=== PATIENT | male | born 1945 | race Caucasian/White ===

== ENCOUNTER → 2016-12-22 | Outpatient (CLI) | payer MEDICARE ==
--- NOTE | 2016-12-23 06:51 | PE ---
EXAMINATION TYPE: PET CT fusion skull to thigh DATE OF EXAM: 12/22/2016 1:26 PM CLINICAL HISTORY: Abnormal CT, right lung solitary pulmonary nodule. TECHNIQUE: Following the intravenous administration of 9.78 mCi of F-18 FDG, whole body images are performed from the skull base to the midthigh. Images are reviewed on the computer in the coronal, a xial, and sagittal planes. Reconstructed rotating images are created on independent workstation and reviewed on the computer. A non-contrast CT is performed in conjunction with the PET scan. COMPARISON: Chest CT February 29, 2016. Older chest CT August 09, 2012. FINDINGS: SKULL BASE AND NECK: No suspicious hypermetabolic uptake is seen in the neck to suggest neck adenopa thy. CHEST, MEDIASTINUM, AND HILAR REGION: There is background of moderate upper lung emphysematous change with biapical fibrosis. A 6 mm nodule in the superior aspect right lower lobe on axial image 81 prio r study is less prominent on current study without abnormal hypermetabolic uptake. No suspicious hype rmetabolic uptake is seen in the chest. There is redemonstration of oval well-circumscribed low dense nodule lateral right lower lobe on axial image 143 measuring 3.1 x 1.6 cm without abnormal hypermeta bolic uptake to suggest malignancy . There is persistent tiny right pleural effusion. ABDOMEN AND PELVIS: No suspicious hypermetabolic uptake is seen in the abdomen or pelvis. OSSEOUS STRUCTURES: No suspicious hypermetabolic uptake is seen in osseous structures. OTHER CT: There is redemonstration of cardiomegaly with multi lead pacemaker. Post CABG changes with mediastinal clips and sternal wires is again seen. There is redemonstration of heterogeneous enlarged left thyroid with some calcifications and substern al extension felt to reflect goiter unchanged from 2012 study. Small degree of bilateral gynecomastia is redemonstrated. There is multilevel facet arthropathy in the lower lumbar spine. There is multilevel spurring in the mid to lower thoracic spine. IMPRESSION: No suspicious hypermetabolic uptake is seen to suggest malignancy with particular attenti on to the right lateral basilar pulmonary nodule at area of CT concern.
== END | disposition home or self-care (01) ==
LOC: RADPETMAIN 10:22
PROVIDERS: ATTEND Internal Medicine Sleep Medicine
DX: R91.1 Solitary pulmonary nodule (principal); R59.0 Localized enlarged lymph nodes
CPT/HCPCS: 78815; A9552

== ENCOUNTER → 2017-04-05 | Outpatient (CLI) | payer MEDICARE ==
--- NOTE | 2017-04-05 13:14 | CT ---
EXAMINATION TYPE: CT chest wo con DATE OF EXAM: 04/05/2017 COMPARISON: CTA chest February 29, 2016 and older study August 09, 2012. PET/CT December 22, 2016 HISTORY: Follow-up pulmonary nodule. CT DLP: 657.00 mGycm. Automated Exposure Control for Dose Reduction was Utilized. TECHNIQUE: CT scan of the thorax is performed without IV contrast. FINDINGS: LUNGS: Underlying emphysematous change is felt present. There is tiny right-sided pleural fusion or f luid collection. There is 2.6 x 1.8 cm subpleural nodule laterally right lung base on axial image 51 on current study less prominent in size versus prior CT. There is reticulation and subpleural fibrosi s in bilateral upper lobes. There is stable pleural-based scar opacity left upper lung laterally on a xial image 15 unchanged from recent PET/CT. No new nodule or mass is clearly present. No pneumothorax is seen bilaterally. MEDIASTINUM: Lack of IV contrast is noted to limit evaluation for mediastinal and especially hilar ad enopathy. There is stable 2.7 x 1.1 cm paraspinal lymph node on axial image 22 that does not show hyp ermetabolic uptake on PET CT. There are prominent additional but subcentimeter thoracic lymph nodes r edemonstrated. No cardiomegaly or pericardial effusion is seen. There is moderate right greater tyree n left biatrial dilatation. Diffuse coronary artery calcification is present. There are however post CABG changes with mediastinal clips and sternal wires noted. Heterogeneous enlarged left thyroid glan d with substernal extension is redemonstrated. Pacemaker device is redemonstrated. OTHER: Bilateral gynecomastia is present. Moderate multilevel spurring in the spine is present. IMPRESSION: Redemonstration of ametabolic right basilar pulmonary nodule not changed from PET CT, les s prominent in size versus feb [address] No new mass or adenopathy is present.
== END | disposition home or self-care (01) ==
LOC: RADCTMAIN 12:10
PROVIDERS: ATTEND Internal Medicine Sleep Medicine
DX: R91.1 Solitary pulmonary nodule (principal)
CPT/HCPCS: 71250

== ENCOUNTER 2017-07-02 16:21 | Emergency (ER) | payer MEDICARE ==
[2017-07-02 16:37] VITALS: BP 121/67; PULSE 75; RESP 18; TEMP 97.7
[2017-07-02] MEDS ORDERED: SULFAMETH-TMP DS STARTER PACK 2 TAB BTL PO STA (16:49)
--- NOTE | 2017-07-02 16:59 | ED ---
General Adult HPI - General Chief complaint: Extremity Injury, Lower Stated complaint: bump on leg Time Seen by Provider: 07/02/17 16:43 Source: patient Mode of arrival: ambulatory Limitations: no limitations - History of Present Illness Initial comments: Patient is a 72-year-old male with a past medical history of insulin-dependent diabetes and MRSA infection status post surgery. Patient presents to the emergency department for evaluation of a tender red spot on his right anterior tibia. Patient reports he was in his usual state of health yesterday woke up this morning and noticed a small red spot that he thought could've been a bug bite. Throughout the day despite has become larger and redder which prompted him to come to the emergency department for evaluation. Patient states that because he is diabetic with peripheral neuropathy his primary care physician has talked him to have any redness of his legs or feet evaluated emergently. Patient denies any other symptoms. He denies any fevers, chills, nausea, vomiting, chest pain or shortness of breath. He denies any possible injury to the leg. - Related Data Home Medications Medication Instructions Recorded Confirmed Spironolactone [Aldactone] 25 mg PO DAILY 06/15/14 07/19/16 Venlafaxine HCl [Effexor] 75 mg PO HS 06/15/14 07/19/16 Lisinopril [Prinivil] 2.5 mg PO DAILY 06/17/14 07/19/16 Gabapentin [Neurontin] 300 mg PO BID 03/03/15 07/19/16 metFORMIN HCL [metFORMIN HCL ER] 750 mg PO BID 03/03/15 07/19/16 Insulin Glargine [Lantus] 20 unit SQ HS 02/21/16 07/19/16 Isosorbide Mononitrate ER [Imdur] 60 mg PO DAILY 02/21/16 07/19/16 sitaGLIPtin PHOS/metFORMIN HCL 1 tab PO DAILY 02/21/16 07/19/16 [Janumet Xr 100-1,000 mg Tablet] Albuterol Inhaler [Ventolin Hfa 2 puff INHALATION DIRECTED PRN 07/18/1607/18 Inhaler] Albuterol Nebulized [Ventolin 1 applic INHALATION 5XD PRN 07/18/16 07/19/16 Nebulized] Carvedilol [Coreg] 6.25 mg PO BID 07/18/16 07/19/16 Rivaroxaban [Xarelto] 20 mg PO DAILY 07/18/16 07/19/16 Previous Rx's Medication Instructions Recorded Aspirin 81 mg PO DAILY #30 chew 02/24/16 Atorvastatin [Lipitor] 80 mg PO HS #30 tab 02/24/16 Nitroglycerin Sl Tabs [Nitrostat] 0.4 mg SUBLINGUAL Q5M PRN #25 tab 02/24/16 Ticagrelor [Brilinta] 90 mg PO BID #60 tab 02/24/16 Furosemide [Lasix] 40 mg PO BID@0900,1600 #60 tab 03/03/16 Sulfamethox-Tmp 800-160Mg [Bactrim 1 tab PO Q12HR #14 tab 07/02/17 DS 800-160 mg] Sulfamethox-Tmp 800-160Mg [Bactrim 1 tab PO Q12HR #14 tab 07/02/17 DS 800-160 mg] Allergies Allergy/AdvReac Type Severity Reaction Status Date / Time No Known Allergies Allergy Verified 07/18/16 13:25 Review of Systems ROS Statement: Those systems with pertinent positive or pertinent negative responses have been documented in the HPI. ROS Other: All systems not noted in ROS Statement are negative. Constitutional: Denies: fever, chills Respiratory: Denies: cough, dyspnea Cardiovascular: Denies: chest pain, palpitations Endocrine: Denies: fatigue Gastrointestinal: Denies: abdominal pain, nausea, vomiting Genitourinary: Denies: dysuria Musculoskeletal: Denies: back pain Skin: Reports: change in color Psychiatric: Denies: anxiety, depression Hematological/Lymphatic: Denies: easy bleeding, easy bruising Past Medical History Past Medical History: COPD, Diabetes Mellitus, Osteoarthritis (OA), Skin Disorder, Sleep Apnea/CPAP/BIPAP Additional Past Medical History / Comment(s): SEE DR THOMAS H&P, psoriasis, neuropathy RT HAND LEFT FOOT, STATES REMOVED NICOLE BIG TOENAILS History of Any Multi-Drug Resistant Organisms: MRSA Date of last positivie culture/infection: 2011 MDRO Source:: chest incision Past Surgical History: AICD, Back Surgery, Coronary Bypass/CABG, Heart Catheterization With Stent Additional Past Surgical History / Comment(s): 3 STENTS, quad bypass, heart valve repair Past Anesthesia/Blood Transfusion Reactions: No Reported Reaction Date of Last Stent Placement:: 02/2016 Type of Cardiac Device: AICD Device Placement Date:: 2012 Past Psychological History: Depression, PTSD Smoking Status: Former smoker - Past Family History Father Family Medical History: Congestive Heart Failure (CHF), Coronary Artery Disease (CAD), Diabetes Mellitus, Myocardial Infarction ([place]) Additional Family Medical History / Comment(s): MAC DEGENERATION, CABG Mother Family Medical History: Dementia General Exam Limitations: no limitations General appearance: alert, in no apparent distress Head exam: Present: atraumatic, normocephalic, normal inspection Eye exam: Present: normal appearance ENT exam: Present: normal exam Neck exam: Present: normal inspection, full ROM Respiratory exam: Present: normal lung sounds bilaterally. Absent: respiratory distress, wheezes, rales, rhonchi, stridor Cardiovascular Exam: Present: regular rate, normal rhythm, normal heart sounds. Absent: systolic murmur, diastolic murmur, rubs, gallop, clicks GI/Abdominal exam: Present: soft. Absent: distended, tenderness, guarding Rectal exam: Present: deferred Extremities exam: Present: normal inspection, full ROM, normal capillary refill. Absent: tenderness, pedal edema, joint swelling, calf tenderness Back exam: Present: normal inspection Neurological exam: Present: alert, oriented X3, CN II-XII intact Psychiatric exam: Present: normal affect, normal mood Skin exam: Present: warm, dry, intact, other (Right anterior tibia with area of erythema and induration, consistent with cellulitis. No discernable abscess. ). Absent: rash Course Vital Signs 07/02/17 16:33 Temperature 97.7 F Pulse Rate 75 Respiratory 18 Rate Blood Pressure 121/67 O2 Sat by Pulse 91 L Oximetry Medical Decision Making - Medical Decision Making Patient was seen and evaluated Vital signs were reviewed, afebrile, normotensive, non-tachycardic, Oxygen saturation was noted to be 91% but the patient is having no shortness of breath History and physical exam are consistent with cellulitis of the right anterior pretibial skin, there is no discernible abscess Borders of the cellulitis were marked with a permanent marker and dated Patient was advised that he should take pictures of the cellulitis daily and should follow up with his primary care physician in 2 days for reevaluation A first dose of oral Bactrim was ordered in the emergency department, the patient was discharged home on by mouth Bactrim Disposition Clinical Impression: Cellulitis of leg without foot Disposition: HOME SELF-CARE Condition: Good Instructions: Cellulitis (ED) Prescriptions: Sulfamethox-Tmp 800-160Mg [Bactrim DS 800-160 mg] 1 tab PO Q12HR #14 tab Sulfamethox-Tmp 800-160Mg [Bactrim DS 800-160 mg] 1 tab PO Q12HR #14 tab Referrals: Liss Evangelista MD [Primary Care Provider] - 1-2 days
== END 2017-07-02 17:17 | disposition home or self-care (01) ==
LOC: EC 16:21
DX: L03.115 Cellulitis of right lower limb (principal); F32.9 Major depressive disorder, single episode, unspecified; E11.42 Type 2 diabetes mellitus with diabetic polyneuropathy; Z86.14 Personal history of Methicillin resistant Staphylococcus aureus infection; Z87.891 Personal history of nicotine dependence; Z79.4 Long term (current) use of insulin; Z79.01 Long term (current) use of anticoagulants; Z79.84 Long term (current) use of oral hypoglycemic drugs; Z79.899 Other long term (current) drug therapy
CPT/HCPCS: 99283

== ENCOUNTER 2017-07-10 12:50 | Emergency (ER) | payer MEDICARE ==
--- NOTE | 2017-07-10 14:38 | ED ---
Skin/Abscess/FB HPI - General Chief complaint: Skin/Abscess/Foreign Body Stated complaint: Leg Infection Time Seen by Provider: 07/10/17 14:30 Source: patient, RN notes reviewed Mode of arrival: ambulatory Limitations: no limitations - History of Present Illness Initial comments: 72-year-old male presents emergency Department with chief complaint of infection to his right leg. Patient states he is started on antibiotics last week. Patient did see PCP who told do warm compresses and which was improving denies worsen and is worse and initially started. Patient is currently still taking Bactrim. Patient states that he is a diabetic but denies any fever or chills. Denies any open wounds he states this is an area of redness and swelling on the anterior surface of his right tib-fib region - Related Data Home Medications Medication Instructions Recorded Confirmed Spironolactone [Aldactone] 25 mg PO DAILY 06/15/14 07/10/17 Venlafaxine HCl [Effexor] 75 mg PO HS 06/15/14 07/10/17 Lisinopril [Prinivil] 2.5 mg PO DAILY 06/17/14 07/10/17 metFORMIN HCL [metFORMIN HCL ER] 750 mg PO BID 03/03/15 07/10/17 Insulin Glargine [Lantus] 20 unit SQ HS 02/21/16 07/10/17 Isosorbide Mononitrate ER [Imdur] 60 mg PO DAILY 02/21/16 07/10/17 Albuterol Inhaler [Ventolin Hfa 2 puff INHALATION RT-Q4H PRN 07/18/16 07/10/17 Inhaler] Carvedilol [Coreg] 6.25 mg PO BID 07/18/16 07/10/17 Rivaroxaban [Xarelto] 20 mg PO DAILY 07/18/16 07/10/17 Budesonide [Pulmicort] 0.5 mg INHALATION RT-BID 07/10/17 07/10/17 Clopidogrel [Plavix] 75 mg PO DAILY 07/10/17 07/10/17 Dulaglutide [Trulicity] 1.5 mg SQ Q14D 07/10/17 07/10/17 Empagliflozin [Jardiance] 10 mg PO DAILY 07/10/17 07/10/17 Furosemide [Lasix] 20 mg PO DAILY 07/10/17 07/10/17 Montelukast Sodium [Singulair] 10 mg PO HS 07/10/17 07/10/17 Pregabalin [Lyrica] 25 mg PO TID 07/10/17 07/10/17 Previous Rx's Medication Instructions Recorded Aspirin 81 mg PO DAILY #30 chew 02/24/16 Atorvastatin [Lipitor] 80 mg PO HS #30 tab 02/24/16 Nitroglycerin Sl Tabs [Nitrostat] 0.4 mg SUBLINGUAL Q5M PRN #25 tab 02/24/16 Clindamycin HCl 300 mg PO Q6HR #40 cap 07/10/17 Allergies Allergy/AdvReac Type Severity Reaction Status Date / Time No Known Allergies Allergy Verified 07/10/17 15:22 Review of Systems ROS Statement: Those systems with pertinent positive or pertinent negative responses have been documented in the HPI. ROS Other: All systems not noted in ROS Statement are negative. Past Medical History Past Medical History: COPD, Diabetes Mellitus, Osteoarthritis (OA), Skin Disorder, Sleep Apnea/CPAP/BIPAP Additional Past Medical History / Comment(s): SEE DR THOMAS H&P, psoriasis, neuropathy RT HAND LEFT FOOT, STATES REMOVED NICOLE BIG TOENAILS History of Any Multi-Drug Resistant Organisms: MRSA Date of last positivie culture/infection: 2011 MDRO Source:: chest incision Past Surgical History: AICD, Back Surgery, Coronary Bypass/CABG, Heart Catheterization With Stent Additional Past Surgical History / Comment(s): 3 STENTS, quad bypass, heart valve repair Past Anesthesia/Blood Transfusion Reactions: No Reported Reaction Date of Last Stent Placement:: 02/2016 Type of Cardiac Device: AICD Device Placement Date:: 2012 Past Psychological History: Depression, PTSD Smoking Status: Former smoker Past Alcohol Use History: Rare Past Drug Use History: None Reported - Past Family History Father Family Medical History: Congestive Heart Failure (CHF), Coronary Artery Disease (CAD), Diabetes Mellitus, Myocardial Infarction ([place]) Additional Family Medical History / Comment(s): MAC DEGENERATION, CABG Mother Family Medical History: Dementia General Exam Limitations: no limitations General appearance: alert, in no apparent distress Head exam: Present: atraumatic, normocephalic, normal inspection Respiratory exam: Present: normal lung sounds bilaterally. Absent: respiratory distress, wheezes, rales, rhonchi, stridor Cardiovascular Exam: Present: regular rate, normal rhythm, normal heart sounds. Absent: systolic murmur, diastolic murmur, rubs, gallop, clicks Extremities exam: Present: other (Right lower leg over the anterior surface of tib-fib areas 3 cm area with erythema and swelling, mildly fluctuant and boggy there is no calf tenderness pedal pulses equal bilaterally) Skin exam: Present: warm, dry Course Vital Signs 07/10/17 13:43 Temperature 98.8 F Pulse Rate 79 Respiratory 18 Rate Blood Pressure 119/63 O2 Sat by Pulse 96 Oximetry Medical Decision Making - Medical Decision Making 72-year-old male present emergency from for right leg swelling and redness recheck. There is no fluid collection there is only superficial cellulitis. This is not spreading in any direction's there is no lymph nodes noted. Patient 's labwork is reviewed with no major abnormality's. Patient we switched to clindamycin 4 times a day with continuation warm compresses and follow-up with primary care physician for recheck. - Lab Data Result diagrams: 07/10/17 14:25 07/10/17 14:25 Lab Results 07/10/17 07/10/17 Range/Units 14:25 14:25 WBC 13.6 H (3.8-10.6) k/uL RBC 5.63 (4.30-5.90) m/uL Hgb 16.0 (13.0-17.5) gm/dL Hct 50.3 (39.0-53.0) % MCV 89.3 (80.0-100.0) fL MCH 28.4 (25.0-35.0) pg MCHC 31.8 (31.0-37.0) g/dL RDW 15.1 (11.5-15.5) % Plt Count 535 H (150-450) k/uL Neutrophils % 76 % Lymphocytes % 13 % Monocytes % 7 % Eosinophils % 2 % Basophils % 1 % Neutrophils # 10.3 H (1.3-7.7) k/uL Lymphocytes # 1.7 (1.0-4.8) k/uL Monocytes # 0.9 (0-1.0) k/uL Eosinophils # 0.3 (0-0.7) k/uL Basophils # 0.1 (0-0.2) k/uL Sodium 136 L (137-145) mmol/L Potassium 5.3 H (3.5-5.1) mmol/L Chloride 98 (98-107) mmol/L Carbon Dioxide 21 L (22-30) mmol/L Anion Gap 17 mmol/L BUN 17 (9-20) mg/dL Creatinine 1.01 (0.66-1.25) mg/dL Est GFR (MDRD) Af Amer >60 (>60 ml/min/1.73 sqM) Est GFR (MDRD) Non-Af >60 (>60 ml/min/1.73 sqM) Glucose 190 H (74-99) mg/dL Calcium 10.2 (8.4-10.2) mg/dL Disposition Clinical Impression: Cellulitis of leg without foot Disposition: HOME SELF-CARE Condition: Stable Instructions: Cellulitis (ED) Additional Instructions: Please return to the Emergency Department if symptoms worsen or any other concerns. Prescriptions: Clindamycin HCl 300 mg PO Q6HR #40 cap Referrals: Liss Evangelista MD [Primary Care Provider] - 1-2 days Time of Disposition: 15:48
[2017-07-10 14:59] LABS: Basophils # (A) 0.1 k/uL (0-0.2); Basophils % (A) 1 %; CH 28.4; Eosinophils # (A) 0.3 k/uL (0-0.7); Eosinophils % (A) 2 %; HCT 50.3 % (39.0-53.0); HDW 2.54; Luc # (Auto) 0.27; Luc % (Auto) 2; Lymphocytes # (A) 1.7 k/uL (1.0-4.8); Lymphocytes % (A) 13 %; MCH 28.4 pg (25.0-35.0); MCHC 31.8 g/dL (31.0-37.0); MCV 89.3 fL (80.0-100.0); Mean Platelet Volume 6.3; Monocytes # (A) 0.9 k/uL (0-1.0); Monocytes % (A) 7 %; Neutrophils # (A) 10.3 k/uL (1.3-7.7); Neutrophils % (A) 76 %; RBC 5.63 m/uL (4.30-5.90); RDW 15.1 % (11.5-15.5); WBC 13.6 k/uL (3.8-10.6); WBC (Perox) 13.11
[2017-07-10 15:20] LABS: Anion Gap 17 mmol/L; Blood Urea Nitrogen 17 mg/dL (9-20); Calcium 10.2 mg/dL (8.4-10.2); Carbon Dioxide 21 mmol/L (22-30); Chloride 98 mmol/L (98-107); Glucose 190 mg/dL (74-99); Non-African American GFR(MDRD) >60 (>60 ml/min/1.73 sqM); Potassium 5.3 mmol/L (3.5-5.1); Sodium 136 mmol/L (137-145)
--- NOTE | 2017-07-10 15:33 | XR ---
EXAMINATION TYPE: XR tibia fibula RT DATE OF EXAM: 07/10/2017 CLINICAL HISTORY: Redness with bruising and pain. TECHNIQUE: Two views of the right leg are obtained. COMPARISON: None. FINDINGS: There is no acute fracture or dislocation seen in the right tibia or fibula. There is meni scal calcification with tibial condylar spurring. There is spurring from the patella superior and inf erior anterior aspects. Surgical clips medially in the distal right leg are present. Visualization of muscle fibers is noted diffusely. Moderate to large superior and inferior calcaneal spurs are presen t. IMPRESSION: There is no acute fracture or dislocation seen in the right tibia or fibula.
--- NOTE | 2017-07-10 15:34 | US ---
EXAMINATION TYPE: US extremity nonvasc mass RT DATE OF EXAM: 07/10/2017 COMPARISON: NONE CLINICAL HISTORY: Pain, palpable red lump on right guidry. Small amount of edema visualized at the area of concern, otherwise, unremarkable exam. No worrisome focal fluid collection is seen on images saved. Subcutaneous edema just below skin surfa ce is present. Muscle fibers are felt within normal limits. IMPRESSION: As above.
[2017-07-10 15:57] VITALS: BP 130/80; PULSE 75; RESP 16; TEMP 98
== END 2017-07-10 15:56 | disposition home or self-care (01) ==
LOC: EC 12:50
DX: L03.115 Cellulitis of right lower limb (principal); J44.9 Chronic obstructive pulmonary disease, unspecified; E11.40 Type 2 diabetes mellitus with diabetic neuropathy, unspecified; F32.9 Major depressive disorder, single episode, unspecified; Z86.14 Personal history of Methicillin resistant Staphylococcus aureus infection; Z87.891 Personal history of nicotine dependence; Z79.4 Long term (current) use of insulin; Z79.84 Long term (current) use of oral hypoglycemic drugs; Z79.01 Long term (current) use of anticoagulants; Z79.51 Long term (current) use of inhaled steroids; Z79.899 Other long term (current) drug therapy
CPT/HCPCS: 36415; 80048; 85025; 99284

== ENCOUNTER → 2017-11-04 | Outpatient (CLI) | payer MEDICARE ==
--- NOTE | 2017-11-04 14:17 | CT ---
EXAMINATION TYPE: CT chest wo con DATE OF EXAM: 11/04/2017 COMPARISON: Prior CT chest 04/05/2017 HISTORY: Prior in PACS. Solitary pulmonary nodule. Patient states hx of pneumonia CT DLP: 677.3 mGycm. Automated Exposure Control for Dose Reduction was Utilized. TECHNIQUE: CT scan of the thorax is performed without IV contrast. FINDINGS: Enlarged thyroid, goiter which extends into the superior mediastinum is again noted, there is associated calcification LUNGS: The lungs are grossly stable, there is no concerning parenchymal mass or nodule identified. Th e nodular density in the subpleural location of the right lower lobe shows a stable appearance. Ther e is no pleural effusion or pneumothorax seen. Chronic pleural thickening noted at the right lung ba se. Some interstitial opacities are also stable bilaterally. Nodule in the right lower lobe axial debbie ge 29 is also stable. Emphysematous changes again noted. The tracheobronchial tree is patent. MEDIASTINUM: Lack of IV contrast is noted to limit evaluation for mediastinal and especially hilar ad enopathy. Retrocaval pretracheal node is enlarged but stable, there are aortic oh pulmonary window no brisa, prevascular nodes as on prior exam. Patient is post mitral valve replacement. Heart is enlarged. OTHER: Patient is post median sternotomy. Coronary artery calcifications are extensive. Intracardiac defibrillator leads are stable. IMPRESSION: Stable lung nodules. Interstitial lung disease. Additional findings above.
== END | disposition home or self-care (01) ==
LOC: RADCTMAIN 13:15
PROVIDERS: ATTEND Internal Medicine Sleep Medicine
DX: J98.4 Other disorders of lung (principal); R91.8 Other nonspecific abnormal finding of lung field
CPT/HCPCS: 71250

== ENCOUNTER → 2017-12-05 | Outpatient (CLI) | payer MEDICARE ==
--- NOTE | 2017-12-06 07:20 | US ---
EXAMINATION TYPE: US thyroid st tissue head/neck DATE OF EXAM: 12/05/2017 COMPARISON: NONE CLINICAL HISTORY: E04.9 Nontoxic Goiter. Enlarged thyroid GLAND SIZE: Right Lobe: 4.2 x 2.0 x 2.0 cm Overall Parenchyma: heterogenous Left Lobe: 5.6 x 3.5 x 3.2 cm Overall Parenchyma: heterogeneous Enlarged in size Isthmus Thickness: 0.4 cm NODULES RIGHT: # of nodules measured on right: 2 1. 0.7 X 0.5 x 0.5 cm hypoechoic mixed nodule at the mid pole with well-defined margins. This nodu le is taller than wide and shows no intranodular vascularity. Prior size: No prior 2. 0.5 X 0.5 x 0.3 cm cystic nodule at the lower pole with well-defined margins. This nodule is dl ler than wide and shows no intranodular vascularity. Prior size: No prior LEFT: # of nodules measured on left: 1 1. 3.0 X 2.9 x 3.0 cm isoechoic solid nodule at the lower pole with irregular margins. This nodule is taller than wide and shows no intranodular vascularity. Prior size: No prior Limited visualization due to being located inferiorly to neck ISTHMUS: # of nodules measured in the isthmus: 0 Bilateral neck scanned, no evidence of lymphadenopathy. Right lobe echogenic focus with shadowing - 0.5 cm IMPRESSION: 1. 3 cm isoechoic left thyroid nodule fitting criteria for fine needle aspiration and therefore fine needle aspiration is recommended. 2. Multiple subcentimeter right-sided thyroid nodules with more benign characteristics that are too s mall for percutaneous fine-needle aspiration. Surveillance is recommended. 3. Enlarged left thyroid lobe without hypervascularity.
== END | disposition home or self-care (01) ==
LOC: RADUSWWP 16:32
PROVIDERS: ATTEND Family Medicine
DX: E04.2 Nontoxic multinodular goiter (principal)
CPT/HCPCS: 76536

== ENCOUNTER 2017-12-25 11:42 | Day surgery (SDC) | payer MEDICARE ==
[2017-12-24 09:41] VITALS: BMI 34.3
[~2017-12-25 11:42] MED LIST: ALPRAZolam 0.25 MG TAB PO PRN; ASPIRIN 325 MG TAB PO STA; SODIUM CHLORIDE 0.9% 1,000 ML in EMPTY BAG 1 BAG IV ONE
[2017-12-25 14:13] LABS: Glucose,Whole Blood 161 mg/dL (75-99)
[2017-12-25] MEDS ORDERED: SODIUM CHLORIDE 0.9% 1,000 ML IV ONE (14:19)
[2017-12-25 14:31] LABS: Anion Gap 14 mmol/L; Blood Urea Nitrogen 20 mg/dL (9-20); Calcium 9.6 mg/dL (8.4-10.2); Carbon Dioxide 28 mmol/L (22-30); Chloride 98 mmol/L (98-107); Glucose 129 mg/dL (74-99); Potassium 4.4 mmol/L (3.5-5.1); Sodium 140 mmol/L (137-145)
[2017-12-25 14:50] LABS: Basophils # (A) 0.1 k/uL (0-0.2); Basophils % (A) 1 %; Eosinophils # (A) 0.2 k/uL (0-0.7); Eosinophils % (A) 2 %; HCT 42.9 % (39.0-53.0); HGB 13.9 gm/dL (13.0-17.5); Hypochromasia Slight; Lymphocytes # (A) 1.4 k/uL (1.0-4.8); Lymphocytes % (A) 15 %; MCHC 32.5 g/dL (31.0-37.0); Mean Platelet Volume 6.9; Monocytes # (A) 0.8 k/uL (0-1.0); Monocytes % (A) 8 %; Neutrophils # (A) 6.8 k/uL (1.3-7.7); Neutrophils % (A) 72 %; Platelet Count 342 k/uL (150-450); RBC 5.36 m/uL (4.30-5.90); RDW 15.2 % (11.5-15.5); WBC 9.5 k/uL (3.8-10.6)
[2017-12-25] MEDS ORDERED: LIDOCAINE 2% INJ 20 MG/ML SQ ONE (19:05)
[2017-12-25] MEDS ORDERED: MIDAZOLAM 2 MG/2 ML VIAL IVP ONE (19:06)
[2017-12-25] MEDS ORDERED: HEPARIN SODIUM 1,000 UN/ML (10ML VL) IV ONE (19:09)
[2017-12-25] MEDS ORDERED: NITROGLYCERIN 1000MCG/10ML SYRINGE INTRAARTER ONE (19:40)
[2017-12-25] MEDS ORDERED: CLOPIDOGREL 75 MG TAB PO ONE (20:07)
[2017-12-25] MEDS ORDERED: IODIXANOL 320 MG/ML 100 ML INTRAARTER ONE (20:08)
[2017-12-25] MEDS ORDERED: ALBUTEROL NEBULIZED 2.5 MG/3 ML INHALATION PRN (20:10)
[2017-12-25] MEDS ORDERED: NITROGLYCERIN SL TABS 0.4 MG TAB SUBLINGUAL PRN (20:10)
[2017-12-25] MEDS ORDERED: SODIUM CHLORIDE 0.9% 1,000 ML IV SCH (20:15)
[2017-12-25] MEDS ORDERED: NON-FORMULARY DRUG (Dulaglutide [Trulicity] 1.5 MG) SQ SCH (20:15)
[2017-12-25 20:54] VITALS: RESP 18
[2017-12-25] MEDS ORDERED: INSULIN DETEMIR 100 UNIT/ML 10 ML VIAL SQ SCH (21:00)
[2017-12-25] MEDS ORDERED: VENLAFAXINE HCL 75 MG TAB PO SCH (21:00)
[2017-12-25] MEDS ORDERED: ATORVASTATIN 80 MG TAB PO SCH (21:00)
[2017-12-25] MEDS ORDERED: MONTELUKAST 10 MG TAB PO SCH (21:00)
[2017-12-25 21:09] LABS: Glucose,Whole Blood 87 mg/dL (75-99)
[2017-12-25] MEDS: PREGABALIN 75 MG CAP PO SCH (21:23)
--- NOTE | 2017-12-25 22:38 | LTR ---
December 25, 2017. Liss Evangelista MD Dear Dr. Evangelista: Mr. Navin Saha underwent successful atherectomy and balloon angioplasty of the left femoral artery with good angiographic results and without any complications. I want to thank you for allowing us to participate in his care. Please do not hesitate to call if you have any questions or concerns. Sincerely, Javier Stevenson MD MMTANJA / MILAGROS: [id number] /
--- NOTE | 2017-12-25 23:53 | PTCA ---
PERCUTANEOUSTRANS CORORONARY ANGIOGRAPHY PERFORMING PHYSICIAN: Javier Stevenson MD, knuckle bender. PROCEDURES PERFORMED: 1. Selective left superficial femoral artery angiogram. 2. Selective left [id number] angiogram. 3. An atherectomy of the left superficial femoral artery using the using the orbital atherectomy device from [employer]. 4. Intravascular ultrasound IVUS of the left superficial femoral artery. 5. Balloon angioplasty of the left superficial femoral artery using 6 x 40-mm balloon with inadequate angiographic results. 6. Successful stenting of the left superficial femoral artery using 7 x 60-mm self- expandable stent which was Zilver PTX with a good angiographic result. INDICATION: This is a pleasant 72-year-old gentleman who was experiencing left leg intermittent claudication and underwent a peripheral angiogram and that revealed discrete tight lesion involving left SFA. He was brought today to undergo a NCA CERTIFIED CONCIERGE of the left SFA. APPROACH: Right common femoral artery. COMPLICATION: None. LEVEL OF SEDATION: Moderate. Sedation length of 53 minutes. PROCEDURE DESCRIPTION: After obtaining an informed consent, the patient was brought to the cardiac laborer airport maintenance. The right common femoral artery was cannulated. Using micropuncture technique, the micropuncture wire passed easily. Then I placed an 11 cm 6-Kenyan sheath in the right common femoral artery. After that, anticoagulation was initiated using heparin and the patient was given a weight-based heparin. Subsequently I did select the left SFA using a 0.035 Advantage wire with adjunctive 5- Kenyan rim catheter. After that, I did exchange my 11-cm 6-Kenyan sheath into 55-cm 6- Kenyan sheath using the Advantage wire. After that, I did wire the left SFA using an 0.014 wire. I then exchanged my wire into a viper Wire using an 0.014 CXI catheter. After that, I did multiple runs of orbital atherectomy using the CSI device, where I did atherectomy under low, medium and high speeds. After that, I did intravascular ultrasound of the left SFA using the intravascular and an eccentric plaque was seen with a diameter measure of the left SFA of 67 mm. I did balloon the SFA using initially an AngioSculpt 6-mm balloon subsequently using 6-mm drug-coated balloon. The following angiogram did not show a good angiographic result or adequate angiographic result. At that point, I decided to stent the left SFA, so I did deploy a 7 x 60-mm Zilver PTX drug-coated stent, where the stent was positioned under fluoroscopy guidance and deployed after that. The following angiogram showed good angiographic results. The procedure was completed without any complication. After that, I did exchange my 55-cm 6-Kenyan sheath into 11-cm 6-Kenyan sheath using the Advantage wire. After that, I did deploy the Perclose device. The procedure was completed without any complication. POST PROCEDURE MANAGEMENT: 1. Dual anti-platelet therapy. 2. Risk factor modifications. 3. Follow up with the patient. MMODL / IJN: [id number] /
[2017-12-26 04:46] VITALS: TEMP 97.1
[2017-12-26 06:14] LABS: Basophils # (A) 0.1 k/uL (0-0.2); Basophils % (A) 1 %; Eosinophils # (A) 0.3 k/uL (0-0.7); Eosinophils % (A) 3 %; HCT 43.9 % (39.0-53.0); HGB 14.1 gm/dL (13.0-17.5); Hypochromasia Slight; Lymphocytes # (A) 1.6 k/uL (1.0-4.8); Lymphocytes % (A) 17 %; MCH 25.7 pg (25.0-35.0); MCV 80.4 fL (80.0-100.0); Mean Platelet Volume 6.6; Monocytes # (A) 0.9 k/uL (0-1.0); Monocytes % (A) 10 %; Neutrophils # (A) 5.9 k/uL (1.3-7.7); Neutrophils % (A) 66 %; Platelet Count 340 k/uL (150-450); RBC 5.47 m/uL (4.30-5.90); RDW 15.1 % (11.5-15.5)
[2017-12-26 06:18] LABS: Glucose,Whole Blood 110 mg/dL (75-99)
[2017-12-26 06:37] LABS: Anion Gap 11 mmol/L; Blood Urea Nitrogen 22 mg/dL (9-20); Calcium 9.3 mg/dL (8.4-10.2); Carbon Dioxide 27 mmol/L (22-30); Chloride 102 mmol/L (98-107); Glucose 106 mg/dL (74-99); Potassium 4.5 mmol/L (3.5-5.1); Sodium 140 mmol/L (137-145)
[2017-12-26 07:24] VITALS: BP 98/62
[2017-12-26] MEDS ORDERED: CARVEDILOL 6.25 MG TAB PO SCH (07:30)
[2017-12-26] MEDS ORDERED: BUDESONIDE 0.5 MG/2 ML NEBU INHALATION SCH (08:00)
[2017-12-26] MEDS ORDERED: LISINOPRIL 2.5 MG TAB PO SCH (09:00)
[2017-12-26] MEDS ORDERED: FUROSEMIDE 20 MG TAB PO SCH (09:00)
[2017-12-26] MEDS ORDERED: ISOSORBIDE MONONITRATE ER 60 MG TAB.ER.24H PO SCH (09:00)
[2017-12-26] MEDS ORDERED: ASPIRIN 81 MG PO SCH (09:00)
[2017-12-26] MEDS ORDERED: CLOPIDOGREL 75 MG TAB PO SCH ×2 (09:00)
[2017-12-26 09:01] VITALS: PULSE 96
[2017-12-26] MEDS: PREGABALIN 75 MG CAP PO SCH (09:05)
--- NOTE | 2017-12-26 09:38 | IR ---
EXAMINATION TYPE: IR [place] femoral popliteal DATE OF EXAM: 12/25/2017 COMPARISON: NONE HISTORY: Peripheral vascular occlusive disease. Fluoroscopy was provided to the referring clinician. See dictated report from cardiology.
--- NOTE | 2017-12-26 09:48 | DS ---
DISCHARGE SUMMARY ADMISSION DATE: 12/25/2017 DISCHARGE DATE: 12/26/2017 BRIEF HISTORY: This is a pleasant 72-year-old gentleman who was experiencing left leg intermittent claudication and underwent yesterday A successful percutaneous peripheral intervention of the left SFA with good angiographic results and without any complication where the procedure was performed from the right groin. The patient is going to be discharged home on dual anti-platelet therapy and I will follow up with the patient as an outpatient in the office. MMTANJA / MILAGROS: [id number] /
[2017-12-26 12:05] LABS: Glucose,Whole Blood 169 mg/dL (75-99)
== END 2017-12-26 11:49 | disposition home or self-care (01) ==
LOC: CATHCVL 11:42 → 6SEL 20:41 → CATHCVL 12-26 11:49
PROVIDERS: ATTEND Internal Medicine Interventional Cardiology
DX: I70.312 Atherosclerosis of unspecified type of bypass graft(s) of the extremities with intermittent claudication, left leg (principal); I25.110 Atherosclerotic heart disease of native coronary artery with unstable angina pectoris; E11.9 Type 2 diabetes mellitus without complications; I10 Essential (primary) hypertension; E78.5 Hyperlipidemia, unspecified; I25.5 Ischemic cardiomyopathy; I48.92 Unspecified atrial flutter; I47.2 Ventricular tachycardia; I48.2 Chronic atrial fibrillation; Z95.1 Presence of aortocoronary bypass graft; Z95.5 Presence of coronary angioplasty implant and graft; Z95.810 Presence of automatic (implantable) cardiac defibrillator; Z82.49 Family history of ischemic heart disease and other diseases of the circulatory system; Z79.01 Long term (current) use of anticoagulants; Z79.02 Long term (current) use of antithrombotics/antiplatelets; Z79.82 Long term (current) use of aspirin; Z79.4 Long term (current) use of insulin; Z79.899 Other long term (current) drug therapy; Z87.891 Personal history of nicotine dependence
CPT/HCPCS: 94640; 37227; 37252; 80048 ×2; 83735; 85025 ×2; C1894 ×2; C1714; C1769 ×4; C1725; C1753; C1760; C1874; C2623; J2001; J2250; Q9967; J1644

== ENCOUNTER 2017-12-31 12:34 | Day surgery (SDC) | payer MEDICARE ==
[2017-12-31 12:54] VITALS: RESP 16; TEMP 97.5
[2017-12-31 14:02] VITALS: BP 91/49; PULSE 57
--- NOTE | 2017-12-31 17:36 | US ---
EXAMINATION TYPE: US FNA thyroid DATE OF EXAM: 12/31/2017 COMPARISON: Ultrasound thyroid 12/05/2017 HISTORY: Thyroid nodule, E04.1 Maximal barrier technique was utilized. Ultrasound using sterile technique. The skin overlying the no dule was localized with ultrasound and the overlying skin prepped and draped. Lidocaine used for loca l anesthesia. 5 passes with a 25-gauge needle were made into the left lower pole nodule under ultraso und guidance. Aspirate specimen submitted to cytology. Following the procedure hemostasis achieved. N o immediate complication IMPRESSION: Status post ultrasound-guided fine-needle aspiration of thyroid nodule, pathology pending .
== END 2017-12-31 14:13 | disposition home or self-care (01) ==
LOC: RADPROMAIN 12:34
DX: E04.1 Nontoxic single thyroid nodule (principal)
CPT/HCPCS: 10022; 76942; 88173; 88305

== ENCOUNTER 2018-04-10 14:19 | Inpatient (IN) | payer MEDICARE ==
[2018-04-10] MEDS ORDERED: SODIUM CHLORIDE 0.9% 1,000 ML IV STA (14:27)
[2018-04-10] MEDS ORDERED: IPRATROPIUM-ALBUTEROL 3 ML NEB INHALATION STA (14:28)
[2018-04-10 14:42] LABS: Anisocytosis Slight; Basophils % (A) 0 %; Eosinophils # (A) 0.3 k/uL (0-0.7); Eosinophils % (A) 3 %; HCT 38.5 % (39.0-53.0); HGB 11.7 gm/dL (13.0-17.5); Hypochromasia Marked; Lymphocytes # (A) 1.2 k/uL (1.0-4.8); Lymphocytes % (A) 12 %; MCH 23.1 pg (25.0-35.0); MCHC 30.4 g/dL (31.0-37.0); MCV 76.1 fL (80.0-100.0); Mean Platelet Volume 6.8; Microcytosis Slight; Monocytes # (A) 1.1 k/uL (0-1.0); Monocytes % (A) 11 %; Neutrophils # (A) 7.4 k/uL (1.3-7.7); Neutrophils % (A) 72 %; Platelet Count 249 k/uL (150-450); Poikilocytosis Slight; RBC 5.06 m/uL (4.30-5.90); RDW 18.1 % (11.5-15.5); WBC 10.2 k/uL (3.8-10.6)
[2018-04-10 14:46] LABS: INR 1.9 (<1.2); Partial Thromboplastin Time 34.6 sec (22.0-30.0)
[2018-04-10 14:48] LABS: ALT 20 U/L (21-72); AST 18 U/L (17-59); Albumin 3.6 g/dL (3.5-5.0); Alkaline Phosphatase 75 U/L (38-126); Anion Gap 13 mmol/L; Blood Urea Nitrogen 15 mg/dL (9-20); Calcium 8.8 mg/dL (8.4-10.2); Carbon Dioxide 25 mmol/L (22-30); Chloride 102 mmol/L (98-107); Glucose 99 mg/dL (74-99); Magnesium 2.2 mg/dL (1.6-2.3); Potassium 4.3 mmol/L (3.5-5.1); Sodium 140 mmol/L (137-145); Total Bilirubin 1.3 mg/dL (0.2-1.3); Total Protein 6.3 g/dL (6.3-8.2)
[2018-04-10 14:57] LABS: Creatine Kinase 23 U/L (55-170)
--- NOTE | 2018-04-10 15:09 | ED ---
General Adult HPI - General Chief complaint: Shortness of Breath Stated complaint: Sob Time Seen by Provider: 04/10/18 14:27 Source: patient, RN notes reviewed, old records reviewed Mode of arrival: EMS Limitations: no limitations - History of Present Illness Initial comments: This is a 72-year-old male the ER for evaluation. This patient is a for evaluation of possible CHF, patient has significant history of CHF, significant history of COPD. Patient was sent in by family doctor for evaluation regarding weight gain and concern for heart failure. No fevers no pain. Patient denies lower extremity edema. No recent change in medications - Related Data Home Medications Medication Instructions Recorded Confirmed Venlafaxine HCl [Effexor] 75 mg PO HS 06/15/14 12/31/17 Insulin Glargine [Lantus] 20 unit SQ HS 02/21/16 12/31/17 Isosorbide Mononitrate ER [Imdur] 60 mg PO DAILY 02/21/16 12/31/17 Albuterol Inhaler [Ventolin Hfa 2 puff INHALATION Q6HR PRN 07/18/16 12/24/17 Inhaler] Carvedilol [Coreg] 6.25 mg PO BID 07/18/16 12/31/17 Rivaroxaban [Xarelto] 20 mg PO DAILY 07/18/16 12/31/17 Budesonide [Pulmicort] 0.5 mg INHALATION BID PRN 07/10/17 12/31/17 Clopidogrel [Plavix] 75 mg PO DAILY 07/10/17 12/31/17 Dulaglutide [Trulicity] 1.5 mg SQ Q14D 07/10/17 12/31/17 Empagliflozin [Jardiance] 10 mg PO DAILY 07/10/17 12/31/17 Furosemide [Lasix] 20 mg PO DAILY 07/10/17 12/31/17 Montelukast Sodium [Singulair] 10 mg PO HS 07/10/17 12/31/17 Lisinopril [Zestril] 2.5 mg PO DAILY 12/24/17 12/31/17 Pregabalin [Lyrica] 75 mg PO BID 12/24/17 12/31/17 Previous Rx's Medication Instructions Recorded Aspirin 81 mg PO DAILY #30 chew 02/24/16 Atorvastatin [Lipitor] 80 mg PO HS #30 tab 02/24/16 Nitroglycerin Sl Tabs [Nitrostat] 0.4 mg SUBLINGUAL Q5M PRN #25 tab 02/24/16 Allergies Allergy/AdvReac Type Severity Reaction Status Date / Time No Known Allergies Allergy Verified 02/01/18 17:34 Review of Systems ROS Statement: Those systems with pertinent positive or pertinent negative responses have been documented in the HPI. ROS Other: All systems not noted in ROS Statement are negative. Past Medical History Past Medical History: Atrial Fibrillation, Coronary Artery Disease (CAD), Chest Pain / Angina, Heart Failure, COPD, Diabetes Mellitus, Hyperlipidemia, Hypertension, Osteoarthritis (OA), Pneumonia, Skin Disorder, Sleep Apnea/CPAP/ BIPAP, Thyroid Disorder, Vascular Disorder Additional Past Medical History / Comment(s): psoriasis, neuropathy RT HAND and LEFT FOOT, poor circulation left leg, gout, thyoid nodule, hx ingrown toenails zac great toes, uses O2 PRN. left leg iliac stent due to poor circulation 12/25/2017. History of Any Multi-Drug Resistant Organisms: MRSA Date of last positivie culture/infection: 2011 MDRO Source:: chest incision Past Surgical History: AICD, Back Surgery, Coronary Bypass/CABG, Heart Catheterization With Stent Additional Past Surgical History / Comment(s): 3 CARDIAC STENTS, quad bypass and heart valve repair 2011, Lt Fempop (1 stent placed) Past Anesthesia/Blood Transfusion Reactions: No Reported Reaction Date of Last Stent Placement:: 12/25/2017 Type of Cardiac Device: AICD Device Placement Date:: 2012 Past Psychological History: Depression, PTSD Smoking Status: Former smoker Past Alcohol Use History: None Reported Past Drug Use History: None Reported - Past Family History Father Family Medical History: Congestive Heart Failure (CHF), Coronary Artery Disease (CAD), Diabetes Mellitus, Myocardial Infarction ([place]) Additional Family Medical History / Comment(s): MAC DEGENERATION, CABG Mother Family Medical History: No Reported History General Exam Limitations: no limitations General appearance: alert, in no apparent distress Head exam: Present: atraumatic, normocephalic, normal inspection Eye exam: Present: normal appearance, PERRL, EOMI. Absent: scleral icterus, conjunctival injection, periorbital swelling ENT exam: Present: normal exam, mucous membranes moist Neck exam: Present: normal inspection. Absent: tenderness, meningismus, lymphadenopathy Respiratory exam: Present: normal lung sounds bilaterally. Absent: respiratory distress, wheezes, rales, rhonchi, stridor Cardiovascular Exam: Present: regular rate, normal rhythm, normal heart sounds. Absent: systolic murmur, diastolic murmur, rubs, gallop, clicks GI/Abdominal exam: Present: soft, normal bowel sounds. Absent: distended, tenderness, guarding, rebound, rigid Extremities exam: Present: normal inspection, full ROM, normal capillary refill. Absent: tenderness, pedal edema, joint swelling, calf tenderness Back exam: Present: normal inspection Neurological exam: Present: alert, oriented X3, CN II-XII intact Psychiatric exam: Present: normal affect, normal mood Skin exam: Present: warm, dry, intact, normal color. Absent: rash Course Vital Signs 04/10/18 04/10/18 04/10/18 14:21 14:28 15:19 Temperature 98.2 F Pulse Rate 68 78 Respiratory 16 22 Rate Blood Pressure 102/68 O2 Sat by Pulse 95 Oximetry 04/10/18 15:23 Temperature Pulse Rate 67 Respiratory 22 Rate Blood Pressure 109/73 O2 Sat by Pulse 98 Oximetry - Reevaluation(s) Reevaluation #1: 04/10/18 15:31 Medical record currently reviewed EKG Findings - EKG Comments: EKG Findings:: EKG shows A. fib rate of 73, QRS 104, QTc 471 Medical Decision Making - Medical Decision Making 72 male the ER for evaluation shortness of breath, increasing exertional dyspnea and 15-20 pound waking. Patient with positive CHF on x-ray, oxygen, 90 % 2 L, will admit for diauresis - Lab Data Result diagrams: 04/10/18 14:20 04/10/18 14:20 Lab Results 04/10/18 04/10/18 04/10/18 Range/Units 14:20 14:20 14:20 WBC 10.2 (3.8-10.6) k/uL RBC 5.06 (4.30-5.90) m/uL Hgb 11.7 L (13.0-17.5) gm/dL Hct 38.5 L (39.0-53.0) % MCV 76.1 L (80.0-100.0) fL MCH 23.1 L (25.0-35.0) pg MCHC 30.4 L (31.0-37.0) g/dL RDW 18.1 H (11.5-15.5) % Plt Count 249 (150-450) k/uL Neutrophils % 72 % Lymphocytes % 12 % Monocytes % 11 % Eosinophils % 3 % Basophils % 0 % Neutrophils # 7.4 (1.3-7.7) k/uL Lymphocytes # 1.2 (1.0-4.8) k/uL Monocytes # 1.1 H (0-1.0) k/uL Eosinophils # 0.3 (0-0.7) k/uL Basophils # 0.0 (0-0.2) k/uL Hypochromasia Marked Poikilocytosis Slight Anisocytosis Slight Microcytosis Slight PT (9.0-12.0) sec INR (<1.2) APTT (22.0-30.0) sec Sodium 140 (137-145) mmol/L Potassium 4.3 (3.5-5.1) mmol/L Chloride 102 (98-107) mmol/L Carbon Dioxide 25 (22-30) mmol/L Anion Gap 13 mmol/L BUN 15 (9-20) mg/dL Creatinine 0.81 (0.66-1.25) mg/dL Est GFR (CKD-EPI)AfAm >90 (>60 ml/min/1.73 sqM) Est GFR (CKD-EPI)NonAf 89 (>60 ml/min/1.73 sqM) Glucose 99 (74-99) mg/dL Calcium 8.8 (8.4-10.2) mg/dL Magnesium 2.2 (1.6-2.3) mg/dL Total Bilirubin 1.3 (0.2-1.3) mg/dL AST 18 (17-59) U/L ALT 20 L (21-72) U/L Alkaline Phosphatase 75 (38-126) U/L Total Creatine Kinase 23 L (55-170) U/L CK-MB (CK-2) 0.4 (0.0-2.4) ng/mL CK-MB (CK-2) Rel Index 1.7 Troponin I <0.012 (0.000-0.034) ng/mL NT-Pro-B Natriuret Pep pg/mL Total Protein 6.3 (6.3-8.2) g/dL Albumin 3.6 (3.5-5.0) g/dL 04/10/18 04/10/18 Range/Units 14:20 14:20 WBC (3.8-10.6) k/uL RBC (4.30-5.90) m/uL Hgb (13.0-17.5) gm/dL Hct (39.0-53.0) % MCV (80.0-100.0) fL MCH (25.0-35.0) pg MCHC (31.0-37.0) g/dL RDW (11.5-15.5) % Plt Count (150-450) k/uL Neutrophils % % Lymphocytes % % Monocytes % % Eosinophils % % Basophils % % Neutrophils # (1.3-7.7) k/uL Lymphocytes # (1.0-4.8) k/uL Monocytes # (0-1.0) k/uL Eosinophils # (0-0.7) k/uL Basophils # (0-0.2) k/uL Hypochromasia Poikilocytosis Anisocytosis Microcytosis PT 17.0 H (9.0-12.0) sec INR 1.9 H (<1.2) APTT 34.6 H (22.0-30.0) sec Sodium (137-145) mmol/L Potassium (3.5-5.1) mmol/L Chloride (98-107) mmol/L Carbon Dioxide (22-30) mmol/L Anion Gap mmol/L BUN (9-20) mg/dL Creatinine (0.66-1.25) mg/dL Est GFR (CKD-EPI)AfAm (>60 ml/min/1.73 sqM) Est GFR (CKD-EPI)NonAf (>60 ml/min/1.73 sqM) Glucose (74-99) mg/dL Calcium (8.4-10.2) mg/dL Magnesium (1.6-2.3) mg/dL Total Bilirubin (0.2-1.3) mg/dL AST (17-59) U/L ALT (21-72) U/L Alkaline Phosphatase (38-126) U/L Total Creatine Kinase (55-170) U/L CK-MB (CK-2) (0.0-2.4) ng/mL CK-MB (CK-2) Rel Index Troponin I (0.000-0.034) ng/mL NT-Pro-B Natriuret Pep 1290 pg/mL Total Protein (6.3-8.2) g/dL Albumin (3.5-5.0) g/dL - Radiology Data Radiology results: report reviewed (Chest x-ray is positive CHF), image reviewed Disposition Clinical Impression: Congestive heart failure Disposition: ADMITTED IP TO THIS HOSP Condition: Fair Is patient prescribed a controlled substance at d/c from ED?: No Referrals: Liss Evangelista MD [Primary Care Provider] - 1-2 days
[2018-04-10 15:10] LABS: Creatine Kinase MB 0.4 ng/mL (0.0-2.4); Troponin I <0.012 ng/mL (0.000-0.034)
--- NOTE | 2018-04-10 15:22 | XR ---
EXAMINATION TYPE: XR chest 2V DATE OF EXAM: 04/10/2018 COMPARISON: 03/02/2016 HISTORY: Shortness of breath TECHNIQUE: Frontal and lateral views of the chest are obtained. FINDINGS: Scattered senescent parenchymal changes noted. Hyperinflation compatible with COPD. No evidence for infiltrate. No evidence for atelectasis. The heart is enlarged. Pulmonary venous congestion with small effusions. No focal consolidation seen at this time. Mediastinal structures are stable and grossly unremarkable. No evidence for hilar prominence. Degenerative changes dorsal spine. IMPRESSION: 1. Pulmonary venous congestion with cardiomegaly and small effusions.
[2018-04-10] MEDS ORDERED: FUROSEMIDE 10 MG/ML 4 ML VIAL IV SCH (15:30)
[2018-04-10] MEDS: SODIUM CHLORIDE 0.9% 1,000 ML IV SCH (15:53)
[2018-04-10] MEDS ORDERED: NITROGLYCERIN SL TABS 0.4 MG TAB SUBLINGUAL PRN (17:38)
[2018-04-10] MEDS ORDERED: ALBUTEROL NEBULIZED 2.5 MG/3 ML INHALATION PRN (17:38)
--- NOTE | 2018-04-10 17:55 | P.HPIM ---
History of Present Illness Patient is a 72-year-old gentleman with history of congestive heart failure ejection fraction of around 45% on the echo cardiac exam that was done in 2016 came in with complaints of shortness of breath, questionable orthopnea and denied any paroxysmal nocturnal dyspnea fluctuating weight without any pedal edema. Patient does have history of COPD as well uses 2 L of onset at home is being treated with for bronchitis as an outpatient. Patient does have pulmonary edema on the chest x-ray denied any fever. Quit smoking 6 years ago. Patient doesn't have any leukocytosis. Patient does have minimally elevated JVD on exam BNP is around 1500. Patient has an AICD in place. Patient uses 20 mg of Lasix at home. Patient is presently on 3 L of oxygen. Does have history of atrial fibrillation on anticoagulation for atrial fibrillation had a recent the stent in his leg for peripheral vascular disease and patient is on aspirin and Plavix because of that. Review of Systems REVIEW OF SYSTEMS: CONSTITUTIONAL: No fever, no malaise, no fatigue. HEENT: No recent visual problems or hearing problems. Denied any sore throat. CARDIOVASCULAR: No chest pain, orthopnea, PND, no palpitations, no syncope. PULMONARY: As mentioned in HPI GASTROINTESTINAL: No diarrhea, no nausea, no vomiting, no abdominal pain. Normoactive bowel sounds. NEUROLOGICAL: No headaches, no weakness, no numbness. HEMATOLOGICAL: Denies any bleeding or petechiae. GENITOURINARY: Denies any burning micturition, frequency, or urgency. MUSCULOSKELETAL/RHEUMATOLOGICAL: Denies any joint pain, swelling, or any muscle pain. ENDOCRINE: Denies any polyuria or polydipsia. The rest of the 14-point review of systems is negative. Past Medical History Past Medical History: Atrial Fibrillation, Coronary Artery Disease (CAD), Chest Pain / Angina, Heart Failure, COPD, Diabetes Mellitus, Hyperlipidemia, Hypertension, Osteoarthritis (OA), Pneumonia, Skin Disorder, Sleep Apnea/CPAP/ BIPAP, Thyroid Disorder, Vascular Disorder Additional Past Medical History / Comment(s): psoriasis, neuropathy RT HAND and LEFT FOOT, poor circulation left leg, gout, thyoid nodule, hx ingrown toenails zac great toes, uses O2 PRN. left leg iliac stent due to poor circulation 12/25/2017. History of Any Multi-Drug Resistant Organisms: MRSA Date of last positivie culture/infection: 2011 MDRO Source:: chest incision Past Surgical History: AICD, Back Surgery, Coronary Bypass/CABG, Heart Catheterization With Stent Additional Past Surgical History / Comment(s): 3 CARDIAC STENTS, quad bypass and heart valve repair 2011, Lt Fempop (1 stent placed) Past Anesthesia/Blood Transfusion Reactions: No Reported Reaction Date of Last Stent Placement:: 12/25/2017 Type of Cardiac Device: AICD Device Placement Date:: 2012 Past Psychological History: Depression, PTSD Smoking Status: Former smoker Past Alcohol Use History: None Reported Past Drug Use History: None Reported - Past Family History Father Family Medical History: Congestive Heart Failure (CHF), Coronary Artery Disease (CAD), Diabetes Mellitus, Myocardial Infarction ([place]) Additional Family Medical History / Comment(s): MAC DEGENERATION, CABG Mother Family Medical History: No Reported History Medications and Allergies Home Medications Medication Instructions Recorded Confirmed Type Venlafaxine HCl [Effexor] 75 mg PO HS 06/15/14 04/10/18 History Insulin Glargine [Lantus] 100 unit SQ HS 02/21/16 04/10/18 History Isosorbide Mononitrate ER [Imdur] 60 mg PO DAILY 02/21/16 04/10/18 History Aspirin 81 mg PO DAILY #30 chew 02/24/16 04/10/18 Rx Atorvastatin [Lipitor] 80 mg PO HS #30 tab 02/24/16 04/10/18 Rx Nitroglycerin Sl Tabs [Nitrostat] 0.4 mg SUBLINGUAL Q5M PRN #25 tab 02/24/16 Rx Albuterol Inhaler [Ventolin Hfa 2 puff INHALATION RT-Q6H PRN 07/18/16 04/10/18 History Inhaler] Rivaroxaban [Xarelto] 20 mg PO DAILY 07/18/16 04/10/18 History Budesonide [Pulmicort] 0.5 mg INHALATION RT-BID PRN 07/10/17 04/10/18 History Clopidogrel [Plavix] 75 mg PO DAILY 07/10/17 04/10/18 History Dulaglutide [Trulicity] 1.5 mg SQ FR 07/10/17 04/10/18 History Empagliflozin [Jardiance] 10 mg PO DAILY 07/10/17 04/10/18 History Furosemide [Lasix] 20 mg PO DAILY 07/10/17 04/10/18 History Montelukast Sodium [Singulair] 10 mg PO HS 07/10/17 04/10/18 History Lisinopril [Zestril] 2.5 mg PO DAILY 12/24/17 04/10/18 History Pregabalin [Lyrica] 75 mg PO BID 12/24/17 04/10/18 History Carvedilol [Coreg] 12.5 mg PO BID 04/10/18 04/10/18 History Ipratropium-Albuterol Nebulize 3 ml INHALATION RT-QID 04/10/18 04/10/18 History [Duoneb 0.5 mg-3 mg/3 ml Soln] Spironolactone [Aldactone] 25 mg PO DAILY 04/10/18 04/10/18 History metFORMIN HCL [metFORMIN HCL ER] 750 mg PO BID 04/10/18 04/10/18 History Allergies Allergy/AdvReac Type Severity Reaction Status Date / Time No Known Allergies Allergy Verified 04/10/18 16:00 Physical Exam Vitals: Vital Signs Temp Pulse Resp BP Pulse Ox 04/10/18 16:58 98.1 F 65 16 109/62 97 04/10/18 15:37 82 04/10/18 15:23 67 22 109/73 98 04/10/18 15:19 78 04/10/18 14:28 22 04/10/18 14:21 98.2 F 68 16 102/68 95 Intake and Output 04/10/18 04/10/18 04/10/18 06:59 14:59 22:59 Intake Total 1000 Balance 1000 Intake: Amount of Fluid Infused ( 1000 ml) Other: Weight 127.913 kg PHYSICAL EXAMINATION: GENERAL: The patient is alert and oriented x3, not in any acute distress. Well developed, well nourished. HEENT: Pupils are round and equally reacting to light. EOMI. No scleral icterus. No conjunctival pallor. Normocephalic, atraumatic. No pharyngeal erythema. No thyromegaly. CARDIOVASCULAR: S1 and S2 present. No murmurs, rubs, patient does have minimally elevated JVD PULMONARY: Chest is clear to auscultation, no wheezing or crackles. ABDOMEN: Soft, nontender, nondistended, normoactive bowel sounds. No palpable organomegaly. MUSCULOSKELETAL: No joint swelling or deformity. EXTREMITIES: No cyanosis, clubbing, or pedal edema. NEUROLOGICAL: Gross neurological examination did not reveal any focal deficits. SKIN: No rashes. Results CBC & Chem 7: 04/10/18 14:20 04/10/18 14:20 Labs: Abnormal Lab Results - Last 24 Hours (Table) 04/10/18 04/10/18 04/10/18 Range/Units 14:20 14:20 14:20 Hgb 11.7 L (13.0-17.5) gm/dL Hct 38.5 L (39.0-53.0) % MCV 76.1 L (80.0-100.0) fL MCH 23.1 L (25.0-35.0) pg MCHC 30.4 L (31.0-37.0) g/dL RDW 18.1 H (11.5-15.5) % Monocytes # 1.1 H (0-1.0) k/uL PT (9.0-12.0) sec INR (<1.2) APTT (22.0-30.0) sec ALT 20 L (21-72) U/L Total Creatine Kinase 23 L (55-170) U/L 04/10/18 Range/Units 14:20 Hgb (13.0-17.5) gm/dL Hct (39.0-53.0) % MCV (80.0-100.0) fL MCH (25.0-35.0) pg MCHC (31.0-37.0) g/dL RDW (11.5-15.5) % Monocytes # (0-1.0) k/uL PT 17.0 H (9.0-12.0) sec INR 1.9 H (<1.2) APTT 34.6 H (22.0-30.0) sec ALT (21-72) U/L Total Creatine Kinase (55-170) U/L Thrombosis Risk Factor Assmnt - Choose All That Apply Any of the Below Risk Factors Present?: Yes Each Factor Represents 1 point: Abnormal pulmonary function (COPD) Other Risk Factors: Yes Each Risk Factor Represents 2 Points: Age 61-74 years Other congenital or acquired thrombophilia - If yes, enter type in comment: No Thrombosis Risk Factor Assessment Total Risk Factor Score: 3 Thrombosis Risk Factor Assessment Level: Moderate Risk Assessment and Plan Plan: -Acute hypoxic respiratory failure: Possibly secondary to CHF exacerbation patient will be on 14 kg of IV Lasix cardiology will evaluate the patient will repeat echocardiogram. -Atrial fibrillation chronic A. fib presently rate controlled continue with anticoagulation -Peripheral vascular disease with recent stent continue with aspirin and Plavix -Type 2 diabetes mellitus patient will be continued on his home regimen except for metformin because of possible CHF exacerbation -Hypertension -COPD without any acute exacerbation patient does have chronic hypercapnic respiratory failure secondary to COPD -Diabetic peripheral neuropathy -Coronary artery disease -Hyperlipidemia -Sleep apnea -Hypothyroidism For above-mentioned chronic medical problems patient will be resumed and continued on appropriate home medications
[2018-04-10] MEDS: IPRATROPIUM-ALBUTEROL 3 ML NEB INHALATION SCH (19:21)
[2018-04-10] MEDS: BUDESONIDE 0.5 MG/2 ML NEBU INHALATION PRN (19:21)
[2018-04-10] MEDS: ATORVASTATIN 80 MG TAB PO SCH (20:28)
[2018-04-10] MEDS: CARVEDILOL 12.5 MG TAB PO SCH (20:28)
[2018-04-10] MEDS: MONTELUKAST 10 MG TAB PO SCH (20:28)
[2018-04-10] MEDS: PREGABALIN 75 MG CAP PO SCH (20:28)
[2018-04-10] MEDS: FUROSEMIDE 10 MG/ML 4 ML VIAL IV SCH (20:28)
[2018-04-10] MEDS: VENLAFAXINE HCL 75 MG TAB PO SCH (20:28)
[2018-04-10] MEDS ORDERED: INSULIN DETEMIR 100 UNIT/ML 10 ML VIAL SQ SCH (21:00)
[2018-04-10 21:05] LABS: Glucose,Whole Blood 109 mg/dL (75-99)
[2018-04-11 01:50] LABS: Hemoglobin A1C 7.8 % (4.0-6.0)
[2018-04-11 02:05] LABS: Anisocytosis Slight; HCT 38.3 % (39.0-53.0); HGB 11.5 gm/dL (13.0-17.5); Hypochromasia Marked; MCH 22.7 pg (25.0-35.0); MCHC 29.9 g/dL (31.0-37.0); MCV 75.9 fL (80.0-100.0); Mean Platelet Volume 7.2; Microcytosis Slight; Platelet Count 226 k/uL (150-450); Poikilocytosis Slight; RBC 5.04 m/uL (4.30-5.90); WBC 9.3 k/uL (3.8-10.6)
[2018-04-11 02:21] LABS: Anion Gap 12 mmol/L; Blood Urea Nitrogen 15 mg/dL (9-20); Calcium 8.9 mg/dL (8.4-10.2); Carbon Dioxide 27 mmol/L (22-30); Chloride 98 mmol/L (98-107); Glucose 121 mg/dL (74-99); Sodium 137 mmol/L (137-145)
[2018-04-11 02:39] LABS: Glucose,Whole Blood 130 mg/dL (75-99)
[2018-04-11 06:11] LABS: Glucose,Whole Blood 115 mg/dL (75-99)
[2018-04-11] MEDS: BUDESONIDE 0.5 MG/2 ML NEBU INHALATION PRN ×2 (08:10→20:53)
[2018-04-11] MEDS: IPRATROPIUM-ALBUTEROL 3 ML NEB INHALATION SCH ×4 (08:12→20:53)
[2018-04-11] MEDS ORDERED: ENOXAPARIN 40 MG/0.4 ML SYRINGE SQ SCH (09:00)
[2018-04-11] MEDS: RIVAROXABAN 20 MG TAB PO SCH (10:19)
[2018-04-11] MEDS: ISOSORBIDE MONONITRATE ER 60 MG TAB.ER.24H PO SCH (10:19)
[2018-04-11] MEDS: LISINOPRIL 2.5 MG TAB PO SCH (10:19)
[2018-04-11] MEDS: CARVEDILOL 12.5 MG TAB PO SCH ×2 (10:19→21:10)
[2018-04-11] MEDS: CLOPIDOGREL 75 MG TAB PO SCH (10:19)
[2018-04-11] MEDS: ASPIRIN 81 MG PO SCH (10:19)
[2018-04-11] MEDS: FUROSEMIDE 10 MG/ML 4 ML VIAL IV SCH ×2 (10:20→21:10)
[2018-04-11] MEDS: SPIRONOLACTONE 25 MG TAB PO SCH (10:20)
[2018-04-11] MEDS: PREGABALIN 75 MG CAP PO SCH ×2 (10:20→21:10)
[2018-04-11] MEDS: NON-FORMULARY DRUG (Empagliflozin [Jardiance] 10 MG) PO SCH (10:21)
--- NOTE | 2018-04-11 10:22 | CONS ---
CONSULTATION CHIEF COMPLAINT: Fatigue, shortness of breath and not feeling well and weight gain. Navin is a 72-year-old gentleman with history of coronary artery disease, status post CABG, diabetes, hypertension, dyslipidemia, ischemic cardiomyopathy, status post AICD, status post mitral valve repair, peripheral vascular disease, status post left superficial femoral artery and status post prior bypass surgery and stenting, who presents to hospital complaining of fatigue, tiredness, shortness of breath and weight gain. He denies chest pain. There is no leg edema. Has paroxysmal nocturnal dyspnea, but denies orthopnea. At the time of my evaluation, he is feeling better and responding to IV diuretics. The patient's clinical presentation is consistent with acute exacerbation of chronic systolic heart failure. He has been started on IV diuretics with significant symptom improvement. The patient is currently on IV Lasix, Coreg, Plavix, aspirin, Zestril, Imdur and Xarelto. The patient has chronic atrial fibrillation and the heart rate is well controlled. Has an AICD without any history of recent AICD discharge. PAST MEDICAL HISTORY: Significant for coronary artery disease, status post CABG, mitral regurgitation, status post mitral valve repair, ischemic cardiomyopathy, status post AICD, peripheral vascular disease, status post aorto-fem bypass surgery with recent atherectomy with stent placement and insulin-requiring diabetes. MEDICATIONS: Medications at home included metformin 750 b.i.d., Effexor, Aldactone 25 mg daily, Xarelto 20 mg daily, Lyrica, Singulair, Zestril 2.5 mg daily, Imdur 60 mg daily, insulin, Trulicity, Plavix, Coreg, Pulmicort, Lipitor, aspirin. ALLERGIES: There are no known drug allergies. FAMILY HISTORY: Negative for premature coronary artery disease. SOCIAL HISTORY: Negative for current smoking, EtOH abuse, or drug abuse. REVIEW OF SYSTEMS: HEENT is unremarkable. CARDIAC: As described above. RESPIRATORY: As described above. GI: Negative. GENITOURINARY: Negative. ALLERGIES/IMMUNOLOGY: Negative. SKIN: Negative. MUSCULOSKELETAL: Significant for arthritis. PSYCHOSOCIAL: Negative. ENDOCRINE: Negative. HEMATOLOGICAL: Negative. DERM: Negative. CONSTITUTIONAL: Significant for fatigue and tiredness. PSYCHOSOCIAL: Negative. ONCOLOGICAL: Negative. Rest of the system review is not relevant. PHYSICAL EXAMINATION: On exam, heart rate is 60 beats per minute, irregular. Blood pressure is 102/67. Respiratory rate is 18. O2 sat is 96% on 2 L. There is no jugular venous distention. Carotid upstroke is diminished. There is no bruit. Chest exam reveals good air entry bilaterally. Heart exam reveals first and second heart sounds, irregular rhythm and a systolic murmur at the left lower sternal border. Abdomen is soft. Examination of the extremities did not reveal any edema. Peripheral pulses are felt. Distal pulses are diminished. LABS: Labs show a hemoglobin of 11.5, platelet count is 226, potassium is 4, creatinine is 0.9. Three sets of troponins are elevated. BNP is elevated at 1290. ASSESSMENT: 1. Acute exacerbation of chronic systolic heart failure. 2. Ischemic cardiomyopathy, status post AICD. 3. Coronary artery disease, status post CABG. 4. Mitral regurgitation, status post mitral valve repair. 5. Peripheral vascular disease. PLAN: I will treat the patient with IV Lasix. Review the echo once the results are available. Continue the antiplatelet agents, nitrates, MARY inhibitors and beta blockers along with Aldactone. The patient has chronic A. fib with controlled ventricular rate and is adequately anticoagulated with Xarelto, which will be continued. Thank you for allowing us to participate in this pleasant gentleman. I anticipate he is going home tomorrow morning. MMODL / IJN: [id number] /
[2018-04-11 11:32] LABS: Glucose,Whole Blood 137 mg/dL (75-99)
--- NOTE | 2018-04-11 11:37 | ECHOF ---
Referral Reason:chf MEASUREMENTS -------- HEIGHT: 193.0 cm WEIGHT: 125.7 kg BP: 102/67 RVIDd: 4.3 cm (< 3.3) IVSd: 1.2 cm (0.6 - 1.1) LVIDd: 4.1 cm (3.9 - 5.3) LVPWd: 1.3 cm (0.6 - 1.1) IVSs: 1.8 cm LVIDs: 2.5 cm LVPWs: 1.5 cm LA Diam: 3.9 cm (2.7 - 3.8) LAESV Index (A-L): 43.11 ml/m Ao Diam: 4.1 cm (2.0 - 3.7) AV Cusp: 1.7 cm (1.5 - 2.6) MV EXCURSION: 19.176 mm (> 18.000) MV EF SLOPE: 75 mm/s (70 - 150) EPSS: 0.9 cm RAP: 15.00 mmHg RVSP: 23.91 mmHg FINDINGS -------- Pacerwire seen in RV and RA. AICD This was a technically difficult study with suboptimal views. The left ventricular size is normal. There is mild concentric left ventricular hypertrophy. Overa ll left ventricular systolic function is moderate-severely impaired with, an EF between 30 - 35 %. The right ventricle is severely enlarged. LA is severely dilated >40 ml/m2 The right atrium is normal in size. 3 ml of Lumason was utilized for enhancement of images. There is mild aortic valve sclerosis. The mitral valve leaflets are mildly thickened. Mild mitral annular calcification present. Moderate to severe tricuspid regurgitation present. The pulmonic valve was not well visualized. The aortic root is dilated measuring 4.1cm. The inferior vena cava is dilated with no significant inspiratory collapse which is consistent estima mitra right atrial pressure of >15 mmHg. There is no pericardial effusion. CONCLUSIONS -------- 1. Pacerwire seen in RV and RA. 2. AICD 3. This was a technically difficult study with suboptimal views. 4. The left ventricular size is normal. 5. There is mild concentric left ventricular hypertrophy. 6. Overall left ventricular systolic function is moderate-severely impaired with, an EF between 30 - 35 %. 7. The right ventricle is severely enlarged. 8. LA is severely dilated >40 ml/m2 9. The right atrium is normal in size. 10. 3 ml of Lumason was utilized for enhancement of images. 11. There is mild aortic valve sclerosis. 12. The mitral valve leaflets are mildly thickened. 13. Mild mitral annular calcification present. 14. Moderate to severe tricuspid regurgitation present. 15. The pulmonic valve was not well visualized. 16. The aortic root is dilated measuring 4.1cm. 17. The inferior vena cava is dilated with no significant inspiratory collapse which is consistent es timated right atrial pressure of >15 mmHg. 18. There is no pericardial effusion. [employer]: Carlyn Sky RDCS
--- NOTE | 2018-04-11 12:23 | P.PN ---
Subjective Patient is admitted with the can start failure chronic systolic dysfunction with acute exacerbation patient's previous ejection fraction was 45% not now around 30-35% patient in terms improved patient JVD improved as well. Patient does have a AICD in place. Constitutional: Denied any fatigue denied any fever. Cardio vascular: denied any chest pain, palpitations Gastrointestinal denied any nausea vomiting Pulmonary: Significantly improved symptoms of shortness of breath Neurologic denied any new focal deficits Objective - Vital Signs Vital signs: Vital Signs Temp 97.9 F 04/11/18 08:00 Pulse 72 04/11/18 11:23 Resp 16 04/11/18 08:00 BP 102/64 04/11/18 08:00 Pulse Ox 96 04/11/18 08:12 Intake & Output 04/10/18 04/11/18 04/11/18 18:59 06:59 18:59 Intake Total 1200 720 Output Total 550 2940 500 Balance 650 -2940 220 Weight 128.6 kg 125.8 kg Intake: Amount of Fluid Infused ( 1000 ml) Oral 200 720 Output: Urine 550 2940 500 Other: Voiding Method Urinal Urinal # Voids 1 - Exam PHYSICAL EXAMINATION: GENERAL: The patient is alert and oriented x3, not in any acute distress. Well developed, well nourished. HEENT: Pupils are round and equally reacting to light. EOMI. No scleral icterus. No conjunctival pallor. Normocephalic, atraumatic. No pharyngeal erythema. No thyromegaly. CARDIOVASCULAR: S1 and S2 present. No murmurs, rubs, patient does have minimally elevated JVD which is actually improved compared to yesterday PULMONARY: Patient had by bit bilateral fine crackles which improved compared to yesterday ABDOMEN: Soft, nontender, nondistended, normoactive bowel sounds. No palpable organomegaly. MUSCULOSKELETAL: No joint swelling or deformity. EXTREMITIES: No cyanosis, clubbing, or pedal edema. NEUROLOGICAL: Gross neurological examination did not reveal any focal deficits. SKIN: No rashes. - Labs CBC & Chem 7: 04/11/18 02:00 04/11/18 02:00 Labs: Abnormal Lab Results - Last 24 Hours (Table) 04/10/18 04/10/18 04/10/18 Range/Units 14:20 14:20 14:20 Hgb 11.7 L (13.0-17.5) gm/dL Hct 38.5 L (39.0-53.0) % MCV 76.1 L (80.0-100.0) fL MCH 23.1 L (25.0-35.0) pg MCHC 30.4 L (31.0-37.0) g/dL RDW 18.1 H (11.5-15.5) % Monocytes # 1.1 H (0-1.0) k/uL PT (9.0-12.0) sec INR (<1.2) APTT (22.0-30.0) sec Glucose (74-99) mg/dL POC Glucose (mg/dL) (75-99) mg/dL Hemoglobin A1c (4.0-6.0) % ALT 20 L (21-72) U/L Total Creatine Kinase 23 L (55-170) U/L 04/10/18 04/10/18 04/10/18 Range/Units 14:20 21:00 21:02 Hgb (13.0-17.5) gm/dL Hct (39.0-53.0) % MCV (80.0-100.0) fL MCH (25.0-35.0) pg MCHC (31.0-37.0) g/dL RDW (11.5-15.5) % Monocytes # (0-1.0) k/uL PT 17.0 H (9.0-12.0) sec INR 1.9 H (<1.2) APTT 34.6 H (22.0-30.0) sec Glucose (74-99) mg/dL POC Glucose (mg/dL) 109 H (75-99) mg/dL Hemoglobin A1c 7.8 H (4.0-6.0) % ALT (21-72) U/L Total Creatine Kinase (55-170) U/L 04/11/18 04/11/18 04/11/18 Range/Units 02:00 02:00 02:27 Hgb 11.5 L (13.0-17.5) gm/dL Hct 38.3 L (39.0-53.0) % MCV 75.9 L (80.0-100.0) fL MCH 22.7 L (25.0-35.0) pg MCHC 29.9 L (31.0-37.0) g/dL RDW 18.0 H (11.5-15.5) % Monocytes # (0-1.0) k/uL PT (9.0-12.0) sec INR (<1.2) APTT (22.0-30.0) sec Glucose 121 H (74-99) mg/dL POC Glucose (mg/dL) 130 H (75-99) mg/dL Hemoglobin A1c (4.0-6.0) % ALT (21-72) U/L Total Creatine Kinase (55-170) U/L 04/11/18 04/11/18 Range/Units 05:59 11:27 Hgb (13.0-17.5) gm/dL Hct (39.0-53.0) % MCV (80.0-100.0) fL MCH (25.0-35.0) pg MCHC (31.0-37.0) g/dL RDW (11.5-15.5) % Monocytes # (0-1.0) k/uL PT (9.0-12.0) sec INR (<1.2) APTT (22.0-30.0) sec Glucose (74-99) mg/dL POC Glucose (mg/dL) 115 H 137 H (75-99) mg/dL Hemoglobin A1c (4.0-6.0) % ALT (21-72) U/L Total Creatine Kinase (55-170) U/L Assessment and Plan Plan: -Acute hypoxic respiratory failure: Secondary to can start failure chronic systolic dysfunction with acute exacerbation patient will be continued on IV Lasix today along with tall back tone and MARY inhibitor and possibility of discharge tomorrow repeat basic metabolic profile tomorrow -Atrial fibrillation chronic A. fib presently rate controlled continue with anticoagulation -Peripheral vascular disease with recent stent continue with aspirin and Plavix -Type 2 diabetes mellitus patient will be continued on his home regimen except for metformin because of possible CHF exacerbation -Hypertension -COPD without any acute exacerbation patient does have chronic hypercapnic respiratory failure secondary to COPD -Diabetic peripheral neuropathy -Coronary artery disease -Hyperlipidemia -Sleep apnea -Hypothyroidism For above-mentioned chronic medical problems patient will be resumed and continued on appropriate home medications
[2018-04-11 13:42] VITALS: BMI 33.7
[2018-04-11 16:43] LABS: Glucose,Whole Blood 113 mg/dL (75-99)
[2018-04-11] MEDS: SODIUM CHLORIDE 0.9% 1,000 ML IV SCH (16:56)
[2018-04-11] MEDS ORDERED: NON-FORMULARY DRUG (Dulaglutide [Trulicity] 1.5 MG) SQ SCH (17:38)
[2018-04-11 20:41] LABS: Glucose,Whole Blood 144 mg/dL (75-99)
[2018-04-11] MEDS: VENLAFAXINE HCL 75 MG TAB PO SCH (21:10)
[2018-04-11] MEDS: MONTELUKAST 10 MG TAB PO SCH (21:10)
[2018-04-11] MEDS: INSULIN DETEMIR 100 UNIT/ML 10 ML VIAL SQ SCH (21:10)
[2018-04-11] MEDS: ATORVASTATIN 80 MG TAB PO SCH (21:10)
[2018-04-12 06:09] LABS: Glucose,Whole Blood 87 mg/dL (75-99)
[2018-04-12 07:26] LABS: Anion Gap 11 mmol/L; Blood Urea Nitrogen 19 mg/dL (9-20); Calcium 8.9 mg/dL (8.4-10.2); Carbon Dioxide 31 mmol/L (22-30); Chloride 95 mmol/L (98-107); Glucose 82 mg/dL (74-99); Potassium 4.2 mmol/L (3.5-5.1); Sodium 137 mmol/L (137-145)
[2018-04-12] MEDS: IPRATROPIUM-ALBUTEROL 3 ML NEB INHALATION SCH ×4 (08:04→20:14)
[2018-04-12] MEDS: NON-FORMULARY DRUG (Empagliflozin [Jardiance] 10 MG) PO SCH (09:31)
[2018-04-12] MEDS: RIVAROXABAN 20 MG TAB PO SCH (09:45)
[2018-04-12] MEDS: CLOPIDOGREL 75 MG TAB PO SCH (09:45)
[2018-04-12] MEDS: LISINOPRIL 2.5 MG TAB PO SCH (09:45)
[2018-04-12] MEDS: ISOSORBIDE MONONITRATE ER 60 MG TAB.ER.24H PO SCH (09:45)
[2018-04-12] MEDS: SPIRONOLACTONE 25 MG TAB PO SCH (09:45)
[2018-04-12] MEDS: FUROSEMIDE 10 MG/ML 4 ML VIAL IV SCH ×2 (09:46→21:15)
[2018-04-12] MEDS: CARVEDILOL 12.5 MG TAB PO SCH ×2 (09:46→21:15)
[2018-04-12] MEDS: PREGABALIN 75 MG CAP PO SCH ×2 (09:46→21:15)
[2018-04-12] MEDS: ASPIRIN 81 MG PO SCH (09:46)
--- NOTE | 2018-04-12 10:17 | P.PN ---
Subjective Progress Note Date: 04/12/18 This is a pleasant 72-year-old gentleman with a past medical history significant for CAD, ischemic cardiomyopathy and status post AICD, chronic atrial fibrillation was admitted to the hospital with acute exacerbation of systolic congestive heart failure. The echocardiogram continues to show severe cardiomyopathy with EF around 35%. On follow-up with the patient today, he denies having any chest pain or discomfort and the shortness of breath seems to be improved. He does have very mild bilateral lower extremities edema. The patient was started on Lasix yesterday. I don't have any blood work for him today. I will obtain a CBC and BMP. Probably keep the patient on IV Lasix for additional 24 hours and follow-up with him.. Objective - Vital Signs Vital signs: Vital Signs Temp 97.1 F L 04/11/18 20:00 Pulse 64 04/12/18 08:15 Resp 16 04/12/18 08:00 BP 99/66 04/12/18 04:00 Pulse Ox 96 04/12/18 04:00 Intake & Output 04/11/18 04/12/18 04/12/18 18:59 06:59 18:59 Intake Total 1080 240 Output Total 1425 1300 Balance -345 -1300 240 Weight 125.8 kg 122.5 kg Intake: Oral 1080 240 Output: Urine 1425 1300 Other: Voiding Method Urinal Urinal Urinal # Voids 2 2 - Constitutional General appearance: Present: no acute distress - Respiratory Respiratory: bilateral: diminished - Cardiovascular Rhythm: irregularly irregular Heart sounds: normal: S1, S2 - Labs CBC & Chem 7: 04/11/18 02:00 04/12/18 06:22 Labs: Abnormal Lab Results - Last 24 Hours (Table) 04/11/18 04/11/18 04/11/18 Range/Units 11:27 16:40 20:28 Chloride (98-107) mmol/L Carbon Dioxide (22-30) mmol/L POC Glucose (mg/dL) 137 H 113 H 144 H (75-99) mg/dL 04/12/18 Range/Units 06:22 Chloride 95 L (98-107) mmol/L Carbon Dioxide 31 H (22-30) mmol/L POC Glucose (mg/dL) (75-99) mg/dL Assessment and Plan Assessment: Assessment #1 congestive heart failure exacerbation secondary to systolic dysfunction #2 severe underlying coronary artery disease and status post revascularization #3 chronic atrial fibrillation was controlled heart rate #4 multiple comorbid conditions Plan #1 continue the IV Lasix for additional 24 hours #2 obtain a kidney function and electrolytes today #3 possible discharge in the next 24 hours. Thank you for allowing us participate in his care
[2018-04-12 10:48] LABS: Anisocytosis Slight; Basophils % (A) 0 %; Eosinophils # (A) 0.3 k/uL (0-0.7); Eosinophils % (A) 3 %; HCT 37.6 % (39.0-53.0); HGB 11.6 gm/dL (13.0-17.5); Hypochromasia Marked; Lymphocytes % (A) 11 %; MCH 23.3 pg (25.0-35.0); MCHC 30.8 g/dL (31.0-37.0); MCV 75.7 fL (80.0-100.0); Mean Platelet Volume 8.6; Microcytosis Slight; Monocytes # (A) 0.9 k/uL (0-1.0); Monocytes % (A) 10 %; Neutrophils # (A) 6.8 k/uL (1.3-7.7); Neutrophils % (A) 74 %; Platelet Count 233 k/uL (150-450); Poikilocytosis Slight; RBC 4.97 m/uL (4.30-5.90); WBC 9.2 k/uL (3.8-10.6)
[2018-04-12 11:44] LABS: Glucose,Whole Blood 139 mg/dL (75-99)
--- NOTE | 2018-04-12 15:14 | P.PN ---
Subjective Patient is admitted with the can start failure chronic systolic dysfunction with acute exacerbation patient's previous ejection fraction was 45% not now around 30-35% patient in terms improved patient JVD improved as well. Patient does have a AICD in place. 04/12/2018 No overnight events, cardiology is recommending one more day of IV Lasix Constitutional: Denied any fatigue denied any fever. Cardio vascular: denied any chest pain, palpitations Gastrointestinal denied any nausea vomiting Pulmonary: Significantly improved symptoms of shortness of breath Neurologic denied any new focal deficits Objective - Vital Signs Vital signs: Vital Signs Temp 96.9 F L 04/12/18 12:00 Pulse 68 04/12/18 12:00 Resp 16 04/12/18 12:00 BP 106/69 04/12/18 12:00 Pulse Ox 97 04/12/18 12:00 Intake & Output 04/11/18 04/12/18 04/12/18 18:59 06:59 18:59 Intake Total 1080 240 Output Total 1425 1300 Balance -345 -1300 240 Weight 125.8 kg 122.5 kg Intake: Oral 1080 240 Output: Urine 1425 1300 Other: Voiding Method Urinal Urinal Urinal # Voids 2 2 - Exam PHYSICAL EXAMINATION: GENERAL: The patient is alert and oriented x3, not in any acute distress. Well developed, well nourished. HEENT: Pupils are round and equally reacting to light. EOMI. No scleral icterus. No conjunctival pallor. Normocephalic, atraumatic. No pharyngeal erythema. No thyromegaly. CARDIOVASCULAR: S1 and S2 present. No murmurs, rubs, or JVD improved PULMONARY: Good air entry into bilateral lung mclaughlin no crackles were appreciated today. ABDOMEN: Soft, nontender, nondistended, normoactive bowel sounds. No palpable organomegaly. MUSCULOSKELETAL: No joint swelling or deformity. EXTREMITIES: No cyanosis, clubbing, or pedal edema. NEUROLOGICAL: Gross neurological examination did not reveal any focal deficits. SKIN: No rashes. - Labs CBC & Chem 7: 04/12/18 06:22 04/12/18 06:22 Labs: Abnormal Lab Results - Last 24 Hours (Table) 04/11/18 04/11/18 04/12/18 Range/Units 16:40 20:28 06:22 Hgb (13.0-17.5) gm/dL Hct (39.0-53.0) % MCV (80.0-100.0) fL MCH (25.0-35.0) pg MCHC (31.0-37.0) g/dL RDW (11.5-15.5) % Chloride 95 L (98-107) mmol/L Carbon Dioxide 31 H (22-30) mmol/L POC Glucose (mg/dL) 113 H 144 H (75-99) mg/dL 04/12/18 04/12/18 Range/Units 06:22 11:33 Hgb 11.6 L (13.0-17.5) gm/dL Hct 37.6 L (39.0-53.0) % MCV 75.7 L (80.0-100.0) fL MCH 23.3 L (25.0-35.0) pg MCHC 30.8 L (31.0-37.0) g/dL RDW 18.0 H (11.5-15.5) % Chloride (98-107) mmol/L Carbon Dioxide (22-30) mmol/L POC Glucose (mg/dL) 139 H (75-99) mg/dL Assessment and Plan Plan: -Acute hypoxic respiratory failure: Secondary to can start failure chronic systolic dysfunction with acute exacerbation patient will be continued on IV Lasix today along with tall back tone and MARY inhibitor and possibility of discharge tomorrow repeat basic metabolic profile tomorrow -Atrial fibrillation chronic A. fib presently rate controlled continue with anticoagulation -Peripheral vascular disease with recent stent continue with aspirin and Plavix -Type 2 diabetes mellitus patient will be continued on his home regimen except for metformin because of possible CHF exacerbation -Hypertension -COPD without any acute exacerbation patient does have chronic hypercapnic respiratory failure secondary to COPD -Diabetic peripheral neuropathy -Coronary artery disease -Hyperlipidemia -Sleep apnea -Hypothyroidism For above-mentioned chronic medical problems patient will be resumed and continued on appropriate home medications
[2018-04-12 16:45] LABS: Glucose,Whole Blood 118 mg/dL (75-99)
[2018-04-12] MEDS: SODIUM CHLORIDE 0.9% 1,000 ML IV SCH (17:33)
[2018-04-12 20:51] LABS: Glucose,Whole Blood 126 mg/dL (75-99)
[2018-04-12] MEDS: ATORVASTATIN 80 MG TAB PO SCH (21:15)
[2018-04-12] MEDS: VENLAFAXINE HCL 75 MG TAB PO SCH (21:15)
[2018-04-12] MEDS: MONTELUKAST 10 MG TAB PO SCH (21:15)
[2018-04-12] MEDS: INSULIN DETEMIR 100 UNIT/ML 10 ML VIAL SQ SCH (21:15)
[2018-04-13 05:58] LABS: Glucose,Whole Blood 91 mg/dL (75-99)
[2018-04-13 06:49] LABS: Anion Gap 13 mmol/L; Blood Urea Nitrogen 20 mg/dL (9-20); Calcium 8.7 mg/dL (8.4-10.2); Carbon Dioxide 30 mmol/L (22-30); Chloride 93 mmol/L (98-107); Glucose 82 mg/dL (74-99); Potassium 3.9 mmol/L (3.5-5.1); Sodium 136 mmol/L (137-145)
[2018-04-13] MEDS: IPRATROPIUM-ALBUTEROL 3 ML NEB INHALATION SCH ×2 (08:00→11:43)
[2018-04-13] MEDS: BUDESONIDE 0.5 MG/2 ML NEBU INHALATION PRN (08:00)
[2018-04-13] MEDS: CARVEDILOL 12.5 MG TAB PO SCH (08:09)
[2018-04-13] MEDS: CLOPIDOGREL 75 MG TAB PO SCH (08:09)
[2018-04-13] MEDS: ASPIRIN 81 MG PO SCH (08:09)
[2018-04-13] MEDS: LISINOPRIL 2.5 MG TAB PO SCH (08:10)
[2018-04-13] MEDS: NON-FORMULARY DRUG (Empagliflozin [Jardiance] 10 MG) PO SCH (08:10)
[2018-04-13] MEDS: ISOSORBIDE MONONITRATE ER 60 MG TAB.ER.24H PO SCH (08:10)
[2018-04-13] MEDS: FUROSEMIDE 10 MG/ML 4 ML VIAL IV SCH (08:10)
[2018-04-13] MEDS: SPIRONOLACTONE 25 MG TAB PO SCH (08:11)
[2018-04-13] MEDS: RIVAROXABAN 20 MG TAB PO SCH (08:11)
[2018-04-13] MEDS: PREGABALIN 75 MG CAP PO SCH (08:14)
[2018-04-13 08:20] VITALS: RESP 16
[2018-04-13 11:33] LABS: Glucose,Whole Blood 115 mg/dL (75-99)
--- NOTE | 2018-04-13 11:40 | P.PN ---
Subjective Progress Note Date: 04/13/18 This is a pleasant 72-year-old gentleman with a past medical history significant for CAD, ischemic cardiomyopathy and status post AICD, chronic atrial fibrillation was admitted to the hospital with acute exacerbation of systolic congestive heart failure. The echocardiogram continues to show severe cardiomyopathy with EF around 35%. On follow-up with the patient today, he denies having any chest pain or discomfort and the shortness of breath seems to be improved. He does have very mild bilateral lower extremities edema. I am going to DC the Lasix IV and start the patient on Lasix by mouth at 40 mg twice a day. From a cardiovascular standpoint of view, the patient can be discharged home. He seems to be euvolemic on examination. The creatinine continues to be stable. Objective - Vital Signs Vital signs: Vital Signs Temp 98.2 F 04/13/18 08:00 Pulse 66 04/13/18 08:14 Resp 16 04/13/18 08:00 BP 108/66 04/13/18 08:00 Pulse Ox 94 L 04/13/18 08:00 Intake & Output 04/12/18 04/13/18 04/13/18 18:59 06:59 18:59 Intake Total 840 840 Output Total 852 2009 - 840 Weight 119.5 kg Intake: Oral 840 840 Output: Urine 852 2009 Other: Voiding Method Urinal Urinal # Voids 1,100 1 - Constitutional General appearance: Present: no acute distress - Respiratory Respiratory: bilateral: CTA - Cardiovascular Heart sounds: normal: S1, S2 - Labs CBC & Chem 7: 04/12/18 06:22 04/13/18 06:09 Labs: Abnormal Lab Results - Last 24 Hours (Table) 04/12/18 04/12/18 04/12/18 Range/Units 11:33 16:43 20:50 Sodium (137-145) mmol/L Chloride (98-107) mmol/L POC Glucose (mg/dL) 139 H 118 H 126 H (75-99) mg/dL 04/13/18 04/13/18 Range/Units 06:09 11:30 Sodium 136 L (137-145) mmol/L Chloride 93 L (98-107) mmol/L POC Glucose (mg/dL) 115 H (75-99) mg/dL Assessment and Plan Assessment: Assessment #1 congestive heart failure exacerbation secondary to systolic dysfunction #2 severe underlying coronary artery disease and status post revascularization #3 chronic atrial fibrillation was controlled heart rate #4 multiple comorbid conditions Plan #1 DC Lasix IV and start the patient on Lasix by mouth #2 the patient can be discharged home later on today. Thank you for allowing us participate in his care
[2018-04-13 13:10] VITALS: BP 94/57; PULSE 63; TEMP 97.8
--- NOTE | 2018-04-13 13:35 | P.DS ---
Providers Date of admission: 04/10/18 15:29 Attending physician: Gregorio Torres Consults: 04/10/18 15:29 Consult Physician Routine Consulting Provider: Robert Vasquez Consult Reason/Comments: chf Do you want consulting provider notified?: Yes Primary care physician: Liss Evangelista Hospital Course: Patient is admitted with the can start failure chronic systolic dysfunction with acute exacerbation patient's previous ejection fraction was 45% not now around 30-35% patient in terms improved patient JVD improved as well. Patient does have a AICD in place. 04/12/2018 No overnight events, cardiology is recommending one more day of IV Lasix 04/13/2018 patient is euvolemic and patient is being discharged on 40 mg twice a day of Lasix and patient will continue his Aldactone will need a repeat basic metabolic profile in 3-5 days. Present potassium is 3.9 and patient is on Aldactone because of that reason not starting him on any potassium supplements until we get the next basic metabolic profile PHYSICAL EXAMINATION: GENERAL: The patient is alert and oriented x3, not in any acute distress. Well developed, well nourished. HEENT: Pupils are round and equally reacting to light. EOMI. No scleral icterus. No conjunctival pallor. Normocephalic, atraumatic. No pharyngeal erythema. No thyromegaly. CARDIOVASCULAR: S1 and S2 present. No murmurs, rubs, or JVD improved PULMONARY: Good air entry into bilateral lung mclaughlin no crackles were appreciated today. ABDOMEN: Soft, nontender, nondistended, normoactive bowel sounds. No palpable organomegaly. MUSCULOSKELETAL: No joint swelling or deformity. EXTREMITIES: No cyanosis, clubbing, or pedal edema. NEUROLOGICAL: Gross neurological examination did not reveal any focal deficits. SKIN: No rashes. Assessment and Plan Plan: -Acute hypoxic respiratory failure: Secondary to can start failure chronic systolic dysfunction with acute exacerbation -Atrial fibrillation chronic A. fib presently rate controlled continue with anticoagulation -Peripheral vascular disease with recent stent continue with aspirin and Plavix -Type 2 diabetes mellitus patient will be continued on his home regimen except for metformin because of possible CHF exacerbation -Hypertension -COPD without any acute exacerbation patient does have chronic hypercapnic respiratory failure secondary to COPD -Diabetic peripheral neuropathy -Coronary artery disease -Hyperlipidemia -Sleep apnea -Hypothyroidism Patient Condition at Discharge: Fair Plan - Discharge Summary Discharge Rx Participant: Yes New Discharge Prescriptions: New Furosemide [Lasix] 40 mg PO BID@0900,1600 #60 tab Continue Venlafaxine HCl [Effexor] 75 mg PO HS Isosorbide Mononitrate ER [Imdur] 60 mg PO DAILY Insulin Glargine [Lantus] 100 unit SQ HS Aspirin 81 mg PO DAILY #30 chew Atorvastatin [Lipitor] 80 mg PO HS #30 tab Nitroglycerin Sl Tabs [Nitrostat] 0.4 mg SUBLINGUAL Q5M PRN #25 tab PRN Reason: Chest Pain Rivaroxaban [Xarelto] 20 mg PO DAILY Albuterol Inhaler [Ventolin Hfa Inhaler] 2 puff INHALATION RT-Q6H PRN PRN Reason: Shortness Of Breath Montelukast Sodium [Singulair] 10 mg PO HS Empagliflozin [Jardiance] 10 mg PO DAILY Dulaglutide [Trulicity] 1.5 mg SQ FR Clopidogrel [Plavix] 75 mg PO DAILY Budesonide [Pulmicort] 0.5 mg INHALATION RT-BID PRN PRN Reason: sob Lisinopril [Zestril] 2.5 mg PO DAILY Pregabalin [Lyrica] 75 mg PO BID Carvedilol [Coreg] 12.5 mg PO BID Ipratropium-Albuterol Nebulize [Duoneb 0.5 mg-3 mg/3 ml Soln] 3 ml INHALATION RT-QID Spironolactone [Aldactone] 25 mg PO DAILY Discontinued Furosemide [Lasix] 20 mg PO DAILY metFORMIN HCL [metFORMIN HCL ER] 750 mg PO BID Discharge Medication List Venlafaxine HCl [Effexor] 75 mg PO HS 06/15/14 [History] Insulin Glargine [Lantus] 100 unit SQ HS 02/21/16 [History] Isosorbide Mononitrate ER [Imdur] 60 mg PO DAILY 02/21/16 [History] Aspirin 81 mg PO DAILY #30 chew 02/24/16 [Rx] Atorvastatin [Lipitor] 80 mg PO HS #30 tab 02/24/16 [Rx] Nitroglycerin Sl Tabs [Nitrostat] 0.4 mg SUBLINGUAL Q5M PRN #25 tab 02/24/16 [Rx ] Albuterol Inhaler [Ventolin Hfa Inhaler] 2 puff INHALATION RT-Q6H PRN 10/05/16 [ History] Rivaroxaban [Xarelto] 20 mg PO DAILY 07/18/16 [History] Budesonide [Pulmicort] 0.5 mg INHALATION RT-BID PRN 07/10/17 [History] Clopidogrel [Plavix] 75 mg PO DAILY 07/10/17 [History] Dulaglutide [Trulicity] 1.5 mg SQ FR 07/10/17 [History] Empagliflozin [Jardiance] 10 mg PO DAILY 07/10/17 [History] Montelukast Sodium [Singulair] 10 mg PO HS 07/10/17 [History] Lisinopril [Zestril] 2.5 mg PO DAILY 12/24/17 [History] Pregabalin [Lyrica] 75 mg PO BID 12/24/17 [History] Carvedilol [Coreg] 12.5 mg PO BID 04/10/18 [History] Ipratropium-Albuterol Nebulize [Duoneb 0.5 mg-3 mg/3 ml Soln] 3 ml INHALATION RT -QID 04/10/18 [History] Spironolactone [Aldactone] 25 mg PO DAILY 04/10/18 [History] Furosemide [Lasix] 40 mg PO BID@0900,1600 #60 tab 04/13/18 [Rx] Follow up Appointment(s)/Referral(s): [facility], [NON-STAFF] - Liss Eavngelista MD [Primary Care Provider] - 3 Days (please call for appointment date and time,office is now closed) Patient Instructions/Handouts: Heart Failure (DC) Discharge Disposition: HOME WITH HOME HEALTH SERVICES
[2018-04-13] MEDS ORDERED: FUROSEMIDE 40 MG TAB PO SCH (16:00)
== END 2018-04-13 13:36 | disposition home health service (06) | DRG 291 ==
LOC: EC 14:19 → 6SEL 15:29
PROVIDERS: ADMIT Hospitalist; ATTEND Hospitalist
DX: I11.0 Hypertensive heart disease with heart failure (principal); J96.01 Acute respiratory failure with hypoxia; J96.12 Chronic respiratory failure with hypercapnia; I50.23 Acute on chronic systolic (congestive) heart failure; E11.9 Type 2 diabetes mellitus without complications; J44.9 Chronic obstructive pulmonary disease, unspecified; E11.42 Type 2 diabetes mellitus with diabetic polyneuropathy; E03.9 Hypothyroidism, unspecified; G47.30 Sleep apnea, unspecified; E78.5 Hyperlipidemia, unspecified; I48.2 Chronic atrial fibrillation; E11.51 Type 2 diabetes mellitus with diabetic peripheral angiopathy without gangrene; F32.9 Major depressive disorder, single episode, unspecified; F43.10 Post-traumatic stress disorder, unspecified; I25.10 Atherosclerotic heart disease of native coronary artery without angina pectoris; I25.5 Ischemic cardiomyopathy; Z95.1 Presence of aortocoronary bypass graft; Z95.820 Peripheral vascular angioplasty status with implants and grafts; Z95.810 Presence of automatic (implantable) cardiac defibrillator; Z86.14 Personal history of Methicillin resistant Staphylococcus aureus infection; Z79.82 Long term (current) use of aspirin; Z79.4 Long term (current) use of insulin; Z79.01 Long term (current) use of anticoagulants; Z79.02 Long term (current) use of antithrombotics/antiplatelets; Z79.899 Other long term (current) drug therapy; Z82.49 Family history of ischemic heart disease and other diseases of the circulatory system; Z83.3 Family history of diabetes mellitus; Z87.891 Personal history of nicotine dependence; Z95.5 Presence of coronary angioplasty implant and graft
CPT/HCPCS: 36415; 71046; 80048; 80053; 82550; 82553; 83036; 83735; 83880; 84484; 85025; 85027; 85610; 85730; 93005; 93306; 94640; 94760; 96361; 96374; 99285

== ENCOUNTER 2018-04-24 08:14 | Day surgery (SDC) | payer MEDICARE ==
[2018-04-22 10:01] VITALS: BMI 33.2
[~2018-04-24 08:14] MED LIST changes: +ALBUTEROL NEB (CONC) 2.5 MG/0.5 ML INHALATION ONE; -ALPRAZolam 0.25 MG TAB PO PRN; -ASPIRIN 325 MG TAB PO STA; +LACTATED RINGERS 1,000 ML IV ONE; +LACTATED RINGERS 1,000 ML IV SCH; +LIDOCAINE 2% (PF) 20 MG/ML 2 ML AMP INHALATION ONE; -SODIUM CHLORIDE 0.9% 1,000 ML in EMPTY BAG 1 BAG IV ONE
[2018-04-24] MEDS ORDERED: LIDOCAINE 1% 20 ML VIAL (10MG/ML) FOR IV START INTRADERMA ONE (09:10)
[2018-04-24 09:18] VITALS: RESP 16
[2018-04-24 09:18] LABS: Glucose,Whole Blood 125 mg/dL (75-99)
[2018-04-24 09:21] VITALS: TEMP 98.4
[2018-04-24] MEDS ORDERED: LIDOCAINE 1% INJ 10MG/ML (20 ML MDV) ONE (10:10)
[2018-04-24] MEDS ORDERED: fentaNYL (PF) 50 MCG/ML 2 ML AMP ONE (10:10)
[2018-04-24] MEDS ORDERED: KETAMINE 10 MG/ML 20 ML VIAL ONE (10:10)
[2018-04-24] MEDS ORDERED: PROPOFOL 10 MG/ML 20 ML VIAL IV ONE (10:10)
[2018-04-24] MEDS ORDERED: LIDOCAINE 1% INJ 10MG/ML (20 ML MDV) INTRATRACH ONE (10:36)
--- NOTE | 2018-04-24 10:58 | P.PCN ---
Date of Procedure: 04/24/18 Preoperative Diagnosis: Hemoptysis, pneumonia, coronary artery disease, peripheral arterial disease Postoperative Diagnosis: As above Procedure(s) Performed: #1 bronchoscopy, #2 bronchoalveolar lavage of the right upper lobe right lower lobe and left upper lobe Anesthesia: MAC Surgeon: Tomas Serrano Disposition: same day Indications for Procedure: As above Operative Findings: As below Description of Procedure: prepared and draped in a usual fashion procedure explained to the patient at length fiberoptic bronchoscope was passed through the right nares the laryngeal area was approached the vocal cords were normal structure and function tip of the scope was passed beyond the vocal cords into trachea which was normal in appearance a mildly right heme edema bilaterally in the airway was noted detail inspection of the right upper lobe right middle lobe and right lower lobe along with subsegments were done followed by left upper lobe lingular lobe and left lower lobe no endobronchial mass or lesion was seen no source of bleeding identified BAL was performed from the right upper lobe right lower lobe and left upper lobe subsegment patient tolerated procedure well no complication noted, the scope was withdrawn slowly laryngeal area was inspected again no source of bleeding was seen in the upper airways as well up to the right nares
[2018-04-24 12:05] VITALS: BP 102/66; PULSE 63
== END 2018-04-24 12:10 | disposition home or self-care (01) ==
LOC: ORWHC2ENDO 08:14
PROVIDERS: ATTEND Internal Medicine Sleep Medicine
DX: R04.2 Hemoptysis (principal); J18.9 Pneumonia, unspecified organism; I25.10 Atherosclerotic heart disease of native coronary artery without angina pectoris; I11.0 Hypertensive heart disease with heart failure; I50.9 Heart failure, unspecified; Z87.891 Personal history of nicotine dependence; I73.9 Peripheral vascular disease, unspecified; E78.00 Pure hypercholesterolemia, unspecified; E11.9 Type 2 diabetes mellitus without complications; Z79.4 Long term (current) use of insulin; M19.90 Unspecified osteoarthritis, unspecified site; I51.9 Heart disease, unspecified; F32.9 Major depressive disorder, single episode, unspecified; E78.5 Hyperlipidemia, unspecified; I48.91 Unspecified atrial fibrillation; Z95.5 Presence of coronary angioplasty implant and graft; G47.33 Obstructive sleep apnea (adult) (pediatric); Z99.89 Dependence on other enabling machines and devices; E07.9 Disorder of thyroid, unspecified; Z95.1 Presence of aortocoronary bypass graft; I25.2 Old myocardial infarction; Z79.01 Long term (current) use of anticoagulants; Z79.02 Long term (current) use of antithrombotics/antiplatelets; Z79.82 Long term (current) use of aspirin; Z79.51 Long term (current) use of inhaled steroids; Z79.2 Long term (current) use of antibiotics; Z79.899 Other long term (current) drug therapy
CPT/HCPCS: 94640; 87798 ×4; 87541; 87496; 87498; 87529; 88108; 88305; 87252; 87502; 87634; 87070; 87205; 87116; 87102; 87206; 87299; 31624; J2001 ×2; J3010; J2704

== ENCOUNTER 2018-09-11 11:59 | Emergency (ER) | payer MEDICARE ==
[2018-09-11 12:08] VITALS: TEMP 97.6
--- NOTE | 2018-09-11 12:49 | XR ---
EXAMINATION TYPE: XR chest 2V DATE OF EXAM: 09/11/2018 COMPARISON: 04/10/2018 TECHNIQUE: PA and lateral views submitted. HISTORY: Difficulty breathing FINDINGS: Scattered senescent parenchymal changes noted. Hyperinflation compatible with COPD. The heart is enla rged. Subsegmental changes at the lung bases with small effusions. Postsurgical changes and cardiac device noted. Hypertrophic and degenerative change of the spine. Pro static heart valve noted. Biapical pleural thickening. No evidence for hilar prominence. Degenerative changes dorsal spine. IMPRESSION: 1. Persistent interstitial pattern may been the basis of chronic interstitial lung disease or venous congestion. Small right pleural effusion and basilar infiltrate stable.
[2018-09-11 13:24] LABS: Anisocytosis Slight; Basophils % (A) 0 %; Eosinophils # (A) 0.1 k/uL (0-0.7); Eosinophils % (A) 1 %; HCT 43.7 % (39.0-53.0); HGB 13.7 gm/dL (13.0-17.5); Hypochromasia Moderate; Lymphocytes # (A) 0.9 k/uL (1.0-4.8); Lymphocytes % (A) 7 %; MCH 23.4 pg (25.0-35.0); MCHC 31.5 g/dL (31.0-37.0); MCV 74.5 fL (80.0-100.0); Mean Platelet Volume 6.9; Microcytosis Moderate; Monocytes # (A) 1.1 k/uL (0-1.0); Monocytes % (A) 9 %; Neutrophils # (A) 10.2 k/uL (1.3-7.7); Neutrophils % (A) 81 %; Platelet Count 277 k/uL (150-450); Poikilocytosis Slight; RBC 5.86 m/uL (4.30-5.90); RDW 19.3 % (11.5-15.5); WBC 12.6 k/uL (3.8-10.6)
[2018-09-11 13:38] LABS: INR 1.3 (<1.2); Partial Thromboplastin Time 26.9 sec (22.0-30.0); Prothrombin Time 12.4 sec (9.0-12.0)
[2018-09-11 13:45] LABS: ALT 19 U/L (21-72); AST 18 U/L (17-59); Albumin 4.2 g/dL (3.5-5.0); Alkaline Phosphatase 115 U/L (38-126); Anion Gap 12 mmol/L; Blood Urea Nitrogen 13 mg/dL (9-20); Calcium 9.4 mg/dL (8.4-10.2); Carbon Dioxide 29 mmol/L (22-30); Chloride 97 mmol/L (98-107); Glucose 114 mg/dL (74-99); Potassium 4.1 mmol/L (3.5-5.1); Sodium 138 mmol/L (137-145); Total Bilirubin 1.7 mg/dL (0.2-1.3); Total Protein 7.9 g/dL (6.3-8.2)
[2018-09-11] MEDS ORDERED: methylPREDNISolone SOD SUCCI 125 MG/2 ML VIAL IV STA (13:47)
[2018-09-11] MEDS ORDERED: IPRATROPIUM-ALBUTEROL 3 ML NEB INHALATION STA (13:47)
--- NOTE | 2018-09-11 13:48 | ED ---
SOB HPI - General Chief Complaint: Shortness of Breath Stated Complaint: YAYA Time Seen by Provider: 09/11/18 13:33 Source: patient, RN notes reviewed, old records reviewed Mode of arrival: ambulatory Limitations: no limitations - History of Present Illness Initial Comments: Patient is a 73-year-old male with history of COPD presents emergency department today with chief complaint of cough congestion. Worse over the past week. Patient states that he has been using his DuoNeb treatments and inhalers at home with little relief. 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 He also follows with Dr. Serrano. Patient reports that he has had no fevers or chills. He denies any chest pain. Patient states that he has had no lower extremity swelling. Plans of sinus congestion and mild headache. - Related Data Home Medications Medication Instructions Recorded Confirmed Venlafaxine HCl [Effexor] 75 mg PO HS 06/15/14 09/11/18 Insulin Glargine [Lantus] 22 unit SQ HS 02/21/16 09/11/18 Isosorbide Mononitrate ER [Imdur] 60 mg PO DAILY 02/21/16 09/11/18 Albuterol Inhaler [Ventolin Hfa 2 puff INHALATION RT-Q6H PRN 07/18/16 09/11/18 Inhaler] Rivaroxaban [Xarelto] 20 mg PO DAILY 07/18/16 09/11/18 Budesonide [Pulmicort] 0.5 mg INHALATION RT-BID PRN 07/10/17 09/11/18 Clopidogrel [Plavix] 75 mg PO DAILY 07/10/17 09/11/18 Dulaglutide [Trulicity] 1.5 mg SQ FR 07/10/17 09/11/18 Empagliflozin [Jardiance] 10 mg PO DAILY 07/10/17 09/11/18 Montelukast Sodium [Singulair] 10 mg PO HS 07/10/17 09/11/18 Lisinopril [Zestril] 2.5 mg PO DAILY 12/24/17 09/11/18 Pregabalin [Lyrica] 75 mg PO BID 12/24/17 09/11/18 Carvedilol [Coreg] 12.5 mg PO BID 04/10/18 09/11/18 Ipratropium-Albuterol Nebulize 3 ml INHALATION RT-QID 04/10/18 09/11/18 [Duoneb 0.5 mg-3 mg/3 ml Soln] Spironolactone [Aldactone] 25 mg PO DAILY 04/10/18 09/11/18 metFORMIN HCL 1,000 mg PO BID 09/11/18 09/11/18 Previous Rx's Medication Instructions Recorded Atorvastatin [Lipitor] 80 mg PO HS #30 tab 02/24/16 Nitroglycerin Sl Tabs [Nitrostat] 0.4 mg SUBLINGUAL Q5M PRN #25 tab 02/24/16 Furosemide [Lasix] 40 mg PO BID@0900,1600 #60 tab 04/13/18 Levofloxacin [Levaquin] 750 mg PO DAILY 3 Days #5 tab 09/11/18 predniSONE 50 mg PO DAILY #5 tablet 09/11/18 Allergies Allergy/AdvReac Type Severity Reaction Status Date / Time No Known Allergies Allergy Verified 09/11/18 13:59 Review of Systems ROS Statement: Those systems with pertinent positive or pertinent negative responses have been documented in the HPI. ROS Other: All systems not noted in ROS Statement are negative. Past Medical History Past Medical History: Atrial Fibrillation, Coronary Artery Disease (CAD), Chest Pain / Angina, Heart Failure, COPD, Diabetes Mellitus, Hyperlipidemia, Hypertension, Osteoarthritis (OA), Pneumonia, Skin Disorder, Sleep Apnea/CPAP/ BIPAP, Thyroid Disorder, Vascular Disorder Additional Past Medical History / Comment(s): psoriasis, neuropathy RT HAND and LEFT FOOT, poor circulation left leg, gout, thyoid nodule, hx ingrown toenails zac great toes, uses O2 PRN. left leg iliac stent due to poor circulation 12/25/2017. History of Any Multi-Drug Resistant Organisms: MRSA Date of last positivie culture/infection: 2011 MDRO Source:: chest incision Past Surgical History: AICD, Back Surgery, Coronary Bypass/CABG, Heart Catheterization With Stent Additional Past Surgical History / Comment(s): 3 CARDIAC STENTS, quad bypass and heart valve repair 2011, Lt Fempop (1 stent placed) Past Anesthesia/Blood Transfusion Reactions: No Reported Reaction Date of Last Stent Placement:: 12/25/2017 Type of Cardiac Device: AICD Device Placement Date:: 2012 Past Psychological History: Depression, PTSD Smoking Status: Former smoker Past Alcohol Use History: None Reported Past Drug Use History: Unable to Obtain - Past Family History Father Family Medical History: Congestive Heart Failure (CHF), Coronary Artery Disease (CAD), Diabetes Mellitus, Myocardial Infarction (MD) Additional Family Medical History / Comment(s): MAC DEGENERATION, CABG Mother Family Medical History: No Reported History General Exam - General Exam Comments Initial Comments: 73-year-old male. Alert and oriented. Patient appears in no acute distress. Limitations: no limitations General appearance: alert, in no apparent distress Head exam: Present: atraumatic, normocephalic, normal inspection Eye exam: Present: normal appearance, PERRL, EOMI. Absent: scleral icterus, conjunctival injection, periorbital swelling ENT exam: Present: normal exam, mucous membranes moist Neck exam: Present: normal inspection. Absent: tenderness, meningismus, lymphadenopathy Respiratory exam: Present: normal lung sounds bilaterally, wheezes. Absent: respiratory distress, rales, rhonchi, stridor Cardiovascular Exam: Present: regular rate, normal rhythm, normal heart sounds. Absent: systolic murmur, diastolic murmur, rubs, gallop, clicks GI/Abdominal exam: Present: soft, normal bowel sounds. Absent: distended, tenderness, guarding, rebound, rigid Neurological exam: Present: alert, oriented X3, CN II-XII intact Psychiatric exam: Present: normal affect, normal mood Skin exam: Present: warm, dry, intact, normal color. Absent: rash Course Vital Signs 09/11/18 09/11/18 09/11/18 12:04 14:01 14:26 Temperature 97.6 F Pulse Rate 58 L 59 L 66 Respiratory 18 23 Rate Blood Pressure 104/65 120/92 O2 Sat by Pulse 100 96 Oximetry 09/11/18 09/11/18 09/11/18 14:30 14:33 15:01 Temperature Pulse Rate 69 68 66 Respiratory 21 24 Rate Blood Pressure 101/71 121/76 O2 Sat by Pulse 98 97 Oximetry 09/11/18 09/11/18 15:08 15:09 Temperature Pulse Rate 70 Respiratory 20 18 Rate Blood Pressure 121/82 O2 Sat by Pulse 97 Oximetry Medical Decision Making - Medical Decision Making 73-year-old male presents emergency department today with sinus congestion, cough, and shortness of breath. Said worse over the past week. Patient was previously smoker and history of COPD. Also has history of CHF. He has no chest pain, and he denies any loss leg swelling. At this time Patient does have some wheezing noted on exam. Given a DuoNeb treatment with some improvement IV Solu-Medrol. Patient chest x-ray shows all chronic findings. I gently Patient is in acute heart failure state. Patient's EKG shows no significant changes. Troponin is normal. I discussed that this time Patient will be treated for acute COPD exacerbation with steroids and antibiotic, Levaquin. Continuing albuterol breathing treatments. Discussed if he has any worsening shortness breath or any other complaints of chest pain Patient should return to emergency department for reevaluation. Patient agrees. Patient understands treatment plan will comply. Return parameters were discussed. - Lab Data Result diagrams: 09/11/18 12:57 09/11/18 12:57 Lab Results 09/11/18 09/11/18 09/11/18 Range/Units 12:57 12:57 12:57 WBC 12.6 H (3.8-10.6) k/uL RBC 5.86 (4.30-5.90) m/uL Hgb 13.7 (13.0-17.5) gm/dL Hct 43.7 (39.0-53.0) % MCV 74.5 L (80.0-100.0) fL MCH 23.4 L (25.0-35.0) pg MCHC 31.5 (31.0-37.0) g/dL RDW 19.3 H (11.5-15.5) % Plt Count 277 (150-450) k/uL Neutrophils % 81 % Lymphocytes % 7 % Monocytes % 9 % Eosinophils % 1 % Basophils % 0 % Neutrophils # 10.2 H (1.3-7.7) k/uL Lymphocytes # 0.9 L (1.0-4.8) k/uL Monocytes # 1.1 H (0-1.0) k/uL Eosinophils # 0.1 (0-0.7) k/uL Basophils # 0.0 (0-0.2) k/uL Hypochromasia Moderate Poikilocytosis Slight Anisocytosis Slight Microcytosis Moderate PT (9.0-12.0) sec INR (<1.2) APTT (22.0-30.0) sec Sodium 138 (137-145) mmol/L Potassium 4.1 (3.5-5.1) mmol/L Chloride 97 L (98-107) mmol/L Carbon Dioxide 29 (22-30) mmol/L Anion Gap 12 mmol/L BUN 13 (9-20) mg/dL Creatinine 0.75 (0.66-1.25) mg/dL Est GFR (CKD-EPI)AfAm >90 (>60 ml/min/1.73 sqM) Est GFR (CKD-EPI)NonAf >90 (>60 ml/min/1.73 sqM) Glucose 114 H (74-99) mg/dL Calcium 9.4 (8.4-10.2) mg/dL Total Bilirubin 1.7 H (0.2-1.3) mg/dL AST 18 (17-59) U/L ALT 19 L (21-72) U/L Alkaline Phosphatase 115 (38-126) U/L Total Creatine Kinase 63 (55-170) U/L CK-MB (CK-2) 1.0 (0.0-2.4) ng/mL CK-MB (CK-2) Rel Index 1.6 Troponin I <0.012 (0.000-0.034) ng/mL NT-Pro-B Natriuret Pep pg/mL Total Protein 7.9 (6.3-8.2) g/dL Albumin 4.2 (3.5-5.0) g/dL 09/11/18 09/11/18 Range/Units 12:57 12:57 WBC (3.8-10.6) k/uL RBC (4.30-5.90) m/uL Hgb (13.0-17.5) gm/dL Hct (39.0-53.0) % MCV (80.0-100.0) fL MCH (25.0-35.0) pg MCHC (31.0-37.0) g/dL RDW (11.5-15.5) % Plt Count (150-450) k/uL Neutrophils % % Lymphocytes % % Monocytes % % Eosinophils % % Basophils % % Neutrophils # (1.3-7.7) k/uL Lymphocytes # (1.0-4.8) k/uL Monocytes # (0-1.0) k/uL Eosinophils # (0-0.7) k/uL Basophils # (0-0.2) k/uL Hypochromasia Poikilocytosis Anisocytosis Microcytosis PT 12.4 H (9.0-12.0) sec INR 1.3 H (<1.2) APTT 26.9 (22.0-30.0) sec Sodium (137-145) mmol/L Potassium (3.5-5.1) mmol/L Chloride (98-107) mmol/L Carbon Dioxide (22-30) mmol/L Anion Gap mmol/L BUN (9-20) mg/dL Creatinine (0.66-1.25) mg/dL Est GFR (CKD-EPI)AfAm (>60 ml/min/1.73 sqM) Est GFR (CKD-EPI)NonAf (>60 ml/min/1.73 sqM) Glucose (74-99) mg/dL Calcium (8.4-10.2) mg/dL Total Bilirubin (0.2-1.3) mg/dL AST (17-59) U/L ALT (21-72) U/L Alkaline Phosphatase (38-126) U/L Total Creatine Kinase (55-170) U/L CK-MB (CK-2) (0.0-2.4) ng/mL CK-MB (CK-2) Rel Index Troponin I (0.000-0.034) ng/mL NT-Pro-B Natriuret Pep 1590 pg/mL Total Protein (6.3-8.2) g/dL Albumin (3.5-5.0) g/dL - Radiology Data Radiology results: report reviewed Chest x-ray shows persistent interstitial pattern may be seen on the basis of chronic interstitial lung disease or venous congestion. Small right pleural effusion and basilar infiltrate is stable. Disposition Clinical Impression: Upper respiratory infection, COPD exacerbation Disposition: HOME SELF-CARE Condition: Good Instructions: Acute Bronchitis (ED) Additional Instructions: Patient has have close follow-up with primary care physician. Avoid salt in her diet. Patient should return to the emergency department if any alarming signs or symptoms occur. Prescriptions: Levofloxacin [Levaquin] 750 mg PO DAILY 3 Days #5 tab predniSONE 50 mg PO DAILY #5 tablet Is patient prescribed a controlled substance at d/c from ED?: No Referrals: Liss Evangelista MD [Primary Care Provider] - 1-2 days Time of Disposition: 15:36
[2018-09-11 13:55] LABS: Creatine Kinase 63 U/L (55-170)
[2018-09-11 14:07] LABS: Troponin I <0.012 ng/mL (0.000-0.034)
[2018-09-11 15:10] VITALS: RESP 18
[2018-09-11 16:07] VITALS: BP 118/78; PULSE 62
== END 2018-09-11 16:07 | disposition home or self-care (01) ==
LOC: EC 11:59
DX: J44.1 Chronic obstructive pulmonary disease with (acute) exacerbation (principal); J06.9 Acute upper respiratory infection, unspecified; J90 Pleural effusion, not elsewhere classified; R91.8 Other nonspecific abnormal finding of lung field; I49.3 Ventricular premature depolarization; R94.31 Abnormal electrocardiogram [ECG] [EKG]; I48.91 Unspecified atrial fibrillation; I11.0 Hypertensive heart disease with heart failure; I50.9 Heart failure, unspecified; I25.119 Atherosclerotic heart disease of native coronary artery with unspecified angina pectoris; E11.42 Type 2 diabetes mellitus with diabetic polyneuropathy; G47.33 Obstructive sleep apnea (adult) (pediatric); F32.9 Major depressive disorder, single episode, unspecified; Z87.891 Personal history of nicotine dependence; Z79.4 Long term (current) use of insulin; Z79.01 Long term (current) use of anticoagulants; Z79.02 Long term (current) use of antithrombotics/antiplatelets; Z79.51 Long term (current) use of inhaled steroids; Z79.899 Other long term (current) drug therapy; Z86.14 Personal history of Methicillin resistant Staphylococcus aureus infection; Z95.1 Presence of aortocoronary bypass graft; Z95.810 Presence of automatic (implantable) cardiac defibrillator; Z99.89 Dependence on other enabling machines and devices
CPT/HCPCS: 36415; 71046; 80053; 82550; 82553; 83880; 84484; 85025; 85610; 85730; 93005; 94640; 96374; 99285

== ENCOUNTER 2019-01-20 16:18 | Inpatient (IN) | payer MEDICARE ==
--- NOTE | 2019-01-20 16:47 | ED ---
General Adult HPI - General Chief complaint: Fall Stated complaint: fall Time Seen by Provider: 01/20/19 16:22 Source: patient Mode of arrival: EMS Limitations: no limitations - History of Present Illness Initial comments: Dictation was produced using [employer] dictation software. please excuse any grammatical, word or spelling errors. Chief Complaint: 73-year-old male with multiple comorbidities including coronary artery disease, CHF, pacemaker presents with worsening shortness of breath History of Present Illness: Is a 73-year-old male. Symptoms were from Dr. Evangelista's office. Patient was evaluated for his usual regular checkup appointment. He was evaluated and was found to be short of breath. Patient had stable vital signs however has generalized weakness and difficulty standing. Patient was seen and evaluated at Dr. Evangelista's office and he was advised to come to the emergency department for admission. States that he wanted to go home to wait for his daughter, however well getting out of his truck he experienced his left leg locking out causing him to fall and hit his head. Patient denies any loss of consciousness. Patient is on Plavix and Xarelto patient reports that he has normal left lower extremity pain secondary to chronic neuropathy. Patient reports having had an 11 pound weight gain over the last month. The ROS documented in this emergency department record has been reviewed and confirmed by me. Those systems with pertinent positive or negative responses have been documented in the HPI. All other systems are other negative and/or noncontributory. PHYSICAL EXAM: General Impression: Alert and oriented x3, not in acute distress HEENT: Normocephalic atraumatic, extra-ocular movements intact, pupils equal and reactive to light bilaterally, mucous membranes moist. Cardiovascular: Heart regular rate and rhythm, S1&S2 audible, no murmurs, rubs or gallops Chest: Diminished lung sounds bilaterally Abdomen: Bowel sounds present, abdomen soft, non-tender, non-distended, no organomegaly Musculoskeletal: Pulses present and equal in all extremities, 2+ pitting edema Motor: no focal deficits noted Neurological: CN II-XII grossly intact, no focal motor or sensory deficits noted Skin: Intact with no visualized rashes Psych: Normal affect and mood ED course: 73-year-old male presents with instruction from PCP to come to the emergency department for likely CHF exacerbation. Vital signs upon arrival are within acceptable limits. Blood pressures however slightly low at 99/70. Pa tient has a history of congestive heart failure and signs of CHF exacerbation.Laboratory evaluation obtained. CBC unremarkable. Coag panel is grossly unremarkable. Metabolic panel shows no acute processes. Slight elevation of renal atrophy peptide. X-ray of the chest shows cardiogenic pulmonary edema. Computed tomography scan of the head and C-spine shows no acute traumatic injuries. Patient not showing any signs of worsening respiratory distress. At this point no indication for BiPAP for aggressive diuresis at this time. Patient given 40 mg of IV Lasix. I have patient admitted for gentle diuresis. Cardiology to be on consult. EKG interpretation: Ventricular rate 61, atrial fibrillation, paced rhythm, QS 110, QTc 626. Compared to EKG from 09/11/2018. - Related Data Home Medications Medication Instructions Recorded Confirmed Venlafaxine HCl [Effexor] 75 mg PO HS 06/15/14 01/20/19 Insulin Glargine [Lantus] 22 unit SQ HS 02/21/16 01/20/19 Isosorbide Mononitrate ER [Imdur] 60 mg PO DAILY 02/21/16 01/20/19 Albuterol Inhaler [Ventolin Hfa 2 puff INHALATION RT-Q6H PRN 07/18/16 01/20/19 Inhaler] Rivaroxaban [Xarelto] 20 mg PO DAILY 07/18/16 01/20/19 Budesonide [Pulmicort] 0.5 mg INHALATION RT-BID PRN 07/10/17 01/20/19 Clopidogrel [Plavix] 75 mg PO DAILY 07/10/17 01/20/19 Dulaglutide [Trulicity] 1.5 mg SQ FR 07/10/17 01/20/19 Empagliflozin [Jardiance] 10 mg PO DAILY 07/10/17 01/20/19 Montelukast Sodium [Singulair] 10 mg PO HS 07/10/17 01/20/19 Lisinopril [Zestril] 2.5 mg PO DAILY 12/24/17 01/20/19 Pregabalin [Lyrica] 75 mg PO BID 12/24/17 01/20/19 Carvedilol [Coreg] 12.5 mg PO BID 04/10/18 01/20/19 Ipratropium-Albuterol Nebulize 3 ml INHALATION RT-QID 04/10/18 01/20/19 [Duoneb 0.5 mg-3 mg/3 ml Soln] Spironolactone [Aldactone] 25 mg PO DAILY 04/10/18 01/20/19 metFORMIN HCL 1,000 mg PO BID 09/11/18 01/20/19 Atorvastatin [Lipitor] 40 mg PO HS 01/20/19 01/20/19 Furosemide [Lasix] 40 mg PO BID 01/20/19 01/20/19 Previous Rx's Medication Instructions Recorded Nitroglycerin Sl Tabs [Nitrostat] 0.4 mg SUBLINGUAL Q5M PRN #25 tab 02/24/16 Allergies Allergy/AdvReac Type Severity Reaction Status Date / Time No Known Allergies Allergy Verified 01/20/19 16:40 Review of Systems ROS Statement: Those systems with pertinent positive or pertinent negative responses have been documented in the HPI. ROS Other: All systems not noted in ROS Statement are negative. Past Medical History Past Medical History: Atrial Fibrillation, Coronary Artery Disease (CAD), Chest Pain / Angina, Heart Failure, COPD, Diabetes Mellitus, Hyperlipidemia, Hypertension, Osteoarthritis (OA), Pneumonia, Skin Disorder, Sleep Apnea/CPAP/BIPAP, Thyroid Disorder, Vascular Disorder Additional Past Medical History / Comment(s): psoriasis, neuropathy RT HAND and LEFT FOOT, poor circulation left leg, gout, thyoid nodule, hx ingrown toenails zac great toes, uses O2 PRN. left leg iliac stent due to poor circulation 12/25/2017. History of Any Multi-Drug Resistant Organisms: MRSA Date of last positivie culture/infection: 2011 MDRO Source:: chest incision Past Surgical History: AICD, Back Surgery, Coronary Bypass/CABG, Heart Catheterization With Stent Additional Past Surgical History / Comment(s): 3 CARDIAC STENTS, quad bypass and heart valve repair 2011, Lt Fempop (1 stent placed) Past Anesthesia/Blood Transfusion Reactions: No Reported Reaction Date of Last Stent Placement:: 12/25/2017 Type of Cardiac Device: AICD Device Placement Date:: 2012 Past Psychological History: Depression, PTSD Smoking Status: Former smoker Past Alcohol Use History: None Reported Past Drug Use History: Unable to Obtain - Past Family History Father Family Medical History: Congestive Heart Failure (CHF), Coronary Artery Disease (CAD), Diabetes Mellitus, Myocardial Infarction (ID) Additional Family Medical History / Comment(s): LUCIA DEGENERATION, CABG Mother Family Medical History: No Reported History General Exam Limitations: no limitations Course Vital Signs 01/20/19 01/20/19 16:21 17:31 Temperature 97.3 F L Pulse Rate 57 L Respiratory 18 18 Rate Blood Pressure 99/70 O2 Sat by Pulse 96 Oximetry Medical Decision Making - Lab Data Result diagrams: 01/20/19 16:33 01/20/19 16:33 Lab Results 01/20/19 01/20/19 01/20/19 Range/Units 16:33 16:33 16:33 WBC 10.1 (3.8-10.6) k/uL RBC 4.92 (4.30-5.90) m/uL Hgb 12.7 L (13.0-17.5) gm/dL Hct 41.0 (39.0-53.0) % MCV 83.4 (80.0-100.0) fL MCH 25.9 (25.0-35.0) pg MCHC 31.0 (31.0-37.0) g/dL RDW 20.3 H (11.5-15.5) % Plt Count 262 (150-450) k/uL Neutrophils % 74 % Lymphocytes % 11 % Monocytes % 9 % Eosinophils % 2 % Basophils % 1 % Neutrophils # 7.5 (1.3-7.7) k/uL Lymphocytes # 1.1 (1.0-4.8) k/uL Monocytes # 1.0 (0-1.0) k/uL Eosinophils # 0.2 (0-0.7) k/uL Basophils # 0.1 (0-0.2) k/uL Hypochromasia Slight Anisocytosis Moderate Microcytosis Slight PT (9.0-12.0) sec INR (<1.2) APTT (22.0-30.0) sec Sodium 136 L (137-145) mmol/L Potassium 4.3 (3.5-5.1) mmol/L Chloride 99 (98-107) mmol/L Carbon Dioxide 24 (22-30) mmol/L Anion Gap 13 mmol/L BUN 17 (9-20) mg/dL Creatinine 0.86 (0.66-1.25) mg/dL Est GFR (CKD-EPI)AfAm >90 (>60 ml/min/1.73 sqM) Est GFR (CKD-EPI)NonAf 86 (>60 ml/min/1.73 sqM) Glucose 153 H (74-99) mg/dL Calcium 8.8 (8.4-10.2) mg/dL Magnesium 2.0 (1.6-2.3) mg/dL Total Bilirubin 0.9 (0.2-1.3) mg/dL AST 20 (17-59) U/L ALT 20 L (21-72) U/L Alkaline Phosphatase 96 (38-126) U/L CK-MB (CK-2) 0.7 (0.0-2.4) ng/mL Troponin I <0.012 (0.000-0.034) ng/mL NT-Pro-B Natriuret Pep pg/mL Total Protein 6.4 (6.3-8.2) g/dL Albumin 3.3 L (3.5-5.0) g/dL 01/20/19 01/20/19 Range/Units 16:33 16:33 WBC (3.8-10.6) k/uL RBC (4.30-5.90) m/uL Hgb (13.0-17.5) gm/dL Hct (39.0-53.0) % MCV (80.0-100.0) fL MCH (25.0-35.0) pg MCHC (31.0-37.0) g/dL RDW (11.5-15.5) % Plt Count (150-450) k/uL Neutrophils % % Lymphocytes % % Monocytes % % Eosinophils % % Basophils % % Neutrophils # (1.3-7.7) k/uL Lymphocytes # (1.0-4.8) k/uL Monocytes # (0-1.0) k/uL Eosinophils # (0-0.7) k/uL Basophils # (0-0.2) k/uL Hypochromasia Anisocytosis Microcytosis PT 15.5 H (9.0-12.0) sec INR 1.5 H (<1.2) APTT 33.4 H (22.0-30.0) sec Sodium (137-145) mmol/L Potassium (3.5-5.1) mmol/L Chloride (98-107) mmol/L Carbon Dioxide (22-30) mmol/L Anion Gap mmol/L BUN (9-20) mg/dL Creatinine (0.66-1.25) mg/dL Est GFR (CKD-EPI)AfAm (>60 ml/min/1.73 sqM) Est GFR (CKD-EPI)NonAf (>60 ml/min/1.73 sqM) Glucose (74-99) mg/dL Calcium (8.4-10.2) mg/dL Magnesium (1.6-2.3) mg/dL Total Bilirubin (0.2-1.3) mg/dL AST (17-59) U/L ALT (21-72) U/L Alkaline Phosphatase (38-126) U/L CK-MB (CK-2) (0.0-2.4) ng/mL Troponin I (0.000-0.034) ng/mL NT-Pro-B Natriuret Pep 1750 pg/mL Total Protein (6.3-8.2) g/dL Albumin (3.5-5.0) g/dL Disposition Clinical Impression: Head contusion, CHF exacerbation Disposition: ADMITTED IP TO THIS HOSP Condition: Good Referrals: Liss Evangelista MD [Primary Care Provider] - 1-2 days Decision Time: 19:02
[2019-01-20 16:53] LABS: Anisocytosis Moderate; Basophils # (A) 0.1 k/uL (0-0.2); Basophils % (A) 1 %; Eosinophils # (A) 0.2 k/uL (0-0.7); Eosinophils % (A) 2 %; HGB 12.7 gm/dL (13.0-17.5); Hypochromasia Slight; Lymphocytes # (A) 1.1 k/uL (1.0-4.8); Lymphocytes % (A) 11 %; MCH 25.9 pg (25.0-35.0); MCV 83.4 fL (80.0-100.0); Mean Platelet Volume 7.2; Microcytosis Slight; Monocytes % (A) 9 %; Neutrophils # (A) 7.5 k/uL (1.3-7.7); Neutrophils % (A) 74 %; Platelet Count 262 k/uL (150-450); RBC 4.92 m/uL (4.30-5.90); RDW 20.3 % (11.5-15.5); WBC 10.1 k/uL (3.8-10.6)
[2019-01-20 17:03] LABS: ALT 20 U/L (21-72); AST 20 U/L (17-59); Albumin 3.3 g/dL (3.5-5.0); Alkaline Phosphatase 96 U/L (38-126); Anion Gap 13 mmol/L; Blood Urea Nitrogen 17 mg/dL (9-20); Calcium 8.8 mg/dL (8.4-10.2); Carbon Dioxide 24 mmol/L (22-30); Chloride 99 mmol/L (98-107); Glucose 153 mg/dL (74-99); Potassium 4.3 mmol/L (3.5-5.1); Sodium 136 mmol/L (137-145); Total Bilirubin 0.9 mg/dL (0.2-1.3); Total Protein 6.4 g/dL (6.3-8.2)
[2019-01-20 17:05] LABS: INR 1.5 (<1.2); Partial Thromboplastin Time 33.4 sec (22.0-30.0); Prothrombin Time 15.5 sec (9.0-12.0)
--- NOTE | 2019-01-20 17:13 | XR ---
EXAMINATION: XR chest 2V DATE AND TIME: 01/20/2019 5:05 PM CLINICAL INDICATION: PHH; difficulty breathing TECHNIQUE: Departmental protocol COMPARISON: 09/11/2018 FINDINGS: Cardiac pacemaker, EKG leads. Sternal sutures, mediastinal clips. The cardiac silhouette is markedly enlarged. There is a fine reticular pattern of increased attenuation diffusely throughout the lungs bilaterally and prominently, consistent with advanced interstitial phase pulmonary edema, presumably cardiogenic etiology. The pleural spaces are ossific for blunting of the right costophrenic angle, consistent with small ri ght pleural effusion. No pneumothorax. The skeletal structures and soft tissues are negative for acute findings. IMPRESSION: Cardiogenic pulmonary edema.
[2019-01-20 17:22] LABS: Creatine Kinase MB 0.7 ng/mL (0.0-2.4); Troponin I <0.012 ng/mL (0.000-0.034)
--- NOTE | 2019-01-20 17:30 | CT ---
EXAMINATION TYPE: CT brain jelenaine wo con DATE OF EXAM: 01/20/2019 COMPARISON: 03/03/1950 HISTORY: Fall toady with head injury CT DLP: 1379.1 mGycm Automated exposure control for dose reduction was used. TECHNIQUE: CT scan of the head and cervical spine are performed without contrast. FINDINGS: There is no acute intracranial hemorrhage, mass effect, or midline shift identified. The ventricles and sulci are within normal limits in size. The globes are intact and the visualized sin uses are clear. Cervical spine is visualized in its entirety from C1 through upper thoracic levels and demonstrates s atisfactory alignment without evidence of acute fracture or dislocation. Prevertebral soft tissue ap pears within normal limits. There are prominent cervical spondylosis changes seen at all levels. The left thyroid is prominent in its lower margin, with a prominent substernal component with rightward s hift of the trachea; ultrasound can fully characterize the tracheal findings. IMPRESSION: 1. NO ACUTE FRACTURE OR DISLOCATION EVIDENT IN THE CERVICAL SPINE. 2. NO ACUTE INTRACRANIAL HEMORRHAGE, MASS EFFECT, OR MIDLINE SHIFT. Incidental: Prominent left thyroid associated with rightward mediastinal shift. These findings appear chronic and can't be fully characterized with nonurgent ultrasound.
[2019-01-20] MEDS ORDERED: FUROSEMIDE 10 MG/ML 4 ML VIAL IV STA (18:19)
[2019-01-20] MEDS ORDERED: NITROGLYCERIN SL TABS 0.4 MG TAB SUBLINGUAL PRN (18:57)
[2019-01-20] MEDS ORDERED: ALBUTEROL NEBULIZED 2.5 MG/3 ML INHALATION PRN (18:57)
[2019-01-20 20:57] LABS: Glucose,Whole Blood 70 mg/dL (75-99)
[2019-01-20] MEDS ORDERED: FUROSEMIDE 40 MG TAB PO SCH (21:00)
[2019-01-20] MEDS: IPRATROPIUM-ALBUTEROL 3 ML NEB INHALATION SCH (22:18)
[2019-01-20] MEDS: FUROSEMIDE 40 MG TAB PO SCH (22:53)
[2019-01-20] MEDS: ATORVASTATIN 40 MG TAB PO SCH (22:53)
[2019-01-20] MEDS: metFORMIN 500 MG TAB PO SCH (22:54)
[2019-01-20] MEDS: INSULIN DETEMIR (LEVEMIR) 100 UNIT/ML SYR SQ SCH (22:54)
[2019-01-20] MEDS: MONTELUKAST 10 MG TAB PO SCH (22:54)
[2019-01-20] MEDS: PREGABALIN 75 MG CAP PO SCH (22:54)
[2019-01-20] MEDS: CARVEDILOL 12.5 MG TAB PO SCH (23:00)
[2019-01-21] MEDS: CARVEDILOL 12.5 MG TAB PO SCH ×3 (00:25→17:06)
[2019-01-21] MEDS: VENLAFAXINE HCL 75 MG TAB PO SCH ×2 (01:52→22:07)
[2019-01-21 06:53] LABS: Glucose,Whole Blood 128 mg/dL (75-99)
[2019-01-21] MEDS: BUDESONIDE 0.5 MG/2 ML NEBU INHALATION PRN ×2 (06:59→20:00)
[2019-01-21] MEDS: IPRATROPIUM-ALBUTEROL 3 ML NEB INHALATION SCH ×4 (06:59→19:58)
[2019-01-21] MEDS: PREGABALIN 75 MG CAP PO SCH ×2 (08:09→22:09)
[2019-01-21] MEDS: FUROSEMIDE 40 MG TAB PO SCH ×2 (08:09→17:06)
[2019-01-21] MEDS: SPIRONOLACTONE 25 MG TAB PO SCH (08:09)
[2019-01-21] MEDS: RIVAROXABAN 20 MG TAB PO SCH (08:09)
[2019-01-21] MEDS: metFORMIN 500 MG TAB PO SCH ×2 (08:10→22:09)
[2019-01-21] MEDS: Empagliflozin [Jardiance] 10 MG PO SCH (08:10)
[2019-01-21] MEDS ORDERED: CLOPIDOGREL 75 MG TAB PO SCH (09:00)
[2019-01-21] MEDS ORDERED: LISINOPRIL 2.5 MG TAB PO SCH (09:00)
[2019-01-21] MEDS ORDERED: ASPIRIN 325 MG TAB PO SCH (09:00)
[2019-01-21] MEDS ORDERED: ISOSORBIDE MONONITRATE ER 60 MG TAB.ER.24H PO SCH (09:00)
[2019-01-21 11:13] LABS: Glucose,Whole Blood 165 mg/dL (75-99)
--- NOTE | 2019-01-21 13:19 | P.CRDCN ---
History of Present Illness History of present illness: This is a pleasant 73-year-old male past medical history significant for coronary artery disease status post bypass grafting and subsequent stent placement to the LAD, valvular heart disease status post mitral valve ring annuloplasty, peripheral vascular disease status post femoral stent placement in December 2017, ischemic cardiomyopathy, chronic persistent atrial fibrillation on long-term anticoagulation, ischemic cardiomyopathy, chronic systolic heart failure, COPD, diabetes mellitus, hypertension, dyslipidemia and obstructive sleep apnea. He follows in the office with Dr. Shi. We've been asked to see him in consultation secondary to heart failure. He presented to the hospital yesterday evening with symptoms of shortness of breath that has been getting progressively worse for the previous 2-3 days. He initially went to his primary care physician's office secondary to increased weakness of the lower extremity and difficulty walking. He states he did suffer a fall at home due to this weakness of his legs. He denies symptoms of chest discomfort, dizziness or palpitations. He also denies any significant PND or orthopnea. He does sleep in a recliner for comfort due to chronic back pain. He also has noticed a weight gain of approximately 10 pounds over the previous 30 days. He states prior to coming in he did have some lower extremity edema has resolved by the time of my exam. He was given one dose of IV Lasix in the emergency department and has been placed on Lasix 40 mg 3 times a day. He is seen and examined resting comfortably in bed sleeping in no acute distress. He states his breathing has greatly improved since admission. He no longer has any lower extremity edema. He does continues to feel overall weak and fatigued. Chest x-ray on admission consistent with interstitialpulmonary edema with blunting of right costophrenic angle. Laboratory data reviewed, WBC 10.1, hemoglobin 12.7, platelets 262, INR 1.5, sodium 136, potassium 4.3, creatinine 0.86, magnesium 2.0, cardiac enzymes negative 1, NT proBNP 1750. Current cardiac medications include atorvastatin 40 mg dialy, xarelto 20 mg daily, lasix 40 mg BID, coreg 12.5 mg BID, mg daily, lisinopril 2.5 mg daily, imdur 60 mg dialy and plavix 75 mg daily. Most recent echocardiogram obtained in March 2018 reveals impaired left ventricular systolic function with ejection fraction 30-35%, severely dilated left atrium, moderate to severe tricuspid regurgitation and dilate IVC with no significant collapse. Aortic root measured at 4.1 cm. Most recent cardiac catheterization performed in 2016 revealed 75% stenosis in the proximal LAD, 90% stenosis in the mid LAD, OM branch totally occluded, RCA patent in the proximal two thirds with significant disease, PDA and PLV totally closed, PRIDE-LAD non-functional, SVG-PDA/PLV patent, SVG-OM closed. At the time of my exam: CONSTITUTIONAL: Denies fever. Denies chills. EYES: Denies blurred vision. Denies vision changes. Denies eye pain. EARS, NOSE, MOUTH & THROAT: Denies headache. Denies sore throat. Denies ear pain. CARDIOVASCULAR: Denies chest pain. Denies shortness of breath. Denies orthopnea. Denies PND. Denies palpitations. RESPIRATORY: Denies cough. GASTROINTESTINAL: Denies abdominal pain. Denies diarrhea. Denies constipation. Denies nausea. Denies vomiting. MUSCULOSKELETAL: Denies myalgias. INTEGUMENTARY: Denies pruitis. Denies rash. NEUROLOGIC: Denies numbness. Denies tingling. Denies weakness. PSYCHIATRIC: Denies anxiety. Denies depression. ENDOCRINE: Complains of weakness and fatigue. Denies weight change. Denies polydipsia. Denies polyurina. GENITOURINARY: Denies burning, hematuria or urgency with micturation. HEMATOLOGIC: Denies history of anemia. Denies bleeding. Blood pressure 95/58 heart rate 52 afebrile maintaining oxygen saturation on nasal cannula GENERAL: This is a 73-year-old male in no apparent distress at the time of my examination. Obese. HEENT: Head is atraumatic, normocephalic. Pupils are equal, round. Sclerae anicteric. Conjunctivae are clear. Mucous membranes of the mouth are moist. Neck is supple. There is no jugular venous distention. No carotid bruit is heard. LUNGS: Faint basilar rales, no rhonchi or wheezes, diminished bilaterally. No chest wall tenderness is noted on palpation or with deep breathing. HEART: Irregular rate and rhythm with faint systolic ejection murmur at the left sternal border, no rubs or gallops. S1 and S2 heard. ABDOMEN: Soft, nontender. Bowel sounds are heard. No organomegaly noted. EXTREMITIES: No evidence of peripheral edema and no calf tenderness noted. VASCULAR: Radial and dorsalis pedis pulses palpated, no evidence of clubbing. NEUROLOGIC: Patient is awake, alert and oriented x3. ASSESSMENT Acute on chronic systolic heart failure, mild exacerbation. Almost completely resolved with one dose of IV lasix on admission. Ischemic cardiomyopathy s/p ICD placement Coronary artery disease s/p bypass grafting 2011 Mitral valve repair with ring annuloplasty 2011 Chronic persistent atrial fibrillation on long term care pharmacist anti-coagulation. Hypertension Dyslipidemia Peripheral vascular disease s/p stent placement to left SFA Diabetes mellitus Peripheral neuropathy Obesity, BMI 35 COPD PLAN Clinically he seems to have improved from admission and has been transitioned to PO diuretics TID. We will decrease to BID. Discontinue lisinopril and check coverage for Entresto BID to start Saturday if covered. Last stent placement was to the left femoral artery 12/2017, being over 1-year we can discontinue plavix. He is free of anginal symptoms currently, discontinue imdur with starting Entresto. Thank you kindly for this consultation. Nurse Practitioner note has been reviewed, I agree with a documented findings and plan of care. Patient was seen and examined. Past Medical History Past Medical History: Atrial Fibrillation, Coronary Artery Disease (CAD), Chest Pain / Angina, Heart Failure, COPD, Diabetes Mellitus, Hyperlipidemia, Hypertension, Osteoarthritis (OA), Pneumonia, Skin Disorder, Sleep Apnea/CPAP/BIPAP, Thyroid Disorder, Vascular Disorder Additional Past Medical History / Comment(s): psoriasis, neuropathy RT HAND and LEFT FOOT, poor circulation left leg, gout, thyoid nodule, hx ingrown toenails zac great toes, uses O2 PRN. left leg iliac stent due to poor circulation 12/25/2017. History of Any Multi-Drug Resistant Organisms: MRSA Date of last positivie culture/infection: 2011 MDRO Source:: chest incision Past Surgical History: AICD, Back Surgery, Coronary Bypass/CABG, Heart Catheterization With Stent Additional Past Surgical History / Comment(s): 3 CARDIAC STENTS, quad bypass and heart valve repair 2011, Lt Fempop (1 stent placed) Past Anesthesia/Blood Transfusion Reactions: No Reported Reaction Date of Last Stent Placement:: 12/25/2017 Type of Cardiac Device: AICD Device Placement Date:: 2012 Past Psychological History: Depression, PTSD Additional Psychological History / Comment(s): pt lives with daughter. has home 02, nebulizer, cpap machine. Smoking Status: Former smoker Past Alcohol Use History: None Reported Additional Past Alcohol Use History / Comment(s): QUIT SMOKING 2011, SMOKED 1 AND 1/2 PPD FOR 50 YRS Past Drug Use History: Unable to Obtain - Past Family History Father Family Medical History: Congestive Heart Failure (CHF), Coronary Artery Disease (CAD), Diabetes Mellitus, Myocardial Infarction (AR) Additional Family Medical History / Comment(s): MAC DEGENERATION, CABG Mother Family Medical History: No Reported History Medications and Allergies Home Medications Medication Instructions Recorded Confirmed Type Venlafaxine HCl [Effexor] 75 mg PO HS 06/15/14 01/20/19 History Insulin Glargine [Lantus] 22 unit SQ HS 02/21/16 01/20/19 History Isosorbide Mononitrate ER [Imdur] 60 mg PO DAILY 02/21/16 01/20/19 History Nitroglycerin Sl Tabs [Nitrostat] 0.4 mg SUBLINGUAL Q5M PRN #25 tab 02/24/16 01/20/19 Rx Albuterol Inhaler [Ventolin Hfa 2 puff INHALATION RT-Q6H PRN 07/18/16 01/20/19 History Inhaler] Rivaroxaban [Xarelto] 20 mg PO DAILY 07/18/16 01/20/19 History Budesonide [Pulmicort] 0.5 mg INHALATION RT-BID PRN 07/10/17 01/20/19 History Clopidogrel [Plavix] 75 mg PO DAILY 07/10/17 01/20/19 History Dulaglutide [Trulicity] 1.5 mg SQ FR 07/10/17 01/20/19 History Empagliflozin [Jardiance] 10 mg PO DAILY 07/10/17 01/20/19 History Montelukast Sodium [Singulair] 10 mg PO HS 07/10/17 01/20/19 History Lisinopril [Zestril] 2.5 mg PO DAILY 12/24/17 01/20/19 History Pregabalin [Lyrica] 75 mg PO BID 12/24/17 01/20/19 History Carvedilol [Coreg] 12.5 mg PO BID 04/10/18 01/20/19 History Ipratropium-Albuterol Nebulize 3 ml INHALATION RT-QID 04/10/18 01/20/19 History [Duoneb 0.5 mg-3 mg/3 ml Soln] Spironolactone [Aldactone] 25 mg PO DAILY 04/10/18 01/20/19 History metFORMIN HCL 1,000 mg PO BID 09/11/18 01/20/19 History Atorvastatin [Lipitor] 40 mg PO HS 01/20/19 01/20/19 History Furosemide [Lasix] 40 mg PO BID 01/20/19 01/20/19 History Allergies Allergy/AdvReac Type Severity Reaction Status Date / Time No Known Allergies Allergy Verified 01/20/19 16:40 Physical Exam Vitals: Vital Signs Temp Pulse Pulse Pulse Resp BP BP 01/21/19 11:38 97.4 F L 52 L 16 01/21/19 11:11 66 01/21/19 10:58 64 01/21/19 07:10 62 01/21/19 06:59 60 01/21/19 05:32 98.3 F 51 L 18 112/76 01/20/19 23:10 18 01/20/19 22:41 97.5 F L 59 L 18 119/74 01/20/19 22:31 61 01/20/19 22:21 60 01/20/19 20:30 97.6 F 56 L 20 96/65 01/20/19 19:10 98.4 F 53 L 18 108/75 01/20/19 19:00 53 L 24 100/67 01/20/19 18:30 58 L 27 H 100/67 01/20/19 18:00 52 L 28 H 100/67 01/20/19 17:31 18 01/20/19 17:30 52 L 25 H 99/70 01/20/19 17:00 99/70 01/20/19 16:30 69 13 99/70 01/20/19 16:22 01/20/19 16:21 97.3 F L 57 L 18 99/70 BP Pulse Ox 01/21/19 11:38 95/58 97 01/21/19 11:11 01/21/19 10:58 01/21/19 07:10 01/21/19 06:59 01/21/19 05:32 98 01/20/19 23:10 01/20/19 22:41 98 01/20/19 22:31 01/20/19 22:21 01/20/19 20:30 97 01/20/19 19:10 98 01/20/19 19:00 97 01/20/19 18:30 96 01/20/19 18:00 98 01/20/19 17:31 01/20/19 17:30 01/20/19 17:00 01/20/19 16:30 97 01/20/19 16:22 98 01/20/19 16:21 96 Intake and Output 01/20/19 01/21/19 01/21/19 22:59 06:59 14:59 Output Total 600 Balance -600 Output: Urine 600 Other: Voiding Method Toilet Toilet Urinal Urinal # Voids 1 2 Weight 132.5 kg Results 01/20/19 16:33 01/20/19 16:33 Cardiac Enzymes 01/20/19 01/20/19 Range/Units 16:33 16:33 AST 20 (17-59) U/L CK-MB (CK-2) 0.7 (0.0-2.4) ng/mL Troponin I <0.012 (0.000-0.034) ng/mL Coagulation 01/20/19 Range/Units 16:33 PT 15.5 H (9.0-12.0) sec APTT 33.4 H (22.0-30.0) sec CBC 01/20/19 Range/Units 16:33 WBC 10.1 (3.8-10.6) k/uL RBC 4.92 (4.30-5.90) m/uL Hgb 12.7 L (13.0-17.5) gm/dL Hct 41.0 (39.0-53.0) % Plt Count 262 (150-450) k/uL Comprehensive Metabolic Panel 01/20/19 Range/Units 16:33 Sodium 136 L (137-145) mmol/L Potassium 4.3 (3.5-5.1) mmol/L Chloride 99 (98-107) mmol/L Carbon Dioxide 24 (22-30) mmol/L BUN 17 (9-20) mg/dL Creatinine 0.86 (0.66-1.25) mg/dL Glucose 153 H (74-99) mg/dL Calcium 8.8 (8.4-10.2) mg/dL AST 20 (17-59) U/L ALT 20 L (21-72) U/L Alkaline Phosphatase 96 (38-126) U/L Total Protein 6.4 (6.3-8.2) g/dL Albumin 3.3 L (3.5-5.0) g/dL Current Medications Generic Name Dose Route Start Last Admin Trade Name Freq PRN Reason Stop Dose Admin Albuterol Sulfate 2.5 mg 01/20/19 18:57 Ventolin Nebulized INHALATION RT-Q6H PRN Shortness Of Breath Albuterol/Ipratropium 3 ml 01/20/19 20:00 01/21/19 10:58 Duoneb 0.5 Mg-3 Mg/3 Ml Soln INHALATION 3 ml RT-QID [facility] Administration Atorvastatin Calcium 40 mg 01/20/19 21:00 01/20/19 22:53 Lipitor PO 40 mg HS [facility] Administration Budesonide 0.5 mg 01/20/19 18:57 01/21/19 06:59 Pulmicort INHALATION 0.5 mg RT-BID PRN Administration sob Carvedilol 12.5 mg 01/20/19 19:45 01/21/19 08:09 Coreg PO 12.5 mg BID-W/MEALS [facility] Administration Furosemide 40 mg 01/21/19 16:00 Lasix PO BID@0900,1600 [facility] Insulin Detemir 22 unit 01/20/19 21:00 01/20/19 22:54 Levemir SQ Not Given HS [facility] Metformin HCl 1,000 mg 01/20/19 21:00 01/21/19 08:10 Glucophage PO 1,000 mg BID [facility] Administration Montelukast Sodium 10 mg 01/20/19 21:00 01/20/19 22:54 Singulair PO 10 mg HS [facility] Administration Nitroglycerin 0.4 mg 01/20/19 18:57 Nitrostat SUBLINGUAL Q5M PRN Chest Pain Dulaglutide [ 1.5 mg 01/23/19 09:00 Trulicity] 1.5 Mg SQ FR [facility] Empagliflozin [ 10 mg 01/21/19 09:00 01/21/19 08:10 Jardiance] 10 Mg PO Not Given DAILY [facility] Pregabalin 75 mg 01/20/19 21:00 01/21/19 08:09 Lyrica PO 75 mg BID [facility] Administration Rivaroxaban 20 mg 01/21/19 07:30 01/21/19 08:09 Xarelto PO 20 mg W/BRKFST [facility] Administration Spironolactone 25 mg 01/21/19 09:00 01/21/19 08:09 Aldactone PO 25 mg DAILY [facility] Administration Venlafaxine HCl 75 mg 01/20/19 21:00 01/21/19 01:52 Effexor PO Not Given HS [facility] Intake and Output 01/20/19 01/21/19 01/21/19 22:59 06:59 14:59 Output Total 600 Balance -600 Output: Urine 600 Other: Voiding Method Toilet Toilet Urinal Urinal # Voids 1 2 Weight 132.5 kg 01/20/19 16:33 01/20/19 16:33
[2019-01-21 17:01] LABS: Glucose,Whole Blood 104 mg/dL (75-99)
--- NOTE | 2019-01-21 18:36 | HP ---
HISTORY AND PHYSICAL CHIEF COMPLAINTS: Some shortness of breath and weakness and fall. HISTORY OF PRESENT ILLNESS: This 73-year-old gentleman with a past medical history of multiple medical problems, including atrial fibrillation, history of CAD, CHF, COPD, diabetes mellitus, hypertension, hyperlipidemia, history of DJD, history of MRSA, AICD, CAD, CABG, stent, being followed by Dr. Evangelista in the outpatient setting, was complaining of weakness. The patient was evaluated for shortness of breath. The patient also had anginal generalized weakness and difficulty in standing. The patient was evaluated in Dr. Evangelista's office, and in the emergency room was recommended. There is no history of any fever, rigor or chills. No history of headache, loss of consciousness, seizures. The patient also had the feeling of left leg locking that caused him to fall. The patient was admitted for further evaluation and treatment. There is no focal weakness per se. Otherwise, the patient is being closely monitored. A CT scan of the head, cervical spine and brain shows no acute fracture and no acute intracranial hemorrhage. The patient is admitted for further evaluation and treatment. The patient was seen by Cardiology also. PAST MEDICAL HISTORY: 1. History of atrial fibrillation. 2. History of CAD. 3. History of CHF. 4. COPD. 5. Diabetes mellitus. 6. Hypertension. 7. Hyperlipidemia. 8. History of DJD. 9. History of skin disorder. 10.History of MRSA. 11.History of AICD. 12.CAD, CABG, stent. HOME MEDICATIONS: 1. Trulicity 1.5 mg subcutaneously Saturday. 2. Pulmicort 0.5 b.i.d. 3. Ventolin HFA 2 puffs q.6 p.r.n. 4. Lipitor 40 mg at bedtime. 5. Lantus 22 units subcutaneously at bedtime. 6. Metformin 1000 mg p.o. b.i.d. 7. Xarelto 10 mg p.o. daily. 8. Singulair 10 mg at bedtime. 9. Lasix 40 mg p.o. b.i.d. 10.Coreg 12.5 mg p.o. b.i.d. 11.Effexor 75 mg p.o. at bedtime. 12.Aldactone 25 mg p.o. daily. 13.Lyrica 75 mg p.o. b.i.d. 14.Nitrostat 0.4 sublingually p.r.n. 15.Zestril 2.5 mg p.o. daily. 16.DuoNeb q.i.d. 17.Jardiance 10 mg p.o. daily. 18.Imdur 60 mg daily. 19.Plavix 75 mg p.o. daily. ALLERGIES: NONE. FAMILY HISTORY: History of CHF, CAD, diabetes mellitus, myocardial infarction, CABG in the family. SOCIAL HISTORY: Previous history of smoking. No current smoking or alcohol intake. REVIEW OF SYSTEMS: ENT: Diminished hearing. Diminished vision. CARDIOVASCULAR SYSTEM: No angina, palpitations. RESPIRATORY SYSTEM: As mentioned earlier. GI: No nausea, vomiting. : No dysuria or retention. NERVOUS SYSTEM: No numbness, weakness. ALLERGY/IMMUNOLOGY: No asthma, hayfever. MUSCULOSKELETAL: As mentioned earlier. HEMATOLOGY/ONCOLOGY: No history of anemia. ENDOCRINE: As mentioned earlier. CONSTITUTIONAL: As mentioned earlier. DERMATOLOGY: Negative. RHEUMATOLOGY: Negative. PSYCHIATRY: As mentioned earlier. PHYSICAL EXAMINATION: Patient alert and oriented x3. Pulse 62, blood pressure 95/54, respiration 20, temperature normal, pulse ox 96% on room air. HEENT: Conjunctivae normal. NECK: No jugular venous distention. CARDIOVASCULAR SYSTEM: S1, S2 muffled. RESPIRATORY SYSTEM: Breath sounds diminished at the bases. No rhonchi. No crackles. ABDOMEN: Soft, non-tender. No mass palpable. LEGS: No edema. No swelling. NERVOUS SYSTEM: Higher functions as mentioned earlier. Moves all 4 limbs. Mild diffuse weakness. No focal weakness appreciated. SKIN: No ulcer, rash, bleeding. JOINTS: No active deforming arthropathy. LABS: WBC 10.1, hemoglobin 12.7, sodium 136. ASSESSMENT: 1. Congestive heart failure, acute exacerbation, with acute on chronic systolic dysfunction, ejection fraction 30% to 35%. 2. Generalized gait dysfunction and weakness. 3. Rule out transient ischemic attack. 4. History of atrial fibrillation, coronary artery disease. 5. History of chronic obstructive pulmonary disease. 6. Diabetes mellitus, type 2. 7. Hypertension. 8. Hyperlipidemia. 9. Degenerative joint disease. 10.Pneumonia. 11.History of sleep apnea. 12.Hypothyroidism. 13.Psoriasis. 14.Neuropathy. 15.Peripheral vascular disease. 16.Methicillin-resistant Staphylococcus aeruginosa. 17.Automated implantable cardioverter defibrillator. 18.Coronary artery disease, coronary artery bypass grafting, stent. 19.Depression. 20.Post-traumatic stress disorder. 21.Chronic hypoxic respiratory failure, on home oxygen. 22.History of nicotine dependence. RECOMMENDATIONS AND DISCUSSION: In this 73-year-old gentleman who presented with multiple complex medical issues, we will monitor the patient closely, continue the current management, continue symptomatic treatment. At this time I would recommend continuing the diuretics. Cardiology has evaluated the patient. PT/OT evaluation. Possible ECF rehab. Orthostatic vitals. Resume the home medications. Prognosis guarded. Further recommendations to follow. MMTANJA / JAYAN: [id number] / KOURTNEY
[2019-01-21 20:08] LABS: Glucose,Whole Blood 111 mg/dL (75-99)
[2019-01-21] MEDS: INSULIN ASPART (NovoLOG) 100 UNIT/ML VIAL SQ SCH (22:05)
[2019-01-21] MEDS: INSULIN DETEMIR (LEVEMIR) 100 UNIT/ML SYR SQ SCH (22:07)
[2019-01-21] MEDS: MONTELUKAST 10 MG TAB PO SCH (22:09)
[2019-01-21] MEDS: ATORVASTATIN 40 MG TAB PO SCH (22:09)
[2019-01-22 07:04] LABS: Glucose,Whole Blood 70 mg/dL (75-99)
[2019-01-22] MEDS: INSULIN ASPART (NovoLOG) 100 UNIT/ML VIAL SQ SCH ×4 (07:36→20:48)
[2019-01-22] MEDS: Empagliflozin [Jardiance] 10 MG PO SCH (07:36)
[2019-01-22 08:06] LABS: Anion Gap 10 mmol/L; Blood Urea Nitrogen 15 mg/dL (9-20); Calcium 8.5 mg/dL (8.4-10.2); Carbon Dioxide 23 mmol/L (22-30); Chloride 100 mmol/L (98-107); Glucose 69 mg/dL (74-99); Potassium 4.3 mmol/L (3.5-5.1); Sodium 133 mmol/L (137-145)
[2019-01-22 08:12] LABS: Anisocytosis Moderate; Basophils % (A) 0 %; Eosinophils # (A) 0.4 k/uL (0-0.7); Eosinophils % (A) 4 %; HCT 39.2 % (39.0-53.0); HGB 12.2 gm/dL (13.0-17.5); Hypochromasia Slight; Lymphocytes % (A) 9 %; MCH 26.7 pg (25.0-35.0); MCHC 31.3 g/dL (31.0-37.0); MCV 85.4 fL (80.0-100.0); Mean Platelet Volume 7.6; Monocytes # (A) 0.9 k/uL (0-1.0); Monocytes % (A) 9 %; Neutrophils # (A) 7.6 k/uL (1.3-7.7); Neutrophils % (A) 75 %; Platelet Count 243 k/uL (150-450); RBC 4.59 m/uL (4.30-5.90); RDW 20.5 % (11.5-15.5); WBC 10.1 k/uL (3.8-10.6)
[2019-01-22] MEDS: CARVEDILOL 12.5 MG TAB PO SCH (08:33)
[2019-01-22] MEDS: RIVAROXABAN 20 MG TAB PO SCH (08:33)
[2019-01-22] MEDS: IPRATROPIUM-ALBUTEROL 3 ML NEB INHALATION SCH ×4 (09:30→19:46)
[2019-01-22] MEDS: BUDESONIDE 0.5 MG/2 ML NEBU INHALATION PRN ×2 (09:38→19:46)
[2019-01-22] MEDS: SPIRONOLACTONE 25 MG TAB PO SCH (10:32)
[2019-01-22] MEDS: PREGABALIN 75 MG CAP PO SCH ×2 (10:32→20:48)
[2019-01-22] MEDS: metFORMIN 500 MG TAB PO SCH ×2 (10:33→20:47)
[2019-01-22] MEDS: FUROSEMIDE 40 MG TAB PO SCH ×2 (10:36→15:51)
[2019-01-22 11:13] LABS: Glucose,Whole Blood 126 mg/dL (75-99)
--- NOTE | 2019-01-22 14:01 | P.PN ---
Subjective This is a pleasant 73-year-old male past medical history significant for coronary artery disease status post bypass grafting and subsequent stent placement to the LAD, valvular heart disease status post mitral valve ring annuloplasty, peripheral vascular disease status post femoral stent placement in December 2017, ischemic cardiomyopathy, chronic persistent atrial fibrillation on long-term anticoagulation, ischemic cardiomyopathy, chronic systolic heart failure, COPD, diabetes mellitus, hypertension, dyslipidemia and obstructive sleep apnea. He is seen and examined resting comfortably in bed. He states his shorntess of breath has almost entirely improved. He denies chest pain, dizziness or palpitations. He states overall he is still feeling weak but that also is improving. The plan is for rehab placement after discharge. Entresto is covered and will begin tomorrow pending his blood pressures. Blood pressures this morning were running low in the 85-105 systolic range. Lisinopril and imdur were discontinued yesterday. Laboratory data reviewed, WBC 10.1, hemoglobin 12.2, platelets 243, sodium 133, potassium 4.3 and creatinine 0.57. Currently maintained on atorvastatin 40 mg daily, carvedilol 12.5 mg twice a day, Lasix 40 mg twice a day, Xarelto 20 mg daily and Aldactone 25 mg daily. GENERAL: This is a 73-year-old male in no apparent distress at the time of my examination. Obese. HEENT: Head is atraumatic, normocephalic. Pupils are equal, round. Sclerae anicteric. Conjunctivae are clear. Mucous membranes of the mouth are moist. Neck is supple. There is no jugular venous distention. No carotid bruit is heard. LUNGS: Faint basilar rales, no rhonchi or wheezes, diminished bilaterally. No chest wall tenderness is noted on palpation or with deep breathing. HEART: Irregular rate and rhythm with faint systolic ejection murmur at the left sternal border, no rubs or gallops. S1 and S2 heard. EXTREMITIES: No evidence of peripheral edema and no calf tenderness noted. ASSESSMENT Acute on chronic systolic heart failure, mild exacerbation. Almost completely resolved with one dose of IV lasix on admission. Ischemic cardiomyopathy s/p ICD placement Coronary artery disease s/p bypass grafting 2011 Mitral valve repair with ring annuloplasty 2011 Chronic persistent atrial fibrillation on termite treater helper anti-coagulation. Hypertension Dyslipidemia Peripheral vascular disease s/p stent placement to left SFA Diabetes mellitus Peripheral neuropathy Obesity, BMI 35 COPD PLAN Entresto is a covered medication and will initiate tomorrow depending on his blood pressure trend. Decrease carvedilol to 6.25 mg twice a day. Further recommendations to follow. Nurse Practitioner note has been reviewed, I agree with a documented findings and plan of care. Patient was seen and examined. Objective - Vital Signs Vital signs: Vital Signs Temp 97.5 F L 01/22/19 11:55 Pulse 84 01/22/19 13:14 Resp 16 01/22/19 11:55 BP 105/67 01/22/19 11:55 Pulse Ox 97 01/22/19 11:55 Intake & Output 01/21/19 01/22/19 01/22/19 18:59 06:59 18:59 Intake Total 1000 400 Output Total 1200 300 Balance -200 400 -300 Weight 132.5 kg 124.7 kg Intake: Oral 1000 400 Output: Urine 1200 300 Other: Voiding Method Toilet Toilet Toilet Urinal Urinal Urinal # Voids 2 1 - Labs CBC & Chem 7: 01/22/19 07:28 01/22/19 07:28 Labs: Abnormal Lab Results - Last 24 Hours (Table) 01/21/19 01/21/19 01/22/19 Range/Units 17:00 20:06 06:57 Hgb (13.0-17.5) gm/dL RDW (11.5-15.5) % Sodium (137-145) mmol/L Creatinine (0.66-1.25) mg/dL Glucose (74-99) mg/dL POC Glucose (mg/dL) 104 H 111 H 70 L (75-99) mg/dL 01/22/19 01/22/19 01/22/19 Range/Units 07:28 07:28 11:12 Hgb 12.2 L (13.0-17.5) gm/dL RDW 20.5 H (11.5-15.5) % Sodium 133 L (137-145) mmol/L Creatinine 0.57 L (0.66-1.25) mg/dL Glucose 69 L (74-99) mg/dL POC Glucose (mg/dL) 126 H (75-99) mg/dL
[2019-01-22] MEDS: CARVEDILOL 6.25 MG TAB PO SCH (15:51)
[2019-01-22 17:02] LABS: Glucose,Whole Blood 101 mg/dL (75-99)
--- NOTE | 2019-01-22 17:49 | PN ---
PROGRESS NOTE DATE OF SERVICE: 01/22/2019 This 73-year-old gentleman who was admitted with CHF acute exacerbation also had generalized gait dysfunction, weakness. Patient is being closely monitored. No chest pain. No palpitations. No fever. EXAM: Alert and oriented times three. Pulse is 70. Blood pressure 106/64, respirations 16, temperature 97.5, pulse ox 97% on 2 L. HEENT: Conjunctivae normal. NECK: No jugular venous distention. CARDIOVASCULAR: S1, S2 muffled. Respiratory: Breath sounds diminished in the bases. A few scattered rhonchi. No crackles. Abdomen is soft, nontender. Legs are no edema, no swelling. CENTRAL NERVOUS SYSTEM: No focal deficits. LABS: WBC 10.2, hemoglobin 12.2, sodium 133. ASSESSMENT: 1. Congestive heart failure acute exacerbation with acute on chronic systolic dysfunction ejection fraction 30-35 percent. 2. Generalized gait dysfunction and weakness. 3.Possible transient ischemic attack. 4. History of atrial fibrillation, coronary artery disease. 5. History of chronic obstructive pulmonary disease. 6. Diabetes type 2. 7. Hypertension. 8. Hyperlipidemia. 9. History of degenerative joint disease. 10.History of pneumonia. 11.History of sleep apnea. 12.History of hypothyroidism. 13.History of psoriasis. 14.History of neuropathy. 15.History of peripheral vascular disease. 16.History of MRSA. 17.History AICD. 18.History of coronary artery disease, coronary artery bypass grafting stent. 19.Depression. 20.History of posttraumatic stress disorder. 21.History of chronic hypoxic respiratory failure on home O2. 22.History of nicotine dependence. RECOMMENDATIONS AND DISCUSSION: Recommend to continue current medications, monitoring and symptomatic treatment. Otherwise, at this time, I would recommend monitor fluid and electrolyte balance closely. Closely follow with Cardiology. Increase ambulation. If the patient is safe to return home, probably return home in the next 24 to 48 hours. Further recommendations to follow. MMODL / IJN: [id number] / [facility] MEDICAL CENTERKarel
[2019-01-22 19:57] LABS: Glucose,Whole Blood 115 mg/dL (75-99)
[2019-01-22] MEDS: MONTELUKAST 10 MG TAB PO SCH (20:48)
[2019-01-22] MEDS: ATORVASTATIN 40 MG TAB PO SCH (20:48)
[2019-01-22] MEDS: VENLAFAXINE HCL 75 MG TAB PO SCH (20:48)
[2019-01-22] MEDS: INSULIN DETEMIR (LEVEMIR) 100 UNIT/ML SYR SQ SCH (20:49)
[2019-01-23 07:12] LABS: Glucose,Whole Blood 91 mg/dL (75-99)
[2019-01-23] MEDS: CARVEDILOL 6.25 MG TAB PO SCH ×2 (07:43→17:24)
[2019-01-23] MEDS: RIVAROXABAN 20 MG TAB PO SCH (07:43)
[2019-01-23] MEDS: INSULIN ASPART (NovoLOG) 100 UNIT/ML VIAL SQ SCH ×4 (07:50→21:24)
[2019-01-23] MEDS: IPRATROPIUM-ALBUTEROL 3 ML NEB INHALATION SCH ×4 (09:23→20:40)
[2019-01-23] MEDS: BUDESONIDE 0.5 MG/2 ML NEBU INHALATION PRN (09:23)
[2019-01-23] MEDS: SACUBITRIL/VALSARTAN 24 MG-26 MG TABLET PO SCH ×2 (09:24→21:34)
[2019-01-23] MEDS: PREGABALIN 75 MG CAP PO SCH ×2 (09:25→21:34)
[2019-01-23] MEDS: metFORMIN 500 MG TAB PO SCH ×2 (09:25→21:33)
[2019-01-23] MEDS: SPIRONOLACTONE 25 MG TAB PO SCH (09:25)
[2019-01-23] MEDS: Dulaglutide [Trulicity] 1.5 MG SQ SCH (09:29)
[2019-01-23] MEDS: FUROSEMIDE 40 MG TAB PO SCH ×2 (09:29→17:24)
[2019-01-23] MEDS: Empagliflozin [Jardiance] 10 MG PO SCH (09:29)
[2019-01-23 09:36] LABS: Anisocytosis Moderate; Basophils % (A) 0 %; Eosinophils # (A) 0.3 k/uL (0-0.7); Eosinophils % (A) 3 %; HCT 44.2 % (39.0-53.0); HGB 13.6 gm/dL (13.0-17.5); Hypochromasia Slight; Lymphocytes # (A) 0.7 k/uL (1.0-4.8); Lymphocytes % (A) 6 %; MCH 26.5 pg (25.0-35.0); MCHC 30.8 g/dL (31.0-37.0); Mean Platelet Volume 7.6; Microcytosis Slight; Monocytes # (A) 0.9 k/uL (0-1.0); Monocytes % (A) 9 %; Neutrophils # (A) 8.9 k/uL (1.3-7.7); Neutrophils % (A) 81 %; Platelet Count 271 k/uL (150-450); RBC 5.14 m/uL (4.30-5.90); RDW 20.6 % (11.5-15.5); WBC 11.1 k/uL (3.8-10.6)
[2019-01-23 09:45] LABS: Anion Gap 11 mmol/L; Blood Urea Nitrogen 14 mg/dL (9-20); Calcium 8.7 mg/dL (8.4-10.2); Carbon Dioxide 26 mmol/L (22-30); Chloride 97 mmol/L (98-107); Glucose 109 mg/dL (74-99); Potassium 4.5 mmol/L (3.5-5.1); Sodium 134 mmol/L (137-145)
--- NOTE | 2019-01-23 11:07 | P.DS ---
Providers Date of admission: 01/20/19 18:56 Attending physician: Juan Sorto Consults: 01/20/19 18:55 Consult Physician Routine Consulting Provider: Tesfaye Shi Consult Reason/Comments: heart failure exacerbation Do you want consulting provider notified?: Yes Primary care physician: Liss Evangelista Hospital Course: Final diagnosis CHF acute exacerbation with acute on chronic systolic dysfunction ejection fraction 30-35%. Generalized gait dysfunction and weakness Possible TIA History atrial fibrillation History of CAD History of COPD Diabetes mellitus type 2 Hypertension Hyperlipidemia History of DJD History of pneumonia History of sleep apnea History of hypothyroidism History of psoriasic History of neuropathy History of peripheral vascular disease History MRSA History of AICD History of CAD CABG stent History depression History of PTSD History of chronic hypoxic respiratory failure on home O2 Significant dependence Discharge disposition patient patient discharged in a stable condition with guarded prognosis to ECF and taken 35 minutes. History of present illness This 78-year-old gentleman with a past medical history multiple medical pulses admitted CHF exacerbation as well as soft gait dysfunction weakness. The patient was treated in conjunction with the multiple consultants. Patient was treated with IV diuretics. Patient was evaluated PTOT and the patient be transferred to ECF in a stable condition with guarded prognosis. Please suffer to the medications medical history sheet. Medications are adjusted. Patient has been followed by Dr. Evangelista in the outpatient setting. On exam vitals are stable. Cardio S1 and S2 normal. Respiratory system clear to auscultation. Abdomen soft nontender. Nervous system mild diffuse weakness. Patient Condition at Discharge: Good Plan - Discharge Summary Discharge Rx Participant: No New Discharge Prescriptions: No Action Venlafaxine HCl [Effexor] 75 mg PO HS Isosorbide Mononitrate ER [Imdur] 60 mg PO DAILY Insulin Glargine [Lantus] 22 unit SQ HS Nitroglycerin Sl Tabs [Nitrostat] 0.4 mg SUBLINGUAL Q5M PRN #25 tab PRN Reason: Chest Pain Rivaroxaban [Xarelto] 20 mg PO DAILY Albuterol Inhaler [Ventolin Hfa Inhaler] 2 puff INHALATION RT-Q6H PRN PRN Reason: Shortness Of Breath Montelukast Sodium [Singulair] 10 mg PO HS Empagliflozin [Jardiance] 10 mg PO DAILY Dulaglutide [Trulicity] 1.5 mg SQ FR Clopidogrel [Plavix] 75 mg PO DAILY Budesonide [Pulmicort] 0.5 mg INHALATION RT-BID PRN PRN Reason: sob Lisinopril [Zestril] 2.5 mg PO DAILY Pregabalin [Lyrica] 75 mg PO BID Carvedilol [Coreg] 12.5 mg PO BID Ipratropium-Albuterol Nebulize [Duoneb 0.5 mg-3 mg/3 ml Soln] 3 ml INHALATION RT-QID Spironolactone [Aldactone] 25 mg PO DAILY metFORMIN HCL 1,000 mg PO BID Furosemide [Lasix] 40 mg PO BID Atorvastatin [Lipitor] 40 mg PO HS Discharge Medication List Venlafaxine HCl [Effexor] 75 mg PO HS 06/15/14 [History] Insulin Glargine [Lantus] 22 unit SQ HS 02/21/16 [History] Isosorbide Mononitrate ER [Imdur] 60 mg PO DAILY 02/21/16 [History] Nitroglycerin Sl Tabs [Nitrostat] 0.4 mg SUBLINGUAL Q5M PRN #25 tab 02/24/16 [Rx] Albuterol Inhaler [Ventolin Hfa Inhaler] 2 puff INHALATION RT-Q6H PRN 07/18/16 [History] Rivaroxaban [Xarelto] 20 mg PO DAILY 07/18/16 [History] Budesonide [Pulmicort] 0.5 mg INHALATION RT-BID PRN 07/10/17 [History] Clopidogrel [Plavix] 75 mg PO DAILY 07/10/17 [History] Dulaglutide [Trulicity] 1.5 mg SQ FR 07/10/17 [History] Empagliflozin [Jardiance] 10 mg PO DAILY 07/10/17 [History] Montelukast Sodium [Singulair] 10 mg PO HS 07/10/17 [History] Lisinopril [Zestril] 2.5 mg PO DAILY 12/24/17 [History] Pregabalin [Lyrica] 75 mg PO BID 12/24/17 [History] Carvedilol [Coreg] 12.5 mg PO BID 04/10/18 [History] Ipratropium-Albuterol Nebulize [Duoneb 0.5 mg-3 mg/3 ml Soln] 3 ml INHALATION RT-QID 04/10/18 [History] Spironolactone [Aldactone] 25 mg PO DAILY 04/10/18 [History] metFORMIN HCL 1,000 mg PO BID 09/11/18 [History] Atorvastatin [Lipitor] 40 mg PO HS 01/20/19 [History] Furosemide [Lasix] 40 mg PO BID 01/20/19 [History] Follow up Appointment(s)/Referral(s): Liss Evangelista MD [Primary Care Provider] - 1-2 days
[2019-01-23 11:19] LABS: Glucose,Whole Blood 111 mg/dL (75-99)
--- NOTE | 2019-01-23 14:53 | P.PN ---
Subjective This is a pleasant 73-year-old male past medical history significant for coronary artery disease status post bypass grafting and subsequent stent placement to the LAD, valvular heart disease status post mitral valve ring annuloplasty, peripheral vascular disease status post femoral stent placement in December 2017, ischemic cardiomyopathy, chronic persistent atrial fibrillation on long-term anticoagulation, ischemic cardiomyopathy, chronic systolic heart failure, COPD, diabetes mellitus, hypertension, dyslipidemia and obstructive sleep apnea. He is seen and examined sitting up in the chair. He was started on Entresto today and his blood pressure is tolerating well. Blood pressure 109/79 heart rate 75. Laboratory data reviewed, WBC 11.1, hgb 13.6, platelets 271, sodium 134, potassium 4.5, creatinine 0.59. GENERAL: This is a 73-year-old male in no apparent distress at the time of my examination. Obese. HEENT: Head is atraumatic, normocephalic. Pupils are equal, round. Sclerae anicteric. Conjunctivae are clear. Mucous membranes of the mouth are moist. Neck is supple. There is no jugular venous distention. No carotid bruit is heard. LUNGS: Clear to auscultation bilaterally. No rales, no rhonchi or wheezes, diminished bilaterally. No chest wall tenderness is noted on palpation or with deep breathing. HEART: Irregular rate and rhythm with faint systolic ejection murmur at the left sternal border, no rubs or gallops. S1 and S2 heard. EXTREMITIES: No evidence of peripheral edema and no calf tenderness noted. ASSESSMENT Acute on chronic systolic heart failure, mild exacerbation. Almost completely resolved with one dose of IV lasix on admission. 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 Hypertension Dyslipidemia Peripheral vascular disease s/p stent placement to left SFA Diabetes mellitus Peripheral neuropathy Obesity, BMI 35 COPD PLAN Continue current medical regimen. Follow up with Dr. Shi in 2 weeks. Nurse Practitioner note has been reviewed, I agree with a documented findings and plan of care. Patient was seen and examined. Objective - Vital Signs Vital signs: Vital Signs Temp 97.3 F L 01/23/19 05:00 Pulse 75 01/23/19 13:45 Resp 18 01/23/19 05:00 BP 109/73 01/23/19 13:45 Pulse Ox 96 01/23/19 13:07 Intake & Output 01/22/19 01/23/19 01/23/19 18:59 06:59 18:59 Intake Total 1380 150 620 Output Total 801 450 Balance 579 -300 620 Intake: Oral 1380 150 620 Output: Urine 801 450 Other: Voiding Method Toilet Toilet Urinal Urinal Urinal # Voids 2 1 # Bowel Movements 1 - Labs CBC & Chem 7: 01/23/19 08:47 01/23/19 08:47 Labs: Abnormal Lab Results - Last 24 Hours (Table) 01/22/19 01/22/19 01/23/19 Range/Units 16:54 19:56 08:47 WBC 11.1 H (3.8-10.6) k/uL MCHC 30.8 L (31.0-37.0) g/dL RDW 20.6 H (11.5-15.5) % Neutrophils # 8.9 H (1.3-7.7) k/uL Lymphocytes # 0.7 L (1.0-4.8) k/uL Sodium (137-145) mmol/L Chloride (98-107) mmol/L Creatinine (0.66-1.25) mg/dL Glucose (74-99) mg/dL POC Glucose (mg/dL) 101 H 115 H (75-99) mg/dL 01/23/19 01/23/19 Range/Units 08:47 11:17 WBC (3.8-10.6) k/uL MCHC (31.0-37.0) g/dL RDW (11.5-15.5) % Neutrophils # (1.3-7.7) k/uL Lymphocytes # (1.0-4.8) k/uL Sodium 134 L (137-145) mmol/L Chloride 97 L (98-107) mmol/L Creatinine 0.59 L (0.66-1.25) mg/dL Glucose 109 H (74-99) mg/dL POC Glucose (mg/dL) 111 H (75-99) mg/dL
[2019-01-23 17:06] LABS: Glucose,Whole Blood 83 mg/dL (75-99)
[2019-01-23 19:43] LABS: Hemoglobin A1C 6.6 % (4.0-6.0)
[2019-01-23 20:16] LABS: Glucose,Whole Blood 89 mg/dL (75-99)
[2019-01-23] MEDS: INSULIN DETEMIR (LEVEMIR) 100 UNIT/ML SYR SQ SCH (21:32)
[2019-01-23] MEDS: ATORVASTATIN 40 MG TAB PO SCH (21:32)
[2019-01-23] MEDS: MONTELUKAST 10 MG TAB PO SCH (21:34)
[2019-01-23] MEDS: VENLAFAXINE HCL 75 MG TAB PO SCH (21:34)
[2019-01-24 07:01] LABS: Glucose,Whole Blood 80 mg/dL (75-99)
[2019-01-24 07:30] LABS: Anion Gap 9 mmol/L; Blood Urea Nitrogen 14 mg/dL (9-20); Carbon Dioxide 27 mmol/L (22-30); Chloride 101 mmol/L (98-107); Glucose 78 mg/dL (74-99); Potassium 4.6 mmol/L (3.5-5.1); Sodium 137 mmol/L (137-145)
[2019-01-24] MEDS: SPIRONOLACTONE 25 MG TAB PO SCH (07:55)
[2019-01-24] MEDS: RIVAROXABAN 20 MG TAB PO SCH (07:55)
[2019-01-24] MEDS: PREGABALIN 75 MG CAP PO SCH ×2 (07:55→21:04)
[2019-01-24] MEDS: SACUBITRIL/VALSARTAN 24 MG-26 MG TABLET PO SCH ×2 (07:55→20:52)
[2019-01-24] MEDS: FUROSEMIDE 40 MG TAB PO SCH ×2 (07:55→17:37)
[2019-01-24] MEDS: CARVEDILOL 6.25 MG TAB PO SCH ×2 (07:55→17:37)
[2019-01-24] MEDS: Empagliflozin [Jardiance] 10 MG PO SCH (07:56)
[2019-01-24] MEDS: INSULIN ASPART (NovoLOG) 100 UNIT/ML VIAL SQ SCH ×4 (07:56→20:40)
[2019-01-24] MEDS: metFORMIN 500 MG TAB PO SCH ×2 (07:56→21:04)
[2019-01-24 07:57] LABS: Anisocytosis Moderate; Basophils % (A) 0 %; Eosinophils # (A) 0.3 k/uL (0-0.7); Eosinophils % (A) 3 %; HCT 44.4 % (39.0-53.0); HGB 13.3 gm/dL (13.0-17.5); Hypochromasia Slight; Lymphocytes % (A) 10 %; MCH 25.8 pg (25.0-35.0); MCV 85.8 fL (80.0-100.0); Mean Platelet Volume 7.7; Microcytosis Slight; Monocytes # (A) 0.9 k/uL (0-1.0); Monocytes % (A) 9 %; Neutrophils # (A) 7.4 k/uL (1.3-7.7); Neutrophils % (A) 76 %; Platelet Count 279 k/uL (150-450); RBC 5.17 m/uL (4.30-5.90); RDW 20.9 % (11.5-15.5); WBC 9.8 k/uL (3.8-10.6)
[2019-01-24] MEDS: IPRATROPIUM-ALBUTEROL 3 ML NEB INHALATION SCH ×4 (08:42→20:33)
[2019-01-24] MEDS: BUDESONIDE 0.5 MG/2 ML NEBU INHALATION PRN (08:42)
[2019-01-24 11:15] LABS: Glucose,Whole Blood 112 mg/dL (75-99)
--- NOTE | 2019-01-24 16:35 | PN ---
PROGRESS NOTE DATE OF SERVICE: 01/24/2019 This 73-year-old gentleman, admitted with CHF, acute exacerbation, is being closely monitored. Patient complains of generalized weakness and tiredness. ECF rehab is pending at this time. No chest pain. No palpitations. No fever. On exam, alert and oriented x3. Pulse is 68, blood pressure 119/74, respiration 16, temperature 97.5, pulse ox 100% on 2 L. Hematochezia NECK: No jugular venous distention. CARDIOVASCULAR SYSTEM: S1, S2 muffled. RESPIRATORY SYSTEM: Breath sounds diminished at the bases. A few scattered rhonchi. No crackles. ABDOMEN: Soft. NERVOUS SYSTEM: No focal deficit. LABS: WBC 9.8, hemoglobin 13.3. Other labs are noted. ASSESSMENT: 1. Congestive heart failure, acute exacerbation, with acute on chronic systolic dysfunction, ejection fraction 30% to 35%. 2. Generalized gait dysfunction and weakness. 3. Possible transient ischemic attack. 4. History of atrial fibrillation, coronary artery disease. 5. History of chronic obstructive pulmonary disease. 6. Diabetes mellitus, type 2. 7. Hypertension. 8. Hyperlipidemia. 9. History of degenerative joint disease. 10.History of pneumonia. 11.History of sleep apnea. 12.History of hypothyroidism. 13.History of psoriasis. 14.History of neuropathy. 15.History of peripheral vascular disease. 16.History of methicillin-resistant Staphylococcus aeruginosa. 17.History of automated implantable cardioverter defibrillator. 18.History of coronary artery disease, coronary artery bypass grafting, stent. 19.Depression. 20.History of post-traumatic stress disorder. 21.History of chronic hypoxic respiratory failure, on home oxygen. 22.History of nicotine dependence. RECOMMENDATIONS AND DISCUSSION: I recommend to continue current medications, continue with the monitoring, symptomatic treatment. Otherwise at this time we will monitor the patient closely. Continue with PT/OT evaluation. Possible ECF rehab. Guarded prognosis. Further recommendations to follow. MMODL / IJN: [id number] /
--- NOTE | 2019-01-24 16:47 | PN ---
PROGRESS NOTE DATE OF SERVICE: 01/23/2019 This 73-year-old gentleman admitted with CHF acute exacerbation, multiple medical problems, including generalized gait dysfunction. ECF rehab is being planned. Preauthorization pending. No chest pain. No palpitations. No fever. EXAM: Alert and oriented x3. Pulse is 80, blood pressure 104/69, respiration 18, temp is normal. No orthostatic changes. HEENT: Conjunctivae normal. NECK: No jugular venous distention. CARDIOVASCULAR: S1, S2 muffled. RESPIRATORY: Breath sounds diminished in the bases. A few scattered rhonchi and crackles. ABDOMEN: Soft. CENTRAL NERVOUS SYSTEM: No focal deficits. LABS: WBC 9.8. The labs are hemoglobin 13.2, sodium 134. ASSESSMENT: 1. Congestive heart failure acute exacerbation with acute on chronic systolic dysfunction ejection fraction 30-34 percent. 2. Generalized gait dysfunction and ness. 3. Possible transient ischemic attack. 4. History atrial fibrillation, coronary artery disease. 5. History of chronic obstructive pulmonary disease. 6. Diabetes type 2. 7. Hypertension. 8. Hyperlipidemia. 9. History of degenerative joint disease. 10.History of pneumonia. 11.History of sleep apnea. 12.History of hypothyroidism. 13.History of psoriasis. 14.History of neuropathy. 15.History of peripheral vascular disease. 16.History of MRSA. 17.History AICD. 18.History of coronary artery disease, coronary artery bypass grafting. 19.Depression. 20.Post-traumatic stress disorder. 21.History of chronic hypoxic respiratory failure on home O2. 22.History of nicotine dependence. RECOMMENDATIONS AND DISCUSSION: Recommend to continue current medication, continue to monitoring, symptomatic treatment. Continue with cautious diuresis. Monitor electrolytes closely. Monitor creatinine closely. PT/OT evaluation, possible ECF rehab. Further recommendations to follow. MMODL / IJN: [id number] /
[2019-01-24 16:57] LABS: Glucose,Whole Blood 83 mg/dL (75-99)
[2019-01-24 20:57] LABS: Glucose,Whole Blood 89 mg/dL (75-99)
[2019-01-24] MEDS: ATORVASTATIN 40 MG TAB PO SCH (21:03)
[2019-01-24] MEDS: INSULIN DETEMIR (LEVEMIR) 100 UNIT/ML SYR SQ SCH (21:03)
[2019-01-24] MEDS: MONTELUKAST 10 MG TAB PO SCH (21:04)
[2019-01-24] MEDS: VENLAFAXINE HCL 75 MG TAB PO SCH (21:04)
[2019-01-25] MEDS: BUDESONIDE 0.5 MG/2 ML NEBU INHALATION PRN ×2 (06:57→20:46)
[2019-01-25] MEDS: IPRATROPIUM-ALBUTEROL 3 ML NEB INHALATION SCH ×4 (06:57→20:46)
[2019-01-25 06:58] LABS: Anisocytosis Moderate; Basophils # (A) 0.1 k/uL (0-0.2); Basophils % (A) 1 %; Eosinophils # (A) 0.3 k/uL (0-0.7); Eosinophils % (A) 3 %; HCT 43.9 % (39.0-53.0); HGB 13.8 gm/dL (13.0-17.5); Hypochromasia Slight; Lymphocytes # (A) 0.9 k/uL (1.0-4.8); Lymphocytes % (A) 9 %; MCH 26.6 pg (25.0-35.0); MCHC 31.4 g/dL (31.0-37.0); MCV 84.6 fL (80.0-100.0); Mean Platelet Volume 7.1; Microcytosis Slight; Monocytes % (A) 10 %; Neutrophils # (A) 7.6 k/uL (1.3-7.7); Neutrophils % (A) 75 %; Platelet Count 242 k/uL (150-450); RBC 5.19 m/uL (4.30-5.90); RDW 20.2 % (11.5-15.5); WBC 10.1 k/uL (3.8-10.6)
[2019-01-25 07:08] LABS: Anion Gap 8 mmol/L; Blood Urea Nitrogen 15 mg/dL (9-20); Calcium 8.9 mg/dL (8.4-10.2); Carbon Dioxide 29 mmol/L (22-30); Chloride 100 mmol/L (98-107); Glucose 77 mg/dL (74-99); Potassium 4.1 mmol/L (3.5-5.1); Sodium 137 mmol/L (137-145)
[2019-01-25 07:17] LABS: Glucose,Whole Blood 79 mg/dL (75-99)
[2019-01-25] MEDS: INSULIN ASPART (NovoLOG) 100 UNIT/ML VIAL SQ SCH ×4 (07:49→21:19)
[2019-01-25] MEDS: CARVEDILOL 6.25 MG TAB PO SCH ×2 (08:19→16:39)
[2019-01-25] MEDS: RIVAROXABAN 20 MG TAB PO SCH (08:19)
[2019-01-25] MEDS: metFORMIN 500 MG TAB PO SCH ×2 (08:20→21:17)
[2019-01-25] MEDS: SACUBITRIL/VALSARTAN 24 MG-26 MG TABLET PO SCH ×2 (08:20→21:17)
[2019-01-25] MEDS: FUROSEMIDE 40 MG TAB PO SCH ×2 (08:20→16:36)
[2019-01-25] MEDS: PREGABALIN 75 MG CAP PO SCH ×2 (08:20→21:17)
[2019-01-25] MEDS: Empagliflozin [Jardiance] 10 MG PO SCH (08:20)
[2019-01-25] MEDS: SPIRONOLACTONE 25 MG TAB PO SCH (08:21)
[2019-01-25 11:03] LABS: Glucose,Whole Blood 89 mg/dL (75-99)
--- NOTE | 2019-01-25 13:09 | XR ---
EXAMINATION TYPE: XR chest 2V DATE OF EXAM: 01/25/2019 HISTORY: cough. REFERENCE: Previous study dated 01/20/2019. FINDINGS: There has been a midline sternotomy. There is a multilead pacing device in place on the lef t. The lungs are overinflated. The heart is enlarged. There is vascular congestion and mild pulmonary ed chase. I suspect a small right-sided effusion. IMPRESSION: 1. COPD. 2. MILD CHANGES OF CONGESTIVE HEART FAILURE.
[2019-01-25] MEDS ORDERED: FUROSEMIDE 10 MG/ML 4 ML VIAL IV STA (14:35)
--- NOTE | 2019-01-25 15:42 | PN ---
PROGRESS NOTE DATE OF SERVICE: 01/25/2019. HISTORY: This 73-year-old gentleman admitted with CHF exacerbation also complains of minimal hemoptysis. A chest x-ray ordered by me and personally reviewed by me showed evidence of mild changes of CHF and the patient is being closely monitored. No chest pain. No palpitations. No fever. EXAM: Alert and oriented x3. Pulse is 59, blood pressure 109/70, respirations 16, temperature 97.4, pulse ox 94% on 2 L. HEENT: Conjunctivae normal. CARDIOVASCULAR: S1 and S2 muffled. No hemoptysis. RESPIRATORY: Few scattered and rhonchi and crackles. ABDOMEN: Soft, nontender. EXTREMITIES: No edema. NERVOUS SYSTEM: No focal deficits. LABS: WBC 10.2, hemoglobin 13.9, sodium 137, potassium 4.1. ASSESSMENT: 1. Congestive heart failure acute exacerbation with acute on chronic systolic dysfunction, ejection fraction 30% to 35%. 2. Generalized gait dysfunction and weakness. 3. Possible TIA. 4. History of atrial fibrillation, coronary artery disease. 5. History of chronic obstructive pulmonary disease. 6. Diabetes mellitus type 2. 7. Hypertension. 8. Hyperlipidemia. 9. History of degenerative joint disease. 10.History of pneumonia. 11.History of sleep apnea, history hypothyroidism. 12.History of psoriasis. 13.History of neuropathy. 14.History of peripheral vascular disease. 15.History of MRSA. 16.History of AICD. 17.History of CAD, CABG, stent. 18.Depression. 19.History of posttraumatic stress disorder. 20.History of chronic hypoxic respiratory failure on home O2. 21.History of nicotine dependence. RECOMMENDATIONS: Continue current medications. Continue to monitor. Symptomatic treatment. Otherwise at this time I recommend extra dose of Lasix today. We will continue to monitor. Further recommendations to follow. See orders for details. MMODL / IJN: [id number] /
[2019-01-25 17:09] LABS: Glucose,Whole Blood 68 mg/dL (75-99)
[2019-01-25 17:25] LABS: Glucose,Whole Blood 69 mg/dL (75-99)
[2019-01-25 19:51] LABS: Glucose,Whole Blood 110 mg/dL (75-99)
[2019-01-25] MEDS ORDERED: INSULIN DETEMIR (LEVEMIR) 100 UNIT/ML SYR SQ SCH (21:00)
[2019-01-25] MEDS: VENLAFAXINE HCL 75 MG TAB PO SCH (21:17)
[2019-01-25] MEDS: ATORVASTATIN 40 MG TAB PO SCH (21:17)
[2019-01-25] MEDS: MONTELUKAST 10 MG TAB PO SCH (21:17)
[2019-01-26 07:01] LABS: Glucose,Whole Blood 127 mg/dL (75-99)
[2019-01-26 07:40] LABS: Anisocytosis Moderate; Basophils % (A) 0 %; Eosinophils # (A) 0.3 k/uL (0-0.7); Eosinophils % (A) 3 %; HCT 43.5 % (39.0-53.0); HGB 13.5 gm/dL (13.0-17.5); Hypochromasia Slight; Lymphocytes # (A) 0.9 k/uL (1.0-4.8); Lymphocytes % (A) 7 %; MCH 26.4 pg (25.0-35.0); MCV 84.9 fL (80.0-100.0); Mean Platelet Volume 6.9; Microcytosis Slight; Monocytes # (A) 1.2 k/uL (0-1.0); Monocytes % (A) 10 %; Neutrophils # (A) 8.9 k/uL (1.3-7.7); Neutrophils % (A) 78 %; Platelet Count 243 k/uL (150-450); RBC 5.12 m/uL (4.30-5.90); RDW 20.3 % (11.5-15.5); WBC 11.5 k/uL (3.8-10.6)
[2019-01-26 07:55] LABS: Anion Gap 8 mmol/L; Blood Urea Nitrogen 15 mg/dL (9-20); Calcium 9.1 mg/dL (8.4-10.2); Carbon Dioxide 27 mmol/L (22-30); Chloride 101 mmol/L (98-107); Glucose 101 mg/dL (74-99); Potassium 4.3 mmol/L (3.5-5.1); Sodium 136 mmol/L (137-145)
[2019-01-26] MEDS: BUDESONIDE 0.5 MG/2 ML NEBU INHALATION PRN ×2 (08:20→19:54)
[2019-01-26] MEDS: IPRATROPIUM-ALBUTEROL 3 ML NEB INHALATION SCH ×4 (08:20→19:54)
[2019-01-26] MEDS: INSULIN ASPART (NovoLOG) 100 UNIT/ML VIAL SQ SCH ×4 (08:29→21:27)
[2019-01-26] MEDS: FUROSEMIDE 40 MG TAB PO SCH ×2 (08:29→17:17)
[2019-01-26] MEDS: CARVEDILOL 6.25 MG TAB PO SCH ×2 (08:29→17:17)
[2019-01-26] MEDS: RIVAROXABAN 20 MG TAB PO SCH (08:29)
[2019-01-26] MEDS: SPIRONOLACTONE 25 MG TAB PO SCH (08:30)
[2019-01-26] MEDS: metFORMIN 500 MG TAB PO SCH ×2 (08:30→21:30)
[2019-01-26] MEDS: PREGABALIN 75 MG CAP PO SCH ×2 (08:30→21:30)
[2019-01-26] MEDS: SACUBITRIL/VALSARTAN 24 MG-26 MG TABLET PO SCH ×2 (08:30→21:30)
[2019-01-26] MEDS: Empagliflozin [Jardiance] 10 MG PO SCH (08:30)
--- NOTE | 2019-01-26 09:07 | P.PN ---
Subjective This is the first day I take care of this patient. History of present illness This is a pleasant 73 years old male with past medical history of ischemic cardiomyopathy, congestive heart failure, atrial fibrillation on anticoagulation, status post ICD. Coronary artery disease status post CABG. COPD, diabetes mellitus, hyperlipidemia, hypertension, sleep apnea on CPAP/BiPAP, thyroid disorder/ nodule, diabetic neuropathy. Presents because of signs and symptoms of dyspnea, related mostly to his congestive heart failure. Patient has been evaluated by educational technology coordinator for acute systolic CHF secondary to ischemic cardiomyopathy. Also patient states that his right leg gave way and he fell when he came to the emergency room, however patient states that his leg is back to his usual state, patient has been evaluated by physical therapist. Patient was started on a walker, patient also has generalized weakness. Patient states that he is coughing up brown stuff, he thinks it's blood although his hemoglobin has been stable since he came in and actually improved from 12.7, currently 13.5. Patient glucose was running a bit on the low side this morning down to 68. Patient was on Levemir 5 units at bedtime which will discontinue Patient was on Plavix on admission which was held. Patient has been evaluated by educational technology coordinator and agreed with the current medical treatment Objective - Vital Signs Vital signs: Vital Signs Temp 97.8 F 01/26/19 05:00 Pulse 68 01/26/19 08:35 Resp 16 01/26/19 05:00 BP 78/45 01/26/19 05:00 Pulse Ox 96 01/26/19 05:00 Intake & Output 01/25/19 01/26/19 01/26/19 18:59 06:59 18:59 Intake Total 1051 830 Output Total 600 400 Balance 451 430 Weight 123.6 kg Intake: Oral 1051 830 Output: Urine 600 400 Other: Voiding Method Urinal # Voids 1 - Exam -GENERAL: The patient is alert and oriented x3, not in any acute distress. Well developed, well nourished. Generally weak HEENT: Pupils are round and equally reacting to light. EOMI. No scleral icterus. No conjunctival pallor. Normocephalic, atraumatic. No pharyngeal erythema. No thyromegaly. CARDIOVASCULAR: S1 and S2 present. No murmurs, rubs, or gallops. -PULMONARY: Chest is clear to auscultation, no wheezing or crackles. Patient looks slightly tachypneic ABDOMEN: Soft, nontender, nondistended, normoactive bowel sounds. No palpable organomegaly. MUSCULOSKELETAL: No joint swelling or deformity. EXTREMITIES: No cyanosis, clubbing, or pedal edema. NEUROLOGICAL: Gross neurological examination did not reveal any focal deficits. SKIN: No rashes. - Labs CBC & Chem 7: 01/26/19 07:14 01/26/19 07:14 Labs: Abnormal Lab Results - Last 24 Hours (Table) 01/25/19 01/25/19 01/25/19 Range/Units 17:08 17:24 19:50 WBC (3.8-10.6) k/uL RDW (11.5-15.5) % Neutrophils # (1.3-7.7) k/uL Lymphocytes # (1.0-4.8) k/uL Monocytes # (0-1.0) k/uL Sodium (137-145) mmol/L Creatinine (0.66-1.25) mg/dL Glucose (74-99) mg/dL POC Glucose (mg/dL) 68 L 69 L 110 H (75-99) mg/dL 01/26/19 01/26/19 01/26/19 Range/Units 06:59 07:14 07:14 WBC 11.5 H (3.8-10.6) k/uL RDW 20.3 H (11.5-15.5) % Neutrophils # 8.9 H (1.3-7.7) k/uL Lymphocytes # 0.9 L (1.0-4.8) k/uL Monocytes # 1.2 H (0-1.0) k/uL Sodium 136 L (137-145) mmol/L Creatinine 0.55 L (0.66-1.25) mg/dL Glucose 101 H (74-99) mg/dL POC Glucose (mg/dL) 127 H (75-99) mg/dL Assessment and Plan Assessment: Acute systolic on chronic CHF exacerbation. Ejection fraction 30-35% Possible TIA, with left-sided leg weakness. Currently improved History of atrial fibrillation on xarelto, rate controlled Generalized weakness and gait dysfunction History of coronary artery disease. Status post CABG History of COPD, with a brown phlegm. Doubt hemoptysis. I Called heater installer for further evaluation Enlarged left thyroid, with history of goiter. Diabetes mellitus Hypertension Hyperlipidemia History of degenerative joint disease History of sleep apnea History of hypothyroidism Diabetic neuropathy History of peripheral vascular disease History of mitral valve replacement Plan: This is a pleasant 73 years old male who presents with acute CHF. Continue with diuretic. Follow-up chest x-ray. Cardiology input is appreciated. Patient thinks he is In some blood although it is a brown phlegm. Hemoglobin is stable. Will call his heater installer Dr. Caban. He was to see Dr. Serrano for his COPD and he has been seen him for a while. For to his generalized weakness patient has been evaluated by physical therapy, patient most likely will benefit from ECF for inpatient rehab. Patient has possible TIA however he is on blood thinner Xarelto for his atrial fibrillation. Labs and medication were reviewed.. Continue same treatment. Continue with symptomatic treatment. Resume home medication. Monitor lytes and vitals. DVT and GI prophylaxis. Further recommendations of the clinical course of the patient DVT prophylaxis: Xarelto GI Prophylaxis: Ppi PT/OT: Patient will benefit from subacute rehab Prognosis is guarded
[2019-01-26 11:21] LABS: Glucose,Whole Blood 158 mg/dL (75-99)
--- NOTE | 2019-01-26 13:07 | XR ---
EXAMINATION TYPE: XR chest 1V DATE OF EXAM: 01/26/2019 COMPARISON: 01/25/2019 HISTORY: 73-year-old male follow-up on fluid retention TECHNIQUE: Single frontal view of the chest is obtained. FINDINGS: Left anterior chest wall AICD generator with right atrial and right ventricular leads. Hea rt remains enlarged. Diffuse interstitial and vascular prominence with patchy and confluent right bas ilar opacity. Possible trace right effusion. IMPRESSION: Correlate for continued CHF with pulmonary vascular congestion/mild interstitial edema. Similar to sl ightly worsened. Right basilar edema or infiltrate is slightly increased.
--- NOTE | 2019-01-26 15:53 | P.CNPUL ---
History of Present Illness Consult date: 01/26/19 Reason for consult: cough, COPD, obstructive sleep apnea, other Chief complaint: Hemoptysis History of present illness: 73-year-old male well-known to me from past medical history of severe degree of heart failure patient has problems associated obstructive sleep apnea he is been having cough with thick purulent sputum for last day is mixed with blood patient is on Plavix and Xaralto Review of Systems All systems: negative Past Medical History Past Medical History: Atrial Fibrillation, Coronary Artery Disease (CAD), Chest Pain / Angina, Heart Failure, COPD, Diabetes Mellitus, Hyperlipidemia, Hypertension, Osteoarthritis (OA), Pneumonia, Skin Disorder, Sleep Apnea/CPAP/BIPAP, Thyroid Disorder, Vascular Disorder Additional Past Medical History / Comment(s): psoriasis, neuropathy RT HAND and LEFT FOOT, poor circulation left leg, gout, thyoid nodule, hx ingrown toenails zac great toes, uses O2 PRN. left leg iliac stent due to poor circulation 12/25/2017. History of Any Multi-Drug Resistant Organisms: MRSA Date of last positivie culture/infection: 2011 MDRO Source:: chest incision Past Surgical History: AICD, Back Surgery, Coronary Bypass/CABG, Heart Catheterization With Stent Additional Past Surgical History / Comment(s): 3 CARDIAC STENTS, quad bypass and heart valve repair 2011, Lt Fempop (1 stent placed) Past Anesthesia/Blood Transfusion Reactions: No Reported Reaction Date of Last Stent Placement:: 12/25/2017 Type of Cardiac Device: AICD Device Placement Date:: 2012 Past Psychological History: Depression, PTSD Additional Psychological History / Comment(s): pt lives with daughter. has home 02, nebulizer, cpap machine. Smoking Status: Former smoker Past Alcohol Use History: None Reported Additional Past Alcohol Use History / Comment(s): QUIT SMOKING 2011, SMOKED 1 AND 1/2 PPD FOR 50 YRS Past Drug Use History: Unable to Obtain - Past Family History Father Family Medical History: Congestive Heart Failure (CHF), Coronary Artery Disease (CAD), Diabetes Mellitus, Myocardial Infarction (PA) Additional Family Medical History / Comment(s): MAC DEGENERATION, CABG Mother Family Medical History: No Reported History Medications and Allergies Home Medications Medication Instructions Recorded Confirmed Type Venlafaxine HCl [Effexor] 75 mg PO HS 06/15/14 01/20/19 History Insulin Glargine [Lantus] 22 unit SQ HS 02/21/16 01/20/19 History Isosorbide Mononitrate ER [Imdur] 60 mg PO DAILY 02/21/16 01/20/19 History Nitroglycerin Sl Tabs [Nitrostat] 0.4 mg SUBLINGUAL Q5M PRN #25 tab 02/24/16 01/20/19 Rx Albuterol Inhaler [Ventolin Hfa 2 puff INHALATION RT-Q6H PRN 07/18/16 01/20/19 History Inhaler] Rivaroxaban [Xarelto] 20 mg PO DAILY 07/18/16 01/20/19 History Budesonide [Pulmicort] 0.5 mg INHALATION RT-BID PRN 07/10/17 01/20/19 History Clopidogrel [Plavix] 75 mg PO DAILY 07/10/17 01/20/19 History Dulaglutide [Trulicity] 1.5 mg SQ FR 07/10/17 01/20/19 History Empagliflozin [Jardiance] 10 mg PO DAILY 07/10/17 01/20/19 History Montelukast Sodium [Singulair] 10 mg PO HS 07/10/17 01/20/19 History Lisinopril [Zestril] 2.5 mg PO DAILY 12/24/17 01/20/19 History Pregabalin [Lyrica] 75 mg PO BID 12/24/17 01/20/19 History Carvedilol [Coreg] 12.5 mg PO BID 04/10/18 01/20/19 History Ipratropium-Albuterol Nebulize 3 ml INHALATION RT-QID 04/10/18 01/20/19 History [Duoneb 0.5 mg-3 mg/3 ml Soln] Spironolactone [Aldactone] 25 mg PO DAILY 04/10/18 01/20/19 History metFORMIN HCL 1,000 mg PO BID 09/11/18 01/20/19 History Atorvastatin [Lipitor] 40 mg PO HS 01/20/19 01/20/19 History Furosemide [Lasix] 40 mg PO BID 01/20/19 01/20/19 History Allergies Allergy/AdvReac Type Severity Reaction Status Date / Time No Known Allergies Allergy Verified 01/20/19 16:40 Physical Exam Vitals: Vital Signs Temp Pulse Pulse Pulse Pulse Resp BP 01/26/19 12:02 64 01/26/19 11:52 60 01/26/19 11:31 97.5 F L 61 58 L 65 16 88/63 01/26/19 08:35 68 01/26/19 08:20 68 01/26/19 05:00 97.8 F 58 L 16 83/55 01/25/19 21:05 78 18 01/25/19 21:00 57 L 20 01/25/19 20:47 76 16 01/25/19 16:17 74 16 01/25/19 16:04 75 16 BP BP Pulse Ox 01/26/19 12:02 01/26/19 11:52 01/26/19 11:31 122/64 85/61 98 01/26/19 08:35 01/26/19 08:20 01/26/19 05:00 116/72 78/45 96 01/25/19 21:05 01/25/19 21:00 91/58 96 01/25/19 20:47 100 01/25/19 16:17 01/25/19 16:04 Intake and Output 01/26/19 01/26/19 01/26/19 06:59 14:59 22:59 Intake Total 590 Output Total 300 200 Balance 290 -200 Intake: Oral 590 Output: Urine 300 200 Other: Weight 123.6 kg - Constitutional General appearance: cooperative, disheveled, morbidly obese - EENT Eyes: anicteric sclerae, EOMI, PERRLA, poor dentition, normal appearance ENT: normal oropharynx Ears: bilateral: normal - Neck Carotids: bilateral: upstroke delayed, bruit absent Thyroid: bilateral: normal size - Respiratory Respiratory: bilateral: diminished, negative: dullness, rales, rhonchi, wheezing, prolonged expiration, prolonged inspiration - Cardiovascular Rhythm: regular Heart sounds: normal: S1, S2 Abnormal Heart Sounds: systolic murmur - Gastrointestinal General gastrointestinal: normal bowel sounds - Neurologic Neurologic: CNII-XII intact, focal deficits - Musculoskeletal Musculoskeletal: gait normal, generalized weakness, strength equal bilaterally - Psychiatric Psychiatric: A&O x's 3, appropriate affect, intact judgment & insight Results - Laboratory Findings CBC and BMP: 01/26/19 07:14 01/26/19 07:14 PT/INR, D-dimer PT 15.5 sec (9.0-12.0) H 01/20/19 16:33 INR 1.5 (<1.2) H 01/20/19 16:33 Abnormal lab findings: Abnormal Labs 01/20/19 01/20/19 01/20/19 16:33 16:33 16:33 WBC Hgb 12.7 L MCHC RDW 20.3 H Neutrophils # Lymphocytes # Monocytes # PT 15.5 H INR 1.5 H APTT 33.4 H Sodium 136 L Chloride Creatinine Glucose 153 H POC Glucose (mg/dL) Hemoglobin A1c ALT 20 L Albumin 3.3 L 01/20/19 01/21/19 01/21/19 20:55 06:52 11:12 WBC Hgb MCHC RDW Neutrophils # Lymphocytes # Monocytes # PT INR APTT Sodium Chloride Creatinine Glucose POC Glucose (mg/dL) 70 L 128 H 165 H Hemoglobin A1c ALT Albumin 01/21/19 01/21/19 01/22/19 17:00 20:06 06:57 WBC Hgb MCHC RDW Neutrophils # Lymphocytes # Monocytes # PT INR APTT Sodium Chloride Creatinine Glucose POC Glucose (mg/dL) 104 H 111 H 70 L Hemoglobin A1c ALT Albumin 01/22/19 01/22/19 01/22/19 07:28 07:28 11:12 WBC Hgb 12.2 L MCHC RDW 20.5 H Neutrophils # Lymphocytes # Monocytes # PT INR APTT Sodium 133 L Chloride Creatinine 0.57 L Glucose 69 L POC Glucose (mg/dL) 126 H Hemoglobin A1c ALT Albumin 01/22/19 01/22/19 01/23/19 16:54 19:56 08:47 WBC Hgb MCHC RDW Neutrophils # Lymphocytes # Monocytes # PT INR APTT Sodium Chloride Creatinine Glucose POC Glucose (mg/dL) 101 H 115 H Hemoglobin A1c 6.6 H ALT Albumin 01/23/19 01/23/19 01/23/19 08:47 08:47 11:17 WBC 11.1 H Hgb MCHC 30.8 L RDW 20.6 H Neutrophils # 8.9 H Lymphocytes # 0.7 L Monocytes # PT INR APTT Sodium 134 L Chloride 97 L Creatinine 0.59 L Glucose 109 H POC Glucose (mg/dL) 111 H Hemoglobin A1c ALT Albumin 01/24/19 01/24/19 01/24/19 06:17 06:17 11:14 WBC Hgb MCHC 30.0 L RDW 20.9 H Neutrophils # Lymphocytes # Monocytes # PT INR APTT Sodium Chloride Creatinine 0.59 L Glucose POC Glucose (mg/dL) 112 H Hemoglobin A1c ALT Albumin 01/25/19 01/25/19 01/25/19 06:16 06:16 17:08 WBC Hgb MCHC RDW 20.2 H Neutrophils # Lymphocytes # 0.9 L Monocytes # PT INR APTT Sodium Chloride Creatinine 0.65 L Glucose POC Glucose (mg/dL) 68 L Hemoglobin A1c ALT Albumin 01/25/19 01/25/19 01/26/19 17:24 19:50 06:59 WBC Hgb MCHC RDW Neutrophils # Lymphocytes # Monocytes # PT INR APTT Sodium Chloride Creatinine Glucose POC Glucose (mg/dL) 69 L 110 H 127 H Hemoglobin A1c ALT Albumin 01/26/19 01/26/19 01/26/19 07:14 07:14 11:17 WBC 11.5 H Hgb MCHC RDW 20.3 H Neutrophils # 8.9 H Lymphocytes # 0.9 L Monocytes # 1.2 H PT INR APTT Sodium 136 L Chloride Creatinine 0.55 L Glucose 101 H POC Glucose (mg/dL) 158 H Hemoglobin A1c ALT Albumin - Diagnostic Findings Chest x-ray: report reviewed, image reviewed (X-ray from today revealed congestive heart failure for CHF-like changes slightly worsening on the right side is noted) Assessment and Plan Assessment: Hemoptysis Right lower lobe pneumonia Congestive heart failure chronic systolic heart failure ejection fraction of 30% Left-sided TIA Atrial fibrillation COPD Diabetes mellitus Obstructive sleep apnea History of mitral valve replacement Plan: Broad-spectrum antibiotics Stop his Xarelto Send a sputum for Gram stain and culture Broad-spectrum antibiotics Time with Patient: Greater than 30
[2019-01-26 16:48] LABS: Glucose,Whole Blood 103 mg/dL (75-99)
[2019-01-26 21:00] LABS: Glucose,Whole Blood 97 mg/dL (75-99)
[2019-01-26] MEDS: ATORVASTATIN 40 MG TAB PO SCH (21:30)
[2019-01-26] MEDS: MONTELUKAST 10 MG TAB PO SCH (21:30)
[2019-01-26] MEDS: VENLAFAXINE HCL 75 MG TAB PO SCH (21:30)
[2019-01-26] MEDS ORDERED: FUROSEMIDE 10 MG/ML 4 ML VIAL IV STA (21:50)
[2019-01-27 06:47] LABS: Glucose,Whole Blood 107 mg/dL (75-99)
[2019-01-27] MEDS: INSULIN ASPART (NovoLOG) 100 UNIT/ML VIAL SQ SCH ×4 (07:24→20:32)
[2019-01-27 07:42] LABS: Anisocytosis Moderate; Basophils % (A) 0 %; Eosinophils # (A) 0.4 k/uL (0-0.7); Eosinophils % (A) 3 %; HCT 40.5 % (39.0-53.0); HGB 12.4 gm/dL (13.0-17.5); Hypochromasia Slight; Lymphocytes # (A) 0.8 k/uL (1.0-4.8); Lymphocytes % (A) 7 %; MCHC 30.6 g/dL (31.0-37.0); MCV 84.9 fL (80.0-100.0); Mean Platelet Volume 7.1; Microcytosis Slight; Monocytes # (A) 1.2 k/uL (0-1.0); Monocytes % (A) 10 %; Neutrophils # (A) 8.6 k/uL (1.3-7.7); Neutrophils % (A) 77 %; Platelet Count 256 k/uL (150-450); RBC 4.78 m/uL (4.30-5.90); RDW 20.2 % (11.5-15.5); WBC 11.2 k/uL (3.8-10.6)
[2019-01-27] MEDS: BUDESONIDE 0.5 MG/2 ML NEBU INHALATION PRN (07:57)
[2019-01-27] MEDS: IPRATROPIUM-ALBUTEROL 3 ML NEB INHALATION SCH ×4 (07:57→20:29)
[2019-01-27 07:58] LABS: Anion Gap 9 mmol/L; Blood Urea Nitrogen 16 mg/dL (9-20); Calcium 8.9 mg/dL (8.4-10.2); Carbon Dioxide 26 mmol/L (22-30); Chloride 101 mmol/L (98-107); Glucose 99 mg/dL (74-99); Potassium 4.2 mmol/L (3.5-5.1); Sodium 136 mmol/L (137-145)
[2019-01-27] MEDS: Empagliflozin [Jardiance] 10 MG PO SCH (08:18)
[2019-01-27] MEDS: PREGABALIN 75 MG CAP PO SCH ×2 (08:19→20:46)
[2019-01-27] MEDS: FUROSEMIDE 10 MG/ML 4 ML VIAL IV SCH ×2 (08:19→20:46)
[2019-01-27] MEDS: CARVEDILOL 6.25 MG TAB PO SCH ×2 (08:19→18:06)
[2019-01-27] MEDS: metFORMIN 500 MG TAB PO SCH ×2 (08:19→20:46)
[2019-01-27] MEDS: SPIRONOLACTONE 25 MG TAB PO SCH (08:20)
[2019-01-27] MEDS: SACUBITRIL/VALSARTAN 24 MG-26 MG TABLET PO SCH ×2 (08:20→20:46)
[2019-01-27 08:23] VITALS: BMI 33.2
--- NOTE | 2019-01-27 10:00 | P.PN ---
Subjective This is the first day I take care of this patient. History of present illness This is a pleasant 73 years old male with past medical history of ischemic cardiomyopathy, congestive heart failure, atrial fibrillation on anticoagulation, status post ICD. Coronary artery disease status post CABG. COPD, diabetes mellitus, hyperlipidemia, hypertension, sleep apnea on CPAP/BiPAP, thyroid disorder/ nodule, diabetic neuropathy. Presents because of signs and symptoms of dyspnea, related mostly to his congestive heart failure. Patient has been evaluated by repairer sash and door for acute systolic CHF secondary to ischemic cardiomyopathy. Also patient states that his right leg gave way and he fell when he came to the emergency room, however patient states that his leg is back to his usual state, patient has been evaluated by physical therapist. Patient was started on a walker, patient also has generalized weakness. Patient states that he is coughing up brown stuff, he thinks it's blood although his hemoglobin has been stable since he came in and actually improved from 12.7, currently 13.5. Patient glucose was running a bit on the low side this morning down to 68. Patient was on Levemir 5 units at bedtime which will discontinue Patient was on Plavix on admission which was held. Patient has been evaluated by repairer sash and door and agreed with the current medical treatment 01/27/2019 Patient feels better today, with less dyspnea. He still have some cough with brown phlegm. However no chest pain. xarelto was put on hold as well as Plavix on admission for his hemoptysis as per recommendation of the primary special educator. I would Recommend to consider resuming these medication upon discharge depending on his clinical condition. Chest x-ray from yesterday showing CHF and right lower lobe pneumonia. Sputum culture has been sent for pneumonia and he was started on antibiotic ceftriaxone yesterday as per pulmonary recommendation as well. Patient Lasix was changed from by mouth to 40 mg IV twice a day. No more weakness in his lower extremity. I had. 2. Review yesterday with his [employer] insurance and there ejected him going to rehab. Alternative plan is going home with home health care. Patient informed and he agrees with the plan Review of systems CONSTITUTIONAL: No fever, no malaise, no fatigue. HEENT: No recent visual problems or hearing problems. Denied any sore throat. CARDIOVASCULAR: No orthopnea, PND, no palpitations, no syncope. GASTROINTESTINAL: No diarrhea, no nausea, no vomiting, no abdominal pain. Normoactive bowel sounds. NEUROLOGICAL: No headaches, no weakness, no numbness. HEMATOLOGICAL: Denies any bleeding or petechiae. GENITOURINARY: Denies any burning micturition, frequency, or urgency. MUSCULOSKELETAL/RHEUMATOLOGICAL: Denies any joint pain, swelling, or any muscle pain. ENDOCRINE: Denies any polyuria or polydipsia. Medication: Albuterol, Lipitor, Pulmicort, Coreg, ceftriaxone, Lasix, NovoLog insulin, Glucophage, Singulair, DrKristopher glycerin, Lyrica, entresto, Aldactone, Effexor. Objective - Vital Signs Vital signs: Vital Signs Temp 97.6 F 01/27/19 05:00 Pulse 64 01/27/19 08:16 Resp 17 01/26/19 21:00 BP 109/72 01/27/19 05:00 Pulse Ox 94 L 01/27/19 05:00 Intake & Output 01/26/19 01/27/19 01/27/19 18:59 06:59 18:59 Intake Total 830 220 Output Total 200 800 400 Balance 630 -580 -400 Weight 123.8 kg 123.8 kg Intake: Oral 830 220 Output: Urine 200 800 400 Other: Voiding Method Urinal # Voids 4 - Exam -GENERAL: The patient is alert and oriented x3, not in any acute distress. Well developed, well nourished. Generally weak HEENT: Pupils are round and equally reacting to light. EOMI. No scleral icterus. No conjunctival pallor. Normocephalic, atraumatic. No pharyngeal erythema. No thyromegaly. CARDIOVASCULAR: S1 and S2 present. No murmurs, rubs, or gallops. -PULMONARY: Chest is clear to auscultation, no wheezing or crackles. Patient looks slightly tachypneic ABDOMEN: Soft, nontender, nondistended, normoactive bowel sounds. No palpable organomegaly. MUSCULOSKELETAL: No joint swelling or deformity. EXTREMITIES: No cyanosis, clubbing, or pedal edema. NEUROLOGICAL: Gross neurological examination did not reveal any focal deficits. SKIN: No rashes. - Labs CBC & Chem 7: 01/27/19 06:30 01/27/19 06:30 Labs: Abnormal Lab Results - Last 24 Hours (Table) 01/26/19 01/26/1919 Range/Units 11:17 16:46 06:30 WBC 11.2 H (3.8-10.6) k/uL Hgb 12.4 L (13.0-17.5) gm/dL MCHC 30.6 L (31.0-37.0) g/dL RDW 20.2 H (11.5-15.5) % Neutrophils # 8.6 H (1.3-7.7) k/uL Lymphocytes # 0.8 L (1.0-4.8) k/uL Monocytes # 1.2 H (0-1.0) k/uL Sodium (137-145) mmol/L Creatinine (0.66-1.25) mg/dL POC Glucose (mg/dL) 158 H 103 H (75-99) mg/dL 01/27/19 01/27/19 Range/Units 06:30 06:46 WBC (3.8-10.6) k/uL Hgb (13.0-17.5) gm/dL MCHC (31.0-37.0) g/dL RDW (11.5-15.5) % Neutrophils # (1.3-7.7) k/uL Lymphocytes # (1.0-4.8) k/uL Monocytes # (0-1.0) k/uL Sodium 136 L (137-145) mmol/L Creatinine 0.60 L (0.66-1.25) mg/dL POC Glucose (mg/dL) 107 H (75-99) mg/dL Microbiology - Last 24 Hours (Table) 01/26/19 19:59 Gram Stain - Preliminary Sputum Sputum Culture - Preliminary Assessment and Plan Assessment: Acute systolic on chronic CHF exacerbation. Ejection fraction 30-35% Right lower lobe community-acquired pneumonia Possible TIA, with left-sided leg weakness. Currently improved History of atrial fibrillation on xarelto, rate controlled Generalized weakness and gait dysfunction History of coronary artery disease. Status post CABG History of COPD, with a brown phlegm. Doubt hemoptysis. I Called primary special educator for further evaluation Enlarged left thyroid, with history of goiter. Diabetes mellitus Hypertension Hyperlipidemia History of degenerative joint disease History of sleep apnea History of hypothyroidism Diabetic neuropathy History of peripheral vascular disease History of mitral valve replacement Plan: This is a pleasant 73 years old male who presents with acute CHF. Continue with diuretic. Follow-up chest x-ray. Cardiology input is appreciated. Patient thinks he is In some blood although it is a brown phlegm. Hemoglobin is stable. Will call his primary special educator Dr. Caban. He was to see Dr. Serrano for his COPD and he has been seen him for a while. For to his generalized weakness patient has been evaluated by physical therapy, patient most likely will benefit from ECF f or inpatient rehab. Patient has possible TIA however he is on blood thinner Xarelto for his atrial fibrillation. Labs and medication were reviewed.. Continue same treatment. Continue with symptomatic treatment. Resume home medication. Monitor lytes and vitals. DVT and GI prophylaxis. Further recommendations of the clinical course of the patient DVT prophylaxis: Xarelto GI Prophylaxis: Ppi PT/OT: Patient will benefit from subacute rehab Prognosis is guarded
[2019-01-27 11:10] LABS: Glucose,Whole Blood 114 mg/dL (75-99)
--- NOTE | 2019-01-27 12:31 | P.PN ---
Subjective Progress Note Date: 01/27/19 Principal diagnosis: Hemoptysis, right lower lobe pneumonia, chronic systolic heart failure ejection fraction 30%, left-sided TIA atrial fibrillation, COPD and his stage, diabetes mellitus, obstructive sleep apnea, history of mitral valve replacement 01/27/2019, patient seen and examined and evaluated on medical floor is still have hemoptysis in the form of streaks mixed with sputum, sputum is being sent for Gram stain and culture results are pending 73-year-old male well-known to me from past medical history of severe degree of heart failure patient has problems associated obstructive sleep apnea he is been having cough with thick purulent sputum for last day is mixed with blood patient is on Plavix and Xaralto Objective - Vital Signs Vital signs: Vital Signs Temp 98.2 F 01/27/19 11:33 Pulse 62 01/27/19 11:33 Resp 18 01/27/19 11:33 BP 111/64 01/27/19 11:33 Pulse Ox 96 01/27/19 11:33 Intake & Output 01/26/19 01/27/19 01/27/19 18:59 06:59 18:59 Intake Total 830 220 Output Total 200 800 400 Balance 630 -580 -400 Weight 123.8 kg 123.8 kg Intake: Oral 830 220 Output: Urine 200 800 400 Other: Voiding Method Urinal # Voids 4 - Exam - Constitutional General appearance: cooperative, disheveled, morbidly obese - EENT Eyes: anicteric sclerae, EOMI, PERRLA, poor dentition, normal appearance ENT: normal oropharynx Ears: bilateral: normal - Neck Carotids: bilateral: upstroke delayed, bruit absent Thyroid: bilateral: normal size - Respiratory Respiratory: bilateral: diminished, negative: dullness, rales, rhonchi, wheezing, prolonged expiration, prolonged inspiration - Cardiovascular Rhythm: regular Heart sounds: normal: S1, S2 Abnormal Heart Sounds: systolic murmur - Gastrointestinal General gastrointestinal: normal bowel sounds - Neurologic Neurologic: CNII-XII intact, focal deficits - Musculoskeletal Musculoskeletal: gait normal, generalized weakness, strength equal bilaterally - Psychiatric Psychiatric: A&O x's 3, appropriate affect, intact judgment & insight - Labs CBC & Chem 7: 01/27/19 06:30 01/27/19 06:30 Labs: Abnormal Lab Results - Last 24 Hours (Table) 01/26/19 01/27/19 01/27/19 Range/Units 16:46 06:30 06:30 WBC 11.2 H (3.8-10.6) k/uL Hgb 12.4 L (13.0-17.5) gm/dL MCHC 30.6 L (31.0-37.0) g/dL RDW 20.2 H (11.5-15.5) % Neutrophils # 8.6 H (1.3-7.7) k/uL Lymphocytes # 0.8 L (1.0-4.8) k/uL Monocytes # 1.2 H (0-1.0) k/uL Sodium 136 L (137-145) mmol/L Creatinine 0.60 L (0.66-1.25) mg/dL POC Glucose (mg/dL) 103 H (75-99) mg/dL 01/27/19 01/27/19 Range/Units 06:46 11:09 WBC (3.8-10.6) k/uL Hgb (13.0-17.5) gm/dL MCHC (31.0-37.0) g/dL RDW (11.5-15.5) % Neutrophils # (1.3-7.7) k/uL Lymphocytes # (1.0-4.8) k/uL Monocytes # (0-1.0) k/uL Sodium (137-145) mmol/L Creatinine (0.66-1.25) mg/dL POC Glucose (mg/dL) 107 H 114 H (75-99) mg/dL Microbiology - Last 24 Hours (Table) 01/26/19 19:59 Gram Stain - Preliminary Sputum Sputum Culture - Preliminary Assessment and Plan Assessment: Hemoptysis likely related to airway inflammation Right lower lobe pneumonia Congestive heart failure chronic systolic heart failure ejection fraction of 30% Left-sided TIA Atrial fibrillation COPD Diabetes mellitus Obstructive sleep apnea History of mitral valve replacement Plan: Observe Stop his Xarelto, observe off of Xarelto for now Send a sputum for Gram stain and culture Broad-spectrum antibiotics possible discharge in next 48-72 hours Time with Patient: Greater than 30
[2019-01-27 16:47] LABS: Glucose,Whole Blood 109 mg/dL (75-99)
[2019-01-27 20:20] LABS: Glucose,Whole Blood 105 mg/dL (75-99)
[2019-01-27] MEDS: MONTELUKAST 10 MG TAB PO SCH (20:46)
[2019-01-27] MEDS: VENLAFAXINE HCL 75 MG TAB PO SCH (20:46)
[2019-01-27] MEDS: ATORVASTATIN 40 MG TAB PO SCH (20:46)
[2019-01-28 06:53] LABS: Glucose,Whole Blood 96 mg/dL (75-99)
[2019-01-28] MEDS: IPRATROPIUM-ALBUTEROL 3 ML NEB INHALATION SCH ×4 (07:08→19:30)
[2019-01-28 07:18] LABS: Anisocytosis Moderate; Basophils % (A) 0 %; Eosinophils # (A) 0.3 k/uL (0-0.7); Eosinophils % (A) 3 %; HCT 41.2 % (39.0-53.0); HGB 12.5 gm/dL (13.0-17.5); Hypochromasia Slight; Lymphocytes # (A) 0.9 k/uL (1.0-4.8); Lymphocytes % (A) 9 %; MCH 25.8 pg (25.0-35.0); MCHC 30.3 g/dL (31.0-37.0); MCV 85.2 fL (80.0-100.0); Mean Platelet Volume 7.2; Microcytosis Slight; Monocytes # (A) 1.1 k/uL (0-1.0); Monocytes % (A) 11 %; Neutrophils # (A) 7.3 k/uL (1.3-7.7); Neutrophils % (A) 74 %; Platelet Count 258 k/uL (150-450); RBC 4.84 m/uL (4.30-5.90); RDW 20.3 % (11.5-15.5); WBC 9.8 k/uL (3.8-10.6)
[2019-01-28 07:38] LABS: Anion Gap 8 mmol/L; Blood Urea Nitrogen 18 mg/dL (9-20); Carbon Dioxide 29 mmol/L (22-30); Chloride 101 mmol/L (98-107); Glucose 95 mg/dL (74-99); Sodium 138 mmol/L (137-145)
[2019-01-28] MEDS: INSULIN ASPART (NovoLOG) 100 UNIT/ML VIAL SQ SCH ×4 (07:56→21:13)
[2019-01-28] MEDS: FUROSEMIDE 10 MG/ML 4 ML VIAL IV SCH ×2 (07:57→21:14)
[2019-01-28] MEDS: SACUBITRIL/VALSARTAN 24 MG-26 MG TABLET PO SCH ×2 (07:58→21:14)
[2019-01-28] MEDS: metFORMIN 500 MG TAB PO SCH ×2 (07:58→21:14)
[2019-01-28] MEDS: CARVEDILOL 6.25 MG TAB PO SCH ×2 (07:59→17:43)
[2019-01-28] MEDS: Empagliflozin [Jardiance] 10 MG PO SCH (07:59)
[2019-01-28] MEDS: PREGABALIN 75 MG CAP PO SCH ×2 (07:59→21:14)
[2019-01-28] MEDS: SPIRONOLACTONE 25 MG TAB PO SCH (07:59)
--- NOTE | 2019-01-28 09:44 | P.PN ---
Subjective This is a very pleasant 70-year-old gentleman past medical history significant for ischemic cardiopathy, CHF, A. fib on anti-correlation, status post ICD placement, status post CAD status post CABG, COPD, diabetes, hypertension, hyperlipidemia, sleep apnea on CPAP comes in with symptoms of shortness of breath and blood-tinged phlegm. He was diagnosed with right lower lobe pneumonia and acute systolic CHF exacerbation. He was started on antibiotics and Lasix IV. His xarelto and Plavix is on hold for blood-tinged phlegm. 01/28/2019 This is the first day of me taking care of this gentleman he says his shortness of breath is getting better. He still has blood-tinged phlegm. He does not complain of any chest pain racing heart, he does not complain of any tingling numbness of any extremities, no itch no rash. Objective - Vital Signs Vital signs: Vital Signs Temp 97.7 F 01/28/19 05:00 Pulse 70 01/28/19 08:03 Resp 24 01/28/19 05:00 BP 126/64 01/28/19 08:03 Pulse Ox 91 L 01/28/19 05:00 Intake & Output 01/27/19 01/28/19 01/28/19 18:59 06:59 18:59 Intake Total 360 240 Output Total 400 500 Balance -40 -260 Weight 123.8 kg 122.8 kg Intake: Oral 360 240 Output: Urine 400 500 Other: Voiding Method Urinal # Voids 1 - Exam On exam, alert and oriented x3. HEENT: Conjunctivae normal. eyes normal. NECK: No JVD. No thyroid enlargement. No LNs CARDIOVASCULAR: S1-S2 positive RESPIRATION: Breath sounds diminished in the bases more on the right side ABDOMEN: Soft, nontender . No guarding. no masses palpable. No ascites, No hepatosplenomegaly.Bowel sounds heard. LEGS: No edema. no swelling NERVOUS SYSTEM: Cranial N 2-12 grossly normal. Moves all 4 limbs. No focal deficits. No sensory deficit. No signs of cerebellar dysfucntion. Skin: no ulcer no rash. Lymphatic system. No LN neck axilla or groin. - Labs CBC & Chem 7: 01/28/19 06:58 01/28/19 06:58 Labs: Abnormal Lab Results - Last 24 Hours (Table) 01/27/19 01/27/19 01/27/19 Range/Units 11:09 16:46 20:17 Hgb (13.0-17.5) gm/dL MCHC (31.0-37.0) g/dL RDW (11.5-15.5) % Lymphocytes # (1.0-4.8) k/uL Monocytes # (0-1.0) k/uL Creatinine (0.66-1.25) mg/dL POC Glucose (mg/dL) 114 H 109 H 105 H (75-99) mg/dL 01/28/19 01/28/19 Range/Units 06:58 06:58 Hgb 12.5 L (13.0-17.5) gm/dL MCHC 30.3 L (31.0-37.0) g/dL RDW 20.3 H (11.5-15.5) % Lymphocytes # 0.9 L (1.0-4.8) k/uL Monocytes # 1.1 H (0-1.0) k/uL Creatinine 0.65 L (0.66-1.25) mg/dL POC Glucose (mg/dL) (75-99) mg/dL Assessment and Plan Assessment: - Right lower lobe community acquired pneumonia - Acute systolic CHF exacerbation - History of CAD status post CABG - History of diabetes - History of hypertension - History of A. fib on xarelto currently on hold - History of COPD - Hyperlipidemia - History of sleep apnea, Plan: - Continue antibiotics as per pulmonology recommendation - Continue Lasix - Continue rest of the medications - His Plavix and xarelto on hold for blood-tinged phlegm. Patient said that he still having blood-tinged phlegm. We'll discuss with pulmonology regarding further management and plan regarding hemoptysis - DVT and GI prophylaxis - We'll order for lab work in the morning - We'll continue to follow the patient Time with Patient: Greater than 30
[2019-01-28 11:07] LABS: Glucose,Whole Blood 108 mg/dL (75-99)
[2019-01-28 17:15] LABS: Glucose,Whole Blood 111 mg/dL (75-99)
[2019-01-28 20:18] LABS: Glucose,Whole Blood 166 mg/dL (75-99)
[2019-01-28] MEDS: VENLAFAXINE HCL 75 MG TAB PO SCH (21:14)
[2019-01-28] MEDS: ATORVASTATIN 40 MG TAB PO SCH (21:14)
[2019-01-28] MEDS: MONTELUKAST 10 MG TAB PO SCH (21:14)
[2019-01-29 07:08] LABS: Glucose,Whole Blood 110 mg/dL (75-99)
[2019-01-29] MEDS: IPRATROPIUM-ALBUTEROL 3 ML NEB INHALATION SCH ×4 (07:21→19:17)
[2019-01-29 08:04] LABS: Anion Gap 10 mmol/L; Blood Urea Nitrogen 20 mg/dL (9-20); Carbon Dioxide 25 mmol/L (22-30); Chloride 104 mmol/L (98-107); Glucose 88 mg/dL (74-99); Sodium 139 mmol/L (137-145)
[2019-01-29 08:07] LABS: Potassium 4.2 mmol/L (3.5-5.1)
[2019-01-29 08:36] LABS: Anisocytosis Slight; HCT 36.2 % (39.0-53.0); HGB 12.8 gm/dL (13.0-17.5); Hypochromasia Slight; MCH 29.2 pg (25.0-35.0); MCHC 35.2 g/dL (31.0-37.0); MCV 82.9 fL (80.0-100.0); Mean Platelet Volume 8.4; Microcytosis Slight; Platelet Count 239 k/uL (150-450); RBC 4.37 m/uL (4.30-5.90); RDW 19.8 % (11.5-15.5); WBC 10.2 k/uL (3.8-10.6)
[2019-01-29] MEDS: INSULIN ASPART (NovoLOG) 100 UNIT/ML VIAL SQ SCH ×4 (08:45→20:51)
[2019-01-29] MEDS: Empagliflozin [Jardiance] 10 MG PO SCH (08:45)
[2019-01-29] MEDS: metFORMIN 500 MG TAB PO SCH ×2 (08:56→20:27)
[2019-01-29] MEDS: PREGABALIN 75 MG CAP PO SCH ×2 (08:56→20:27)
[2019-01-29] MEDS: SPIRONOLACTONE 25 MG TAB PO SCH (08:56)
[2019-01-29] MEDS: CARVEDILOL 6.25 MG TAB PO SCH ×2 (08:56→16:59)
[2019-01-29] MEDS: FUROSEMIDE 10 MG/ML 4 ML VIAL IV SCH (08:56)
[2019-01-29] MEDS: SACUBITRIL/VALSARTAN 24 MG-26 MG TABLET PO SCH ×2 (08:57→20:26)
--- NOTE | 2019-01-29 09:56 | P.PN ---
Subjective This is a very pleasant 70-year-old gentleman past medical history significant for ischemic cardiopathy, CHF, A. fib on anti-correlation, status post ICD placement, status post CAD status post CABG, COPD, diabetes, hypertension, hyperlipidemia, sleep apnea on CPAP comes in with symptoms of shortness of breath and blood-tinged phlegm. He was diagnosed with right lower lobe pneumonia and acute systolic CHF exacerbation. He was started on antibiotics and Lasix IV. His xarelto and Plavix is on hold for blood-tinged phlegm. 01/28/2019 This is the first day of me taking care of this gentleman he says his shortness of breath is getting better. He still has blood-tinged phlegm. He does not complain of any chest pain racing heart, he does not complain of any tingling numbness of any extremities, no itch no rash. 01/29/2019 Patient says that he is doing fine. The sputum has turned brown color No shortness of breath no cough No chest pain racing heart Objective - Vital Signs Vital signs: Vital Signs Temp 97.7 F 01/29/19 05:00 Pulse 82 01/29/19 07:29 Resp 20 01/29/19 05:00 BP 91/53 01/29/19 05:00 Pulse Ox 92 L 01/29/19 05:00 Intake & Output 01/28/19 01/29/19 01/29/19 18:59 06:59 18:59 Intake Total 1200 720 Output Total 1000 500 Balance 200 220 Weight 117.2 kg Intake: Oral 1200 720 Output: Urine 1000 500 Other: Voiding Method Urinal Urinal Urinal # Voids 3 2 - Exam On exam, alert and oriented x3. HEENT: Conjunctivae normal. eyes normal. NECK: No JVD. No thyroid enlargement. No LNs CARDIOVASCULAR: S1-S2 positive RESPIRATION: Breath sounds diminished in the bases more on the right side ABDOMEN: Soft, nontender . No guarding. no masses palpable. No ascites, No hepatosplenomegaly.Bowel sounds heard. LEGS: No edema. no swelling NERVOUS SYSTEM: Cranial N 2-12 grossly normal. Moves all 4 limbs. No focal deficits. No sensory deficit. No signs of cerebellar dysfucntion. Skin: no ulcer no rash. Lymphatic system. No LN neck axilla or groin. - Labs CBC & Chem 7: 01/29/19 07:09 01/29/19 07:09 Labs: Abnormal Lab Results - Last 24 Hours (Table) 01/28/19 01/28/19 01/28/19 Range/Units 11:06 17:13 20:17 Hgb (13.0-17.5) gm/dL Hct (39.0-53.0) % RDW (11.5-15.5) % Creatinine (0.66-1.25) mg/dL POC Glucose (mg/dL) 108 H 111 H 166 H (75-99) mg/dL 01/29/19 01/29/19 01/29/19 Range/Units 07:06 07:09 07:09 Hgb 12.8 L (13.0-17.5) gm/dL Hct 36.2 L (39.0-53.0) % RDW 19.8 H (11.5-15.5) % Creatinine 0.59 L (0.66-1.25) mg/dL POC Glucose (mg/dL) 110 H (75-99) mg/dL Microbiology - Last 24 Hours (Table) 01/26/19 19:59 Gram Stain - Final Sputum Sputum Culture - Final Assessment and Plan Assessment: - Right lower lobe community acquired pneumonia - Acute systolic CHF exacerbation - History of CAD status post CABG - Hemoptysis - History of diabetes - History of hypertension - History of A. fib on xarelto currently on hold - History of COPD - Hyperlipidemia - History of sleep apnea, Plan: - Continue antibiotics as per pulmonology recommendation - Continue Lasix - Discussed with pulmonology. We'll continue to hold the anti-coagulation - If patient continues to do better, he can be discharged tomorrow. At the time of discharge patient can be put on his home dose of Lasix. As per pulmonology anticoagulation is to be on hold until the patient follows up with them within a week. - We'll continue to monitor him today Time with Patient: Greater than 30
[2019-01-29 11:08] LABS: Glucose,Whole Blood 114 mg/dL (75-99)
--- NOTE | 2019-01-29 14:30 | P.PN ---
Subjective Progress Note Date: 01/28/19 (Late entry note) Principal diagnosis: Hemoptysis, right lower lobe pneumonia, chronic systolic heart failure ejection fraction 30%, left-sided TIA atrial fibrillation, COPD and his stage, diabetes mellitus, obstructive sleep apnea, history of mitral valve replacement 01/28/2019, overall doing well in terms of the cough and congestion is still sputum is blood tinged but amount in severity has improved his blood thinners are on hold is been treated for right lower lobe pneumonia 01/27/2019, patient seen and examined and evaluated on medical floor is still have hemoptysis in the form of streaks mixed with sputum, sputum is being sent for Gram stain and culture results are pending 73-year-old male well-known to me from past medical history of severe degree of heart failure patient has problems associated obstructive sleep apnea he is been having cough with thick purulent sputum for last day is mixed with blood patient is on Plavix and Xaralto Objective - Vital Signs Vital signs: Vital Signs Temp 98 F 01/29/19 12:27 Pulse 56 L 01/29/19 12:27 Resp 20 01/29/19 12:27 BP 98/53 01/29/19 12:27 Pulse Ox 93 L 01/29/19 12:27 Intake & Output 01/28/19 01/29/19 01/29/19 18:59 06:59 18:59 Intake Total 1200 720 Output Total 1000 500 Balance 200 220 Weight 117.2 kg Intake: Oral 1200 720 Output: Urine 1000 500 Other: Voiding Method Urinal Urinal Urinal # Voids 3 2 2 - Exam - Constitutional General appearance: cooperative, disheveled, morbidly obese - EENT Eyes: anicteric sclerae, EOMI, PERRLA, poor dentition, normal appearance ENT: normal oropharynx Ears: bilateral: normal - Neck Carotids: bilateral: upstroke delayed, bruit absent Thyroid: bilateral: normal size - Respiratory Respiratory: bilateral: diminished, negative: dullness, rales, rhonchi, wheezing, prolonged expiration, prolonged inspiration - Cardiovascular Rhythm: regular Heart sounds: normal: S1, S2 Abnormal Heart Sounds: systolic murmur - Gastrointestinal General gastrointestinal: normal bowel sounds - Neurologic Neurologic: CNII-XII intact, focal deficits - Musculoskeletal Musculoskeletal: gait normal, generalized weakness, strength equal bilaterally - Psychiatric Psychiatric: A&O x's 3, appropriate affect, intact judgment & insight - Labs CBC & Chem 7: 01/29/19 07:09 01/29/19 07:09 Labs: Abnormal Lab Results - Last 24 Hours (Table) 01/28/19 01/28/19 01/29/19 Range/Units 17:13 20:17 07:06 Hgb (13.0-17.5) gm/dL Hct (39.0-53.0) % RDW (11.5-15.5) % Creatinine (0.66-1.25) mg/dL POC Glucose (mg/dL) 111 H 166 H 110 H (75-99) mg/dL 01/29/19 01/29/19 01/29/19 Range/Units 07:09 07:09 11:06 Hgb 12.8 L (13.0-17.5) gm/dL Hct 36.2 L (39.0-53.0) % RDW 19.8 H (11.5-15.5) % Creatinine 0.59 L (0.66-1.25) mg/dL POC Glucose (mg/dL) 114 H (75-99) mg/dL Microbiology - Last 24 Hours (Table) 01/26/19 19:59 Gram Stain - Final Sputum Sputum Culture - Final Assessment and Plan Assessment: Hemoptysis likely related to airway inflammation Right lower lobe pneumonia Congestive heart failure chronic systolic heart failure ejection fraction of 30% Left-sided TIA Atrial fibrillation COPD Diabetes mellitus Obstructive sleep apnea History of mitral valve replacement Plan: Observe Stop his Xarelto, observe off of Xarelto for now Reviewed sputum for Gram stain and culture normal [place] Broad-spectrum antibiotics possible discharge in next 48-72 hours Time with Patient: Greater than 30
--- NOTE | 2019-01-29 14:33 | P.PN ---
Subjective Progress Note Date: 01/29/19 Principal diagnosis: Hemoptysis, right lower lobe pneumonia, chronic systolic heart failure ejection fraction 30%, left-sided TIA atrial fibrillation, COPD and his stage, diabetes mellitus, obstructive sleep apnea, history of mitral valve replacement 01/29/2019, doing well cough and congestion is improved sputum is now brown in color blood appears to be old no fresh blood is been noted 01/28/2019, overall doing well in terms of the cough and congestion is still sputum is blood tinged but amount in severity has improved his blood thinners are on hold is been treated for right lower lobe pneumonia 01/27/2019, patient seen and examined and evaluated on medical floor is still have hemoptysis in the form of streaks mixed with sputum, sputum is being sent for Gram stain and culture results are pending 73-year-old male well-known to me from past medical history of severe degree of heart failure patient has problems associated obstructive sleep apnea he is been having cough with thick purulent sputum for last day is mixed with blood patient is on Plavix and Xaralto Objective - Vital Signs Vital signs: Vital Signs Temp 98 F 01/29/19 12:27 Pulse 56 L 01/29/19 12:27 Resp 20 01/29/19 12:27 BP 98/53 01/29/19 12:27 Pulse Ox 93 L 01/29/19 12:27 Intake & Output 01/28/19 01/29/19 01/29/19 18:59 06:59 18:59 Intake Total 1200 720 Output Total 1000 500 Balance 200 220 Weight 117.2 kg Intake: Oral 1200 720 Output: Urine 1000 500 Other: Voiding Method Urinal Urinal Urinal # Voids 3 2 2 - Exam - Constitutional General appearance: cooperative, disheveled, morbidly obese - EENT Eyes: anicteric sclerae, EOMI, PERRLA, poor dentition, normal appearance ENT: normal oropharynx Ears: bilateral: normal - Neck Carotids: bilateral: upstroke delayed, bruit absent Thyroid: bilateral: normal size - Respiratory Respiratory: bilateral: diminished, negative: dullness, rales, rhonchi, wheezing, prolonged expiration, prolonged inspiration - Cardiovascular Rhythm: regular Heart sounds: normal: S1, S2 Abnormal Heart Sounds: systolic murmur - Gastrointestinal General gastrointestinal: normal bowel sounds - Neurologic Neurologic: CNII-XII intact, focal deficits - Musculoskeletal Musculoskeletal: gait normal, generalized weakness, strength equal bilaterally - Psychiatric Psychiatric: A&O x's 3, appropriate affect, intact judgment & insight - Labs CBC & Chem 7: 01/29/19 07:09 01/29/19 07:09 Labs: Abnormal Lab Results - Last 24 Hours (Table) 01/28/19 01/28/19 01/29/19 Range/Units 17:13 20:17 07:06 Hgb (13.0-17.5) gm/dL Hct (39.0-53.0) % RDW (11.5-15.5) % Creatinine (0.66-1.25) mg/dL POC Glucose (mg/dL) 111 H 166 H 110 H (75-99) mg/dL 01/29/19 01/29/19 01/29/19 Range/Units 07:09 07:09 11:06 Hgb 12.8 L (13.0-17.5) gm/dL Hct 36.2 L (39.0-53.0) % RDW 19.8 H (11.5-15.5) % Creatinine 0.59 L (0.66-1.25) mg/dL POC Glucose (mg/dL) 114 H (75-99) mg/dL Microbiology - Last 24 Hours (Table) 01/26/19 19:59 Gram Stain - Final Sputum Sputum Culture - Final Assessment and Plan Assessment: Hemoptysis likely related to airway inflammation Right lower lobe pneumonia Congestive heart failure chronic systolic heart failure ejection fraction of 30% Left-sided TIA Atrial fibrillation COPD Diabetes mellitus Obstructive sleep apnea History of mitral valve replacement Plan: Observe Stop his Xarelto, observe off of Xarelto for now Reviewed sputum for Gram stain and culture normal [place] Broad-spectrum antibiotics If remains stable can be discharge in next 24 hours will see in out patient next week then will start blood thinners slowly Check chest x-ray Time with Patient: Greater than 30
[2019-01-29] MEDS: FUROSEMIDE 40 MG TAB PO SCH (16:59)
[2019-01-29 17:18] LABS: Glucose,Whole Blood 105 mg/dL (75-99)
[2019-01-29] MEDS: BUDESONIDE 0.5 MG/2 ML NEBU INHALATION PRN (19:17)
[2019-01-29] MEDS: MONTELUKAST 10 MG TAB PO SCH (20:26)
[2019-01-29] MEDS: ATORVASTATIN 40 MG TAB PO SCH (20:27)
[2019-01-29] MEDS: VENLAFAXINE HCL 75 MG TAB PO SCH (20:27)
[2019-01-29 20:41] LABS: Glucose,Whole Blood 114 mg/dL (75-99)
[2019-01-30] MEDS: IPRATROPIUM-ALBUTEROL 3 ML NEB INHALATION SCH ×3 (07:02→15:48)
[2019-01-30 07:04] LABS: Glucose,Whole Blood 94 mg/dL (75-99)
[2019-01-30] MEDS: INSULIN ASPART (NovoLOG) 100 UNIT/ML VIAL SQ SCH ×2 (07:08→12:20)
[2019-01-30 07:51] LABS: Anisocytosis Slight; HGB 12.8 gm/dL (13.0-17.5); Hypochromasia Slight; MCH 26.2 pg (25.0-35.0); MCHC 31.2 g/dL (31.0-37.0); MCV 83.9 fL (80.0-100.0); Mean Platelet Volume 7.5; Microcytosis Slight; Platelet Count 302 k/uL (150-450); RBC 4.89 m/uL (4.30-5.90); WBC 10.9 k/uL (3.8-10.6)
[2019-01-30] MEDS: Empagliflozin [Jardiance] 10 MG PO SCH (07:58)
[2019-01-30] MEDS: Dulaglutide [Trulicity] 1.5 MG SQ SCH (07:58)
[2019-01-30] MEDS: metFORMIN 500 MG TAB PO SCH (08:08)
[2019-01-30] MEDS: SACUBITRIL/VALSARTAN 24 MG-26 MG TABLET PO SCH (08:08)
[2019-01-30] MEDS: PREGABALIN 75 MG CAP PO SCH (08:08)
[2019-01-30] MEDS: FUROSEMIDE 40 MG TAB PO SCH (08:08)
[2019-01-30] MEDS: CARVEDILOL 6.25 MG TAB PO SCH (08:08)
[2019-01-30] MEDS: SPIRONOLACTONE 25 MG TAB PO SCH (08:08)
[2019-01-30 08:11] LABS: Anion Gap 7 mmol/L; Blood Urea Nitrogen 18 mg/dL (9-20); Carbon Dioxide 28 mmol/L (22-30); Chloride 102 mmol/L (98-107); Glucose 88 mg/dL (74-99); Sodium 137 mmol/L (137-145)
--- NOTE | 2019-01-30 10:41 | P.PN ---
Subjective Progress Note Date: 01/30/19 Principal diagnosis: Hemoptysis, right lower lobe pneumonia, chronic systolic heart failure ejection fraction 30%, left-sided TIA atrial fibrillation, COPD and his stage, diabetes mellitus, obstructive sleep apnea, history of mitral valve replacement 01/30/2019, patient seen and evaluated during the rounds clinically doing much better cough congestion is improved occasional brown sputum is seen color is getting boom storage, feed back to baseline 01/29/2019, doing well cough and congestion is improved sputum is now brown in color blood appears to be old no fresh blood is been noted 01/28/2019, overall doing well in terms of the cough and congestion is still sputum is blood tinged but amount in severity has improved his blood thinners are on hold is been treated for right lower lobe pneumonia 01/27/2019, patient seen and examined and evaluated on medical floor is still h ave hemoptysis in the form of streaks mixed with sputum, sputum is being sent for Gram stain and culture results are pending 73-year-old male well-known to me from past medical history of severe degree of heart failure patient has problems associated obstructive sleep apnea he is been having cough with thick purulent sputum for last day is mixed with blood patient is on Plavix and Xaralto Objective - Vital Signs Vital signs: Vital Signs Temp 97.6 F 01/30/19 04:38 Pulse 80 01/30/19 07:14 Resp 17 01/30/19 04:38 BP 107/59 01/30/19 04:38 Pulse Ox 94 L 01/30/19 04:38 Intake & Output 01/29/19 01/30/19 01/30/19 18:59 06:59 18:59 Output Total 400 Balance -400 Weight 123.8 kg Output: Urine 400 Other: Voiding Method Urinal Urinal # Voids 2 - Exam - Constitutional General appearance: cooperative, disheveled, morbidly obese - EENT Eyes: anicteric sclerae, EOMI, PERRLA, poor dentition, normal appearance ENT: normal oropharynx Ears: bilateral: normal - Neck Carotids: bilateral: upstroke delayed, bruit absent Thyroid: bilateral: normal size - Respiratory Respiratory: bilateral: diminished, negative: dullness, rales, rhonchi, wheezing, prolonged expiration, prolonged inspiration - Cardiovascular Rhythm: regular Heart sounds: normal: S1, S2 Abnormal Heart Sounds: systolic murmur - Gastrointestinal General gastrointestinal: normal bowel sounds - Neurologic Neurologic: CNII-XII intact, focal deficits - Musculoskeletal Musculoskeletal: gait normal, generalized weakness, strength equal bilaterally - Psychiatric Psychiatric: A&O x's 3, appropriate affect, intact judgment & insight - Labs CBC & Chem 7: 01/30/19 06:58 01/30/19 06:58 Labs: Abnormal Lab Results - Last 24 Hours (Table) 01/29/19 01/29/19 01/29/19 Range/Units 11:06 17:16 20:21 WBC (3.8-10.6) k/uL Hgb (13.0-17.5) gm/dL RDW (11.5-15.5) % Creatinine (0.66-1.25) mg/dL POC Glucose (mg/dL) 114 H 105 H 114 H (75-99) mg/dL 01/30/19 01/30/19 Range/Units 06:58 06:58 WBC 10.9 H (3.8-10.6) k/uL Hgb 12.8 L (13.0-17.5) gm/dL RDW 20.0 H (11.5-15.5) % Creatinine 0.58 L (0.66-1.25) mg/dL POC Glucose (mg/dL) (75-99) mg/dL Microbiology - Last 24 Hours (Table) 01/26/19 19:59 Gram Stain - Final Sputum Sputum Culture - Final Assessment and Plan Assessment: Hemoptysis likely related to airway inflammation Right lower lobe pneumonia Congestive heart failure chronic systolic heart failure ejection fraction of 30% Left-sided TIA Atrial fibrillation COPD Diabetes mellitus Obstructive sleep apnea History of mitral valve replacement Plan: Patient can be discharged home from pulmonary standpoint if remains stable Stop his Xarelto, observe off of Xarelto for now will likely start next week when I see him in follow-up Reviewed sputum for Gram stain and culture normal [place] Broad-spectrum antibiotics If remains stable can be discharge in next 24 hours will see in out patient next week then will start blood thinners slowly Checked chest x-ray overall not much change from baseline Time with Patient: Greater than 30
[2019-01-30 12:08] LABS: Glucose,Whole Blood 103 mg/dL (75-99)
--- NOTE | 2019-01-30 12:20 | XR ---
EXAMINATION TYPE: XR chest 1V portable DATE OF EXAM: 01/30/2019 COMPARISON: 01/26/2019 HISTORY: Follow-up for right lower lobe pneumonia. TECHNIQUE: Single frontal view of the chest is obtained. FINDINGS: There is a similar appearing right basilar opacity and blunting of the costophrenic angles relating to trace pleural effusion. Cardia mediastinal silhouette is enlarged. Multilead left-sided cardiac device is seen of post-CABG changes the chest. Mild residual pulmonary edema is also noted. N o sizable pneumothorax. No acute osseous pathology. IMPRESSION: 1. Similar-appearing right basilar consolidation in this patient with right lower lobe pneumonia. 2. Persistent trace pleural effusions and mild interstitial pulmonary edema likely on the basis of de compensated congestive heart failure.
[2019-01-30 13:18] VITALS: BP 101/58; PULSE 54; RESP 16; TEMP 97.4
--- NOTE | 2019-01-31 18:58 | P.DS ---
Providers Date of admission: 01/20/19 18:56 Expected date of discharge: 01/30/19 Attending physician: Juan Sorto Consults: 01/20/19 18:55 Consult Physician Routine Consulting Provider: Tesfaye Shi Consult Reason/Comments: heart failure exacerbation Do you want consulting provider notified?: Yes 01/26/19 08:51 Consult Physician Urgent Consulting Provider: Tomas Serrano Consult Reason/Comments: possible hemoptysis, h/o copd Do you want consulting provider notified?: Yes Primary care physician: Liss [facility] Course: This is a very pleasant 70-year-old gentleman past medical history significant for ischemic cardiopathy, CHF, A. fib on anti-correlation, status post ICD placement, status post CAD status post CABG, COPD, diabetes, hypertension, hyperlipidemia, sleep apnea on CPAP comes in with symptoms of shortness of breath and blood-tinged phlegm. He was diagnosed with right lower lobe pneumonia and acute systolic CHF exacerbation. He was started on antibiotics and Lasix IV. His xarelto and Plavix is on hold for blood-tinged phlegm. 01/28/2019 This is the first day of me taking care of this gentleman he says his shortness of breath is getting better. He still has blood-tinged phlegm. He does not complain of any chest pain racing heart, he does not complain of any tingling numbness of any extremities, no itch no rash. Hemoptysis, right lower lobe pneumonia, chronic systolic heart failure ejection fraction 30%, left-sided TIA atrial fibrillation, COPD and his stage, diabetes mellitus, obstructive sleep apnea, history of mitral valve replacement 01/30/2019, patient seen and evaluated during the rounds clinically doing much better cough congestion is improved occasional brown sputum is seen color is getting global account executive, feed back to baseline 01/29/2019, doing well cough and congestion is improved sputum is now brown in color blood appears to be old no fresh blood is been noted Patient Condition at Discharge: Good Plan - Discharge Summary Discharge Rx Participant: No New Discharge Prescriptions: New Carvedilol [Coreg] 6.25 mg PO BID-W/MEALS tab Sacubitril/Valsartan [Entresto 24 mg-26 mg Tablet] 1 each PO BID #60 tablet Continue Venlafaxine HCl [Effexor] 75 mg PO HS Isosorbide Mononitrate ER [Imdur] 60 mg PO DAILY Insulin Glargine [Lantus] 22 unit SQ HS Nitroglycerin Sl Tabs [Nitrostat] 0.4 mg SUBLINGUAL Q5M PRN #25 tab PRN Reason: Chest Pain Albuterol Inhaler [Ventolin Hfa Inhaler] 2 puff INHALATION RT-Q6H PRN PRN Reason: Shortness Of Breath Montelukast Sodium [Singulair] 10 mg PO HS Empagliflozin [Jardiance] 10 mg PO DAILY Dulaglutide [Trulicity] 1.5 mg SQ FR Budesonide [Pulmicort] 0.5 mg INHALATION RT-BID PRN PRN Reason: sob Pregabalin [Lyrica] 75 mg PO BID Carvedilol [Coreg] 12.5 mg PO BID Ipratropium-Albuterol Nebulize [Duoneb 0.5 mg-3 mg/3 ml Soln] 3 ml INHALATION RT-QID Spironolactone [Aldactone] 25 mg PO DAILY metFORMIN HCL 1,000 mg PO BID Furosemide [Lasix] 40 mg PO BID Atorvastatin [Lipitor] 40 mg PO HS Discontinued Rivaroxaban [Xarelto] 20 mg PO DAILY Clopidogrel [Plavix] 75 mg PO DAILY Lisinopril [Zestril] 2.5 mg PO DAILY Discharge Medication List Venlafaxine HCl [Effexor] 75 mg PO HS 06/15/14 [History] Insulin Glargine [Lantus] 22 unit SQ HS 02/21/16 [History] Isosorbide Mononitrate ER [Imdur] 60 mg PO DAILY 02/21/16 [History] Nitroglycerin Sl Tabs [Nitrostat] 0.4 mg SUBLINGUAL Q5M PRN #25 tab 02/24/16 [Rx] Albuterol Inhaler [Ventolin Hfa Inhaler] 2 puff INHALATION RT-Q6H PRN 07/18/16 [History] Budesonide [Pulmicort] 0.5 mg INHALATION RT-BID PRN 07/10/17 [History] Dulaglutide [Trulicity] 1.5 mg SQ FR 07/10/17 [History] Empagliflozin [Jardiance] 10 mg PO DAILY 07/10/17 [History] Montelukast Sodium [Singulair] 10 mg PO HS 07/10/17 [History] Pregabalin [Lyrica] 75 mg PO BID 12/24/17 [History] Carvedilol [Coreg] 12.5 mg PO BID 04/10/18 [History] Ipratropium-Albuterol Nebulize [Duoneb 0.5 mg-3 mg/3 ml Soln] 3 ml INHALATION RT-QID 04/10/18 [History] Spironolactone [Aldactone] 25 mg PO DAILY 04/10/18 [History] metFORMIN HCL 1,000 mg PO BID 09/11/18 [History] Atorvastatin [Lipitor] 40 mg PO HS 01/20/19 [History] Furosemide [Lasix] 40 mg PO BID 01/20/19 [History] Carvedilol [Coreg] 6.25 mg PO BID-W/MEALS tab 01/30/19 [Rx] Sacubitril/Valsartan [Entresto 24 mg-26 mg Tablet] 1 each PO BID #60 tablet 01/30/19 [Rx] Follow up Appointment(s)/Referral(s): Tesfaye Shi MD [STAFF PHYSICIAN] - 2 Weeks (Pacemaker check at [address] Shi/Kourtney Schwab at 945. ) [facility], [NON-STAFF] - 1 Week Tomas Serrano MD [STAFF PHYSICIAN] - 1 Week (Patient to call Dr. Serrano's office Saturday morning to schedule follow up appointment. The office is closed at time of discharge. ) Liss Evangelista MD [Primary Care Provider] - 02/03/19 11:30 am Patient Instructions/Handouts: Sacubitril/Valsartan (By mouth), Heart Failure (DC) Activity/Diet/Wound Care/Special Instructions: cardiac diet activity is limited till you see your doctor pt will be sent home with a walker s/t weakness Discharge Disposition: HOME WITH HOME HEALTH SERVICES
== END 2019-01-30 17:05 | disposition home health service (06) | DRG 291 ==
LOC: EC 16:18 → 3NMEDONC 18:56
PROVIDERS: ADMIT Internal Medicine; ATTEND Internal Medicine
DX: I11.0 Hypertensive heart disease with heart failure (principal); J18.1 Lobar pneumonia, unspecified organism; J96.11 Chronic respiratory failure with hypoxia; I48.1 Persistent atrial fibrillation; R04.2 Hemoptysis; J44.0 Chronic obstructive pulmonary disease with (acute) lower respiratory infection; G45.9 Transient cerebral ischemic attack, unspecified; E11.40 Type 2 diabetes mellitus with diabetic neuropathy, unspecified; E11.51 Type 2 diabetes mellitus with diabetic peripheral angiopathy without gangrene; I07.1 Rheumatic tricuspid insufficiency; I25.5 Ischemic cardiomyopathy; I50.23 Acute on chronic systolic (congestive) heart failure; I25.10 Atherosclerotic heart disease of native coronary artery without angina pectoris; M19.90 Unspecified osteoarthritis, unspecified site; G47.33 Obstructive sleep apnea (adult) (pediatric); E78.5 Hyperlipidemia, unspecified; E03.9 Hypothyroidism, unspecified; F43.10 Post-traumatic stress disorder, unspecified; F32.9 Major depressive disorder, single episode, unspecified; S00.93XA Contusion of unspecified part of head, initial encounter; W19.XXXA Unspecified fall, initial encounter; L40.9 Psoriasis, unspecified; G89.29 Other chronic pain; M10.9 Gout, unspecified; E66.9 Obesity, unspecified; Z68.35 Body mass index [BMI] 35.0-35.9, adult; Z79.4 Long term (current) use of insulin; Z79.02 Long term (current) use of antithrombotics/antiplatelets; Z79.899 Other long term (current) drug therapy; Z79.01 Long term (current) use of anticoagulants; Z91.81 History of falling; Z95.1 Presence of aortocoronary bypass graft; Z95.5 Presence of coronary angioplasty implant and graft; Z95.810 Presence of automatic (implantable) cardiac defibrillator; Z87.891 Personal history of nicotine dependence; Z99.81 Dependence on supplemental oxygen; Z86.14 Personal history of Methicillin resistant Staphylococcus aureus infection; Z95.2 Presence of prosthetic heart valve; Z87.01 Personal history of pneumonia (recurrent); Z83.3 Family history of diabetes mellitus; Z82.49 Family history of ischemic heart disease and other diseases of the circulatory system
CPT/HCPCS: 36415; 70450; 71045; 71046; 72125; 80048; 80053; 82553; 83036; 83735; 83880; 84443; 84484; 85025; 85027; 85610; 85730; 87070; 87205; 93005; 94640; 94760; 96374; 99285

== ENCOUNTER 2019-03-01 01:27 | Observation (INO) | payer MEDICARE ==
--- NOTE | 2019-03-01 03:15 | ED ---
Extremity Problem HPI - General Chief complaint: Extremity Problem,Nontraumatic Stated complaint: Swollen right leg Time Seen by Provider: 03/01/19 01:59 Source: patient Mode of arrival: wheelchair Limitations: no limitations - History of Present Illness Initial comments: 73-year-old male patient with multiple medical problems including diabetes mellitus A. fib and heart failure presents to the emergency department today for evaluation of swelling to the right lower extremity. Patient states that he noticed the leg was swollen today. States he also noticed erythema to the lower leg. Patient denies any significant pain to the area. Denies any history of DVT. States he does take Xarelto for A. fib. Denies any fever or chills. Denies any known wounds to the leg. Denies history of cellulitis. Patient denies any recent rash, shortness breath, chest pain, abdominal pain, nausea, vomiting, diarrhea, constipation, back pain, numbness, tingling, dizziness, weakness, hematuria, dysuria, urinary urgency, urinary frequency, headache, visual changes, or any other complaints. - Related Data Home Medications Medication Instructions Recorded Confirmed Venlafaxine HCl [Effexor] 75 mg PO HS 06/15/14 01/20/19 Insulin Glargine [Lantus] 22 unit SQ HS 02/21/16 01/20/19 Isosorbide Mononitrate ER [Imdur] 60 mg PO DAILY 02/21/16 01/20/19 Albuterol Inhaler [Ventolin Hfa 2 puff INHALATION RT-Q6H PRN 07/18/16 01/20/19 Inhaler] Budesonide [Pulmicort] 0.5 mg INHALATION RT-BID PRN 07/10/17 01/20/19 Dulaglutide [Trulicity] 1.5 mg SQ FR 07/10/17 01/20/19 Empagliflozin [Jardiance] 10 mg PO DAILY 07/10/17 01/20/19 Montelukast Sodium [Singulair] 10 mg PO HS 07/10/17 01/20/19 Pregabalin [Lyrica] 75 mg PO BID 12/24/17 01/20/19 Carvedilol [Coreg] 12.5 mg PO BID 04/10/18 01/20/19 Ipratropium-Albuterol Nebulize 3 ml INHALATION RT-QID 04/10/18 01/20/19 [Duoneb 0.5 mg-3 mg/3 ml Soln] Spironolactone [Aldactone] 25 mg PO DAILY 04/10/18 01/20/19 metFORMIN HCL 1,000 mg PO BID 09/11/18 01/20/19 Atorvastatin [Lipitor] 40 mg PO HS 01/20/19 01/20/19 Furosemide [Lasix] 40 mg PO BID 01/20/19 01/20/19 Previous Rx's Medication Instructions Recorded Nitroglycerin Sl Tabs [Nitrostat] 0.4 mg SUBLINGUAL Q5M PRN #25 tab 02/24/16 Carvedilol [Coreg] 6.25 mg PO BID-W/MEALS tab 01/30/19 Sacubitril/Valsartan [Entresto 24 1 each PO BID #60 tablet 01/30/19 mg-26 mg Tablet] Allergies Allergy/AdvReac Type Severity Reaction Status Date / Time No Known Allergies Allergy Verified 01/20/19 16:40 Review of Systems ROS Statement: Those systems with pertinent positive or pertinent negative responses have been documented in the HPI. ROS Other: All systems not noted in ROS Statement are negative. Past Medical History Past Medical History: Atrial Fibrillation, Coronary Artery Disease (CAD), Chest Pain / Angina, Heart Failure, COPD, Diabetes Mellitus, Hyperlipidemia, Hypertension, Osteoarthritis (OA), Pneumonia, Skin Disorder, Sleep Apnea/CPAP/BIPAP, Thyroid Disorder, Vascular Disorder Additional Past Medical History / Comment(s): psoriasis, neuropathy RT HAND and LEFT FOOT, poor circulation left leg, gout, thyoid nodule, hx ingrown toenails zac great toes, uses O2 PRN. left leg iliac stent due to poor circulation 12/25/2017. History of Any Multi-Drug Resistant Organisms: MRSA Date of last positivie culture/infection: 2011 MDRO Source:: chest incision Past Surgical History: AICD, Back Surgery, Coronary Bypass/CABG, Heart Catheterization With Stent Additional Past Surgical History / Comment(s): 3 CARDIAC STENTS, quad bypass and heart valve repair 2011, Lt Fempop (1 stent placed) Past Anesthesia/Blood Transfusion Reactions: No Reported Reaction Date of Last Stent Placement:: 12/25/2017 Type of Cardiac Device: AICD Device Placement Date:: 2012 Past Psychological History: Depression, PTSD Smoking Status: Former smoker Past Alcohol Use History: None Reported Past Drug Use History: Unable to Obtain - Past Family History Father Family Medical History: Congestive Heart Failure (CHF), Coronary Artery Disease (CAD), Diabetes Mellitus, Myocardial Infarction (SD) Additional Family Medical History / Comment(s): MAC DEGENERATION, CABG Mother Family Medical History: No Reported History General Exam Limitations: no limitations General appearance: alert, in no apparent distress, other (Physical well- developed, well-nourished elderly male patient in no acute distress. Vital signs upon presentation are temperature 97.5F, pulse 52, respirations 18, blood pressure 99/61, pulse ox 97% on room air.) Eye exam: Present: normal appearance, PERRL, EOMI. Absent: scleral icterus, conjunctival injection, periorbital swelling ENT exam: Present: normal exam, normal oropharynx, mucous membranes moist Respiratory exam: Present: normal lung sounds bilaterally. Absent: respiratory distress, wheezes, rales, rhonchi, stridor Cardiovascular Exam: Present: regular rate, normal rhythm, normal heart sounds. Absent: systolic murmur, diastolic murmur, rubs, gallop, clicks GI/Abdominal exam: Present: soft, normal bowel sounds. Absent: distended, tenderness, guarding, rebound, rigid Extremities exam: Present: full ROM, normal capillary refill, other (Patient has generalized edema noted to the right lower leg and foot. There is circumferential erythema to the right lower leg and foot. Edema is 2+ pitting. Pedal pulse is intact.). Absent: normal inspection, tenderness, pedal edema, joint swelling, calf tenderness Neurological exam: Present: alert, oriented X3, CN II-XII intact Psychiatric exam: Present: normal affect, normal mood Skin exam: Present: warm, dry, intact, normal color. Absent: rash Course Vital Signs 03/01/19 03/01/19 01:46 04:10 Temperature 97.5 F L Pulse Rate 52 L 64 Respiratory 18 18 Rate Blood Pressure 99/61 104/67 O2 Sat by Pulse 97 98 Oximetry Medical Decision Making - Medical Decision Making 73-year-old male patient is brought to the emergency department today for evaluation of right lower extremity edema and erythema. Physical examination is consistent with cellulitis. Given presence of comorbid conditions he'll be started on IV antibiotics and admitted for further evaluation. - Lab Data Result diagrams: 03/01/19 03:30 03/01/19 03:30 Lab Results 03/01/19 03/01/19 Range/Units 03:30 03:30 WBC 9.6 (3.8-10.6) k/uL RBC 4.98 (4.30-5.90) m/uL Hgb 13.4 (13.0-17.5) gm/dL Hct 43.4 (39.0-53.0) % MCV 87.1 (80.0-100.0) fL MCH 26.8 (25.0-35.0) pg MCHC 30.8 L (31.0-37.0) g/dL RDW 18.6 H (11.5-15.5) % Plt Count 344 (150-450) k/uL Neutrophils % 71 % Lymphocytes % 12 % Monocytes % 10 % Eosinophils % 5 % Basophils % 1 % Neutrophils # 6.9 (1.3-7.7) k/uL Lymphocytes # 1.1 (1.0-4.8) k/uL Monocytes # 1.0 (0-1.0) k/uL Eosinophils # 0.4 (0-0.7) k/uL Basophils # 0.1 (0-0.2) k/uL Hypochromasia Slight Anisocytosis Slight Sodium 137 (137-145) mmol/L Potassium 4.0 (3.5-5.1) mmol/L Chloride 99 (98-107) mmol/L Carbon Dioxide 26 (22-30) mmol/L Anion Gap 12 mmol/L BUN 14 (9-20) mg/dL Creatinine 0.62 L (0.66-1.25) mg/dL Est GFR (CKD-EPI)AfAm >90 (>60 ml/min/1.73 sqM) Est GFR (CKD-EPI)NonAf >90 (>60 ml/min/1.73 sqM) Glucose 107 H (74-99) mg/dL Calcium 9.2 (8.4-10.2) mg/dL Total Bilirubin 0.6 (0.2-1.3) mg/dL AST 21 (17-59) U/L ALT <6 L (21-72) U/L Alkaline Phosphatase 93 (38-126) U/L Total Protein 6.6 (6.3-8.2) g/dL Albumin 3.4 L (3.5-5.0) g/dL Disposition Clinical Impression: Cellulitis of right lower extremity Disposition: ADMITTED IP TO THIS [facility] Condition: Serious Decision to Admit Reason: Admit from EC Decision Date: 03/01/19 Decision Time: 04:20
[2019-03-01 04:16] LABS: ALT <6 U/L (21-72); AST 21 U/L (17-59); Albumin 3.4 g/dL (3.5-5.0); Alkaline Phosphatase 93 U/L (38-126); Anion Gap 12 mmol/L; Blood Urea Nitrogen 14 mg/dL (9-20); Calcium 9.2 mg/dL (8.4-10.2); Carbon Dioxide 26 mmol/L (22-30); Chloride 99 mmol/L (98-107); Glucose 107 mg/dL (74-99); Sodium 137 mmol/L (137-145); Total Bilirubin 0.6 mg/dL (0.2-1.3); Total Protein 6.6 g/dL (6.3-8.2)
[2019-03-01] MEDS ORDERED: NALOXONE 0.4 MG/ML 1 ML VIAL IV PRN (04:17)
[2019-03-01 04:25] LABS: Anisocytosis Slight; Basophils # (A) 0.1 k/uL (0-0.2); Basophils % (A) 1 %; Eosinophils # (A) 0.4 k/uL (0-0.7); Eosinophils % (A) 5 %; HCT 43.4 % (39.0-53.0); HGB 13.4 gm/dL (13.0-17.5); Hypochromasia Slight; Lymphocytes # (A) 1.1 k/uL (1.0-4.8); Lymphocytes % (A) 12 %; MCH 26.8 pg (25.0-35.0); MCHC 30.8 g/dL (31.0-37.0); MCV 87.1 fL (80.0-100.0); Mean Platelet Volume 7.3; Monocytes % (A) 10 %; Neutrophils # (A) 6.9 k/uL (1.3-7.7); Neutrophils % (A) 71 %; Platelet Count 344 k/uL (150-450); RBC 4.98 m/uL (4.30-5.90); RDW 18.6 % (11.5-15.5); WBC 9.6 k/uL (3.8-10.6)
[2019-03-01] MEDS: SODIUM CHLORIDE 0.9% 1,000 ML IV SCH (06:03)
[2019-03-01 06:34] LABS: Glucose,Whole Blood 99 mg/dL (75-99)
[2019-03-01 11:51] LABS: Glucose,Whole Blood 107 mg/dL (75-99)
[2019-03-01] MEDS ORDERED: NITROGLYCERIN SL TABS 0.4 MG TAB SUBLINGUAL PRN (14:18)
[2019-03-01] MEDS ORDERED: ALBUTEROL NEBULIZED 2.5 MG/3 ML INHALATION PRN (14:18)
--- NOTE | 2019-03-01 14:24 | P.HPIM ---
History of Present Illness H&P Date: 03/01/19 Chief Complaint: Leg pain and swelling 73-year-old male patient with multiple medical problems including diabetes mellitus A. fib and heart failure presents to the emergency department today for evaluation of swelling to the right lower extremity. Patient states that he noticed the leg was swollen today. States he also noticed erythema to the lower leg. Patient denies any significant pain to the area. Denies any history of DVT. States he does take Xarelto for A. fib. Denies any fever or chills. Denies any known wounds to the leg. Denies history of cellulitis. Patient denies any recent rash, shortness breath, chest pain, abdominal pain, nausea, vomiting, diarrhea, constipation, back pain, numbness, tingling, dizziness, weakness, hematuria, dysuria, urinary urgency, urinary frequency, headache, visual changes, or any other complaints Workup and evaluation in ED was consistent with right lower extremity cellulitis; due to the patient's multiple comorbidities he is admitted to the hospital for IV antibiotics and further evaluation Review of Systems Constitutional: Reports chills, Denies fever Eyes: denies blurred vision Ears, nose, mouth and throat: Denies bleeding gums, Denies epistaxis Cardiovascular: Denies chest pain, Denies dyspnea on exertion Respiratory: Denies cough with sputum Gastrointestinal: Denies abdominal pain, Denies nausea, Denies vomiting Musculoskeletal: Reports shooting leg pain Integumentary: Reports color changes Neurological: Denies confusion, Denies paresthesias Psychiatric: Reports anxiety, Denies confusion Endocrine: Denies cold intolerance, Denies heat intolerance Past Medical History Past Medical History: Atrial Fibrillation, Coronary Artery Disease (CAD), Chest Pain / Angina, Heart Failure, COPD, Diabetes Mellitus, Hyperlipidemia, Hypertension, Osteoarthritis (OA), Pneumonia, Skin Disorder, Sleep Apnea/CPAP/BIPAP, Thyroid Disorder, Vascular Disorder Additional Past Medical History / Comment(s): psoriasis, neuropathy RT HAND and LEFT FOOT, poor circulation left leg, gout, thyoid nodule, hx ingrown toenails zac great toes, uses O2 PRN. left leg iliac stent due to poor circulation 12/25/2017. History of Any Multi-Drug Resistant Organisms: MRSA Date of last positivie culture/infection: 2011 MDRO Source:: chest incision Past Surgical History: AICD, Back Surgery, Coronary Bypass/CABG, Heart Catheterization With Stent Additional Past Surgical History / Comment(s): 3 CARDIAC STENTS, quad bypass and heart valve repair 2011, Lt Fempop (1 stent placed) Past Anesthesia/Blood Transfusion Reactions: No Reported Reaction Date of Last Stent Placement:: 12/25/2017 Type of Cardiac Device: AICD Device Placement Date:: 2012 Past Psychological History: Depression, PTSD Smoking Status: Former smoker Past Alcohol Use History: None Reported Past Drug Use History: Unable to Obtain - Past Family History Father Family Medical History: Congestive Heart Failure (CHF), Coronary Artery Disease (CAD), Diabetes Mellitus, Myocardial Infarction (DC) Additional Family Medical History / Comment(s): MAC DEGENERATION, CABG Mother Family Medical History: No Reported History Medications and Allergies Home Medications Medication Instructions Recorded Confirmed Type Venlafaxine HCl [Effexor] 75 mg PO HS 06/15/14 03/01/19 History Isosorbide Mononitrate ER [Imdur] 60 mg PO DAILY 02/21/16 03/01/19 History Nitroglycerin Sl Tabs [Nitrostat] 0.4 mg SUBLINGUAL Q5M PRN #25 tab 02/24/16 03/01/19 Rx Albuterol Inhaler [Ventolin Hfa 2 puff INHALATION RT-Q6H PRN 07/18/16 03/01/19 History Inhaler] Budesonide [Pulmicort] 0.5 mg INHALATION RT-BID PRN 07/10/17 03/01/19 History Empagliflozin [Jardiance] 10 mg PO DAILY 07/10/17 03/01/19 History Montelukast Sodium [Singulair] 10 mg PO HS 07/10/17 03/01/19 History Pregabalin [Lyrica] 75 mg PO BID 12/24/17 03/01/19 History Ipratropium-Albuterol Nebulize 3 ml INHALATION RT-QID 04/10/18 03/01/19 History [Duoneb 0.5 mg-3 mg/3 ml Soln] Spironolactone [Aldactone] 25 mg PO DAILY 04/10/18 03/01/19 History metFORMIN HCL 1,000 mg PO BID 09/11/18 03/01/19 History Atorvastatin [Lipitor] 40 mg PO HS 01/20/19 03/01/19 History Furosemide [Lasix] 40 mg PO BID 01/20/19 03/01/19 History Carvedilol [Coreg] 6.25 mg PO BID-W/MEALS tab 01/30/19 03/01/19 Rx Sacubitril/Valsartan [Entresto 24 1 tab PO BID 03/01/19 03/01/19 History mg-26 mg Tablet] Allergies Allergy/AdvReac Type Severity Reaction Status Date / Time No Known Allergies Allergy Verified 03/01/19 08:46 Physical Exam Vitals: Vital Signs Temp Pulse Pulse Pulse Resp BP BP 03/01/19 12:00 60 18 03/01/19 08:00 97.6 F 60 80 18 100/66 03/01/19 05:05 97.4 F L 80 16 110/69 03/01/19 04:47 98.0 F 70 18 102/71 03/01/19 04:35 17 03/01/19 04:10 64 18 104/67 03/01/19 01:46 97.5 F L 52 L 18 99/61 Pulse Ox 03/01/19 12:00 03/01/19 08:00 96 03/01/19 05:05 98 03/01/19 04:47 96 03/01/19 04:35 03/01/19 04:10 98 03/01/19 01:46 97 Intake and Output 02/28/19 03/01/19 03/01/19 22:59 06:59 14:59 Intake Total 480 Output Total 700 Balance -220 Intake: Oral 480 Output: Urine 700 Other: Voiding Method Toilet Urinal # Voids 1 Weight 121.563 kg PHYSICAL EXAMINATION: GENERAL: The patient is alert and oriented x3, not in any acute distress. Well developed, well nourished. HEENT: Pupils are round and equally reacting to light. EOMI. No scleral icterus. No conjunctival pallor. Normocephalic, atraumatic. No pharyngeal erythema. No thyromegaly. CARDIOVASCULAR: S1 and S2 present. No murmurs, rubs, or gallops. PULMONARY: Chest is clear to auscultation, no wheezing or crackles. ABDOMEN: Soft, nontender, nondistended, normoactive bowel sounds. No palpable organomegaly. MUSCULOSKELETAL: No joint swelling or deformity. EXTREMITIES: No cyanosis, clubbing, or pedal edema. NEUROLOGICAL: Gross neurological examination did not reveal any focal deficits. SKIN: Erythema, induration and warmth right lower extremity. Results CBC & Chem 7: 03/01/19 03:30 03/01/19 03:30 Labs: Abnormal Lab Results - Last 24 Hours (Table) 03/01/19 03/01/19 03/01/19 Range/Units 03:30 03:30 11:48 MCHC 30.8 L (31.0-37.0) g/dL RDW 18.6 H (11.5-15.5) % Creatinine 0.62 L (0.66-1.25) mg/dL Glucose 107 H (74-99) mg/dL POC Glucose (mg/dL) 107 H (75-99) mg/dL ALT <6 L (21-72) U/L Albumin 3.4 L (3.5-5.0) g/dL Thrombosis Risk Factor Assmnt - Choose All That Apply Each Factor Represents 1 point: Obesity (BMI >25), Swollen legs (current) Each Risk Factor Represents 2 Points: Age 61-74 years Other congenital or acquired thrombophilia - If yes, enter type in comment: No Thrombosis Risk Factor Assessment Total Risk Factor Score: 4 Thrombosis Risk Factor Assessment Level: Moderate Risk Assessment and Plan Assessment: 1. Cellulitis right lower extremity - Cefazolin 1 g IV daily; we will order venous Doppler right lower extremity to rule out DVT - We will monitor CBC; order blood cultures 2. Atrial fibrillation; rate controlled on beta blockers; patient not on any anticoagulation therapy 3. Diabetes mellitus type 2; patient takes Jardiance 10 mg daily along with me tformin thousand milligrams twice a day; we will hold off on oral hypoglycemic agents and start patient on Accu-Cheks with insulin sliding scale 4. Hypertension; stable on Coreg 6.25 mg twice a day 5. Hyperlipidemia; atorvastatin 80 mg by mouth daily at bedtime 6. COPD; not in exacerbation; continue with Ventolin inhaler 2 puffs every 6 hours along with albuterol nebulizer treatments 4 times a day; Pulmicort inhaler 1 puff twice a day. Continue with Singulair 10 mg daily 7. Coronary artery disease/CHF; stable on beta blockers, nitrates and statin therapy. Continue with Entresto twice a day and Aldactone 25 mg daily 8. DVT prophylaxis; subcu heparin CODE STATUS; full code Time with Patient: Greater than 30
[2019-03-01] MEDS: IPRATROPIUM-ALBUTEROL 3 ML NEB INHALATION SCH ×2 (15:33→19:24)
--- NOTE | 2019-03-01 15:36 | US ---
EXAMINATION TYPE: US venous doppler duplex LE RT DATE OF EXAM: 03/01/2019 2:52 PM COMPARISON: None. CLINICAL HISTORY: Leg swelling and redness. Patient states having vein stripping of vein for heart vásquez rgery in 2011. On blood thinners. SIDE PERFORMED: Right TECHNIQUE: The lower extremity deep venous system is examined utilizing real time linear array sonog xander with graded compression, doppler sonography and color-flow sonography. VESSELS IMAGED: External Iliac Vein (EIV) Common Femoral Vein Deep Femoral Vein Greater Saphenous Vein * Femoral Vein Popliteal Vein Small Saphenous Vein * Proximal Calf Veins (* superficial vessels) Grayscale, color doppler, spectral doppler imaging performed of the deep veins of the lower extremiti es. There is normal flow, compressibility, vascular waveforms. IMPRESSION: No sonographic evidence of deep vein thrombus in the right lower extremity.
[2019-03-01] MEDS: INSULIN ASPART (NovoLOG) 100 UNIT/ML VIAL SQ SCH ×2 (16:01→21:16)
[2019-03-01] MEDS: metFORMIN 500 MG TAB PO SCH (16:09)
[2019-03-01] MEDS: CARVEDILOL 6.25 MG TAB PO SCH (16:10)
[2019-03-01 16:30] LABS: Glucose,Whole Blood 96 mg/dL (75-99)
[2019-03-01] MEDS: BUDESONIDE 0.5 MG/2 ML NEBU INHALATION PRN (19:24)
[2019-03-01] MEDS ORDERED: ATORVASTATIN 40 MG TAB PO SCH (21:00)
[2019-03-01] MEDS ORDERED: VENLAFAXINE HCL 75 MG TAB PO SCH (21:00)
[2019-03-01] MEDS: FUROSEMIDE 40 MG TAB PO SCH (21:09)
[2019-03-01] MEDS: SACUBITRIL/VALSARTAN 24 MG-26 MG TABLET PO SCH (21:10)
[2019-03-01] MEDS: HEPARIN SODIUM,PORCINE 5,000 UNIT/ML 1 ML VIAL SQ SCH (21:10)
[2019-03-01] MEDS: PREGABALIN 75 MG CAP PO SCH (21:10)
[2019-03-01 21:38] LABS: Glucose,Whole Blood 95 mg/dL (75-99)
[2019-03-02] MEDS: SODIUM CHLORIDE 0.9% 1,000 ML IV SCH (01:50)
[2019-03-02 06:17] LABS: Anisocytosis Slight; Basophils # (A) 0.1 k/uL (0-0.2); Basophils % (A) 1 %; Eosinophils # (A) 0.6 k/uL (0-0.7); Eosinophils % (A) 6 %; HCT 46.8 % (39.0-53.0); Hypochromasia Slight; Lymphocytes % (A) 10 %; MCH 26.4 pg (25.0-35.0); MCHC 29.9 g/dL (31.0-37.0); MCV 88.2 fL (80.0-100.0); Mean Platelet Volume 6.7; Monocytes # (A) 1.2 k/uL (0-1.0); Monocytes % (A) 12 %; Neutrophils # (A) 6.9 k/uL (1.3-7.7); Neutrophils % (A) 70 %; Platelet Count 319 k/uL (150-450); RDW 18.3 % (11.5-15.5); WBC 9.9 k/uL (3.8-10.6)
[2019-03-02 06:30] LABS: Anion Gap 8 mmol/L; Blood Urea Nitrogen 11 mg/dL (9-20); Calcium 9.2 mg/dL (8.4-10.2); Carbon Dioxide 29 mmol/L (22-30); Chloride 100 mmol/L (98-107); Glucose 96 mg/dL (74-99); Sodium 137 mmol/L (137-145)
[2019-03-02 06:40] LABS: Glucose,Whole Blood 102 mg/dL (75-99)
[2019-03-02] MEDS: IPRATROPIUM-ALBUTEROL 3 ML NEB INHALATION SCH ×2 (07:09→11:22)
[2019-03-02] MEDS: BUDESONIDE 0.5 MG/2 ML NEBU INHALATION PRN (07:09)
[2019-03-02 08:30] VITALS: BP 107/71; RESP 18; TEMP 97.6
[2019-03-02] MEDS: INSULIN ASPART (NovoLOG) 100 UNIT/ML VIAL SQ SCH ×2 (08:43→12:23)
[2019-03-02] MEDS ORDERED: ISOSORBIDE MONONITRATE ER 60 MG TAB.ER.24H PO SCH (09:00)
[2019-03-02] MEDS ORDERED: SPIRONOLACTONE 25 MG TAB PO SCH (09:00)
[2019-03-02] MEDS: HEPARIN SODIUM,PORCINE 5,000 UNIT/ML 1 ML VIAL SQ SCH (09:32)
[2019-03-02] MEDS: PREGABALIN 75 MG CAP PO SCH (09:32)
[2019-03-02] MEDS: CARVEDILOL 6.25 MG TAB PO SCH (09:32)
[2019-03-02] MEDS: metFORMIN 500 MG TAB PO SCH (09:32)
[2019-03-02] MEDS: FUROSEMIDE 40 MG TAB PO SCH (09:32)
[2019-03-02] MEDS: SACUBITRIL/VALSARTAN 24 MG-26 MG TABLET PO SCH (09:32)
[2019-03-02 11:37] VITALS: PULSE 74
[2019-03-02 11:56] LABS: Glucose,Whole Blood 122 mg/dL (75-99)
--- NOTE | 2019-03-03 01:08 | DS ---
DISCHARGE SUMMARY DATE OF SERVICE: 03/02/2019. FINAL DIAGNOSES: 1. Acute cellulitis, right leg. Improving. 2. Atrial fibrillation. 3. Diabetes type 2. 4. Hypertension. 5. Hyperlipidemia. 6. Chronic obstructive pulmonary disease. 7. Coronary artery disease/congestive heart failure. DISCHARGE DISPOSITION: The patient is being discharged in stable condition with guarded prognosis. HISTORY OF PRESENT ILLNESS: This 73-year-old gentleman with past medical history of multiple medical problems being followed by Dr. Evangelista in the outpatient setting, admitted with feature of acute right leg cellulitis. Treated with IV antibiotics. Patient improved significantly. Patient keen on going home. At this time, the patient will be discharged in stable condition with guarded prognosis with the following advice and medications: On exam, vitals signs stable. Cardio system: S1, S2. Abdomen soft. Nervous system: Right leg minimal cellulitis present. 1. Discharge diet is cardiac diet. 2. Follow up with Dr. Evangelista in 2-3 days. DISCHARGE MEDICATIONS: As follows: 1. Aldactone 25 mg p.o. daily. 2. DuoNeb q.i.d. 3. Effexor 75 mg p.o. q.h.s. 4. Entresto 24/216 one p.o. b.i.d. 5. Imdur 60 mg p.o. daily. 6. Jardiance 10 mg p.o. daily. 7. Lasix 40 mg p.o. b.i.d. 8. Lipitor 40 mg q.h.s. 9. Lyrica 75 mg p.o. b.i.d. 10.Metformin 1000 mg p.o. b.i.d. 11.Pulmicort 0.5 mg b.i.d. p.r.n. 12.Singular 10 mg p.o. q.h.s. 13.Ventolin 2 puffs q.6h p.r.n. 14.Coreg 6.25 mg p.o. b.i.d. 15.Keflex 500 mg q.8h for 4 days. 16.Nitrostat 0.4 mg p.r.n. Once again, the patient is being discharged in stable condition with guarded prognosis. MMODL / IJN: [id number] /
== END 2019-03-02 13:03 | disposition home or self-care (01) ==
LOC: EC 01:27 → 1SOBS 04:18
PROVIDERS: ADMIT Hospitalist; ATTEND Hospitalist
DX: L03.115 Cellulitis of right lower limb (principal); I48.91 Unspecified atrial fibrillation; J44.9 Chronic obstructive pulmonary disease, unspecified; I11.0 Hypertensive heart disease with heart failure; I50.9 Heart failure, unspecified; I25.10 Atherosclerotic heart disease of native coronary artery without angina pectoris; G47.30 Sleep apnea, unspecified; Z99.89 Dependence on other enabling machines and devices; E78.5 Hyperlipidemia, unspecified; M19.90 Unspecified osteoarthritis, unspecified site; L40.9 Psoriasis, unspecified; E11.42 Type 2 diabetes mellitus with diabetic polyneuropathy; M10.9 Gout, unspecified; E04.1 Nontoxic single thyroid nodule; F43.10 Post-traumatic stress disorder, unspecified; E66.9 Obesity, unspecified; Z68.33 Body mass index [BMI] 33.0-33.9, adult; I73.9 Peripheral vascular disease, unspecified; F32.9 Major depressive disorder, single episode, unspecified; L60.0 Ingrowing nail; Z79.4 Long term (current) use of insulin; Z79.51 Long term (current) use of inhaled steroids; Z79.01 Long term (current) use of anticoagulants; Z79.899 Other long term (current) drug therapy; Z87.01 Personal history of pneumonia (recurrent); Z87.891 Personal history of nicotine dependence; Z86.14 Personal history of Methicillin resistant Staphylococcus aureus infection; Z95.1 Presence of aortocoronary bypass graft; Z95.810 Presence of automatic (implantable) cardiac defibrillator; Z95.5 Presence of coronary angioplasty implant and graft; Z95.2 Presence of prosthetic heart valve; Z95.828 Presence of other vascular implants and grafts; Z83.3 Family history of diabetes mellitus; Z82.49 Family history of ischemic heart disease and other diseases of the circulatory system; Z83.518 Family history of other specified eye disorder
CPT/HCPCS: 96366 ×2; 96372 ×2; 96365; 99285; 36415; 94640 ×4; 94760; 80053; 80048; 85025 ×2; 87040; 93971; G0378 ×2; J1644 ×2; J0690 ×2

== ENCOUNTER → 2019-03-17 | Day surgery (SDC) | payer MEDICARE ==
[2019-03-13 10:46] VITALS: BMI 28.0
[~2019-03-17] MED LIST changes: -ALBUTEROL NEB (CONC) 2.5 MG/0.5 ML INHALATION ONE; +IOPAMIDOL-250 50ML BTL IV ONE; -LACTATED RINGERS 1,000 ML IV ONE; -LACTATED RINGERS 1,000 ML IV SCH; -LIDOCAINE 2% (PF) 20 MG/ML 2 ML AMP INHALATION ONE; +SODIUM CHLORIDE 0.9% 1,000 ML IV SCH; +SODIUM CHLORIDE 0.9% 500 ML 500 ML IV ONE
[2019-03-17 11:26] LABS: Glucose,Whole Blood 91 mg/dL (75-99)
[2019-03-17 11:44] VITALS: RESP 20; TEMP 98.3
[2019-03-17 12:10] LABS: African American GFR (CKD) >90 (>60 ml/min/1.73 sqM); Anion Gap 8 mmol/L; Blood Urea Nitrogen 14 mg/dL (9-20); Carbon Dioxide 31 mmol/L (22-30); Chloride 98 mmol/L (98-107); Glucose 99 mg/dL (74-99); Potassium 4.5 mmol/L (3.5-5.1); Sodium 137 mmol/L (137-145)
[2019-03-17 14:10] VITALS: BP 82/54; PULSE 72
--- NOTE | 2019-03-18 00:20 | PCN ---
PROCEDURE NOTE Navin Saha is a 73-year-old male patient with cardiomyopathy, status post dual- chamber ICD, now with atrial fibrillation and recurrent heart failure symptoms with multiple heart failure admissions. He was brought in for left upper extremity venogram prior to upgrade to a biventricular ICD followed by AV node modification. DESCRIPTION OF PROCEDURE: Patient was brought to the EP lab in a fasting state. Written informed consent was obtained prior to the procedure. 15 mL of dye was injected in the left upper extremity and he has a large cephalic vein was noted along with a patent left axillary subclavian venous system. Cinefluoroscopy of the leads was performed and he has a dual-chamber ICD. No fractures or breaks were noted on the atrial lead or the RV lead, RV lead was placed in the RV septum. PLAN: Schedule for to upgrade to a biventricular ICD and AV node modification. JOSEFINA / JAYAN: [id number] /
--- NOTE | 2019-03-18 00:26 | LTR ---
DATE OF SERVICE: 03/17/2019 Dear Liss: I had the pleasure of seeing Navin Saha in electrophysiology followup. I performed a left upper extremity venogram and he has a patent left subclavian venous system and therefore I will proceed with full upgrade to a biventricular system for management of heart failure. Thank you for entrusting me in the care of your patient, Warm regards, Sincerely, JOSEFINA / JAYAN: [id number] /
== END ==
LOC: CATHEP 10:39
PROVIDERS: ATTEND Internal Medicine Clinical Cardiac Electrophysiology
DX: I11.0 Hypertensive heart disease with heart failure (principal); I50.22 Chronic systolic (congestive) heart failure; I48.1 Persistent atrial fibrillation; I25.5 Ischemic cardiomyopathy; Z95.810 Presence of automatic (implantable) cardiac defibrillator; I25.10 Atherosclerotic heart disease of native coronary artery without angina pectoris; Z95.1 Presence of aortocoronary bypass graft; I38 Endocarditis, valve unspecified; I47.2 Ventricular tachycardia; R06.02 Shortness of breath; R06.09 Other forms of dyspnea; R53.82 Chronic fatigue, unspecified; R60.0 Localized edema; E13.51 Other specified diabetes mellitus with diabetic peripheral angiopathy without gangrene; I70.312 Atherosclerosis of unspecified type of bypass graft(s) of the extremities with intermittent claudication, left leg; E78.5 Hyperlipidemia, unspecified; Z95.820 Peripheral vascular angioplasty status with implants and grafts; Z87.891 Personal history of nicotine dependence; Z82.49 Family history of ischemic heart disease and other diseases of the circulatory system; Z87.01 Personal history of pneumonia (recurrent); Z79.01 Long term (current) use of anticoagulants; Z79.84 Long term (current) use of oral hypoglycemic drugs; Z79.899 Other long term (current) drug therapy
CPT/HCPCS: 75820; 84481; 80048; 84443; Q9966; 76000

== ENCOUNTER 2019-03-31 06:33 | Day surgery (SDC) | payer MEDICARE ==
[2019-03-25 12:06] VITALS: BMI 31.1
[~2019-03-31 06:33] MED LIST changes: -IOPAMIDOL-250 50ML BTL IV ONE; -SODIUM CHLORIDE 0.9% 500 ML 500 ML IV ONE; +ceFAZolin 1,000 MG in SODIUM CHLORIDE 0.9% IRRIGATIO 250 ML IRRIGATION ONE; +ceFAZolin IN SWFI 2 GM/20 ML SYRINGE IVP ONE
[2019-03-31] MEDS ORDERED: LIDOCAINE 1% INJ 10MG/ML (20 ML MDV) ONE (07:21)
[2019-03-31] MEDS ORDERED: FUROSEMIDE 10 MG/ML 4 ML VIAL ONE (07:38)
[2019-03-31] MEDS ORDERED: DOBUTamine DRIP 500 MG in DEXTROSE/WATER 1 250ML.BAG IV SCH (07:45)
[2019-03-31] MEDS ORDERED: FUROSEMIDE 10 MG/ML 4 ML VIAL IV STA (07:46)
[2019-03-31] MEDS ORDERED: LIDOCAINE URO-JET JELLY 2% 5 ML KIT ONE (07:50)
[2019-03-31] MEDS ORDERED: SODIUM CHLORIDE 0.9% 1,000 ML IV ONE (08:00)
[2019-03-31] MEDS ORDERED: fentaNYL (PF) 50 MCG/ML 2 ML AMP ONE (08:03)
[2019-03-31] MEDS ORDERED: MIDAZOLAM 2 MG/2 ML VIAL ONE (08:03)
[2019-03-31 08:07] LABS: Glucose,Whole Blood 105 mg/dL (75-99)
--- NOTE | 2019-03-31 08:42 | P.PN ---
Progress Note - Text Patient admitted for upgrade to a biventricular ICD He has severe ischemic cardio myopathy left radical ejection fraction chronically reduced at 30-35% Multiple hospital admissions for recurrent heart failure symptoms Class III CHF Underlying atrial fibrillation Increase ventricular pacing percentage of greater than 40% intermittently Device voltage at JOHNATHAN Underlying CAD him a old [place], status post CABG and mitral valve repair Severe peripheral vascular disease Underlying lung disease, hyperinflation, COPD History of TIA This morning when he came in he was quite short of breath and was orthopneic He was treated with IV Lasix 4 he Was placed IV dobutamine drip was started at 2.5 mics per KG per minute The patient's condition improved and he is able to lie flat comfortably Systolic blood pressure 105 mmHg Plan Upgrade to a biventricular device for heart failure management Stop carvedilol Start metoprolol succinate for better A. fib rate control and to promote biventricular pacing and to avoid nonselective beta angeline since he also has lung disease Continue ENTRESTO Continue spironolactone Continue aspirin and atorvastatin We will calculate his creatinine clearance and drug interactions with dofetilide. He is on metformin thousand milligrams twice daily Will consider dofetilide and conversion to sinus rhythm for management of heart failure in the future He has Sick Sinus Syndrome and underlying severe sinus bradycardia
[2019-03-31] MEDS ORDERED: LIDOCAINE 1% INJ 10MG/ML (20 ML MDV) SQ ONE ×2 (08:57→09:07)
[2019-03-31] MEDS ORDERED: BUDESONIDE 0.5 MG/2 ML NEBU INHALATION PRN (11:06)
--- NOTE | 2019-03-31 11:09 | ECHOF ---
Referral Reason:R/O VALVE DX/CLOT MEASUREMENTS -------- HEIGHT: 193.0 cm WEIGHT: 116.1 kg BP: 103/64 IVSd: 1.0 cm (0.6 - 1.1) LVIDd: 3.6 cm (3.9 - 5.3) LVPWd: 1.0 cm (0.6 - 1.1) IVSs: 1.2 cm LVIDs: 3.0 cm LVPWs: 1.4 cm Ao Diam: 3.7 cm (2.0 - 3.7) AV Cusp: 1.6 cm (1.5 - 2.6) MV EXCURSION: 12.842 mm (> 18.000) MV EF SLOPE: 43 mm/s (70 - 150) EPSS: 1.0 cm RAP: 10.00 mmHg RVSP: 31.95 mmHg FINDINGS -------- Atrial fibrillation. Pacerwire seen in RV and RA. This was a technically difficult study with suboptimal views. The left ventricular size is normal. There is severe global hypokinesis of LV . Overall left vent ricular systolic function is moderate-severely impaired with, an EF between 30 - 35 %. The right ventricle is moderately enlarged. The right ventricular systolic function is moderately i mpaired. The left atrium is normal in size. The right atrium is mildly enlarged. There is mild aortic valve sclerosis. Moderate mitral annular calcification present. Mild mitral regurgitation is present. The tricuspid valve appears structurally normal. [id number] tricuspid regurgitation present. There is no evidence of pulmonary hypertension. The right ventricular systolic pressure, as measu red by Doppler, is 31.95mmHg. The pulmonic valve was not well visualized. There is no pulmonic regurgitation present. There is no pericardial effusion. CONCLUSIONS -------- 1. Atrial fibrillation. 2. Pacerwire seen in RV and RA. 3. This was a technically difficult study with suboptimal views. 4. The left ventricular size is normal. 5. There is severe global hypokinesis of LV . 6. Overall left ventricular systolic function is moderate-severely impaired with, an EF between 30 - 35 %. 7. The right ventricle is moderately enlarged. 8. The right ventricular systolic function is moderately impaired. 9. The left atrium is normal in size. 10. The right atrium is mildly enlarged. 11. There is mild aortic valve sclerosis. 12. Moderate mitral annular calcification present. 13. Mild mitral regurgitation is present. 14. The tricuspid valve appears structurally normal. 15. [id number] tricuspid regurgitation present. 16. There is no evidence of pulmonary hypertension. 17. The pulmonic valve was not well visualized. 18. There is no pericardial effusion. [employer] COORDINATOR: Yayo Mills RDCS RVT
[2019-03-31] MEDS ORDERED: HYDROcodone/APAP 5-325MG 1 EACH TAB PO PRN (11:10)
[2019-03-31] MEDS ORDERED: ACETAMINOPHEN IV (For NPO) 1,000 MG in EMPTY BAG 1 BAG IVPB ONE (11:10)
[2019-03-31] MEDS ORDERED: ACETAMINOPHEN TAB 325 MG TAB PO PRN (11:10)
--- NOTE | 2019-03-31 11:43 | P.DS ---
Providers Attending physician: Tesfaye Shi Primary care physician: Liss Evangelista Hospital Course: Impression Severe congestive heart failure class III, systolic LV systolic function 30-35% Severe ischemic cardio myopathy coronary artery disease old CO Coronary artery bypass grafting and mitral valve repair with annuloplasty ring COPD Obstructive sleep apnea uses CPAP mask Diabetes type 2 Attention On Ebony to medical treatment and still remains in class III heart failure Dual-chamber ICD at JOHNATHAN bivoltage Persistent atrial fibrillation High RV pacing percentage Underlying sinus rhythm with severe bradycardia there are necessitated dual- chamber ICD in 2013 Awaiting dofetilide incision and electrocardioversion, 3 weeks after the decision of Rivaroxaban Plan IV antibiotics I biventricular ICD interrogation tomorrow chest x-ray tomorrow Home tomorrow Patient Condition at Discharge: Stable Plan - Discharge Summary Discharge Rx Participant: Yes New Discharge Prescriptions: New Metoprolol Succinate (ER) [Toprol XL] 100 mg PO DAILY #90 tab Discontinued Carvedilol [Coreg] 6.25 mg PO BID-W/MEALS tab No Action Venlafaxine HCl [Effexor] 75 mg PO HS Isosorbide Mononitrate ER [Imdur] 60 mg PO DAILY Nitroglycerin Sl Tabs [Nitrostat] 0.4 mg SUBLINGUAL Q5M PRN #25 tab PRN Reason: Chest Pain Albuterol Inhaler [Ventolin Hfa Inhaler] 2 puff INHALATION RT-Q6H PRN PRN Reason: Shortness Of Breath Montelukast Sodium [Singulair] 10 mg PO HS Empagliflozin [Jardiance] 10 mg PO DAILY Budesonide [Pulmicort] 0.5 mg INHALATION RT-BID PRN PRN Reason: sob Pregabalin [Lyrica] 75 mg PO BID Ipratropium-Albuterol Nebulize [Duoneb 0.5 mg-3 mg/3 ml Soln] 3 ml INHALATION RT-QID Spironolactone [Aldactone] 25 mg PO DAILY metFORMIN HCL 1,000 mg PO BID Furosemide [Lasix] 40 mg PO BID Atorvastatin [Lipitor] 80 mg PO HS Sacubitril/Valsartan [Entresto 24 mg-26 mg Tablet] 1 tab PO BID Aspirin 81 mg PO DAILY Rivaroxaban [Xarelto] 20 mg PO DAILY Ferrous Sulfate [Iron] 325 mg PO DAILY Discharge Medication List Venlafaxine HCl [Effexor] 75 mg PO HS 06/15/14 [History] Isosorbide Mononitrate ER [Imdur] 60 mg PO DAILY 02/21/16 [History] Nitroglycerin Sl Tabs [Nitrostat] 0.4 mg SUBLINGUAL Q5M PRN #25 tab 02/24/16 [Rx] Albuterol Inhaler [Ventolin Hfa Inhaler] 2 puff INHALATION RT-Q6H PRN 07/18/16 [History] Budesonide [Pulmicort] 0.5 mg INHALATION RT-BID PRN 07/10/17 [History] Empagliflozin [Jardiance] 10 mg PO DAILY 07/10/17 [History] Montelukast Sodium [Singulair] 10 mg PO HS 07/10/17 [History] Pregabalin [Lyrica] 75 mg PO BID 12/24/17 [History] Ipratropium-Albuterol Nebulize [Duoneb 0.5 mg-3 mg/3 ml Soln] 3 ml INHALATION RT-QID 04/10/18 [History] Spironolactone [Aldactone] 25 mg PO DAILY 04/10/18 [History] metFORMIN HCL 1,000 mg PO BID 09/11/18 [History] Atorvastatin [Lipitor] 80 mg PO HS 01/20/19 [History] Furosemide [Lasix] 40 mg PO BID 01/20/19 [History] Sacubitril/Valsartan [Entresto 24 mg-26 mg Tablet] 1 tab PO BID 03/01/19 [History] Aspirin 81 mg PO DAILY 03/13/19 [History] Rivaroxaban [Xarelto] 20 mg PO DAILY 03/17/19 [History] Ferrous Sulfate [Iron] 325 mg PO DAILY 03/31/19 [History] Metoprolol Succinate (ER) [Toprol XL] 100 mg PO DAILY #90 tab 03/31/19 [Rx] Follow up Appointment(s)/Referral(s): Tesfaye Shi MD [STAFF PHYSICIAN] - 1 Week (Device clinic follow-up in 7 days Follow-up Dr. Khalil/Kourtney Schwab/Catrachita Dao in 3 months) Activity/Diet/Wound Care/Special Instructions: PATIENT EDUCATION MATERIAL Instructions following a heart rhythm device implant. 1. Keep dressing DRY for 5 DAYS. You may cover the area with Saran or Cling Wrap, prior to a shower. 2. The dressing will be removed in the Device Clinic at [facility]. Absorbable sutures were used to close the wound. 3. Avoid raising the left arm above the shoulder level. 4 week restriction 4. Avoid arm movements, like backscratching, rubbing the head, or pulling on a cord. 4 weeks restriction 5. Gentle range of motion movements of the shoulder, closest to the incision should be performed to avoid a frozen shoulder. (Pendulum exercises of the shoulder) 6. The opposite arm may be used freely. 7. Avoid driving for 7 days. 8. Avoid activities such as golfing, swimming, weed whacking, lifting more than 10 pounds weight, bowling, gymnastics and weight training/lifting. (6 weeks restriction) 9. Activities such as wood chopping with an axe, pull-ups in the gymnasium, power lifting, arc-welding, being close to home induction cooktops will always be a problem. 10. Arm sling is only a reminder not to raise the arm above the head. You do not need to keep the arm completely immobilized. Your free to move the arm and use it and for normal activities. In case of any problems, please call [facility], Vlad Peres, @ [phone], Attention: Device Clinic Device clinic follow-up in 5-7 days Follow-up with primary assistant sales manager/Dr. Khalil/Kourtney Schwab/Catrachita Dao in 3 months Stop carvedilol Start metoprolol succinate 100 mg by mouth daily Continue other medications as before Continue Xarelto
[2019-03-31 12:17] LABS: Glucose,Whole Blood 103 mg/dL (75-99)
[2019-03-31] MEDS: ceFAZolin IN SWFI 2 GM/20 ML SYRINGE IVP SCH ×2 (14:56→20:23)
[2019-03-31 16:44] LABS: Glucose,Whole Blood 122 mg/dL (75-99)
[2019-03-31] MEDS: metFORMIN 500 MG TAB PO SCH (17:11)
[2019-03-31] MEDS: METOPROLOL SUCCINATE (ER) 100 MG TAB.ER.24H PO SCH (17:18)
[2019-03-31 19:33] LABS: Glucose,Whole Blood 120 mg/dL (75-99)
[2019-03-31] MEDS: FUROSEMIDE 40 MG TAB PO SCH (20:22)
[2019-03-31] MEDS: PREGABALIN 75 MG CAP PO SCH (20:22)
[2019-03-31] MEDS: SACUBITRIL/VALSARTAN 24 MG-26 MG TABLET PO SCH (20:22)
[2019-03-31] MEDS ORDERED: VENLAFAXINE HCL 75 MG TAB PO SCH (21:00)
[2019-03-31] MEDS ORDERED: MONTELUKAST 10 MG TAB PO SCH (21:00)
[2019-03-31] MEDS ORDERED: ATORVASTATIN 80 MG TAB PO SCH (21:00)
--- NOTE | 2019-03-31 23:58 | PCN ---
PROCEDURE NOTE This is a 73-year-old male patient who has severe ischemic cardiomyopathy with severe heart failure class 3 with shortness of breath and some very mild exertion, persistent atrial fibrillation. On guideline-directed medical treatment whose device is at [facility] by voltage and then has a dual-chamber ICD with a intermittent ventricular pacing. This can be almost up to 40% intermittently. He was brought in for an upgrade to a biventricular system with a view to treatment with drug therapy with dofetilide and electrical cardioversion in the future. He has severe underlying sinus bradycardia and during sinus bradycardia he will pace as pacing percentage will be high closer to 90 to 100%. DESCRIPTION OF PROCEDURE: The patient was brought to the EP lab in a fasting state. Written informed consent was obtained prior to procedure. The left shoulder area was prepped and draped as per protocol. 1% lidocaine was used for local anesthesia. A 4 cm incision was made parallel to the deltopectoral. An incision was carried down to the level of the generator. The generator was explanted. A partial capsulectomy was performed. The axillary vein access was obtained and sheath was placed in the subclavian vein. Via this, the coronary sinus was then cannulated with ease. The sheath was placed. Injection venogram of the coronary sinus revealed chronically occluded chronically coronary sinus. The patient has had mitral valve repair with mitral annuloplasty ring repair. Therefore, the His bundle sheath was placed. The Hiss lead was placed in the His bundle area. Nonselective capture was obtained. The sheath was removed. The lead was secured. The chronic right atrial lead was a Medtronic model #5076, 52 cm length and serial number [id number]. This had been originally implanted in the 2013. He is in atrial fibrillation. Pacing impedance 456 ohms. The RV lead was a model #6935, 65 cm in length and serial number [id number] this had been implanted in the screwed in the RV septum. This was in a single coil ICD lead. R- waves 3.5 mV. Pacing impedance 342 ohms, pacing threshold 1.8 V at 0.5 milliseconds chronically. The His bundle lead was model #3830, 69 cm in length and serial number [id number]. Nonselective capture was noted up to 1 V at 0.5 milliseconds pacing impedance of 457 ohms R-waves 3.1 mV. His spike was noted to the HV interval of 56 milliseconds at that site. The device was then programmed to pace the His bundle, 70-130 ppm. The The implanted new opening the old generator was started, chronic old generator that was at [facility] high- voltage was Protecta XT serial number [id number] and new biventricular ICD was a Viva XT model number DTBA [id number]. The leads and generator were then placed in subfascial pocket. The wound was closed in 3 layers and dressed per protocol. RESULT: Successful upgrade to a biventricular system with his bundle pacing with nonselective capture with loss of capture at 1 V at 0.5 milliseconds. This patient has atrial fibrillation and COPD. I will switch from carvedilol to metoprolol for better rate control and for promotion of His bundle pacing. Subsequently, next month we will bring him back for dofetilide loading once rivaroxaban is started once again and hopefully we can maintain sinus rhythm. Hopefully with a combination of maintaining sinus rhythm and with his bundle pacing, to avoid RV pacing in sinus rhythm, his heart failure symptoms will improved. MMODL / IJN: [id number] /
--- NOTE | 2019-04-01 00:04 | LTR ---
DATE OF SERVICE: 04/01/[address] Evangelista: Navin Saha underwent upgrade to a biventricular system with His bundle pacing. Next month I will bring him back for dofetilide loading and hopefully we can maintain sinus rhythm. Hopefully the combination of sinus rhythm and His bundle pacing, his heart failure symptoms are improved. Currently, he is on guideline-directed medical treatment, but still continues to remain significantly short of breath and class 3 heart failure symptoms. Sincerely, MMJHONATHANL / JAYAN: [id number] /
[2019-04-01] MEDS: ceFAZolin IN SWFI 2 GM/20 ML SYRINGE IVP SCH ×2 (02:24→09:32)
[2019-04-01 06:44] LABS: Glucose,Whole Blood 128 mg/dL (75-99)
--- NOTE | 2019-04-01 07:20 | XR ---
EXAMINATION TYPE: XR chest 2V DATE OF EXAM: 04/01/2019 COMPARISON: 01/30/2019 TECHNIQUE: PA and lateral views submitted. HISTORY: Abnormal x-ray FINDINGS: Diffuse mixed interstitial and alveolar the volar pleural-parenchymal changes are noted with bilatera l pleural effusions. There is interval increase in right apical pleural thickening. Postoperative daniella nge and cardiac device seen. No sizable pneumothorax. IMPRESSION: 1. Diffuse pleural-parenchymal changes with bilateral infiltrate and pleural effusion. There is incre asing right apical pleural thickening new from the prior exam. Loculated fluid or neoplastic process in the differential diagnosis. 2. Correlate for COPD and interstitial pulmonary lung disease. Areas of pneumonia not excluded. 3. Thoracic aorta is prominent underlying aneurysm not excluded.
[2019-04-01] MEDS: ALBUTEROL NEBULIZED 2.5 MG/3 ML INHALATION PRN ×2 (07:40→11:04)
--- NOTE | 2019-04-01 07:56 | P.DS ---
Providers Attending physician: Tesfaye Shi Primary care physician: Liss [place] [facility] Hospital Course: Patient sitting comfortably in bed. No shortness of breath) distress No JVD noted Breath sounds are reduced bilaterally no rhonchi no crackles Heart sounds. Soft irregular line breath sounds are reduced energy is definitely reduced Abdomen soft Extremities warm no edema ICD site is healing well Blood pressure 98/56. His mercury respirations normal afebrile 97.9F Impression Persistent atrial fibrillation, symptomatic Increase RV pacing percentage Upgrade to a biventricular system with physiologic septal pacing CS was occluded Suggest Stop carvedilol Start metoprolol succinate 100 mg by mouth daily at noontime Continue all other medications and restart xarelto After 3-4 weeks of being on xarelto helping him back for dofetilide loading is an inpatient Other than metformin the no other significant retractions any drugs Renal function is normal line potassium is normal Discussed with patient's daughter and with the patient and he is agreeable with plan Patient Condition at Discharge: Stable Plan - Discharge Summary Discharge Rx Participant: No New Discharge Prescriptions: New Metoprolol Succinate (ER) [Toprol XL] 100 mg PO DAILY #90 tab Discontinued Carvedilol [Coreg] 6.25 mg PO BID-W/MEALS tab No Action Venlafaxine HCl [Effexor] 75 mg PO HS Isosorbide Mononitrate ER [Imdur] 60 mg PO DAILY Nitroglycerin Sl Tabs [Nitrostat] 0.4 mg SUBLINGUAL Q5M PRN #25 tab PRN Reason: Chest Pain Albuterol Inhaler [Ventolin Hfa Inhaler] 2 puff INHALATION RT-Q6H PRN PRN Reason: Shortness Of Breath Montelukast Sodium [Singulair] 10 mg PO HS Empagliflozin [Jardiance] 10 mg PO DAILY Budesonide [Pulmicort] 0.5 mg INHALATION RT-BID PRN PRN Reason: sob Pregabalin [Lyrica] 75 mg PO BID Ipratropium-Albuterol Nebulize [Duoneb 0.5 mg-3 mg/3 ml Soln] 3 ml INHALATION RT-QID Spironolactone [Aldactone] 25 mg PO DAILY metFORMIN HCL 1,000 mg PO BID Furosemide [Lasix] 40 mg PO BID Atorvastatin [Lipitor] 80 mg PO HS Sacubitril/Valsartan [Entresto 24 mg-26 mg Tablet] 1 tab PO BID Aspirin 81 mg PO DAILY Rivaroxaban [Xarelto] 20 mg PO DAILY Ferrous Sulfate [Iron] 325 mg PO DAILY Discharge Medication List Venlafaxine HCl [Effexor] 75 mg PO HS 06/15/14 [History] Isosorbide Mononitrate ER [Imdur] 60 mg PO DAILY 02/21/16 [History] Nitroglycerin Sl Tabs [Nitrostat] 0.4 mg SUBLINGUAL Q5M PRN #25 tab 02/24/16 [Rx] Albuterol Inhaler [Ventolin Hfa Inhaler] 2 puff INHALATION RT-Q6H PRN 07/18/16 [History] Budesonide [Pulmicort] 0.5 mg INHALATION RT-BID PRN 07/10/17 [History] Empagliflozin [Jardiance] 10 mg PO DAILY 07/10/17 [History] Montelukast Sodium [Singulair] 10 mg PO HS 07/10/17 [History] Pregabalin [Lyrica] 75 mg PO BID 12/24/17 [History] Ipratropium-Albuterol Nebulize [Duoneb 0.5 mg-3 mg/3 ml Soln] 3 ml INHALATION RT-QID 04/10/18 [History] Spironolactone [Aldactone] 25 mg PO DAILY 04/10/18 [History] metFORMIN HCL 1,000 mg PO BID 09/11/18 [History] Atorvastatin [Lipitor] 80 mg PO HS 01/20/19 [History] Furosemide [Lasix] 40 mg PO BID 01/20/19 [History] Sacubitril/Valsartan [Entresto 24 mg-26 mg Tablet] 1 tab PO BID 03/01/19 [History] Aspirin 81 mg PO DAILY 03/13/19 [History] Rivaroxaban [Xarelto] 20 mg PO DAILY 03/17/19 [History] Ferrous Sulfate [Iron] 325 mg PO DAILY 03/31/19 [History] Metoprolol Succinate (ER) [Toprol XL] 100 mg PO DAILY #90 tab 03/31/19 [Rx] Follow up Appointment(s)/Referral(s): Tesfaye Shi MD [STAFF PHYSICIAN] - 1 Week (Device clinic follow-up in 7 days Follow-up Dr. Khalil/Kourtney Schwab/aCtrachita Dao in 3 months) Activity/Diet/Wound Care/Special Instructions: PATIENT EDUCATION MATERIAL Instructions following a heart rhythm device implant. 1. Keep dressing DRY for 5 DAYS. You may cover the area with Saran or Cling Wrap, prior to a shower. 2. The dressing will be removed in the Device Clinic at [facility]. Absorbable sutures were used to close the wound. 3. Avoid raising the left arm above the shoulder level. 4 week restriction 4. Avoid arm movements, like backscratching, rubbing the head, or pulling on a cord. 4 weeks restriction 5. Gentle range of motion movements of the shoulder, closest to the incision should be performed to avoid a frozen shoulder. (Pendulum exercises of the shoulder) 6. The opposite arm may be used freely. 7. Avoid driving for 7 days. 8. Avoid activities such as golfing, swimming, weed whacking, lifting more than 10 pounds weight, bowling, gymnastics and weight training/lifting. (6 weeks restriction) 9. Activities such as wood chopping with an axe, pull-ups in the gymnasium, power lifting, arc-welding, being close to home induction cooktops will always be a problem. 10. Arm sling is only a reminder not to raise the arm above the head. You do not need to keep the arm completely immobilized. Your free to move the arm and use it and for normal activities. In case of any problems, please call [facility], Vlad Peres, @ [phone], Attention: Device Clinic Device clinic follow-up in 5-7 days Follow-up with primary adult care provider/Dr. Khalil/Kourtney Schwab/Catrachita Dao in 3 months Stop carvedilol Start metoprolol succinate 100 mg by mouth daily Continue other medications as before Continue Xarelto
[2019-04-01 08:41] VITALS: RESP 18
[2019-04-01] MEDS: metFORMIN 500 MG TAB PO SCH (08:46)
[2019-04-01] MEDS: FUROSEMIDE 40 MG TAB PO SCH (08:46)
[2019-04-01] MEDS: METOPROLOL SUCCINATE (ER) 100 MG TAB.ER.24H PO SCH (08:46)
[2019-04-01] MEDS: PREGABALIN 75 MG CAP PO SCH (08:46)
[2019-04-01] MEDS: SACUBITRIL/VALSARTAN 24 MG-26 MG TABLET PO SCH (08:47)
[2019-04-01] MEDS ORDERED: NON-FORMULARY DRUG (Empagliflozin [Jardiance] 10 MG) PO SCH (09:00)
[2019-04-01] MEDS ORDERED: ASPIRIN 81 MG PO SCH (09:00)
[2019-04-01] MEDS ORDERED: RIVAROXABAN 20 MG TAB PO SCH (09:00)
[2019-04-01] MEDS ORDERED: SPIRONOLACTONE 25 MG TAB PO SCH (09:00)
[2019-04-01] MEDS ORDERED: ISOSORBIDE MONONITRATE ER 60 MG TAB.ER.24H PO SCH (09:00)
[2019-04-01 11:28] LABS: Glucose,Whole Blood 128 mg/dL (75-99)
[2019-04-01 12:08] VITALS: BP 95/61; PULSE 70; TEMP 97.6
== END 2019-04-01 13:41 | disposition home or self-care (01) ==
LOC: CATHEP 06:33 → 1SOBS 11:00 → CATHEP 04-01 13:41
PROVIDERS: ATTEND Internal Medicine Clinical Cardiac Electrophysiology
DX: Z45.02 Encounter for adjustment and management of automatic implantable cardiac defibrillator (principal); I48.1 Persistent atrial fibrillation; I25.5 Ischemic cardiomyopathy; I11.0 Hypertensive heart disease with heart failure; I50.22 Chronic systolic (congestive) heart failure; I25.10 Atherosclerotic heart disease of native coronary artery without angina pectoris; Z95.1 Presence of aortocoronary bypass graft; I25.2 Old myocardial infarction; J44.9 Chronic obstructive pulmonary disease, unspecified; E78.5 Hyperlipidemia, unspecified; E11.51 Type 2 diabetes mellitus with diabetic peripheral angiopathy without gangrene; Z95.820 Peripheral vascular angioplasty status with implants and grafts; I49.5 Sick sinus syndrome; J90 Pleural effusion, not elsewhere classified; I47.2 Ventricular tachycardia; F17.210 Nicotine dependence, cigarettes, uncomplicated; Z86.73 Personal history of transient ischemic attack (TIA), and cerebral infarction without residual deficits; Z87.01 Personal history of pneumonia (recurrent); Z79.82 Long term (current) use of aspirin; Z79.84 Long term (current) use of oral hypoglycemic drugs; Z79.01 Long term (current) use of anticoagulants; Z79.51 Long term (current) use of inhaled steroids; Z79.899 Other long term (current) drug therapy; G47.33 Obstructive sleep apnea (adult) (pediatric); Z99.81 Dependence on supplemental oxygen; Z82.49 Family history of ischemic heart disease and other diseases of the circulatory system
CPT/HCPCS: 33229; 33225; 93306; 94640 ×2; 71046; C1769 ×4; C1892; C1730; C1898; C1882; J2250; J1250; J1940; J0690 ×3; J2001; J3010

== ENCOUNTER 2019-04-09 16:49 | Inpatient (IN) | payer MEDICARE ==
[2019-04-09] MEDS ORDERED: SODIUM CHLORIDE 0.9% 500 ML 500 ML IV STA (17:33)
[2019-04-09] MEDS ORDERED: methylPREDNISolone SOD SUCCI 125 MG/2 ML VIAL IV STA ×2 (17:48→19:45)
[2019-04-09] MEDS ORDERED: IPRATROPIUM-ALBUTEROL 3 ML NEB INHALATION STA ×2 (17:48→19:39)
[2019-04-09 18:26] LABS: Basophils # (A) 0.1 k/uL (0-0.2); Basophils % (A) 0 %; Eosinophils # (A) 0.3 k/uL (0-0.7); Eosinophils % (A) 3 %; HCT 52.5 % (39.0-53.0); HGB 15.7 gm/dL (13.0-17.5); Hypochromasia Slight; Lymphocytes # (A) 0.7 k/uL (1.0-4.8); Lymphocytes % (A) 6 %; MCH 26.7 pg (25.0-35.0); MCHC 29.9 g/dL (31.0-37.0); MCV 89.3 fL (80.0-100.0); Mean Platelet Volume 6.7; Monocytes # (A) 0.8 k/uL (0-1.0); Monocytes % (A) 6 %; Neutrophils % (A) 84 %; Platelet Count 482 k/uL (150-450); RBC 5.88 m/uL (4.30-5.90); RDW 15.7 % (11.5-15.5); WBC 11.9 k/uL (3.8-10.6)
[2019-04-09 18:35] LABS: ALT <6 U/L (21-72); AST 25 U/L (17-59); African American GFR (CKD) >90 (>60 ml/min/1.73 sqM); Albumin 3.8 g/dL (3.5-5.0); Alkaline Phosphatase 123 U/L (38-126); Anion Gap 12 mmol/L; Blood Urea Nitrogen 19 mg/dL (9-20); Calcium 9.3 mg/dL (8.4-10.2); Carbon Dioxide 31 mmol/L (22-30); Chloride 98 mmol/L (98-107); Glucose 142 mg/dL (74-99); Potassium 4.1 mmol/L (3.5-5.1); Sodium 141 mmol/L (137-145); Total Protein 8.1 g/dL (6.3-8.2)
[2019-04-09 18:37] LABS: INR 1.7 (<1.2); Prothrombin Time 16.6 sec (9.0-12.0)
[2019-04-09] MEDS ORDERED: SODIUM CHLORIDE 0.9% 1,000 ML IV ONE (18:58)
[2019-04-09] MEDS ORDERED: VANCOMYCIN IV PER PHARMACY 1 EACH MISC MISCELLANE PRN (19:14)
[2019-04-09] MEDS ORDERED: PIPERACILLIN-TAZOBACTAM 3.375 GM in SODIUM CHLORIDE 0.9% 100 ML IVPB STA (19:14)
[2019-04-09] MEDS ORDERED: AZITHROMYCIN 500 MG in SODIUM CHLORIDE 0.9% 250 ML IVPB STA (19:14)
--- NOTE | 2019-04-09 19:15 | CT ---
EXAMINATION TYPE: CT brain wo con DATE OF EXAM: 04/09/2019 COMPARISON: 01/20/2019 HISTORY: SOB Headache. CT DLP: 1094.4 mGycm Automated exposure control for dose reduction was used. FINDINGS: There is cerebral cortical atrophy. There is no mass effect nor midline shift. There is no sign of in tracranial hemorrhage. The calvarium is intact. IMPRESSION: CEREBRAL ATROPHY. NO ACUTE INTRACRANIAL ABNORMALITY. NO CHANGE.
[2019-04-09] MEDS ORDERED: VANCOMYCIN 1,750 MG in SODIUM CHLORIDE 0.9% 500 ML 500 ML IVPB ONE (19:30)
[2019-04-09] MEDS ORDERED: FUROSEMIDE 10 MG/ML 4 ML VIAL IV STA (19:40)
[2019-04-09] MEDS ORDERED: NALOXONE 0.4 MG/ML 1 ML VIAL IV PRN (19:41)
--- NOTE | 2019-04-09 19:41 | ED ---
SOB HPI <Desmond Sterling - Last Filed: 04/09/19 19:44> - General Source: patient Mode of arrival: ambulatory Limitations: no limitations <Keyla Jones - Last Filed: 04/09/19 20:26> - General Chief Complaint: Shortness of Breath Stated Complaint: SOB Time Seen by Provider: 04/09/19 17:33 - History of Present Illness Initial Comments: 73-year-old male with history of previous quadruple bypass, multiple stent placement, atrial fibrillation, congestive heart failure, COPD presenting today for chief complaint of shortness of breath. Patient states since his discharge on 04/01/2019 he has had shortness of breath. He states at that time he had surgery to replace a pacemaker/defibrillator. Patient states also since that time he has had a headache in the posterior aspect of his head. He states he has no vomiting nausea dizziness he is not sure if this headache he is unable to describe well the characteristic nor type of pain that is. Patient denies any weakness of the upper or lower extremities. Denies any speech changes. Family states patient is at baseline, noting no neurological symptoms. Patient denies any fevers patient has a chest pain. Patient denies any thoracic back pain. Patient denies any abdominal pain other extremity pain jaw pain or paresthesias. Patient has a cough. Patient states he has chronic hemoptysis. Patient denies any lower extremity swelling. Remaining ROS (-). Upon arrival pt hypoxic at 83% on RA, pt normally on 2L of home oxygen for chronic hypoxia. (Keyla Jones) - Related Data Home Medications Medication Instructions Recorded Confirmed RX: Venlafaxine HCl [Effexor] 75 mg PO 06/15/14 03/31/19 RX: Isosorbide Mononitrate ER 60 mg PO DAILY 02/21/16 03/25/19 [Imdur] RX: Albuterol Inhaler [Ventolin 2 puff INHALATION RT-Q6H PRN 07/18/16 03/25/19 Hfa Inhaler] RX: Budesonide [Pulmicort] 0.5 mg INHALATION RT-BID PRN 07/10/17 03/25/19 RX: Empagliflozin [Jardiance] 10 mg PO DAILY 07/10/17 03/25/19 RX: Montelukast Sodium [Singulair] 10 mg PO HS 07/10/17 03/25/19 RX: Pregabalin [Lyrica] 75 mg PO BID 12/24/17 03/25/19 RX: Ipratropium-Albuterol Nebulize 3 ml INHALATION RT-QID 04/10/18 03/25/19 [Duoneb 0.5 mg-3 mg/3 ml Soln] RX: Spironolactone [Aldactone] 25 mg PO DAILY 04/10/18 03/25/19 RX: metFORMIN HCL 1,000 mg PO BID 09/11/18 03/25/19 RX: Atorvastatin [Lipitor] 80 mg PO HS 01/20/19 03/31/19 RX: Furosemide [Lasix] 40 mg PO BID 01/20/19 03/25/19 RX: Sacubitril/Valsartan [Entresto 1 tab PO BID 03/01/19 03/25/19 24 mg-26 mg Tablet] RX: Aspirin 81 mg PO DAILY 03/13/19 03/25/19 Rivaroxaban [Xarelto] 20 mg PO DAILY 03/17/19 03/31/19 Ferrous Sulfate [Iron] 325 mg PO DAILY 03/31/19 03/31/19 Previous Rx's Medication Instructions Recorded RX: Nitroglycerin Sl Tabs 0.4 mg SUBLINGUAL Q5M PRN #25 tab 02/24/16 [Nitrostat] RX: Metoprolol Succinate (ER) 100 mg PO DAILY #90 tab 03/31/19 [Toprol XL] Allergies Allergy/AdvReac Type Severity Reaction Status Date / Time No Known Allergies Allergy Verified 04/09/19 20:22 Review of Systems ROS Other: All systems not noted in ROS Statement are negative. <Desmond Sterling - Last Filed: 04/09/19 19:44> ROS Other: All systems not noted in ROS Statement are negative. <Keyla Jones - Last Filed: 04/09/19 20:26> ROS Statement: Those systems with pertinent positive or pertinent negative responses have been documented in the HPI. Past Medical History Past Medical History: Atrial Fibrillation, Coronary Artery Disease (CAD), Chest Pain / Angina, Heart Failure, COPD, Diabetes Mellitus, Hyperlipidemia, Hypertension, Osteoarthritis (OA), Pneumonia, Skin Disorder, Sleep Apnea/CPAP/BIPAP, Thyroid Disorder, Vascular Disorder Additional Past Medical History / Comment(s): Psoriasis, neuropathy RT HAND and LEFT FOOT, poor circulation left leg, gout, thyroid nodule, hx ingrown toenails zac great toes, uses O2 PRN. left leg iliac stent due to poor circulation 12/25/2017. See Dr. Khalil's H&P. Does not use his CPAP but states he would like to start using it again. History of Any Multi-Drug Resistant Organisms: MRSA Date of last positivie culture/infection: 2011 MDRO Source:: chest incision Past Surgical History: AICD, Back Surgery, Coronary Bypass/CABG, Heart Catheterization With Stent Additional Past Surgical History / Comment(s): 3 CARDIAC STENTS, quad bypass and heart valve repair 2011, Lt Fempop (1 stent placed). See Dr. Ruelass H&P. Patient @ [facility] a few weeks ago for a procedure with Dr. Shi. Past Anesthesia/Blood Transfusion Reactions: No Reported Reaction Date of Last Stent Placement:: 12/25/2017 Type of Cardiac Device: AICD Device Placement Date:: 2012 Past Psychological History: Depression, PTSD Smoking Status: Unknown if ever smoked Past Alcohol Use History: Rare Past Drug Use History: None Reported - Past Family History Father Family Medical History: Congestive Heart Failure (CHF), Coronary Artery Disease (CAD), Diabetes Mellitus, Myocardial Infarction ([place]) Additional Family Medical History / Comment(s): MAC DEGENERATION, CABG Mother Family Medical History: No Reported History <Keyla Jones - Last Filed: 04/09/19 20:26> General Exam Limitations: no limitations <Keyla Jones - Last Filed: 04/09/19 20:26> - General Exam Comments Initial Comments: General: The patient is awake and alert, in no distress Eye: +3 mm pupils are equal, round and reactive to light, extra-ocular movements are intact. No nystagmus. There is normal conjunctiva bilaterally. No signs of icterus. Ears, nose, mouth and throat: There are moist mucous membranes and no oral lesions. Neck: The neck is supple, there is no tenderness or JVD. Cardiovascular: There is a regular rate and rhythm. No murmur, rub or gallop is appreciated. Respiratory: Lung sounds are diminished bilaterally. Significant rales. Rhonchi noted. As well as extra wheeze. respirations are non-labored, breath sounds are equal. Gastrointestinal: Soft, non-distended, non-tender abdomen without masses or organomegaly noted. There is no rebound or guarding present. Musculoskeletal: Bandage placed over left side of chest. Clean dry and intact. Normal ROM, no tenderness. Strength 5/5. Sensation intact. Radial and DP pulses equal bilaterally 2+. Neurological: A&O x 3. CN II-XII intact, There are no obvious motor or sensory deficits. Coordination appears grossly intact. Speech is normal. No pronator drift. Skin: Skin is warm and dry and no rashes or lesions are noted. Psychiatric: Cooperative, appropriate mood & affect, normal judgment. (Keyla Jones) Course <Desmond Sterling - Last Filed: 04/09/19 19:44> Vital Signs 04/09/19 04/09/19 04/09/19 16:54 17:40 18:00 Temperature 98.1 F Pulse Rate 77 79 Respiratory 18 24 20 Rate Blood Pressure 77/56 91/65 O2 Sat by Pulse 83 L 99 Oximetry 04/09/19 04/09/19 04/09/19 18:15 18:30 19:00 Temperature Pulse Rate 72 71 Respiratory 25 H Rate Blood Pressure 91/65 96/47 O2 Sat by Pulse 96 Oximetry 04/09/19 04/09/19 19:30 20:00 Temperature Pulse Rate 76 70 Respiratory 23 32 H Rate Blood Pressure 90/69 110/77 O2 Sat by Pulse 95 94 L Oximetry - Reevaluation(s) Reevaluation #1: 04/09/19 19:45 PA supervision: I did a [id number] evaluation patient did reevaluate patient several occasions he did present initially shortness of breath she's had this was quite some time he has a history of COPD as well as CHF he does have [employer] exposure. She get some relief from the nebulizer treatment. He does have an elevated BNP with increased pulmonary vascular markings. Unclear whether sharp present CHF versus pneumonia or both. Patient will be admitted he does see Dr. Serrano for pulmonary will be consulted also. The case is discussed with Dr. Wallace. (Desmond Sterling) Medical Decision Making - Lab Data Result diagrams: 04/09/19 17:40 04/09/19 17:40 <Desmond Sterling - Last Filed: 04/09/19 19:44> - Lab Data Result diagrams: 04/09/19 17:40 04/09/19 17:40 <Keyla Jones - Last Filed: 04/09/19 20:26> - Medical Decision Making 73-year-old male presenting for shortest of breath 8 days. Patient states he was short of breath after discharge. Patient states he has not had fevers or upper respiratory symptoms. Patient states he has also had a pain in the back of his head. Patient denies chest pain. Patient denies any back pain. Patient denies nausea vomiting or any other signs of any atypical presentation of chest pain. Patient does not appear in acute distress. However patient hypoxic at 83% on room air. Patient is usually on 2 L of oxygen. Check history reveals significant pleural effusions left greater than right. [place] and will be obtained to differentiate infectious process versus congestive heart failure. I currently feel this is most likely related to heart failure. Patient is given 40 mg IV Lasix as he is on home dose of 40 mg twice a day. Patient BNP elevated from baseline. Troponin negative. EKG reveals a ventricular paced rhythm with occasional premature ventricular complex is. Pacing lines are noted. No ST elevation or depression. T-wave inversion is noted. EKG was interpreted by attending provider Dr. Sterling, he does not feel is consistent with acute coronary syndrome. Patient's lungs had extremities consistent with COPD exacerbation. This most likely compounding patient's acute congestive heart failure. The patient was given a DuoNeb treatment he states is significantly decreased his shortness of breath. Patient was given additional neb treatment as well as IV solumedrol. She will be admitted to the hospital for hypoxia, shortness of breath, CHF exacerbation, with possible compounding COPD component. Cannot rule out hospital-acquired pneumonia given patient recent hospitalization and significance of left-sided pleural effusion. Patient was started on vancomycin and azithromycin as well as Zosyn for hospital-acquired microbes. Given patient's complaint of left-sided head pain without any associated neurological deficits, CT was obtained without contrast revealing no acute intracranial process at this time. We'll treat symptomatically. Patient was evaluated in person by my attending provider he is agreeable care plan impression and admission at this time. No further orders from admitting provider Dr. Wallace who spoke with Dr. Sterling. Cardiology and pulmonology on consult. (Kinter,Keyla L) - Lab Data Lab Results 04/09/19 04/09/19 04/09/19 Range/Units 17:40 17:40 17:40 WBC 11.9 H (3.8-10.6) k/uL RBC 5.88 (4.30-5.90) m/uL Hgb 15.7 (13.0-17.5) gm/dL Hct 52.5 (39.0-53.0) % MCV 89.3 (80.0-100.0) fL MCH 26.7 (25.0-35.0) pg MCHC 29.9 L (31.0-37.0) g/dL RDW 15.7 H (11.5-15.5) % Plt Count 482 H (150-450) k/uL Neutrophils % 84 % Lymphocytes % 6 % Monocytes % 6 % Eosinophils % 3 % Basophils % 0 % Neutrophils # 10.0 H (1.3-7.7) k/uL Lymphocytes # 0.7 L (1.0-4.8) k/uL Monocytes # 0.8 (0-1.0) k/uL Eosinophils # 0.3 (0-0.7) k/uL Basophils # 0.1 (0-0.2) k/uL Hypochromasia Slight PT (9.0-12.0) sec INR (<1.2) APTT (22.0-30.0) sec Sodium 141 (137-145) mmol/L Potassium 4.1 (3.5-5.1) mmol/L Chloride 98 (98-107) mmol/L Carbon Dioxide 31 H (22-30) mmol/L Anion Gap 12 mmol/L BUN 19 (9-20) mg/dL Creatinine 0.58 L (0.66-1.25) mg/dL Est GFR (CKD-EPI)AfAm >90 (>60 ml/min/1.73 sqM) Est GFR (CKD-EPI)NonAf >90 (>60 ml/min/1.73 sqM) Glucose 142 H (74-99) mg/dL Calcium 9.3 (8.4-10.2) mg/dL Total Bilirubin 1.0 (0.2-1.3) mg/dL AST 25 (17-59) U/L ALT <6 L (21-72) U/L Alkaline Phosphatase 123 (38-126) U/L Troponin I (0.000-0.034) ng/mL NT-Pro-B Natriuret Pep 2380 pg/mL Total Protein 8.1 (6.3-8.2) g/dL Albumin 3.8 (3.5-5.0) g/dL 04/09/19 04/09/19 Range/Units 17:40 17:40 WBC (3.8-10.6) k/uL RBC (4.30-5.90) m/uL Hgb (13.0-17.5) gm/dL Hct (39.0-53.0) % MCV (80.0-100.0) fL MCH (25.0-35.0) pg MCHC (31.0-37.0) g/dL RDW (11.5-15.5) % Plt Count (150-450) k/uL Neutrophils % % Lymphocytes % % Monocytes % % Eosinophils % % Basophils % % Neutrophils # (1.3-7.7) k/uL Lymphocytes # (1.0-4.8) k/uL Monocytes # (0-1.0) k/uL Eosinophils # (0-0.7) k/uL Basophils # (0-0.2) k/uL Hypochromasia PT 16.6 H (9.0-12.0) sec INR 1.7 H (<1.2) APTT 33.0 H (22.0-30.0) sec Sodium (137-145) mmol/L Potassium (3.5-5.1) mmol/L Chloride (98-107) mmol/L Carbon Dioxide (22-30) mmol/L Anion Gap mmol/L BUN (9-20) mg/dL Creatinine (0.66-1.25) mg/dL Est GFR (CKD-EPI)AfAm (>60 ml/min/1.73 sqM) Est GFR (CKD-EPI)NonAf (>60 ml/min/1.73 sqM) Glucose (74-99) mg/dL Calcium (8.4-10.2) mg/dL Total Bilirubin (0.2-1.3) mg/dL AST (17-59) U/L ALT (21-72) U/L Alkaline Phosphatase (38-126) U/L Troponin I <0.012 (0.000-0.034) ng/mL NT-Pro-B Natriuret Pep pg/mL Total Protein (6.3-8.2) g/dL Albumin (3.5-5.0) g/dL Disposition <Desmond Sterling - Last Filed: 04/09/19 19:44> Is patient prescribed a controlled substance at d/c from ED?: No Time of Disposition: 20:15 Decision to Admit Reason: Admit from EC Decision Date: 04/09/19 Decision Time: 20:15 <Keyla Jones - Last Filed: 04/09/19 20:26> Clinical Impression: Shortness of breath, Pleural effusion, Headache, Hypoxia Disposition: ADMITTED IP TO THIS [facility] Condition: Serious Referrals: Liss Evangelista MD [Primary Care Provider] - 1-2 days
--- NOTE | 2019-04-09 19:43 | XR ---
EXAMINATION TYPE: XR chest 2V DATE OF EXAM: 04/09/2019 COMPARISON: 04/01/2019 HISTORY: Short of breath TECHNIQUE: Frontal and lateral views of the chest are obtained. FINDINGS: Heart is enlarged. There is pulmonary vascular congestion. There is a left axillary pacema ker. There are sternal wires. There is blunting of costophrenic angles. IMPRESSION: Congestive heart failure. Interstitial fibrosis is possible. No change compared to last exam.
[2019-04-09] MEDS ORDERED: IPRATROPIUM-ALBUTEROL 3 ML NEB INHALATION PRN (19:44)
[2019-04-09] MEDS: SODIUM CHLORIDE 0.9% 1,000 ML IV SCH (21:25)
[2019-04-09] MEDS ORDERED: NITROGLYCERIN SL TABS 0.4 MG TAB SUBLINGUAL PRN (22:45)
[2019-04-09] MEDS ORDERED: ALBUTEROL NEBULIZED 2.5 MG/3 ML INHALATION PRN (22:45)
[2019-04-09] MEDS: MONTELUKAST 10 MG TAB PO SCH (23:16)
[2019-04-09] MEDS: ATORVASTATIN 80 MG TAB PO SCH (23:16)
[2019-04-09] MEDS: PREGABALIN 75 MG CAP PO SCH (23:16)
[2019-04-09] MEDS: SACUBITRIL/VALSARTAN 24 MG-26 MG TABLET PO SCH (23:17)
[2019-04-09] MEDS: VENLAFAXINE HCL 75 MG TAB PO SCH (23:17)
[2019-04-10] MEDS ORDERED: VANCOMYCIN 1,750 MG in SODIUM CHLORIDE 0.9% 500 ML 500 ML IVPB SCH (05:00)
[2019-04-10] MEDS: BUDESONIDE 0.5 MG/2 ML NEBU INHALATION PRN (08:06)
[2019-04-10] MEDS: IPRATROPIUM-ALBUTEROL 3 ML NEB INHALATION SCH ×4 (08:06→20:06)
[2019-04-10] MEDS: METOPROLOL SUCCINATE (ER) 100 MG TAB.ER.24H PO SCH (08:07)
[2019-04-10] MEDS: PREGABALIN 75 MG CAP PO SCH ×2 (08:07→23:12)
[2019-04-10] MEDS: ISOSORBIDE MONONITRATE ER 60 MG TAB.ER.24H PO SCH (08:08)
[2019-04-10] MEDS: ASPIRIN 81 MG PO SCH (08:08)
[2019-04-10 08:09] LABS: Glucose,Whole Blood 205 mg/dL (75-99)
[2019-04-10] MEDS: SPIRONOLACTONE 25 MG TAB PO SCH (08:11)
[2019-04-10] MEDS: INSULIN ASPART (NovoLOG) 100 UNIT/ML VIAL SQ SCH ×4 (08:18→23:12)
[2019-04-10] MEDS: SACUBITRIL/VALSARTAN 24 MG-26 MG TABLET PO SCH (08:52)
[2019-04-10] MEDS: RIVAROXABAN 20 MG TAB PO SCH (08:52)
[2019-04-10] MEDS: SODIUM CHLORIDE 0.9% 1,000 ML IV SCH (08:53)
[2019-04-10] MEDS ORDERED: FUROSEMIDE 10 MG/ML 2 ML VIAL IV SCH ×2 (09:00→21:00)
[2019-04-10 11:53] LABS: Glucose,Whole Blood 216 mg/dL (75-99)
--- NOTE | 2019-04-10 14:37 | CONS ---
CONSULTATION Mr. Saha is a 73-year-old gentleman who is seen for cardiac evaluations. Patient's medical records reviewed. This patient has a known history of coronary artery disease with a prior history of coronary artery bypass surgery, multiple atrial stent placement, history of atrial fibrillation and AICD. Patient recently had an upgrade of the AICD and a Bi V ventricular pacemaker was inserted because of the recurrent episodes of congestive cardiac failure. After discharge from the hospital, patient again came with a shortness of breath with some shortness of breath. He has been having some cough with mild expectoration. Denied any fever or chills. The patient's oxygen saturation was 83% on the 2 L home oxygen. Patient has a history of chronic hypoxia and has been followed by Pulmonary. Patient denies any significant leg swelling. Denies any chest pain. PATIENT'S HOME MEDICATIONS INCLUDED: Isosorbide 60 mg daily, Effexor 75 mg daily, Pulmicort, Jardiance, Lyrica, Aldactone 25 mg daily, Lipitor, Lasix 40 mg b.i.d. PAST MEDICAL HISTORY: Includes a history of chronic atrial fibrillation, history of COPD, diabetes, possible pulmonary fibrosis, coronary artery bypass surgery and valve repair, history of AICD. PHYSICAL EXAMINATION: In the emergency room basically revealed initially blood pressure in the range of 80- 90, and oxygen saturation was 81% . Patient at present is comfortable. He is not in any acute respiratory distress. The oxygen saturation is 92%. Heart rate is 80 per minute. Respirations are not labored. Blood pressure is 113/73 mmHg. HEENT: Examination is negative. Neck is supple. Jugular venous pressure is elevated. Chest is symmetrical. Heart, the PMI is not felt. First and second heart sounds are normal. There is a few basal rales noted. Abdomen is negative. Extremities, there is no evidence of any significant leg edema. Patient's hemoglobin is 15.7, electrolytes are normal, creatinine is 0.58. ProBNP level is 2380. Calcitonin level was 0.05. Chest x-ray shows congestive heart failure with possible interstitial pulmonary fibrosis. FINAL IMPRESSION: This patient is admitted with shortness of breath which is probably cough due to the combination of underlying congestive heart failure as well as interstitial pulmonary fibrosis cannot be entirely excluded. There is no significant change in the chest x- ray as compared to before. Patient's BNP is a mildly elevated. Patient does have evidence of elevated jugular venous pressure. RECOMMENDATIONS: We will increase the dose of Lasix to 40 mg IV b.i.d. and noncontrast CT of the chest would be obtained to assess the pulmonary fibrosis and await the pulmonary consultation. . JOSEFINA / MILAGROS: [id number] /
--- NOTE | 2019-04-10 15:44 | P.CNPUL ---
History of Present Illness Consult date: 04/10/19 Reason for consult: dyspnea, cough, COPD, hypoxemia, pleural effusion, o bstructive sleep apnea Chief complaint: Shortness of breath and pleural effusion History of present illness: 73-year-old male with history of previous quadruple bypass, multiple stent placement, atrial fibrillation, congestive heart failure, COPD presenting today for chief complaint of shortness of breath. Patient states since his discharge on 04/01/2019 he has had shortness of breath. He states at that time he had surgery to replace a pacemaker/defibrillator. Patient states also since that time he has had a headache in the posterior aspect of his head. He states he has no vomiting nausea dizziness he is not sure if this headache he is unable to describe well the characteristic nor type of pain that is. Patient denies any weakness of the upper or lower extremities. Denies any speech changes. Family states patient is at baseline, noting no neurological symptoms. Patient denies any fevers patient has a chest pain. Patient denies any thoracic back pain. Patient denies any abdominal pain other extremity pain jaw pain or paresthesias. Patient has a cough. Patient states he has chronic hemoptysis. Patient denies any lower extremity swelling. Remaining ROS (-). Upon arrival pt hypoxic at 83% on RA, pt normally on 2L of home oxygen for chronic hypoxia. Patient has been started on IV furosemide with that shortness breath is better but stable and improved patient is for CAT scan later on today by cardiology to assess pulm onary fibrosis Review of Systems All systems: negative Past Medical History Past Medical History: Atrial Fibrillation, Coronary Artery Disease (CAD), Chest Pain / Angina, Heart Failure, COPD, Diabetes Mellitus, Hyperlipidemia, Hypertension, Osteoarthritis (OA), Pneumonia, Skin Disorder, Sleep Apnea/CPAP/BIPAP, Thyroid Disorder, Vascular Disorder Additional Past Medical History / Comment(s): Psoriasis, neuropathy RT HAND and LEFT FOOT, poor circulation left leg, gout, thyroid nodule, hx ingrown toenails zac great toes, uses O2 PRN. left leg iliac stent due to poor circulation 12/25/2017. See Dr. Khalil's H&P. Does not use his CPAP but states he would like to start using it again. History of Any Multi-Drug Resistant Organisms: MRSA Date of last positivie culture/infection: 2011 MDRO Source:: chest incision Past Surgical History: AICD, Back Surgery, Coronary Bypass/CABG, Heart Cathete rization With Stent Additional Past Surgical History / Comment(s): 3 CARDIAC STENTS, quad bypass and heart valve repair 2011, Lt Fempop (1 stent placed). See Dr. Khalil's H&P. Patient @ [facility] a few weeks ago for a procedure with Dr. Shi. Past Anesthesia/Blood Transfusion Reactions: No Reported Reaction Date of Last Stent Placement:: 12/25/2017 Type of Cardiac Device: AICD Device Placement Date:: 2012 Past Psychological History: Depression, PTSD Additional Psychological History / Comment(s): Pt lives with daughter. has home 02, nebulizer, C-PAP machine. Smoking Status: Unknown if ever smoked Past Alcohol Use History: Rare Additional Past Alcohol Use History / Comment(s): QUIT SMOKING 2011, SMOKED 1 AND 1/2 PPD FOR 50 YRS Past Drug Use History: None Reported - Past Family History Father Family Medical History: Congestive Heart Failure (CHF), Coronary Artery Disease (CAD), Diabetes Mellitus, Myocardial Infarction (SD) Additional Family Medical History / Comment(s): MAC DEGENERATION, CABG Mother Family Medical History: No Reported History Medications and Allergies Home Medications Medication Instructions Recorded Confirmed Type Venlafaxine HCl [Effexor] 75 mg PO HS 06/15/14 04/09/19 History Isosorbide Mononitrate ER [Imdur] 60 mg PO DAILY 02/21/16 04/09/19 History Nitroglycerin Sl Tabs [Nitrostat] 0.4 mg SUBLINGUAL Q5M PRN #25 tab 02/24/16 04/09/19 Rx Albuterol Inhaler [Ventolin Hfa 2 puff INHALATION RT-Q6H PRN 07/18/16 04/09/19 History Inhaler] Budesonide [Pulmicort] 0.5 mg INHALATION RT-BID PRN 07/10/17 04/09/19 History Empagliflozin [Jardiance] 10 mg PO DAILY 07/10/17 04/09/19 History Montelukast Sodium [Singulair] 10 mg PO HS 07/10/17 04/09/19 History Pregabalin [Lyrica] 75 mg PO BID 12/24/17 04/09/19 History Ipratropium-Albuterol Nebulize 3 ml INHALATION RT-QID 04/10/18 04/09/19 History [Duoneb 0.5 mg-3 mg/3 ml Soln] Spironolactone [Aldactone] 25 mg PO DAILY 04/10/18 04/09/19 History metFORMIN HCL 1,000 mg PO BID 09/11/18 04/09/19 History Atorvastatin [Lipitor] 80 mg PO HS 01/20/19 04/09/19 History Furosemide [Lasix] 40 mg PO BID 01/20/19 04/09/19 History Sacubitril/Valsartan [Entresto 24 1 tab PO BID 03/01/19 04/09/19 History mg-26 mg Tablet] Aspirin 81 mg PO DAILY 03/13/19 04/09/19 History Rivaroxaban [Xarelto] 20 mg PO DAILY 03/17/19 04/09/19 History Ferrous Sulfate [Iron] 325 mg PO DAILY 03/31/19 04/09/19 History Metoprolol Succinate (ER) [Toprol 100 mg PO DAILY #90 tab 03/31/19 04/09/19 Rx XL] Allergies Allergy/AdvReac Type Severity Reaction Status Date / Time No Known Allergies Allergy Verified 04/09/19 20:22 Physical Exam Vitals: Vital Signs Temp Pulse Pulse Resp BP BP Pulse Ox 04/10/19 15:00 97.6 F 70 18 96/58 90 L 04/10/19 11:42 80 04/10/19 11:31 76 04/10/19 08:35 92 L 04/10/19 08:22 84 04/10/19 08:10 80 04/10/19 07:00 97.6 F 70 20 113/73 92 L 04/09/19 22:00 97.7 F 80 21 108/73 94 L 04/09/19 21:00 98.4 F 80 20 112/80 95 04/09/19 20:56 74 04/09/19 20:30 72 20 117/77 97 04/09/19 20:20 69 04/09/19 20:00 70 20 110/77 94 L 04/09/19 19:30 76 23 90/69 95 04/09/19 19:00 96/47 04/09/19 18:30 71 25 H 91/65 96 04/09/19 18:15 72 04/09/19 18:00 79 20 91/65 99 06/27/19 17:40 24 04/09/19 16:54 98.1 F 77 18 77/56 83 L Intake and Output 04/10/19 04/10/19 04/10/19 06:59 14:59 22:59 Intake Total 236 Output Total 700 330 Balance -700 -94 Intake: Oral 236 Output: Urine 700 330 Other: Voiding Method Urinal # Voids 1 1 Weight 110 kg - Constitutional General appearance: disheveled, mild distress, morbidly obese - EENT Eyes: PERRLA ENT: hearing grossly normal, normal oropharynx Ears: bilateral: normal - Neck Carotids: bilateral: upstroke normal Thyroid: bilateral: normal size - Respiratory Respiratory: bilateral: diminished, rales, negative: CTA, dullness, rhonchi, wheezing - Cardiovascular Rhythm: regular Heart sounds: normal: S1, S2 - Gastrointestinal General gastrointestinal: normal bowel sounds, soft - Integumentary Integumentary: normal - Neurologic Neurologic: CNII-XII intact - Musculoskeletal Musculoskeletal: gait normal, generalized weakness, strength equal bilaterally - Psychiatric Psychiatric: A&O x's 3, appropriate affect, intact judgment & insight Results - Laboratory Findings CBC and BMP: 04/09/19 17:40 04/09/19 17:40 PT/INR, D-dimer PT 16.6 sec (9.0-12.0) H 04/09/19 17:40 INR 1.7 (<1.2) H 04/09/19 17:40 Abnormal lab findings: Abnormal Labs 04/09/19 04/09/19 04/09/19 17:40 17:40 17:40 WBC 11.9 H MCHC 29.9 L RDW 15.7 H Plt Count 482 H Neutrophils # 10.0 H Lymphocytes # 0.7 L PT 16.6 H INR 1.7 H APTT 33.0 H Carbon Dioxide 31 H Creatinine 0.58 L Glucose 142 H POC Glucose (mg/dL) ALT <6 L 04/10/19 04/10/19 08:04 11:41 WBC MCHC RDW Plt Count Neutrophils # Lymphocytes # PT INR APTT Carbon Dioxide Creatinine Glucose POC Glucose (mg/dL) 205 H 216 H ALT - Diagnostic Findings Chest x-ray: report reviewed, image reviewed (Finding as noted above) Assessment and Plan Assessment: Congestive heart failure acute on chronic systolic heart failure Pulmonary fibrosis Chronic atrial fibrillation Obstructive sleep apnea Morbid obesity Coronary artery disease Diabetes mellitus Dyslipidemia Peripheral arterial disease Plan: Gentle diuresis Bronchodilator Continue anticoagulation Deep breathing sense incentive spirometry Need to bring his CPAP machine from home and to started over here Agree with computed tomography scan of the chest but findings are more failure of chronic heart failure further recommendations pending plan of care as per clinical response of the patient Time with Patient: Greater than 30
--- NOTE | 2019-04-10 15:47 | P.HPIM ---
History of Present Illness H&P Date: 04/10/19 Chief Complaint: Shortness of breath Patient is a 73-year-old male with a known history of COPD on home oxygen, coronary artery disease, CABG, cardiac catheterization with stent placement, history of AICD placement, atrial fibrillation came to ER with complaints of worsening shortness of breath. Patient was recently discharged from the hospital on 04/01/2019. Patient did have AICD upgrade at the time. Patient has been having worsening shortness of breath since discharge. Denied any chest pain uptight. Patient does have history of COPD on home oxygen at 2 L nausea cannula. Patient was hypoxic at 82% on room air. Denied any nausea vomiting abdominal pain. No leg swelling. Patient does have cough without much sputum production. Patient was also complaining of headache in the occipital area. Denied any weakness. No dizziness or lightheadedness. CT head showed cerebral atrophy. No acute intracranial abnormality noted. Chest x-ray showed congestive heart failure. Interstitial fibrosis is possible. No changes compared to previous exam. BNP 2380, pro calcitonin level is not elevated 0.05 WBC 11.9, creatinine 0.58 Troponin 1 negative. Patient was given a dose of antibiotics in the form of vancomycin and azithromycin in the ER. Review of Systems Constitutional: Patient denies any fever or chills . No generalized weakness or weight loss. Abdomen: Patient denied nausea vomiting and diarrhea and abdominal pain. Cardiovascular: Patient denies any chest pain. Patient does have short of breath no palpitations. No leg swelling Respiratory: Cough without sputum production. Positive shortness of breath Neurologic: Patient denied any numbness or tingling. Patient does have headache. No weakness Musculoskeletal: Patient denies any complaints of joint swelling or deformity. Skin: Negative Psychiatric: Negative Endocrine: No heat or cold intolerance. No recent weight gain. Genitourinary: No dysuria or hematuria. All other 14 point ROS negative except the above Past Medical History Past Medical History: Atrial Fibrillation, Coronary Artery Disease (CAD), Chest Pain / Angina, Heart Failure, COPD, Diabetes Mellitus, Hyperlipidemia, Hyperten judy, Osteoarthritis (OA), Pneumonia, Skin Disorder, Sleep Apnea/CPAP/BIPAP, Thyroid Disorder, Vascular Disorder Additional Past Medical History / Comment(s): Psoriasis, neuropathy RT HAND and LEFT FOOT, poor circulation left leg, gout, thyroid nodule, hx ingrown toenails zac great toes, uses O2 PRN. left leg iliac stent due to poor circulation 12/25/2017. See Dr. Khalil's H&P. Does not use his CPAP but states he would like to start using it again. History of Any Multi-Drug Resistant Organisms: MRSA Date of last positivie culture/infection: 2011 MDRO Source:: chest incision Past Surgical History: AICD, Back Surgery, Coronary Bypass/CABG, Heart Catheterization With Stent Additional Past Surgical History / Comment(s): 3 CARDIAC STENTS, quad bypass and heart valve repair 2011, Lt Fempop (1 stent placed). See Dr. Khalil's H&P. Patient @ [facility] a few weeks ago for a procedure with Dr. Shi. Past Anesthesia/Blood Transfusion Reactions: No Reported Reaction Date of Last Stent Placement:: 12/25/2017 Type of Cardiac Device: AICD Device Placement Date:: 2012 Past Psychological History: Depression, PTSD Additional Psychological History / Comment(s): Pt lives with daughter. has home 02, nebulizer, C-PAP machine. Smoking Status: Unknown if ever smoked Past Alcohol Use History: Rare Additional Past Alcohol Use History / Comment(s): QUIT SMOKING 2011, SMOKED 1 AND 1/2 PPD FOR 50 YRS Past Drug Use History: None Reported - Past Family History Father Family Medical History: Congestive Heart Failure (CHF), Coronary Artery Disease (CAD), Diabetes Mellitus, Myocardial Infarction (ID) Additional Family Medical History / Comment(s): MAC DEGENERATION, CABG Mother Family Medical History: No Reported History Medications and Allergies Home Medications Medication Instructions Recorded Confirmed Type Venlafaxine HCl [Effexor] 75 mg PO HS 06/15/14 04/09/19 History Isosorbide Mononitrate ER [Imdur] 60 mg PO DAILY 02/21/16 04/09/19 History Nitroglycerin Sl Tabs [Nitrostat] 0.4 mg SUBLINGUAL Q5M PRN #25 tab 02/24/16 04/09/19 Rx Albuterol Inhaler [Ventolin Hfa 2 puff INHALATION RT-Q6H PRN 07/18/16 04/09/19 History Inhaler] Budesonide [Pulmicort] 0.5 mg INHALATION RT-BID PRN 07/10/17 04/09/19 History Empagliflozin [Jardiance] 10 mg PO DAILY 07/10/17 04/09/19 History Montelukast Sodium [Singulair] 10 mg PO HS 07/10/17 04/09/19 History Pregabalin [Lyrica] 75 mg PO BID 12/24/17 04/09/19 History Ipratropium-Albuterol Nebulize 3 ml INHALATION RT-QID 04/10/18 04/09/19 History [Duoneb 0.5 mg-3 mg/3 ml Soln] Spironolactone [Aldactone] 25 mg PO DAILY 04/10/18 04/09/19 History metFORMIN HCL 1,000 mg PO BID 09/11/18 04/09/19 History Atorvastatin [Lipitor] 80 mg PO HS 01/20/19 04/09/19 History Furosemide [Lasix] 40 mg PO BID 01/20/19 04/09/19 History Sacubitril/Valsartan [Entresto 24 1 tab PO BID 03/01/19 04/09/19 History mg-26 mg Tablet] Aspirin 81 mg PO DAILY 03/13/19 04/09/19 History Rivaroxaban [Xarelto] 20 mg PO DAILY 03/17/19 04/09/19 History Ferrous Sulfate [Iron] 325 mg PO DAILY 03/31/19 04/09/19 History Metoprolol Succinate (ER) [Toprol 100 mg PO DAILY #90 tab 03/31/19 04/09/19 Rx XL] Allergies Allergy/AdvReac Type Severity Reaction Status Date / Time No Known Allergies Allergy Verified 04/09/19 20:22 Physical Exam Vitals: Vital Signs Temp Pulse Pulse Resp BP BP Pulse Ox 04/10/19 11:42 80 04/10/19 11:31 76 04/10/19 08:35 92 L 04/10/19 08:22 84 04/10/19 08:10 80 04/10/19 07:00 97.6 F 70 20 113/73 92 L 04/09/19 22:00 97.7 F 80 21 108/73 94 L 04/09/19 21:00 98.4 F 80 20 112/80 95 04/09/19 20:56 74 04/09/19 20:30 72 20 117/77 97 04/09/19 20:20 69 04/09/19 20:00 70 20 110/77 94 L 04/09/19 19:30 76 23 90/69 95 04/09/19 19:00 96/47 04/09/19 18:30 71 25 H 91/65 96 04/09/19 18:15 72 04/09/19 18:00 79 20 91/65 99 04/09/19 17:40 24 04/09/19 16:54 98.1 F 77 18 77/56 83 L Intake and Output 04/09/19 04/10/19 04/10/19 22:59 06:59 14:59 Intake Total 236 Output Total 700 330 Balance -700 -94 Intake: Oral 236 Output: Urine 700 330 Other: Voiding Method Urinal # Voids 1 1 1 Weight 106.141 kg 110 kg PHYSICAL EXAMINATION: Patient is lying in the bed comfortably, no acute distress, awake alert and oriented.. HEENT: Normocephalic. Neck is supple. Pupils reactive. Nostrils clear. Oral cavity is moist. Ears reveal no drainage. Neck reveals no JVD, carotid bruits, or thyromegaly. CHEST EXAMINATION: Trachea is central. Symmetrical expansion. Bibasilar diminished air entry and scattered crackles. CARDIAC: Normal S1, S2 with no gallops. No murmurs ABDOMEN: Soft. Bowel sounds normal. No organomegaly. No abdominal bruits. Extremities: reveal no edema. No clubbing or cyanosis Neurologically awake, alert, oriented x3 with well-coordinated movements. No focal deficits noted Skin: No rash or skin lesions. Psychiatric: Coperative. Nonsuicidal Musculoskeletal: No joint swelling or deformity. Normal range of motion. Results CBC & Chem 7: 04/09/19 17:40 04/09/19 17:40 Labs: Abnormal Lab Results - Last 24 Hours (Table) 04/09/19 04/09/19 04/09/19 Range/Units 17:40 17:40 17:40 WBC 11.9 H (3.8-10.6) k/uL MCHC 29.9 L (31.0-37.0) g/dL RDW 15.7 H (11.5-15.5) % Plt Count 482 H (150-450) k/uL Neutrophils # 10.0 H (1.3-7.7) k/uL Lymphocytes # 0.7 L (1.0-4.8) k/uL PT 16.6 H (9.0-12.0) sec INR 1.7 H (<1.2) APTT 33.0 H (22.0-30.0) sec Carbon Dioxide 31 H (22-30) mmol/L Creatinine 0.58 L (0.66-1.25) mg/dL Glucose 142 H (74-99) mg/dL POC Glucose (mg/dL) (75-99) mg/dL ALT <6 L (21-72) U/L 04/10/19 04/10/19 Range/Units 08:04 11:41 WBC (3.8-10.6) k/uL MCHC (31.0-37.0) g/dL RDW (11.5-15.5) % Plt Count (150-450) k/uL Neutrophils # (1.3-7.7) k/uL Lymphocytes # (1.0-4.8) k/uL PT (9.0-12.0) sec INR (<1.2) APTT (22.0-30.0) sec Carbon Dioxide (22-30) mmol/L Creatinine (0.66-1.25) mg/dL Glucose (74-99) mg/dL POC Glucose (mg/dL) 205 H 216 H (75-99) mg/dL ALT (21-72) U/L Thrombosis Risk Factor Assmnt - DVT/VTE Prophylaxis DVT/VTE Prophylaxis: Pharmacologic Prophylaxis ordered - Choose All That Apply Each Factor Represents 1 point: Abnormal pulmonary function (COPD), Obesity (BMI >25) Each Risk Factor Represents 2 Points: Age 61-74 years Thrombosis Risk Factor Assessment Total Risk Factor Score: 4 Thrombosis Risk Factor Assessment Level: Moderate Risk Assessment and Plan Assessment: Acute on chronic CHF with systolic dysfunction ejection fraction 30-35% Persistent atrial fibrillation with recent AICD upgrade. On anticoagulation with xarelto COPD/ Pulmonary fibrosis on home oxygen at 2 L. No history of previous smoking History of coronary disease status post four-vessel CABG and history of stent placement. Diabetes type 2 [id number] Hypertension Hyperlipidemia Hypothyroidism Obstructive sleep apnea on CPAP. Not using at this time. Bilateral peripheral neuropathy diabetic Peripheral vascular disease with history of left leg iliac stent in 2018 Depression/PTSD Plan: Patient is 73-year-old male with no history of CHF admitted to the hospital with worsening shortness of breath due to acute CHF. Unlikely pneumonia at this time. We will discontinue antibiotics. Pro-calcitonin level is not elevated. Patient will be continued on IV Lasix. Continue with metoprolol and follow closely Continue with breathing treatments with duo nebs and Pulmicort. Cardiology and pulmonary was consulted. Further recommendations based on the clinical course. Prognosis is guarded. Time with Patient: Greater than 30
[2019-04-10 16:27] LABS: Glucose,Whole Blood 155 mg/dL (75-99)
[2019-04-10 20:42] LABS: Glucose,Whole Blood 138 mg/dL (75-99)
[2019-04-10] MEDS: ATORVASTATIN 80 MG TAB PO SCH (23:11)
[2019-04-10] MEDS: MONTELUKAST 10 MG TAB PO SCH (23:11)
[2019-04-10] MEDS: VENLAFAXINE HCL 75 MG TAB PO SCH (23:12)
--- NOTE | 2019-04-10 23:16 | CT ---
EXAMINATION TYPE: CT chest wo con DATE OF EXAM: 04/10/2019 COMPARISON: 11/04/2017 HISTORY: Dyspnea CT DLP: 592.9 mGycm. Automated Exposure Control for Dose Reduction was Utilized. TECHNIQUE: CT scan of the thorax is performed without IV contrast. FINDINGS: AIRWAYS: Unremarkable. LUNGS: There is a baseline [id number] chronic interstitial lung disease coarse reticulation thr oughout the lungs bilaterally. However, new since the prior study is a striking pattern of complete groundglass opacification of th e left lung parenchyma, with a few small areas of partial consolidation. This groundglass opacificati on involves a small component of the right lung parenchyma. In the right lower lobe posterolaterally is the redemonstrated candidate for rounded atelectasis. PLEURAL SPACES: Small left pleural effusion dependently, scant right pleural effusion. MEDIASTINUM: Lack of IV contrast is noted to limit evaluation for mediastinal and especially hilar ad enopathy. There are no definitive greater than 1 cm hilar or mediastinal lymph nodes. No cardiomega ly or pericardial effusion is seen. Moderate marked cardiomegaly, without pericardial effusion. SKELETAL STRUCTURES: No focal findings. OTHER: No additional significant abnormality is seen. IMPRESSION: Complete groundglass opacification of the left lung parenchyma, with some involvement on the right, consistent with infectious/inflammatory etiology.
[2019-04-10 23:17] LABS: Glucose,Whole Blood 141 mg/dL (75-99)
[2019-04-11] MEDS: FUROSEMIDE 10 MG/ML 4 ML VIAL IV SCH ×3 (00:36→21:03)
[2019-04-11] MEDS: SACUBITRIL/VALSARTAN 24 MG-26 MG TABLET PO SCH ×3 (00:36→21:04)
[2019-04-11 04:06] LABS: African American GFR (CKD) >90 (>60 ml/min/1.73 sqM); Anion Gap 9 mmol/L; Blood Urea Nitrogen 23 mg/dL (9-20); Calcium 8.9 mg/dL (8.4-10.2); Carbon Dioxide 28 mmol/L (22-30); Chloride 99 mmol/L (98-107); Glucose 95 mg/dL (74-99); Potassium 4.2 mmol/L (3.5-5.1); Sodium 136 mmol/L (137-145)
[2019-04-11 07:01] LABS: Glucose,Whole Blood 107 mg/dL (75-99)
[2019-04-11] MEDS: ASPIRIN 81 MG PO SCH (08:01)
[2019-04-11] MEDS: SPIRONOLACTONE 25 MG TAB PO SCH (08:01)
[2019-04-11] MEDS: PREGABALIN 75 MG CAP PO SCH ×2 (08:01→21:04)
[2019-04-11] MEDS: INSULIN ASPART (NovoLOG) 100 UNIT/ML VIAL SQ SCH ×4 (08:01→21:03)
[2019-04-11] MEDS: ISOSORBIDE MONONITRATE ER 60 MG TAB.ER.24H PO SCH (08:01)
[2019-04-11] MEDS: METOPROLOL SUCCINATE (ER) 100 MG TAB.ER.24H PO SCH (08:02)
[2019-04-11] MEDS: RIVAROXABAN 20 MG TAB PO SCH (08:02)
[2019-04-11] MEDS: IPRATROPIUM-ALBUTEROL 3 ML NEB INHALATION SCH ×5 (08:26→21:10)
[2019-04-11] MEDS: BUDESONIDE 0.5 MG/2 ML NEBU INHALATION PRN ×2 (08:39→21:10)
[2019-04-11 11:41] LABS: Glucose,Whole Blood 184 mg/dL (75-99)
--- NOTE | 2019-04-11 13:03 | P.PN ---
Subjective Progress Note Date: 04/11/19 This is a 73-year-old male patient with past medical history of coronary artery disease with prior corner artery bypass graft, multiple stent placement, atrial fibrillation and AICD. Patient had a recent upgrade of AICD and 5V ventricular pacemaker due to recurrent episodes of congestive heart failure. Patient was discharged from the hospital but returned with complaints of shortness of breath along with cough and mild expectoration. No fever no chills. Pulse ox was 83% on 2 L at home oxygen. Patient has a history of chronic hypoxic respiratory failure on home O2. No significant leg edema. The patient was seen yesterday and Lasix was increased to 40 mg IV twice daily. Patient states he has been diuresing well. His shortness of breath is slightly improved. He is noted to have increase in his weight which may not be accurate. Patient states at home he has had no appetite and has been losing weight but appetite is improved here. Patient is undergone a CAT scan of the chest that showed complete groundglass opacification of the left lung with some involvement of the right consistent with infectious or inflammatory etiology. Repeat lab work reveals BUN of 23 and creatinine 0.65. Review Of Systems: Constitutional: No fever, no chills, no night sweats. No weight change. Reports weakness, fatigue or lethargy. No daytime sleepiness. EENT: No headache. No blurred vision or double vision, no loss of vision. No loss of Hearing, no ringing in the ears, no dizziness. No nasal drainage or congestion. No epistaxis. No sore throat. Lungs: Reports shortness of breath, cough, no sputum production. Cardiovascular: No chest pain, no lower extremity edema. No palpitations. No paroxysmal nocturnal dyspnea. No orthopnea. No lightheadedness or dizziness. No syncopal episodes. Abdominal: No abdominal pain. No nausea, vomiting. No diarrhea. No constipation. No bloody or tarry stools.. No loss of appetite. Genitourinary: No dysuria, increased frequency, urgency. No urinary retention. Musculoskeletal: No myalgias. No muscle weakness, no gait dysfunction, no frequent falls. No back pain. No neck pain. Integumentary: No wounds, no lesions. No rash or pruritus. No unusual bruising. No change in hair or nails. Neurologic: No aphasia. No facial droop. No change in mentation. No head injury. No headache. No paralysis. No paresthesia. Psychiatric: No depression. No anxiety. No mood swings. Endocrine: No abnormal blood sugars. No weight change. No excessive sweating or thirst. No cold intolerance. No weight change. Physical exam: Gen: This is a 73-year-old male. He is resting comfortably in bed. Appears in no acute distress. HEENT: Head is atraumatic, normocephalic. Pupils equal, round. Sclerae is anicteric. NECK: Supple. No JVD. No lymphadenopathy. No thyromegaly. LUNGS: Fine crackles noted to the entire left lung field and slightly to the right lung field. No intercostal retractions. HEART: Regular rate and rhythm. No murmur. ABDOMEN: Soft. Bowel sounds are present. No masses. No tenderness. EXTREMITIES: No pedal edema. No calf tenderness. Dorsalis pedis +2 bilaterally. NEUROLOGICAL: Patient is awake, alert and oriented x3. Cranial nerves 2 through 12 are grossly intact. Assessment: Acute on chronic hypoxic respiratory failure most likely secondary to combination of underlying acute on chronic systolic heart failure and in terstitial pulmonary fibrosis. CT supports inflammatory probable interstitial pulmonary fibrosis. History of coronary artery disease status post coronary artery bypass grafting and stent placement. History of atrial fibrillation status post AICD and biventricular pacemaker upgrade. Diabetes mellitus type 2. Plan: Continue Lasix 40 mg IV twice daily, Aldactone 25 mg daily. Continue Imdur 60 mg daily, Lipitor 80 mg daily, Xarelto 20 g daily and Entresto 24 mg/26 mg twice daily. Monitor GHAZALA and daily weights. Monitor electrolytes and renal function. Nurse practitioner note has been reviewed, I agree with documented findings and plan of care. Patient was seen and examined. Objective - Vital Signs Vital signs: Vital Signs Temp 97.8 F 04/11/19 07:32 Pulse 72 04/11/19 09:01 Resp 20 04/11/19 07:32 BP 116/77 04/11/19 07:32 Pulse Ox 92 L 04/11/19 07:32 Intake & Output 04/10/19 04/11/19 04/11/19 18:59 06:59 18:59 Intake Total 716 240 Output Total 530 500 Balance 186 -500 240 Weight 111.2 kg Intake: Oral 716 240 Output: Urine 530 500 Other: Voiding Method Urinal # Voids 1 - Labs CBC & Chem 7: 04/09/19 17:40 04/11/19 03:33 Labs: Abnormal Lab Results - Last 24 Hours (Table) 04/10/19 04/10/19 04/10/19 Range/Units 11:41 16:25 20:30 Sodium (137-145) mmol/L BUN (9-20) mg/dL Creatinine (0.66-1.25) mg/dL POC Glucose (mg/dL) 216 H 155 H 138 H (75-99) mg/dL 04/10/19 04/11/19 04/11/19 Range/Units 23:04 03:33 06:59 Sodium 136 L (137-145) mmol/L BUN 23 H (9-20) mg/dL Creatinine 0.65 L (0.66-1.25) mg/dL POC Glucose (mg/dL) 141 H 107 H (75-99) mg/dL Microbiology - Last 24 Hours (Table) 04/09/19 19:48 Blood Culture - Preliminary Blood No Growth after 24 hours
[2019-04-11 17:12] LABS: Glucose,Whole Blood 131 mg/dL (75-99)
[2019-04-11 20:31] LABS: Glucose,Whole Blood 165 mg/dL (75-99)
[2019-04-11] MEDS: ATORVASTATIN 80 MG TAB PO SCH (21:03)
[2019-04-11] MEDS: MONTELUKAST 10 MG TAB PO SCH (21:03)
[2019-04-11] MEDS: VENLAFAXINE HCL 75 MG TAB PO SCH (21:04)
--- NOTE | 2019-04-11 21:09 | P.PN ---
Subjective Progress Note Date: 04/11/19 Principal diagnosis: Acute exacerbation of congestive heart failure acute on chronic systolic heart failure, pulmonary fibrosis, chronic atrial fibrillation, obstructive sleep apnea, morbid obesity, coronary artery disease, diabetes mellitus, dyslipidemia, Arterial disease 04/11/2019, patient seen and evaluated examined during the rounds his cuff congestion shortness breath is significantly improved he has some streaks of blood on coughing he is on anticoagulants as well likely related to inflammation in the lung, computed tomography scan of the chest has been reviewed right lower lobe base rounded atelectasis have been noted, interstitial prominence is noted on the left upper lobe predominantly very atypical for IPF may be related to infiltrative process due to hemoptysis and pulmonary hemorrhage will discuss with cardiology if anticoagulation can be stopped for a short while with further recommendations pending, may need to do a bronchoscopy 73-year-old male with history of previous quadruple bypass, multiple stent placement, atrial fibrillation, congestive heart failure, COPD presenting today for chief complaint of shortness of breath. Patient states since his discharge on 04/01/2019 he has had shortness of breath. He states at that time he had surgery to replace a pacemaker/defibrillator. Patient states also since that time he has had a headache in the posterior aspect of his head. He states he has no vomiting nausea dizziness he is not sure if this headache he is unable to describe well the characteristic nor type of pain that is. Patient denies any weakness of the upper or lower extremities. Denies any speech changes. Family states patient is at baseline, noting no neurological symptoms. Patient denies any fevers patient has a chest pain. Patient denies any thoracic back pain. Patient denies any abdominal pain other extremity pain jaw pain or paresthesias. Patient has a cough. Patient states he has chronic hemoptysis. Patient denies any lower extremity swelling. Remaining ROS (-). Upon arrival pt hypoxic at 83% on RA, pt normally on 2L of home oxygen for chronic hypoxia. Patient has been started on IV furosemide with that shortness breath is better but stable and improved patient is for CAT scan later on today by cardiology to assess pulmonary fibrosis Objective - Vital Signs Vital signs: Vital Signs Temp 98.0 F 04/11/19 19:57 Pulse 75 04/11/19 19:57 Resp 18 04/11/19 19:57 BP 102/59 04/11/19 19:57 Pulse Ox 92 L 04/11/19 19:57 Intake & Output 04/11/19 04/11/19 04/12/19 06:59 18:59 06:59 Intake Total 720 Output Total 500 650 Balance -500 70 Weight 111.2 kg Intake: Oral 720 Output: Urine 500 650 Other: Voiding Method Urinal Urinal - Exam Constitutional General appearance: disheveled, mild distress, morbidly obese - EENT Eyes: PERRLA ENT: hearing grossly normal, normal oropharynx Ears: bilateral: normal - Neck Carotids: bilateral: upstroke normal Thyroid: bilateral: normal size - Respiratory Respiratory: bilateral: diminished, rales, negative: CTA, dullness, rhonchi, wheezing - Cardiovascular Rhythm: regular Heart sounds: normal: S1, S2 - Gastrointestinal General gastrointestinal: normal bowel sounds, soft - Integumentary Integumentary: normal - Neurologic Neurologic: CNII-XII intact - Musculoskeletal Musculoskeletal: gait normal, generalized weakness, strength equal bilaterally - Psychiatric Psychiatric: A&O x's 3, appropriate affect, intact judgment & insight - Labs CBC & Chem 7: 04/09/19 17:40 04/11/19 03:33 Labs: Abnormal Lab Results - Last 24 Hours (Table) 04/10/19 04/11/19 04/11/19 Range/Units 23:04 03:33 06:59 Sodium 136 L (137-145) mmol/L BUN 23 H (9-20) mg/dL Creatinine 0.65 L (0.66-1.25) mg/dL POC Glucose (mg/dL) 141 H 107 H (75-99) mg/dL 04/11/19 04/11/19 04/11/19 Range/Units 11:30 17:00 20:30 Sodium (137-145) mmol/L BUN (9-20) mg/dL Creatinine (0.66-1.25) mg/dL POC Glucose (mg/dL) 184 H 131 H 165 H (75-99) mg/dL Microbiology - Last 24 Hours (Table) 04/09/19 19:48 Blood Culture - Preliminary Blood No Growth after 24 hours Assessment and Plan Assessment: Congestive heart failure acute on chronic systolic heart failure Pulmonary fibrosis less likely to be IPF appears to be more due to pulmonary hemorrhage Chronic atrial fibrillation Obstructive sleep apnea Morbid obesity Coronary artery disease Diabetes mellitus Dyslipidemia Peripheral arterial disease Plan: Gentle diuresis Bronchodilator Hold anticoagulation, may need a bronchoscopy in next 24-48 hours Deep breathing sense incentive spirometry Need to bring his CPAP machine from home and to started over here Reviewed computed tomography scan Time with Patient: Greater than 30
--- NOTE | 2019-04-12 02:00 | P.PN ---
Subjective Progress Note Date: 04/11/19 Principal diagnosis: Acute CHF exacerbation Patient is a 73-year-old male with a known history of COPD on home oxygen, coronary artery disease, CABG, cardiac catheterization with stent placement, history of AICD placement, atrial fibrillation came to ER with complaints of worsening shortness of breath. Patient was recently discharged from the hospital on 04/01/2019. Patient did have AICD upgrade at the time. Patient has been having worsening shortness of breath since discharge. Denied any chest pain uptight. Patient does have history of COPD on home oxygen at 2 L nausea cannula. Patient was hypoxic at 82% on room air. Denied any nausea vomiting abdominal pain. No leg swelling. Patient does have cough without much sputum production. Patient was also complaining of headache in the occipital area. Denied any weakness. No dizziness or lightheadedness. CT head showed cerebral atrophy. No acute intracranial abnormality noted. Chest x-ray showed congestive heart failure. Interstitial fibrosis is possible. No changes compared to previous exam. BNP 2380, pro calcitonin level is not elevated 0.05 WBC 11.9, creatinine 0.58 Troponin 1 negative. Patient was given a dose of antibiotics in the form of vancomycin and azithromycin in the ER. 04/11/2019 Patient says that his breathing is better today. Not at baseline. No chest pain. Patient is being continued on IV Lasix. Continued on DuoNeb's and Pulmicort. CT chest showed complete ground glass opacification of the lung parenchyma with some involvement on the right consistent with inflammatory/infectious etiology. Pulmonary and cardiology is following. will follow CBC tomorrow. No fever no chills. Saturating at 94% on 5 L another cannula oxygen. Repeat chest x-ray for tomorrow was ordered. All other review of systems negative except the above Objective - Vital Signs Vital signs: Vital Signs Temp 98.0 F 04/11/19 19:57 Pulse 84 04/11/19 21:27 Resp 18 04/11/19 19:57 BP 102/59 04/11/19 19:57 Pulse Ox 92 L 04/11/19 21:28 Intake & Output 04/11/19 04/11/19 04/12/19 06:59 18:59 06:59 Intake Total 720 Output Total 500 650 500 Balance -500 70 -500 Weight 111.2 kg Intake: Oral 720 Output: Urine 500 650 500 Other: Voiding Method Urinal Urinal - Exam PHYSICAL EXAMINATION: Patient is lying in the bed comfortably, no acute distress, awake alert and oriented.. HEENT: Normocephalic. Neck is supple. Pupils reactive. Nostrils clear. Oral cavity is moist. Ears reveal no drainage. Neck reveals no JVD, carotid bruits, or thyromegaly. CHEST EXAMINATION: Trachea is central. Symmetrical expansion. Bibasilar diminished air entry and scattered crackles. CARDIAC: Normal S1, S2 with no gallops. No murmurs ABDOMEN: Soft. Bowel sounds normal. No organomegaly. No abdominal bruits. Extremities: reveal no edema. No clubbing or cyanosis Neurologically awake, alert, oriented x3 with well-coordinated movements. No focal deficits noted Skin: No rash or skin lesions. Psychiatric: Coperative. Nonsuicidal Musculoskeletal: No joint swelling or deformity. Normal range of motion. - Labs CBC & Chem 7: 04/09/19 17:40 04/11/19 03:33 Labs: Abnormal Lab Results - Last 24 Hours (Table) 04/10/19 04/11/19 04/11/19 Range/Units 23:04 03:33 06:59 Sodium 136 L (137-145) mmol/L BUN 23 H (9-20) mg/dL Creatinine 0.65 L (0.66-1.25) mg/dL POC Glucose (mg/dL) 141 H 107 H (75-99) mg/dL 04/11/19 04/11/19 04/11/19 Range/Units 11:30 17:00 20:30 Sodium (137-145) mmol/L BUN (9-20) mg/dL Creatinine (0.66-1.25) mg/dL POC Glucose (mg/dL) 184 H 131 H 165 H (75-99) mg/dL Microbiology - Last 24 Hours (Table) 04/09/19 19:48 Blood Culture - Preliminary Blood No Growth after 48 hours Assessment and Plan Assessment: Acute on chronic CHF with systolic dysfunction ejection fraction 30-35% Acute hypoxic respiratory failure secondary to CHF exacerbation and interstitial pulmonary fibrosis. Persistent atrial fibrillation with recent AICD upgrade. On anticoagulation with xarelto COPD/ Pulmonary fibrosis on home oxygen at 2 L. No history of previous smoking History of coronary disease status post four-vessel CABG and history of stent placement. Diabetes type 2 [id number] Hypertension Hyperlipidemia Hypothyroidism Obstructive sleep apnea on CPAP. Not using at this time. Bilateral peripheral neuropathy diabetic Peripheral vascular disease with history of left leg iliac stent in 2018 Depression/PTSD Plan: Patient is 73-year-old male with no history of CHF admitted to the hospital with worsening shortness of breath due to acute CHF. Unlikely pneumonia at this time. discontinued antibiotics. Pro-calcitonin level is not elevated. Patient will be continued on IV Lasix. Continue with metoprolol and follow closely Continue with breathing treatments with duo nebs and Pulmicort. Cardiology and pulmonary is following. Further recommendations based on the clinical course. Prognosis is guarded. Time with Patient: Greater than 30
[2019-04-12 07:10] LABS: Glucose,Whole Blood 107 mg/dL (75-99)
--- NOTE | 2019-04-12 07:25 | XR ---
EXAMINATION TYPE: XR chest 1V DATE OF EXAM: 04/12/2019 HISTORY: Shortness of breath. REFERENCE: Previous study dated 04/09/2019. FINDINGS: There is a multilead pacing device in place on the left. The heart is enlarged. There is vascular congestion and pulmonary edema. There are bilateral effusion s. The overall appearance is worsened. IMPRESSION: WORSENING CHANGES OF CONGESTIVE HEART FAILURE.
[2019-04-12 07:33] LABS: Basophils # (A) 0.1 k/uL (0-0.2); Basophils % (A) 1 %; Eosinophils # (A) 0.4 k/uL (0-0.7); Eosinophils % (A) 3 %; HCT 43.3 % (39.0-53.0); HGB 13.3 gm/dL (13.0-17.5); Hypochromasia Slight; Lymphocytes # (A) 0.9 k/uL (1.0-4.8); Lymphocytes % (A) 6 %; MCH 27.4 pg (25.0-35.0); MCHC 30.7 g/dL (31.0-37.0); MCV 89.2 fL (80.0-100.0); Mean Platelet Volume 6.6; Monocytes # (A) 1.2 k/uL (0-1.0); Monocytes % (A) 8 %; Neutrophils # (A) 12.4 k/uL (1.3-7.7); Neutrophils % (A) 82 %; Platelet Count 362 k/uL (150-450); RBC 4.86 m/uL (4.30-5.90); RDW 15.5 % (11.5-15.5); WBC 15.1 k/uL (3.8-10.6)
[2019-04-12] MEDS: BUDESONIDE 0.5 MG/2 ML NEBU INHALATION PRN ×2 (07:37→20:03)
[2019-04-12] MEDS: IPRATROPIUM-ALBUTEROL 3 ML NEB INHALATION SCH ×4 (07:37→20:05)
[2019-04-12 07:41] LABS: African American GFR (CKD) >90 (>60 ml/min/1.73 sqM); Anion Gap 7 mmol/L; Blood Urea Nitrogen 18 mg/dL (9-20); Calcium 8.4 mg/dL (8.4-10.2); Carbon Dioxide 28 mmol/L (22-30); Chloride 102 mmol/L (98-107); Glucose 116 mg/dL (74-99); Potassium 3.6 mmol/L (3.5-5.1); Sodium 137 mmol/L (137-145)
[2019-04-12] MEDS: FUROSEMIDE 10 MG/ML 4 ML VIAL IV SCH ×2 (07:44→20:57)
[2019-04-12] MEDS ORDERED: FUROSEMIDE 10 MG/ML 4 ML VIAL IV STA (07:59)
[2019-04-12] MEDS: INSULIN ASPART (NovoLOG) 100 UNIT/ML VIAL SQ SCH ×4 (08:29→22:35)
[2019-04-12] MEDS: ASPIRIN 81 MG PO SCH (10:31)
[2019-04-12] MEDS: ISOSORBIDE MONONITRATE ER 60 MG TAB.ER.24H PO SCH (10:31)
[2019-04-12] MEDS: METOPROLOL SUCCINATE (ER) 100 MG TAB.ER.24H PO SCH (10:32)
[2019-04-12] MEDS: PREGABALIN 75 MG CAP PO SCH ×2 (10:32→20:56)
[2019-04-12] MEDS: SACUBITRIL/VALSARTAN 24 MG-26 MG TABLET PO SCH ×2 (10:32→22:36)
[2019-04-12] MEDS: SPIRONOLACTONE 25 MG TAB PO SCH (10:32)
[2019-04-12] MEDS: methylPREDNISolone SOD SUCCI 125 MG/2 ML VIAL IV SCH ×3 (10:36→23:35)
[2019-04-12] MEDS: PIPERACILLIN-TAZOBACTAM 3.375 GM in SODIUM CHLORIDE 0.9% 100 ML IVPB SCH ×3 (10:36→23:35)
[2019-04-12 11:57] LABS: Glucose,Whole Blood 158 mg/dL (75-99)
[2019-04-12] MEDS ORDERED: ACETAMINOPHEN TAB 325 MG TAB PO PRN (12:32)
[2019-04-12] MEDS: LORazepam 0.5 MG TAB PO PRN (12:51)
--- NOTE | 2019-04-12 14:45 | P.PN ---
Subjective Progress Note Date: 04/12/19 (Critical care time spent 35 minutes) Principal diagnosis: Acute exacerbation of congestive heart failure acute on chronic systolic heart failure, pulmonary fibrosis, chronic atrial fibrillation, obstructive sleep apnea, morbid obesity, coronary artery disease, diabetes mellitus, dyslipidemia, Arterial disease, pneumonia and ARDS-like Petrin COPD exacerbation, acute hypoxic respiratory failure 04/12/2019, patient seen eval reexamined during the rounds he is the gradually more short of breath mild cough is present no hemoptysis present chest x-ray performed today showed worsening of bilateral pulmonary edema versus a ARDS-like pattern, x-ray compared to the admit x-ray initially there were infiltrates more present on the left side but in last 24-48 hours thereafter appearing on the right side as well patient requiring BiPAP for desaturation on 13 L her sats are only 80% with BiPAP 09/18 and 50% oxygen improved to 95%, no hemoptysis present care plan discussed with daughter and other family members present at bedside at length patient is not a candidate for bronchoscopy will hold anticoagulation for now continue BiPAP patient will be started on IV steroids breathing treatments and IV antibiotics as well with the sputum culture studies are sent, critical care time spent 35 minutes 04/11/2019, patient seen and evaluated examined during the rounds his cuff congestion shortness breath is significantly improved he has some streaks of blood on coughing he is on anticoagulants as well likely related to inflammation in the lung, computed tomography scan of the chest has been reviewed right lower lobe base rounded atelectasis have been noted, interstitial prominence is noted on the left upper lobe predominantly very atypical for IPF may be related to infiltrative process due to hemoptysis and pulmonary hemorrhage will discuss with cardiology if anticoagulation can be stopped for a short while with further recommendations pending, may need to do a bronchoscopy 73-year-old male with history of previous quadruple bypass, multiple stent placement, atrial fibrillation, congestive heart failure, COPD presenting today for chief complaint of shortness of breath. Patient states since his discharge on 04/01/2019 he has had shortness of breath. He states at that time he had surgery to replace a pacemaker/defibrillator. Patient states also since that time he has had a headache in the posterior aspect of his head. He states he has no vomiting nausea dizziness he is not sure if this headache he is unable to describe well the characteristic nor type of pain that is. Patient denies any weakness of the upper or lower extremities. Denies any speech changes. Family states patient is at baseline, noting no neurological symptoms. Patient denies any fevers patient has a chest pain. Patient denies any thoracic back pain. Patient denies any abdominal pain other extremity pain jaw pain or paresthesias. Patient has a cough. Patient states he has chronic hemoptysis. Patient denies any lower extremity swelling. Remaining ROS (-). Upon arrival pt hypoxic at 83% on RA, pt normally on 2L of home oxygen for chronic hypoxia. Patient has been started on IV furosemide with that shortness breath is better but stable and improved patient is for CAT scan later on today by cardiology to assess pulmonary fibrosis Objective - Vital Signs Vital signs: Vital Signs Temp 97.9 F 04/12/19 07:29 Pulse 92 04/12/19 13:06 Resp 22 04/12/19 07:31 BP 116/81 04/12/19 07:29 Pulse Ox 90 L 04/12/19 07:31 Intake & Output 04/11/19 04/12/19 04/12/19 18:59 06:59 18:59 Intake Total 720 120 Output Total 650 1100 2480 Balance 70 -1100 -2360 Weight 111 kg Intake: Oral 720 120 Output: Urine 650 1100 2480 Uretheral (Perez) 2150 Other: Voiding Method Urinal - Exam Constitutional General appearance: disheveled, mild distress, morbidly obese - EENT Eyes: PERRLA ENT: hearing grossly normal, normal oropharynx Ears: bilateral: normal - Neck Carotids: bilateral: upstroke normal Thyroid: bilateral: normal size - Respiratory Respiratory: bilateral: diminished, rales, fine bilateral expiratory rhonchi negative: CTA, dullness, rhonchi, wheezing - Cardiovascular Rhythm: regular Heart sounds: normal: S1, S2 - Gastrointestinal General gastrointestinal: normal bowel sounds, soft - Integumentary Integumentary: normal - Neurologic Neurologic: CNII-XII intact - Musculoskeletal Musculoskeletal: gait normal, generalized weakness, strength equal bilaterally - Psychiatric Psychiatric: A&O x's 3, appropriate affect, intact judgment & insight - Labs CBC & Chem 7: 04/12/19 06:56 04/12/19 06:56 Labs: Abnormal Lab Results - Last 24 Hours (Table) 04/11/19 04/11/19 04/12/19 Range/Units 17:00 20:30 06:56 WBC (3.8-10.6) k/uL MCHC (31.0-37.0) g/dL Neutrophils # (1.3-7.7) k/uL Lymphocytes # (1.0-4.8) k/uL Monocytes # (0-1.0) k/uL Creatinine 0.57 L (0.66-1.25) mg/dL Glucose 116 H (74-99) mg/dL POC Glucose (mg/dL) 131 H 165 H (75-99) mg/dL 04/12/19 04/12/19 04/12/19 Range/Units 06:56 06:59 11:56 WBC 15.1 H (3.8-10.6) k/uL MCHC 30.7 L (31.0-37.0) g/dL Neutrophils # 12.4 H (1.3-7.7) k/uL Lymphocytes # 0.9 L (1.0-4.8) k/uL Monocytes # 1.2 H (0-1.0) k/uL Creatinine (0.66-1.25) mg/dL Glucose (74-99) mg/dL POC Glucose (mg/dL) 107 H 158 H (75-99) mg/dL Microbiology - Last 24 Hours (Table) 04/09/19 19:48 Blood Culture - Preliminary Blood No Growth after 48 hours Assessment and Plan Assessment: Acute respiratory failure ARDS Possible pneumonia Congestive heart failure acute on chronic systolic heart failure Pulmonary fibrosis less likely to be IPF appears to be more due to pulmonary hemorrhage Chronic atrial fibrillation Obstructive sleep apnea Morbid obesity Coronary artery disease Diabetes mellitus Dyslipidemia Peripheral arterial disease Plan: IV steroids Broad-spectrum antibiotics Sputum studies BiPAP support Gentle diuresis Bronchodilator Hold anticoagulation, may need a bronchoscopy, but we'll hold due to current worsening respiratory status as patient cannot tolerate bronchoscopy in addition as per discussion with the family members patient is no code but does not want to be intubated and chest compression Deep breathing sense incentive spirometry Continue BiPAP Reviewed computed tomography scan Time with Patient: Greater than 30
[2019-04-12] MEDS ORDERED: HYDROcodone/APAP 5-325MG 1 EACH TAB PO STA (15:33)
[2019-04-12 16:51] LABS: Glucose,Whole Blood 166 mg/dL (75-99)
[2019-04-12] MEDS: MONTELUKAST 10 MG TAB PO SCH (20:56)
[2019-04-12] MEDS: ATORVASTATIN 80 MG TAB PO SCH (20:56)
[2019-04-12] MEDS ORDERED: LORazepam 0.5 MG TAB PO SCH (21:00)
[2019-04-12 21:46] LABS: Glucose,Whole Blood 201 mg/dL (75-99)
[2019-04-12] MEDS: VENLAFAXINE HCL 75 MG TAB PO SCH (22:36)
--- NOTE | 2019-04-12 23:58 | P.PN ---
Subjective Progress Note Date: 04/12/19 Principal diagnosis: Acute CHF exacerbation Patient is a 73-year-old male with a known history of COPD on home oxygen, coronary artery disease, CABG, cardiac catheterization with stent placement, history of AICD placement, atrial fibrillation came to ER with complaints of worsening shortness of breath. Patient was recently discharged from the hospital on 04/01/2019. Patient did have AICD upgrade at the time. Patient has been having worsening shortness of breath since discharge. Denied any chest pain uptight. Patient does have history of COPD on home oxygen at 2 L nausea cannula. Patient was hypoxic at 82% on room air. Denied any nausea vomiting abdominal pain. No leg swelling. Patient does have cough without much sputum production. Patient was also complaining of headache in the occipital area. Denied any weakness. No dizziness or lightheadedness. CT head showed cerebral atrophy. No acute intracranial abnormality noted. Chest x-ray showed congestive heart failure. Interstitial fibrosis is possible. No changes compared to previous exam. BNP 2380, pro calcitonin level is not elevated 0.05 WBC 11.9, creatinine 0.58 Troponin 1 negative. Patient was given a dose of antibiotics in the form of vancomycin and azithromycin in the ER. 04/11/2019 Patient says that his breathing is better today. Not at baseline. No chest pain. Patient is being continued on IV Lasix. Continued on DuoNeb's and Pulmicort. CT chest showed complete ground glass opacification of the lung parenchyma with some involvement on the right consistent with inflammatory/infectious etiology. Pulmonary and cardiology is following. will follow CBC tomorrow. No fever no chills. Saturating at 94% on 5 L another cannula oxygen. Repeat chest x-ray for tomorrow was ordered. 04/12/2019 Patient is awake and alert and oriented 3. Patient went into respiratory distress morning with increased cough and shortness of breath. Chest x-ray showed worsening of bilateral pulmonary edema/CHF. Patient was started on noninvasive ventilation with BiPAP. Patient is being continued on IV Lasix, IV steroids and antibiotics were started in the form of Zosyn. Sputum cultures were sent. Due to worsening CHF and underlying pulmonary fibrosis and other multiple medical problems discussed with the family and the patient in detail regarding the treatment course and code status. Patient wants to be no code at this time. Current CODE STATUS is DO NOT RESUSCITATE/DO NOT INTUBATE. All other review of systems negative except the above Current medications reviewed. s Objective - Vital Signs Vital signs: Vital Signs Temp 97.9 F 04/12/19 07:29 Pulse 92 04/12/19 13:06 Resp 22 04/12/19 07:31 BP 116/81 04/12/19 07:29 Pulse Ox 90 L 04/12/19 07:31 Intake & Output 04/11/19 04/12/19 04/12/19 18:59 06:59 18:59 Intake Total 720 120 Output Total 650 1100 2480 Balance 70 -1100 -2360 Weight 111 kg Intake: Oral 720 120 Output: Urine 650 1100 2480 Uretheral (Perez) 2150 Other: Voiding Method Urinal - Exam PHYSICAL EXAMINATION: Patient is lying in the bed, patient is in acute distress, awake alert and orien mitar. On BiPAP.. HEENT: Normocephalic. Neck is supple. Pupils reactive. Nostrils clear. Oral cavity is moist. Ears reveal no drainage. Neck reveals no JVD, carotid bruits, or thyromegaly. CHEST EXAMINATION: Trachea is central. Symmetrical expansion. Bilateral diminished air entry and coarse breath sounds.. CARDIAC: Normal S1, S2 with no gallops. No murmurs ABDOMEN: Soft. Bowel sounds normal. No organomegaly. No abdominal bruits. Extremities: reveal no edema. No clubbing or cyanosis Neurologically awake, alert, oriented x3 with well-coordinated movements. No focal deficits noted Skin: No rash or skin lesions. Psychiatric: Coperative. Nonsuicidal Musculoskeletal: No joint swelling or deformity. Normal range of motion. - Labs CBC & Chem 7: 04/12/19 06:56 04/12/19 06:56 Labs: Abnormal Lab Results - Last 24 Hours (Table) 04/11/19 04/11/19 04/12/19 Range/Units 17:00 20:30 06:56 WBC (3.8-10.6) k/uL MCHC (31.0-37.0) g/dL Neutrophils # (1.3-7.7) k/uL Lymphocytes # (1.0-4.8) k/uL Monocytes # (0-1.0) k/uL Creatinine 0.57 L (0.66-1.25) mg/dL Glucose 116 H (74-99) mg/dL POC Glucose (mg/dL) 131 H 165 H (75-99) mg/dL 04/12/19 04/12/19 04/12/19 Range/Units 06:56 06:59 11:56 WBC 15.1 H (3.8-10.6) k/uL MCHC 30.7 L (31.0-37.0) g/dL Neutrophils # 12.4 H (1.3-7.7) k/uL Lymphocytes # 0.9 L (1.0-4.8) k/uL Monocytes # 1.2 H (0-1.0) k/uL Creatinine (0.66-1.25) mg/dL Glucose (74-99) mg/dL POC Glucose (mg/dL) 107 H 158 H (75-99) mg/dL Microbiology - Last 24 Hours (Table) 04/09/19 19:48 Blood Culture - Preliminary Blood No Growth after 48 hours Assessment and Plan Assessment: Acute on chronic CHF with systolic dysfunction ejection fraction 30-35% Acute hypoxic respiratory failure secondary to CHF exacerbation and interstitial pulmonary fibrosis. Requiring BiPAP. Persistent atrial fibrillation with recent AICD upgrade. On anticoagulation with xarelto COPD/ Pulmonary fibrosis on home oxygen at 2 L. No history of previous smoking History of coronary disease status post four-vessel CABG and history of stent placement. Diabetes type 2 [id number] Hypertension Hyperlipidemia Hypothyroidism Obstructive sleep apnea on CPAP. Not using at this time. Bilateral peripheral neuropathy diabetic Peripheral vascular disease with history of left leg iliac stent in 2018 Depression/PTSD CODE STATUS DO NOT RESUSCITATE/DO NOT INTUBATE. Plan: Patient is 73-year-old male with no history of CHF admitted to the hospital with worsening shortness of breath due to acute CHF. Pro-calcitonin level is not elevated. Patient will be continued on IV Lasix. Continue with metoprolol and follow closely. Continue with IV steroids and empiric antibiotics. Continue with breathing treatments with duo nebs and Pulmicort. Cardiology and pulmonary is following. Further recommendations based on the clinical course. Prognosis is guarded. Time with Patient: Greater than 30
[2019-04-13 05:57] LABS: Glucose,Whole Blood 173 mg/dL (75-99)
[2019-04-13] MEDS: INSULIN ASPART (NovoLOG) 100 UNIT/ML VIAL SQ SCH ×4 (06:54→21:25)
[2019-04-13] MEDS: IPRATROPIUM-ALBUTEROL 3 ML NEB INHALATION SCH ×4 (06:57→20:21)
[2019-04-13] MEDS: BUDESONIDE 0.5 MG/2 ML NEBU INHALATION PRN ×2 (06:59→20:21)
[2019-04-13 07:45] LABS: Basophils % (A) 0 %; Eosinophils % (A) 0 %; HCT 43.9 % (39.0-53.0); HGB 13.4 gm/dL (13.0-17.5); Hypochromasia Slight; Lymphocytes # (A) 0.4 k/uL (1.0-4.8); Lymphocytes % (A) 4 %; MCHC 30.4 g/dL (31.0-37.0); MCV 88.8 fL (80.0-100.0); Mean Platelet Volume 6.9; Monocytes # (A) 0.4 k/uL (0-1.0); Monocytes % (A) 3 %; Neutrophils # (A) 9.7 k/uL (1.3-7.7); Neutrophils % (A) 92 %; Platelet Count 335 k/uL (150-450); RBC 4.94 m/uL (4.30-5.90); RDW 15.4 % (11.5-15.5); WBC 10.5 k/uL (3.8-10.6)
--- NOTE | 2019-04-13 07:48 | XR ---
EXAMINATION TYPE: XR chest 1V DATE OF EXAM: 04/13/2019 COMPARISON: 04/12/2019 HISTORY: Congestive heart failure. Shortness of breath. TECHNIQUE: Single frontal view of the chest is obtained. FINDINGS: There is a markedly enlarged cardiac mediastinal silhouette. Interstitial opacities and pa tchy alveolar opacities remain similar in distribution to the prior. There is multilead left-sided ca rdiac device and post-CABG changes of the chest. Trace bilateral pleural effusions are seen. There is diffuse osseous demineralization. IMPRESSION: Similar appearing trace pleural effusions, interstitial pulmonary edema and patchy bibas ilar airspace disease that likely represents confluent pulmonary edema on the basis of congestive hea rt failure.
[2019-04-13 07:56] LABS: African American GFR (CKD) >90 (>60 ml/min/1.73 sqM); Anion Gap 10 mmol/L; Blood Urea Nitrogen 23 mg/dL (9-20); Calcium 8.7 mg/dL (8.4-10.2); Carbon Dioxide 28 mmol/L (22-30); Chloride 101 mmol/L (98-107); Glucose 179 mg/dL (74-99); Potassium 3.7 mmol/L (3.5-5.1); Sodium 139 mmol/L (137-145)
[2019-04-13] MEDS: SPIRONOLACTONE 25 MG TAB PO SCH (09:07)
[2019-04-13] MEDS: FUROSEMIDE 10 MG/ML 4 ML VIAL IV SCH ×3 (09:13→22:14)
[2019-04-13] MEDS: methylPREDNISolone SOD SUCCI 125 MG/2 ML VIAL IV SCH ×3 (09:13→22:14)
[2019-04-13] MEDS: SACUBITRIL/VALSARTAN 24 MG-26 MG TABLET PO SCH ×2 (09:13→20:35)
[2019-04-13] MEDS: METOPROLOL SUCCINATE (ER) 100 MG TAB.ER.24H PO SCH (09:13)
[2019-04-13] MEDS: PREGABALIN 75 MG CAP PO SCH ×2 (09:14→20:35)
[2019-04-13] MEDS: PIPERACILLIN-TAZOBACTAM 3.375 GM in SODIUM CHLORIDE 0.9% 100 ML IVPB SCH ×3 (09:14→22:14)
[2019-04-13] MEDS: ASPIRIN 81 MG PO SCH (09:14)
[2019-04-13] MEDS: ISOSORBIDE MONONITRATE ER 60 MG TAB.ER.24H PO SCH (09:14)
[2019-04-13 11:42] VITALS: BMI 30.3
[2019-04-13 12:38] LABS: Glucose,Whole Blood 233 mg/dL (75-99)
[2019-04-13 16:54] LABS: Glucose,Whole Blood 230 mg/dL (75-99)
--- NOTE | 2019-04-13 17:53 | P.PN ---
Subjective Progress Note Date: 04/13/19 Principal diagnosis: Acute exacerbation of congestive heart failure acute on chronic systolic heart failure, pulmonary fibrosis, chronic atrial fibrillation, obstructive sleep apnea, morbid obesity, coronary artery disease, diabetes mellitus, dyslipidemia, Arterial disease, pneumonia and ARDS-like Petrin COPD exacerbation, acute hypoxic respiratory failure 04/13/2019, Patient seen and examined care plan discussed with the family present at bedside patient is doing slightly better he remains on 15 L high flow oxygen 50% he is saturation is 92% he is a had difficult time with the BiPAP he does have a CPAP which I have asked the family members to bring him a he is complaining of less congestion and shortness of breath, his chest x-ray revealed similar appearing trace pleural effusion with interstitial edema bilateral patchy infiltrate and pulmonary edema is seen, he remains on breathing treatments with IV steroids and diuretics with broad-spectrum antibiotics, his culture showed no growth 04/12/2019, patient seen eval reexamined during the rounds he is the gradually more short of breath mild cough is present no hemoptysis present chest x-ray performed today showed worsening of bilateral pulmonary edema versus a ARDS-like pattern, x-ray compared to the admit x-ray initially there were infiltrates more present on the left side but in last 24-48 hours thereafter appearing on the right side as well patient requiring BiPAP for desaturation on 13 L her sats are only 80% with BiPAP / and 50% oxygen improved to 95%, no hemoptysis present care plan discussed with daughter and other family members present at bedside at length patient is not a candidate for bronchoscopy will hold anticoagulation for now continue BiPAP patient will be started on IV steroids breathing treatments and IV antibiotics as well with the sputum culture studies are sent, critical c are time spent 35 minutes 04/11/2019, patient seen and evaluated examined during the rounds his cuff congestion shortness breath is significantly improved he has some streaks of blood on coughing he is on anticoagulants as well likely related to inflammation in the lung, computed tomography scan of the chest has been reviewed right lower lobe base rounded atelectasis have been noted, interstitial prominence is noted on the left upper lobe predominantly very atypical for IPF may be related to in filtrative process due to hemoptysis and pulmonary hemorrhage will discuss with cardiology if anticoagulation can be stopped for a short while with further recommendations pending, may need to do a bronchoscopy 73-year-old male with history of previous quadruple bypass, multiple stent placement, atrial fibrillation, congestive heart failure, COPD presenting today for chief complaint of shortness of breath. Patient states since his discharge on 04/01/2019 he has had shortness of breath. He states at that time he had surgery to replace a pacemaker/defibrillator. Patient states also since that time he has had a headache in the posterior aspect of his head. He states he has no vomiting nausea dizziness he is not sure if this headache he is unable to describe well the characteristic nor type of pain that is. Patient denies any weakness of the upper or lower extremities. Denies any speech changes. Family states patient is at baseline, noting no neurological symptoms. Patient denies any fevers patient has a chest pain. Patient denies any thoracic back pain. Patient denies any abdominal pain other extremity pain jaw pain or paresthesias. Patient has a cough. Patient states he has chronic hemoptysis. Patient denies any lower extremity swelling. Remaining ROS (-). Upon arrival pt hypoxic at 83% on RA, pt normally on 2L of home oxygen for chronic hypoxia. Patient has been started on IV furosemide with that shortness breath is better but stable and improved patient is for CAT scan later on today by cardiology to assess pulmonary fibrosis Objective - Vital Signs Vital signs: Vital Signs Temp 97.6 F 04/13/19 16:00 Pulse 62 04/13/19 16:00 Resp 18 04/13/19 16:00 BP 93/60 04/13/19 16:00 Pulse Ox 92 L 04/13/19 16:00 Intake & Output 04/12/19 04/13/19 04/13/19 18:59 06:59 18:59 Intake Total 120 100 Output Total 2480 1000 Balance -2360 -900 Weight 110 kg 110 kg Intake: Intake, IV Titration 100 Amount Piperacillin-Tazobactam 3 100 .375 gm In Sodium Chloride 0.9% 100 ml @ 25 mls/hr IVPB Q8HR [facility] Rx# :[id number] Oral 120 Output: Urine 2480 1000 Uretheral (Perez) 2150 Other: Voiding Method Indwelling Catheter Indwelling Catheter Indwelling Catheter # Voids 1 - Exam Constitutional General appearance: disheveled, mild distress, morbidly obese - EENT Eyes: PERRLA ENT: hearing grossly normal, normal oropharynx Ears: bilateral: normal - Neck Carotids: bilateral: upstroke normal Thyroid: bilateral: normal size - Respiratory Respiratory: bilateral: diminished, rales, fine bilateral expiratory rhonchi negative: CTA, dullness, rhonchi, wheezing - Cardiovascular Rhythm: regular Heart sounds: normal: S1, S2 - Gastrointestinal General gastrointestinal: normal bowel sounds, soft - Integumentary Integumentary: normal - Neurologic Neurologic: CNII-XII intact - Musculoskeletal Musculoskeletal: gait normal, generalized weakness, strength equal bilaterally - Psychiatric Psychiatric: A&O x's 3, appropriate affect, intact judgment & insight - Labs CBC & Chem 7: 04/13/19 06:55 04/13/19 06:55 Labs: Abnormal Lab Results - Last 24 Hours (Table) 04/12/19 04/13/19 04/13/19 Range/Units 21:43 05:56 06:55 MCHC 30.4 L (31.0-37.0) g/dL Neutrophils # 9.7 H (1.3-7.7) k/uL Lymphocytes # 0.4 L (1.0-4.8) k/uL BUN (9-20) mg/dL Creatinine (0.66-1.25) mg/dL Glucose (74-99) mg/dL POC Glucose (mg/dL) 201 H 173 H (75-99) mg/dL 04/13/19 04/13/19 04/13/19 Range/Units 06:55 12:07 16:39 MCHC (31.0-37.0) g/dL Neutrophils # (1.3-7.7) k/uL Lymphocytes # (1.0-4.8) k/uL BUN 23 H (9-20) mg/dL Creatinine 0.50 L (0.66-1.25) mg/dL Glucose 179 H (74-99) mg/dL POC Glucose (mg/dL) 233 H 230 H (75-99) mg/dL Microbiology - Last 24 Hours (Table) 04/09/19 19:48 Blood Culture - Preliminary Blood No Growth after 72 hours Assessment and Plan Assessment: Acute hypoxic respiratory failure ARDS versus CHF and/pulmonary edema Possible pneumonia Congestive heart failure acute on chronic systolic heart failure Pulmonary fibrosis less likely to be IPF appears to be more due to pulmonary edema Chronic atrial fibrillation Obstructive sleep apnea Morbid obesity Coronary artery disease Diabetes mellitus Dyslipidemia Peripheral arterial disease Plan: IV steroids Broad-spectrum antibiotics Sputum studies BiPAP support, can bring CPAP machine from home Gentle diuresis Bronchodilator Hold anticoagulation, Deep breathing sense incentive spirometry Continue BiPAP Reviewed computed tomography scan Time with Patient: Greater than 30
[2019-04-13] MEDS: MONTELUKAST 10 MG TAB PO SCH (20:35)
[2019-04-13] MEDS: VENLAFAXINE HCL 75 MG TAB PO SCH (20:35)
[2019-04-13] MEDS: ATORVASTATIN 80 MG TAB PO SCH (20:35)
[2019-04-13 21:18] LABS: Glucose,Whole Blood 300 mg/dL (75-99)
[2019-04-14 06:08] LABS: Glucose,Whole Blood 164 mg/dL (75-99)
[2019-04-14] MEDS: INSULIN ASPART (NovoLOG) 100 UNIT/ML VIAL SQ SCH ×4 (06:32→20:56)
[2019-04-14 07:18] LABS: Anisocytosis Slight; Basophils % (A) 0 %; Eosinophils # (A) 0.1 k/uL (0-0.7); Eosinophils % (A) 0 %; HCT 43.2 % (39.0-53.0); HGB 13.5 gm/dL (13.0-17.5); Hypochromasia Moderate; Lymphocytes # (A) 0.4 k/uL (1.0-4.8); Lymphocytes % (A) 2 %; MCHC 31.3 g/dL (31.0-37.0); MCV 89.3 fL (80.0-100.0); Mean Platelet Volume 7.4; Monocytes # (A) 0.6 k/uL (0-1.0); Monocytes % (A) 3 %; Neutrophils % (A) 94 %; Platelet Count 360 k/uL (150-450); RBC 4.84 m/uL (4.30-5.90); RDW 16.1 % (11.5-15.5); WBC 18.2 k/uL (3.8-10.6)
[2019-04-14 07:35] LABS: African American GFR (CKD) >90 (>60 ml/min/1.73 sqM); Anion Gap 9 mmol/L; Blood Urea Nitrogen 33 mg/dL (9-20); Calcium 8.9 mg/dL (8.4-10.2); Carbon Dioxide 29 mmol/L (22-30); Chloride 102 mmol/L (98-107); Glucose 165 mg/dL (74-99); Potassium 3.6 mmol/L (3.5-5.1); Sodium 140 mmol/L (137-145)
--- NOTE | 2019-04-14 08:06 | PN ---
PROGRESS NOTE This is a 73-year-old gentleman who was seen by me Saturday. This gentleman has history of a recent upgrade to a Bi V ICD. He has come into the hospital with increasing shortness of breath. Clinically, had evidence of congestive heart failure and chronic atrial fibrillation, possible pulmonary fibrosis, previous bypass surgery and also valve repair, details of which are unclear. He is, however, feeling better since he came into the hospital. His breathing is much easier. He denies any chest discomfort. He is resting comfortably without symptoms. The pleural effusion has also resolved. This patient is currently on beta blockers and Entresto and Aldactone. His electrolytes are good. He is feeling well without any symptoms. PHYSICAL EXAMINATION: Blood pressure is 108/70, pulse rate 70 per minute. HEENT unremarkable. Fundus was not examined by me. NECK: Supple. There is JVD of 1 cm. No carotid bruit. S1-S2 heard normally. Short systolic murmur noted. LUNGS reveal improved air entry. Abdomen and lower exam unchanged. PLAN: Continue current medications. Increase activity and switch him from IV to oral Lasix once he improves and see how he does clinically. We will continue the beta blockers. We will obtain electrolytes and we will obtain labs in the form of a CBC and BMP in a.m. His echo performed on the March 31 revealed ejection fraction of about 30% to 35% with global decrease in contractility. We will continue IV Lasix today and switch him to oral Lasix tomorrow. MMTANJA / JAYAN: [id number] /
[2019-04-14] MEDS: BUDESONIDE 0.5 MG/2 ML NEBU INHALATION PRN ×2 (08:07→20:04)
[2019-04-14] MEDS: IPRATROPIUM-ALBUTEROL 3 ML NEB INHALATION SCH ×4 (08:07→20:04)
--- NOTE | 2019-04-14 08:33 | PN ---
PROGRESS NOTE DATE OF SERVICE: 04/13/2019 This is a 73-year-old gentleman admitted with CHF acute exacerbation also had multiple other medical issues. The patient has also had acute hypoxic respiratory failure. The patient also had atrial fibrillation. Pulmonary is following the patient closely. The most recent chest x-ray which was reviewed personally by me showed significant evidence of significant CHF. The patient is currently on Lasix 40 IV q.8 and changes 40 q.8 and strict fluid restriction also has been recommended at this time. PAST MEDICAL HISTORY: Reviewed. REVIEW OF SYSTEMS: CARDIOVASCULAR: No angina. RESPIRATORY: As mentioned earlier. GI: As mentioned earlier. : No dysuria. NERVOUS SYSTEM: No focal deficits. CURRENT MEDICATIONS: Reviewed and include: 1. Tylenol 650 q.4 p.r.n. 2. Ventolin. 3. DuoNeb q.i.d. and p.r.n. 4. Lipitor. 5. Pulmicort. 6. NovoLog scale. 7. Imdur. 8. Ativan. 9. Solu-Medrol 60 IV. 10.Singular. 11.Narcan. 12.Nitrostat. 13.Zosyn IV. 14.Aldactone. 15.Effexor. PHYSICAL EXAM: Patient is alert and oriented x3. Pulse is 68, blood pressure 105/60, respiration 24, temperature 97.8, pulse ox 98% on 14 L high-flow nasal cannula. HEENT: Conjunctivae normal. NECK: No jugular venous distension. HEART: S1, S2, muffled.. RESPIRATION: Breath sounds diminished in the bases. Bilateral scattered rhonchi, no crackles. Expiratory wheezing also present. ABDOMEN: Soft, obese, nontender. LEGS: Bilateral leg edema. NERVOUS SYSTEM: Diffusely weak. LABS: CBC within normal limits, otherwise sodium 130, potassium 3.7, creatinine is 0.5, glucose is 230. ASSESSMENT: 1. Congestive heart failure acute exacerbation with acute on chronic systolic dysfunction, ejection fraction 30% to 35%. 2. Acute hypoxic respiratory failure secondary to congestive heart failure acute exacerbation-pulmonary fibrosis requiring BiPAP. 3. Persistent atrial fibrillation. status post recent AICD upgrade. 4. Anticoagulation with Xarelto. 5. Chronic hypoxic respiratory failure on home oxygen at 2 L nasal cannula. 6. History of coronary artery disease, coronary artery bypass grafting. 7. Diabetes mellitus type 2 hypertension hyperlipidemia hypothyroidism. 8. Obstructive sleep apnea. 9. Bilateral peripheral neuropathy. 10.Peripheral vascular disease with left leg iliac stent 2018. 11.History of depression, PTSD. 12.NO CODE, NO CPR, NO VENTILATOR. 13.Gait dysfunction. 14.CODE STATUS: FULL CODE. RECOMMENDATION: 1. Discussion this 73-year-old gentleman who presented with multiple complex medical monitor the patient closely continue the current management and treatment as mentioned earlier. I would recommend IV diuretics on a continuous basis and also strict fluid restriction. Monitor fluid and electrolytes balance closely. Continue steroids. Continue the rest of medication. Overall prognosis guarded because of multiple complex medical issues. Discussed with family and staff. JOSEFINA / JAYAN: [id number] /
[2019-04-14] MEDS: PIPERACILLIN-TAZOBACTAM 3.375 GM in SODIUM CHLORIDE 0.9% 100 ML IVPB SCH ×3 (09:08→22:50)
[2019-04-14] MEDS: FUROSEMIDE 10 MG/ML 4 ML VIAL IV SCH (09:08)
[2019-04-14] MEDS: METOPROLOL SUCCINATE (ER) 100 MG TAB.ER.24H PO SCH (09:09)
[2019-04-14] MEDS: PREGABALIN 75 MG CAP PO SCH ×2 (09:09→20:55)
[2019-04-14] MEDS: methylPREDNISolone SOD SUCCI 125 MG/2 ML VIAL IV SCH ×3 (09:09→22:49)
[2019-04-14] MEDS: ASPIRIN 81 MG PO SCH (09:09)
[2019-04-14] MEDS: SACUBITRIL/VALSARTAN 24 MG-26 MG TABLET PO SCH ×2 (09:09→22:50)
[2019-04-14] MEDS: SPIRONOLACTONE 25 MG TAB PO SCH (09:09)
[2019-04-14] MEDS: ISOSORBIDE MONONITRATE ER 60 MG TAB.ER.24H PO SCH (09:09)
[2019-04-14 11:36] LABS: Glucose,Whole Blood 217 mg/dL (75-99)
--- NOTE | 2019-04-14 14:06 | P.PN ---
Subjective Progress Note Date: 04/14/19 Principal diagnosis: Acute exacerbation of congestive heart failure acute on chronic systolic heart failure, pulmonary fibrosis, chronic atrial fibrillation, obstructive sleep apnea, morbid obesity, coronary artery disease, diabetes mellitus, dyslipidemia, Arterial disease, pneumonia and ARDS-like Petrin COPD exacerbation, acute hypoxic respiratory failure 04/14/2019, patient seen eval examined during the rounds breathing relatively better but is still on 6 L oxygen high flow patient couldn't tolerate the CPAP machine last night due to high demand of oxygen able to get up and move around chest up down into mid 80s with oxygen patient is not ready for discharge at this time, the chest x-ray from today reviewed left-sided remains unchanged but right-sided partial clearing has been noted a small residual right-sided effusion is present 04/13/2019, Patient seen and examined care plan discussed with the family present at bedside patient is doing slightly better he remains on 15 L high flow oxygen 50% he is saturation is 92% he is a had difficult time with the BiPAP he does have a CPAP which I have asked the family members to bring him a he is complaining of less congestion and shortness of breath, his chest x-ray revealed similar appearing trace pleural effusion with interstitial edema bilateral patchy infiltrate and pulmonary edema is seen, he remains on breathing treatments with IV steroids and diuretics with broad-spectrum antibiotics, his culture showed no growth 04/12/2019, patient seen eval reexamined during the rounds he is the gradually more short of breath mild cough is present no hemoptysis present chest x-ray performed today showed worsening of bilateral pulmonary edema versus a ARDS-like pattern, x-ray compared to the admit x-ray initially there were infiltrates more present on the left side but in last 24-48 hours thereafter appearing on the right side as well patient requiring BiPAP for desaturation on 13 L her sats are only 80% with BiPAP 12/6 and 50% oxygen improved to 95%, no hemoptysis present care plan discussed with daughter and other family members present at bedside at length patient is not a candidate for bronchoscopy will hold anticoagulation for now continue BiPAP patient will be started on IV steroids breathing treatments and IV antibiotics as well with the sputum culture studies are sent, critical care time spent 35 minutes 04/11/2019, patient seen and evaluated examined during the rounds his cuff congestion shortness breath is significantly improved he has some streaks of blood on coughing he is on anticoagulants as well likely related to inflammation in the lung, computed tomography scan of the chest has been reviewed right lower lobe base rounded atelectasis have been noted, interstitial prominence is noted on the left upper lobe predominantly very atypical for IPF may be related to infiltrative process due to hemoptysis and pulmonary hemorrhage will discuss with cardiology if anticoagulation can be stopped for a short while with further recommendations pending, may need to do a bronchoscopy 73-year-old male with history of previous quadruple bypass, multiple stent placement, atrial fibrillation, congestive heart failure, COPD presenting today for chief complaint of shortness of breath. Patient states since his discharge on 04/01/2019 he has had shortness of breath. He states at that time he had surgery to replace a pacemaker/defibrillator. Patient states also since that time he has had a headache in the posterior aspect of his head. He states he has no vomiting nausea dizziness he is not sure if this headache he is unable to describe well the characteristic nor type of pain that is. Patient denies any weakness of the upper or lower extremities. Denies any speech changes. Family states patient is at baseline, noting no neurological symptoms. Patient denies any fevers patient has a chest pain. Patient denies any thoracic back pain. Patient denies any abdominal pain other extremity pain jaw pain or paresthesias. Patient has a cough. Patient states he has chronic hemoptysis. Patient denies any lower extremity swelling. Remaining ROS (-). Upon arrival pt hypoxic at 83% on RA, pt normally on 2L of home oxygen for chronic hypoxia. Patient has been started on IV furosemide with that shortness breath is better but stable and improved patient is for CAT scan later on today by cardiology to assess pulmonary fibrosis Objective - Vital Signs Vital signs: Vital Signs Temp 97.6 F 04/14/19 08:00 Pulse 72 04/14/19 12:00 Resp 18 04/14/19 11:25 BP 95/69 04/14/19 11:20 Pulse Ox 88 L 04/14/19 11:20 Intake & Output 04/13/19 04/14/19 04/14/19 18:59 06:59 18:59 Intake Total 118 100 480 Output Total 1500 240 Balance 118 -1400 240 Weight 110 kg 110 kg Intake: Intake, IV Titration 100 Amount Piperacillin-Tazobactam 3 100 .375 gm In Sodium Chloride 0.9% 100 ml @ 25 mls/hr IVPB Q8HR [facility] Rx# :[id number] Oral 118 480 Output: Urine 1500 240 Other: Voiding Method Indwelling Catheter Indwelling Catheter Indwelling Catheter - Exam Constitutional General appearance: disheveled, mild distress, morbidly obese - EENT Eyes: PERRLA ENT: hearing grossly normal, normal oropharynx Ears: bilateral: normal - Neck Carotids: bilateral: upstroke normal Thyroid: bilateral: normal size - Respiratory Respiratory: bilateral: diminished, rales, fine bilateral expiratory rhonchi negative: CTA, dullness, rhonchi, wheezing - Cardiovascular Rhythm: regular Heart sounds: normal: S1, S2 - Gastrointestinal General gastrointestinal: normal bowel sounds, soft - Integumentary Integumentary: normal - Neurologic Neurologic: CNII-XII intact - Musculoskeletal Musculoskeletal: gait normal, generalized weakness, strength equal bilaterally - Psychiatric Psychiatric: A&O x's 3, appropriate affect, intact judgment & insight - Labs CBC & Chem 7: 04/14/19 06:25 04/14/19 06:25 Labs: Abnormal Lab Results - Last 24 Hours (Table) 04/13/19 04/13/19 04/14/19 Range/Units 16:39 21:15 06:06 WBC (3.8-10.6) k/uL RDW (11.5-15.5) % Neutrophils # (1.3-7.7) k/uL Lymphocytes # (1.0-4.8) k/uL BUN (9-20) mg/dL Creatinine (0.66-1.25) mg/dL Glucose (74-99) mg/dL POC Glucose (mg/dL) 230 H 300 H 164 H (75-99) mg/dL 04/14/19 04/14/19 04/14/19 Range/Units 06:25 06:25 11:31 WBC 18.2 H (3.8-10.6) k/uL RDW 16.1 H (11.5-15.5) % Neutrophils # 17.0 H (1.3-7.7) k/uL Lymphocytes # 0.4 L (1.0-4.8) k/uL BUN 33 H (9-20) mg/dL Creatinine 0.58 L (0.66-1.25) mg/dL Glucose 165 H (74-99) mg/dL POC Glucose (mg/dL) 217 H (75-99) mg/dL Microbiology - Last 24 Hours (Table) 04/09/19 19:48 Blood Culture - Preliminary Blood No Growth after 96 hours Assessment and Plan Assessment: Acute hypoxic respiratory failure ARDS versus CHF and/pulmonary edema Possible pneumonia Congestive heart failure acute on chronic systolic heart failure Pulmonary fibrosis less likely to be IPF appears to be more due to pulmonary edema Chronic atrial fibrillation Obstructive sleep apnea Morbid obesity Coronary artery disease Diabetes mellitus Dyslipidemia Peripheral arterial disease Plan: IV steroids Broad-spectrum antibiotics Sputum studies BiPAP support, can use CPAP machine from home to maintain only Gentle diuresis Bronchodilator Hold anticoagulation, until tomorrow hopefully if remains stable we'll start and resume Deep breathing sense incentive spirometry Continue BiPAP Reviewed computed tomography scan Time with Patient: Greater than 30
--- NOTE | 2019-04-14 14:22 | XR ---
EXAMINATION TYPE: XR chest 1V portable DATE OF EXAM: 04/14/2019 COMPARISON: 04/13/2019 HISTORY: Pleural effusion TECHNIQUE: Single frontal view of the chest is obtained. FINDINGS: Diffuse interstitial pattern with bilateral consolidation and pleural effusion. Postoperat leonela change. Cardiac device noted. Biapical pleural thickening. Atherosclerotic change aorta. IMPRESSION: Findings most typical of CHF and stable. Underlying pneumonia not excluded.
--- NOTE | 2019-04-14 16:15 | PN ---
PROGRESS NOTE DATE OF SERVICE: Mr. Saha is comfortable resting. This gentleman had some bronchospasm-type issues. There was a question of pneumonia with secretions and Dr. Serrano was considering bronchoscopy. With this in mind, he held Xarelto. However, patient is doing better now. Oxygenation is good. I am switching him from IV to oral Lasix. I spoke to Dr. Serrano. We will resume Xarelto, and he does not plan to do bronchoscopy. Vitals are stable. S1, S2 heard normally. Lungs reveal improved air entry. Abdomen and lower extremity exam unchanged. Plan is to increase activity and plan for discharge later today or tomorrow. MMODL / IJN: [id number] /
[2019-04-14 16:44] LABS: Glucose,Whole Blood 283 mg/dL (75-99)
[2019-04-14] MEDS: RIVAROXABAN 20 MG TAB PO SCH (17:24)
[2019-04-14] MEDS: FUROSEMIDE 40 MG TAB PO SCH (17:24)
[2019-04-14 20:08] LABS: Glucose,Whole Blood 237 mg/dL (75-99)
[2019-04-14] MEDS: ATORVASTATIN 80 MG TAB PO SCH (20:55)
[2019-04-14] MEDS: LORazepam 0.5 MG TAB PO PRN (20:55)
[2019-04-14] MEDS: MONTELUKAST 10 MG TAB PO SCH (20:55)
--- NOTE | 2019-04-14 22:28 | PN ---
PROGRESS NOTE DATE OF SERVICE: 04/14/2019 This 73-year-old gentleman who was admitted with CHF, acute exacerbation, had an ejection fraction of 30% to 35%. Patient also had acute hypoxic respiratory failure. The patient is on 14 L of nasal cannula at this time. The most recent chest x-ray, which was reviewed by me, showed significant bilateral opacities. Cardiology and Dr. Serrano are following the patient closely. Past medical history reviewed. REVIEW OF SYSTEMS: CARDIOVASCULAR SYSTEM: As mentioned earlier. RESPIRATORY SYSTEM: As mentioned earlier. GI: No nausea, vomiting. : No dysuria or retention. NERVOUS SYSTEM: No numbness, weakness. CURRENT MEDICATIONS: Reviewed. They include: 1. Tylenol 650 q.4. 2. Ventolin. 3. DuoNeb q.i.d. and p.r.n. 4. Aspirin 81 mg daily. 5. Pulmicort 0.5. 6. Lasix 40 mg p.o. b.i.d. 7. NovoLog. 8. Imdur 60 mg daily. 9. Ativan 0.5 mg q.8. 10.Solu-Medrol 60 IV q.8. 11.Toprol-XL 10 mg daily. 12.Narcan. 13.Nitrostat. 14.Zosyn. 15.Xarelto. 16.Entresto. 17.Aldactone. 18.Effexor. PHYSICAL EXAMINATION: Patient is alert, oriented x3. Pulse is 81, blood pressure 89/54, respiration 24, temperature 97.5, pulse ox 93% on 14 L. HEENT: Conjunctivae normal. NECK: No jugular venous distention. CARDIOVASCULAR SYSTEM: S1, S2 muffled. RESPIRATORY SYSTEM: Breath sounds diminished at the bases. Bilateral scattered rhonchi and crackles. ABDOMEN: Soft, non-tender. LEGS: No edema. No swelling. NERVOUS SYSTEM: No focal deficit. LABS: WBC 10.5, hemoglobin 13.4. ASSESSMENT: 1. Congestive heart failure, acute exacerbation, with acute on chronic systolic dysfunction, ejection fraction 30% to 35%. 2. Acute hypoxic respiratory failure secondary to congestive heart failure, acute exacerbation, and pulmonary fibrosis requiring BiPAP. 3. Persistent atrial fibrillation, status post recent AICD upgrade. 4. Anticoagulation with Xarelto. 5. Chronic hypoxic respiratory failure, on home oxygen at 2 liters nasal cannula. 6. History of coronary artery disease, coronary artery bypass grafting. 7. Diabetes mellitus, type 2. 8. Hypertension. 9. Hyperlipidemia. 10.Hypothyroidism. 11.Obstructive sleep apnea. 12.Bilateral peripheral neuropathy. 13.Peripheral vascular disease with a left leg iliac stent in 2018. 14.History of post-traumatic stress disorder. 15.Gait dysfunction. 16.FULL CODE. RECOMMENDATIONS AND DISCUSSION: In this 73-year-old gentleman who presented with multiple complex medical issues, we will monitor the patient closely, continue the current medications, continue with symptomatic treatment. Otherwise, continue the diuretics. Continue bronchodilators. Continue IV steroids. The patient has significant hypoxia requiring 14 L nasal cannula still. Patient is extremely weak. Overall prognosis extremely guarded because of above- mentioned multiple medical problems. Further recommendations to follow. MMTANJA / MILAGROS: [id number] /
[2019-04-14] MEDS: VENLAFAXINE HCL 75 MG TAB PO SCH (22:50)
[2019-04-15 06:25] LABS: Glucose,Whole Blood 219 mg/dL (75-99)
[2019-04-15] MEDS: INSULIN ASPART (NovoLOG) 100 UNIT/ML VIAL SQ SCH ×4 (06:29→21:02)
[2019-04-15] MEDS: IPRATROPIUM-ALBUTEROL 3 ML NEB INHALATION SCH ×4 (07:47→19:45)
[2019-04-15] MEDS: BUDESONIDE 0.5 MG/2 ML NEBU INHALATION PRN ×2 (07:47→19:45)
[2019-04-15] MEDS: METOPROLOL SUCCINATE (ER) 100 MG TAB.ER.24H PO SCH (09:37)
[2019-04-15] MEDS: SPIRONOLACTONE 25 MG TAB PO SCH (09:37)
[2019-04-15] MEDS: PREGABALIN 75 MG CAP PO SCH ×2 (09:37→20:12)
[2019-04-15] MEDS: SACUBITRIL/VALSARTAN 24 MG-26 MG TABLET PO SCH ×2 (09:37→20:12)
[2019-04-15] MEDS: ASPIRIN 81 MG PO SCH (09:37)
[2019-04-15] MEDS: PIPERACILLIN-TAZOBACTAM 3.375 GM in SODIUM CHLORIDE 0.9% 100 ML IVPB SCH ×3 (09:38→23:13)
[2019-04-15] MEDS: ISOSORBIDE MONONITRATE ER 60 MG TAB.ER.24H PO SCH (09:38)
[2019-04-15] MEDS: FUROSEMIDE 40 MG TAB PO SCH ×2 (09:38→17:21)
[2019-04-15] MEDS: methylPREDNISolone SOD SUCCI 125 MG/2 ML VIAL IV SCH ×3 (09:38→23:13)
--- NOTE | 2019-04-15 12:06 | P.PN ---
Subjective Progress Note Date: 04/15/19 Physical pleasant 73-year-old gentleman who follows with Dr. Shi in the office. He has a known history of CAD, prior CABG, atrial fibrillation and biventricular ICD. He presented with significant shortness of breath as well as cough with some mild sputum production. Resting saturation obtained was 83% on 2 L home oxygen. NT proBNP was only mildly elevated and no significant change was noted on chest x-ray compared to before. There was a question of pneumonia at some point and Dr. Serrano was initially considering bronchoscopy however the patient improved and this is no longer planned. He is back on his oral anticoagulant. He was switched from IV to oral Lasix yesterday overall he is doing fairly well. He continues to be on high flow nasal cannula oxygen. Objective - Vital Signs Vital signs: Vital Signs Temp 97.4 F L 04/15/19 08:00 Pulse 76 04/15/19 11:15 Resp 20 04/15/19 08:00 BP 109/69 04/15/19 08:00 Pulse Ox 90 L 04/15/19 08:00 Intake & Output 04/14/19 04/15/19 04/15/19 18:59 06:59 18:59 Intake Total 1170 340 240 Output Total 240 800 500 Balance 930 -460 -260 Weight 108.6 kg Intake: Intake, IV Titration 200 100 Amount Piperacillin-Tazobactam 3 200 100 .375 gm In Sodium Chloride 0.9% 100 ml @ 25 mls/hr IVPB Q8HR [facility] Rx# :[id number] Oral 970 240 240 Output: Urine 240 800 500 Other: Voiding Method Indwelling Catheter Indwelling Catheter Indwelling Catheter - Exam PHYSICAL EXAMINATION: HEENT: Head is atraumatic, normocephalic. Pupils equal, round. Neck is supple. There is no elevated jugular venous pressure. HEART EXAMINATION: Heart sounds regular, S1 and S2 normal. No murmur or gallop heard. CHEST EXAMINATION: Lungs reveal diminished air entry bilaterally. No chest wall tenderness is noted on palpation or with deep breathing. ABDOMEN: Soft, nontender. Bowel sounds are heard. No organomegaly noted. EXTREMITIES: 2+ peripheral pulses with no evidence of peripheral edema and no calf tenderness noted. NEUROLOGIC patient is awake, alert and oriented x3. . - Labs CBC & Chem 7: 04/14/19 06:25 04/14/19 06:25 Labs: Abnormal Lab Results - Last 24 Hours (Table) 04/14/19 04/14/19 04/15/19 Range/Units 16:41 20:07 06:19 POC Glucose (mg/dL) 283 H 237 H 219 H (75-99) mg/dL Microbiology - Last 24 Hours (Table) 04/09/19 19:48 Blood Culture - Preliminary Blood No Growth after 120 hours Assessment and Plan Assessment: 1 acute hypoxic respiratory failure #2 ARDS versus CHF or pulmonary fibrosis #3 possible pneumonia #4 acute on chronic systolic heart failure, improving #5 history of CAD with prior CABG and stenting #6 obstructive sleep apnea #7 diabetes mellitus Plan: From cardiology's perspective, medications were reviewed and we will continue the same. We will schedule the patient to follow-up with Dr. Cates for outpatient follow-up after discharge. PLATE CLEANER note has been reviewed, I agree with a documented findings and plan of care. Patient was seen and examined.
[2019-04-15 12:29] LABS: Anisocytosis Slight; Basophils % (A) 0 %; Eosinophils # (A) 0.1 k/uL (0-0.7); Eosinophils % (A) 0 %; HCT 47.8 % (39.0-53.0); HGB 14.1 gm/dL (13.0-17.5); Hypochromasia Marked; Lymphocytes # (A) 0.3 k/uL (1.0-4.8); Lymphocytes % (A) 1 %; MCH 27.2 pg (25.0-35.0); MCHC 29.5 g/dL (31.0-37.0); MCV 92.4 fL (80.0-100.0); Mean Platelet Volume 7.8; Monocytes # (A) 1.5 k/uL (0-1.0); Monocytes % (A) 6 %; Neutrophils # (A) 24.1 k/uL (1.3-7.7); Neutrophils % (A) 92 %; Platelet Count 431 k/uL (150-450); RBC 5.18 m/uL (4.30-5.90); RDW 16.3 % (11.5-15.5); WBC 26.2 k/uL (3.8-10.6)
[2019-04-15 12:37] LABS: African American GFR (CKD) >90 (>60 ml/min/1.73 sqM); Anion Gap 9 mmol/L; Blood Urea Nitrogen 37 mg/dL (9-20); Calcium 9.1 mg/dL (8.4-10.2); Carbon Dioxide 30 mmol/L (22-30); Chloride 102 mmol/L (98-107); Glucose 282 mg/dL (74-99); Sodium 141 mmol/L (137-145)
--- NOTE | 2019-04-15 12:46 | P.PN ---
Subjective Progress Note Date: 04/15/19 Principal diagnosis: Acute exacerbation of congestive heart failure acute on chronic systolic heart failure, pulmonary fibrosis, chronic atrial fibrillation, obstructive sleep apnea, morbid obesity, coronary artery disease, diabetes mellitus, dyslipidemia, Arterial disease, pneumonia and ARDS-like Petrin COPD exacerbation, acute hypoxic respiratory failure 04/15/2019, patient seen eval reexamined during the rounds denies any chest pain, ongoing shortness of breath patient has been started on blood thinners, remains on broad-spectrum antibiotics and IV steroids, breathing has improved but is still visibly short of breath and on 15 L oxygen saturations about 90% I have reviewed medications reviewed 04/14/2019, patient seen eval examined during the rounds breathing relatively better but is still on 6 L oxygen high flow patient couldn't tolerate the CPAP machine last night due to high demand of oxygen able to get up and move around chest up down into mid 80s with oxygen patient is not ready for discharge at this time, the chest x-ray from today reviewed left-sided remains unchanged but right-sided partial clearing has been noted a small residual right-sided effusio n is present 04/13/2019, Patient seen and examined care plan discussed with the family present at bedside patient is doing slightly better he remains on 15 L high flow oxygen 50% he is saturation is 92% he is a had difficult time with the BiPAP he does have a CPAP which I have asked the family members to bring him a he is complaining of less congestion and shortness of breath, his chest x-ray revealed similar appearing trace pleural effusion with interstitial edema bilateral patchy infiltrate and pulmonary edema is seen, he remains on breathing treatments with IV steroids and diuretics with broad-spectrum antibiotics, his culture showed no growth 04/12/2019, patient seen eval reexamined during the rounds he is the gradually more short of breath mild cough is present no hemoptysis present chest x-ray performed today showed worsening of bilateral pulmonary edema versus a ARDS-like pattern, x-ray compared to the admit x-ray initially there were infiltrates more present on the left side but in last 24-48 hours thereafter appearing on the right side as well patient requiring BiPAP for desaturation on 13 L her sats are only 80% with BiPAP 12/6 and 50% oxygen improved to 95%, no hemoptysis present care plan discussed with daughter and other family members present at bedside at length patient is not a candidate for bronchoscopy will hold anticoagulation for now continue BiPAP patient will be started on IV steroids breathing treatments and IV antibiotics as well with the sputum culture studies are sent, critical care time spent 35 minutes 04/11/2019, patient seen and evaluated examined during the rounds his cuff congestion shortness breath is significantly improved he has some streaks of blood on coughing he is on anticoagulants as well likely related to inflammation in the lung, computed tomography scan of the chest has been reviewed right lower lobe base rounded atelectasis have been noted, interstitial prominence is noted on the left upper lobe predominantly very atypical for IPF may be related to infiltrative process due to hemoptysis and pulmonary hemorrhage will discuss with cardiology if anticoagulation can be stopped for a short while with further recommendations pending, may need to do a bronchoscopy 73-year-old male with history of previous quadruple bypass, multiple stent placement, atrial fibrillation, congestive heart failure, COPD presenting today for chief complaint of shortness of breath. Patient states since his discharge on 04/01/2019 he has had shortness of breath. He states at that time he had surgery to replace a pacemaker/defibrillator. Patient states also since that time he has had a headache in the posterior aspect of his head. He states he has no vomiting nausea dizziness he is not sure if this headache he is unable to describe well the characteristic nor type of pain that is. Patient denies any weakness of the upper or lower extremities. Denies any speech changes. Family states patient is at baseline, noting no neurological symptoms. Patient denies any fevers patient has a chest pain. Patient denies any thoracic back pain. Patient denies any abdominal pain other extremity pain jaw pain or paresthesias. Patient has a cough. Patient states he has chronic hemoptysis. Patient denies any lower extremity swelling. Remaining ROS (-). Upon arrival pt hypoxic at 83% on RA, pt normally on 2L of home oxygen for chronic hypoxia. Patient has been started on IV furosemide with that shortness breath is better but stable and improved patient is for CAT scan later on today by cardiology to assess pulmonary fibrosis Objective - Vital Signs Vital signs: Vital Signs Temp 97.4 F L 04/15/19 08:00 Pulse 76 04/15/19 11:15 Resp 20 04/15/19 08:00 BP 109/69 04/15/19 08:00 Pulse Ox 90 L 04/15/19 08:00 Intake & Output 04/14/19 04/15/19 04/15/19 18:59 06:59 18:59 Intake Total 1170 340 240 Output Total 240 800 500 Balance 930 -460 -260 Weight 108.6 kg Intake: Intake, IV Titration 200 100 Amount Piperacillin-Tazobactam 3 200 100 .375 gm In Sodium Chloride 0.9% 100 ml @ 25 mls/hr IVPB Q8HR [facility] Rx# :[id number] Oral 970 240 240 Output: Urine 240 800 500 Other: Voiding Method Indwelling Catheter Indwelling Catheter Indwelling Catheter - Exam Constitutional General appearance: disheveled, mild distress, morbidly obese - EENT Eyes: PERRLA ENT: hearing grossly normal, normal oropharynx Ears: bilateral: normal - Neck Carotids: bilateral: upstroke normal Thyroid: bilateral: normal size - Respiratory Respiratory: bilateral: diminished, rales, fine bilateral expiratory rhonchi negative: CTA, dullness, rhonchi, wheezing - Cardiovascular Rhythm: regular Heart sounds: normal: S1, S2 - Gastrointestinal General gastrointestinal: normal bowel sounds, soft - Integumentary Integumentary: normal - Neurologic Neurologic: CNII-XII intact - Musculoskeletal Musculoskeletal: gait normal, generalized weakness, strength equal bilaterally - Psychiatric Psychiatric: A&O x's 3, appropriate affect, intact judgment & insight - Labs CBC & Chem 7: 04/15/19 12:07 04/15/19 12:07 Labs: Abnormal Lab Results - Last 24 Hours (Table) 04/14/19 04/14/19 04/15/19 Range/Units 16:41 20:07 06:19 WBC (3.8-10.6) k/uL MCHC (31.0-37.0) g/dL RDW (11.5-15.5) % Neutrophils # (1.3-7.7) k/uL Lymphocytes # (1.0-4.8) k/uL Monocytes # (0-1.0) k/uL BUN (9-20) mg/dL Creatinine (0.66-1.25) mg/dL Glucose (74-99) mg/dL POC Glucose (mg/dL) 283 H 237 H 219 H (75-99) mg/dL 04/15/19 04/15/19 Range/Units 12:07 12:07 WBC 26.2 H (3.8-10.6) k/uL MCHC 29.5 L (31.0-37.0) g/dL RDW 16.3 H (11.5-15.5) % Neutrophils # 24.1 H (1.3-7.7) k/uL Lymphocytes # 0.3 L (1.0-4.8) k/uL Monocytes # 1.5 H (0-1.0) k/uL BUN 37 H (9-20) mg/dL Creatinine 0.62 L (0.66-1.25) mg/dL Glucose 282 H (74-99) mg/dL POC Glucose (mg/dL) (75-99) mg/dL Microbiology - Last 24 Hours (Table) 04/09/19 19:48 Blood Culture - Preliminary Blood No Growth after 120 hours Assessment and Plan Assessment: Acute hypoxic respiratory failure ARDS versus CHF and/pulmonary edema Possible pneumonia Congestive heart failure acute on chronic systolic heart failure Pulmonary fibrosis less likely to be IPF appears to be more due to pulmonary edema Chronic atrial fibrillation Obstructive sleep apnea Morbid obesity Coronary artery disease Diabetes mellitus Dyslipidemia Peripheral arterial disease Plan: IV steroids Broad-spectrum antibiotics Sputum studies BiPAP support, can use CPAP machine from home to maintain only Gentle diuresis Bronchodilator Hold anticoagulation, until tomorrow hopefully if remains stable we'll start and resume Deep breathing sense incentive spirometry Continue BiPAP Reviewed computed tomography scan Time with Patient: Greater than 30
[2019-04-15 12:47] LABS: Glucose,Whole Blood 299 mg/dL (75-99)
[2019-04-15 16:39] LABS: Glucose,Whole Blood 278 mg/dL (75-99)
[2019-04-15] MEDS: RIVAROXABAN 20 MG TAB PO SCH (17:21)
[2019-04-15] MEDS: ATORVASTATIN 80 MG TAB PO SCH (20:11)
[2019-04-15] MEDS: VENLAFAXINE HCL 75 MG TAB PO SCH (20:12)
[2019-04-15] MEDS: MONTELUKAST 10 MG TAB PO SCH (20:12)
[2019-04-15 20:58] LABS: Glucose,Whole Blood 276 mg/dL (75-99)
--- NOTE | 2019-04-15 23:59 | PN ---
PROGRESS NOTE DATE OF SERVICE: 04/15/2019 This 73-year-old gentleman admitted with CHF, acute exacerbation, as well as pulmonary fibrosis, is being closely monitored. Patient still requires high-flow oxygen. No chest pain. No palpitations. No fever. On exam, alert and oriented x3. The pulse is 69, blood pressure 99/61, respiration 18, temperature 97.6, pulse ox 91% on 14 high-flow nasal cannula. HEENT: Conjunctivae normal. NECK: No jugular venous distention. CARDIOVASCULAR SYSTEM: S1, S2 muffled. RESPIRATORY SYSTEM: Breath sounds diminished at the bases. Bilateral scattered rhonchi and crackles. ABDOMEN: Soft, non-tender. LEGS: No edema. No swelling. NERVOUS SYSTEM: No focal deficit. LABS: WBC 26.2, hemoglobin 14.1. Glucose 278, 276. ASSESSMENT: 1. Congestive heart failure, acute exacerbation, with acute on chronic systolic dysfunction, ejection fraction 30% to 35%. 2. Acute hypoxic respiratory failure secondary to congestive heart failure, acute exacerbation, as well as pulmonary fibrosis. Requiring BiPAP; now on high-flow oxygen. 3. Persistent atrial fibrillation, status post recent automated implantable cardioverter defibrillator upgrade. 4. Anticoagulation with Xarelto. 5. Chronic hypoxic respiratory failure, on home oxygen at 2 L nasal cannula. 6. History of coronary artery disease, coronary artery bypass grafting. 7. Diabetes mellitus, type 2. 8. Hypertension. 9. Hyperlipidemia. 10.Hypothyroidism. 11.Obstructive sleep apnea. 12.Bilateral peripheral neuropathy. 13.Peripheral vascular disease of the left leg iliac stent in 2018. 14.History of post-traumatic stress disorder. 15.Gait dysfunction. 16.FULL CODE. RECOMMENDATIONS AND DISCUSSION: I recommend to continue current medications, continue with the monitoring, symptomatic treatment. Continue with the bronchodilators, steroids. Continue with the diuretics. Closely follow with Cardiology and Pulmonology. Guarded prognosis. Further recommendations to follow. MMODL / IJN: [id number] /
[2019-04-16 06:03] LABS: Glucose,Whole Blood 280 mg/dL (75-99)
[2019-04-16] MEDS: INSULIN ASPART (NovoLOG) 100 UNIT/ML VIAL SQ SCH ×5 (06:16→21:40)
[2019-04-16] MEDS: BUDESONIDE 0.5 MG/2 ML NEBU INHALATION PRN (09:10)
[2019-04-16] MEDS: IPRATROPIUM-ALBUTEROL 3 ML NEB INHALATION SCH ×4 (09:10→20:07)
[2019-04-16] MEDS: methylPREDNISolone SOD SUCCI 125 MG/2 ML VIAL IV SCH ×2 (09:21→17:46)
[2019-04-16] MEDS: PIPERACILLIN-TAZOBACTAM 3.375 GM in SODIUM CHLORIDE 0.9% 100 ML IVPB SCH ×2 (09:21→17:45)
[2019-04-16] MEDS: ASPIRIN 81 MG PO SCH (09:22)
[2019-04-16] MEDS: METOPROLOL SUCCINATE (ER) 100 MG TAB.ER.24H PO SCH (09:22)
[2019-04-16] MEDS: SACUBITRIL/VALSARTAN 24 MG-26 MG TABLET PO SCH ×2 (09:22→21:40)
[2019-04-16] MEDS: SPIRONOLACTONE 25 MG TAB PO SCH (09:22)
[2019-04-16] MEDS: ISOSORBIDE MONONITRATE ER 60 MG TAB.ER.24H PO SCH (09:22)
[2019-04-16] MEDS: FUROSEMIDE 40 MG TAB PO SCH (09:22)
[2019-04-16] MEDS: PREGABALIN 75 MG CAP PO SCH ×2 (09:22→21:40)
--- NOTE | 2019-04-16 11:25 | P.PN ---
Subjective Progress Note Date: 04/16/19 Physical pleasant 73-year-old gentleman who follows with Dr. Shi in the office. He has a known history of CAD, prior CABG, atrial fibrillation and biventricular ICD. He presented with significant shortness of breath as well as cough with some mild sputum production. Resting saturation obtained was 83% on 2 L home oxygen. NT proBNP was only mildly elevated and no significant change was noted on chest x-ray compared to before. There was a question of pneumonia at some point and Dr. Serrano was initially considering bronchoscopy however the patient improved and this is no longer planned. He is back on his oral anticoagulant. He remains on oral Lasix. Patient has been significantly more short of breath this morning and has been on BiPAP. Nursing staff reported patient was noted to have blood in his urine and hemoptysis. Objective - Vital Signs Vital signs: Vital Signs Temp 97.4 F L 04/16/19 04:00 Pulse 74 04/16/19 09:24 Resp 26 H 04/16/19 04:00 BP 105/65 04/16/19 04:00 Pulse Ox 90 L 04/16/19 09:37 Intake & Output 04/15/19 04/16/19 04/16/19 18:59 06:59 18:59 Intake Total 840 100 Output Total 1100 2100 Balance -260 -2000 Weight 110.2 kg Intake: Intake, IV Titration 100 Amount Piperacillin-Tazobactam 3 100 .375 gm In Sodium Chloride 0.9% 100 ml @ 25 mls/hr IVPB Q8HR [facility] Rx# :[id number] Oral 840 Output: Urine 1100 2100 Other: Voiding Method Indwelling Catheter Indwelling Catheter - Exam PHYSICAL EXAMINATION: HEENT: Head is atraumatic, normocephalic. Pupils equal, round. Neck is supple. There is no elevated jugular venous pressure. HEART EXAMINATION: Heart sounds regular, S1 and S2 normal. No murmur or gallop heard. CHEST EXAMINATION: Lungs reveal diminished air entry bilaterally. No chest wall tenderness is noted on palpation or with deep breathing. ABDOMEN: Soft, nontender. Bowel sounds are heard. No organomegaly noted. EXTREMITIES: 2+ peripheral pulses with no evidence of peripheral edema and no calf tenderness noted. NEUROLOGIC patient is awake, alert and oriented x3. . - Labs CBC & Chem 7: 04/15/19 12:07 04/15/19 12:07 Labs: Abnormal Lab Results - Last 24 Hours (Table) 04/15/19 04/15/19 04/15/19 Range/Units 11:41 12:07 12:07 WBC 26.2 H (3.8-10.6) k/uL MCHC 29.5 L (31.0-37.0) g/dL RDW 16.3 H (11.5-15.5) % Neutrophils # 24.1 H (1.3-7.7) k/uL Lymphocytes # 0.3 L (1.0-4.8) k/uL Monocytes # 1.5 H (0-1.0) k/uL BUN 37 H (9-20) mg/dL Creatinine 0.62 L (0.66-1.25) mg/dL Glucose 282 H (74-99) mg/dL POC Glucose (mg/dL) 299 H (75-99) mg/dL 04/15/19 04/15/19 04/16/19 Range/Units 16:38 20:56 06:02 WBC (3.8-10.6) k/uL MCHC (31.0-37.0) g/dL RDW (11.5-15.5) % Neutrophils # (1.3-7.7) k/uL Lymphocytes # (1.0-4.8) k/uL Monocytes # (0-1.0) k/uL BUN (9-20) mg/dL Creatinine (0.66-1.25) mg/dL Glucose (74-99) mg/dL POC Glucose (mg/dL) 278 H 276 H 280 H (75-99) mg/dL Microbiology - Last 24 Hours (Table) 04/09/19 19:48 Blood Culture - Final Blood No Growth after 144 hours Assessment and Plan Assessment: 1 acute hypoxic respiratory failure #2 ARDS versus CHF or pulmonary fibrosis #3 possible pneumonia #4 acute on chronic systolic heart failure, improving #5 history of CAD with prior CABG and stenting #6 obstructive sleep apnea #7 diabetes mellitus Plan: From cardiology's perspective, medications were reviewed and we will continue the same. We will schedule the patient to follow-up with Dr. Shi for outpatient follow-up after discharge. MACHINE I CUTTER note has been reviewed, I agree with a documented findings and plan of care. Patient was seen and examined.
[2019-04-16 12:17] LABS: Glucose,Whole Blood 239 mg/dL (75-99)
--- NOTE | 2019-04-16 12:31 | XR ---
EXAMINATION TYPE: XR chest 1V portable DATE OF EXAM: 04/16/2019 COMPARISON: 04/14/2019 HISTORY: Shortness of breath FINDINGS: There are bilateral pleural effusions with cardiomegaly and bibasilar infiltrate. There is a diffuse interstitial pattern. Cardiac device postsurgical changes stable. Arthropathy of the shoulders. Biap ical pleural thickening. IMPRESSION: 1. Stable diffuse pleural-parenchymal changes most typical of CHF. Underlying pneumonia not excluded.
--- NOTE | 2019-04-16 13:20 | P.PN ---
Subjective Progress Note Date: 04/16/19 Principal diagnosis: Acute exacerbation of congestive heart failure acute on chronic systolic heart failure, pulmonary fibrosis, chronic atrial fibrillation, obstructive sleep apnea, morbid obesity, coronary artery disease, diabetes mellitus, dyslipidemia, Arterial disease, pneumonia and ARDS-like Petrin COPD exacerbation, acute hypoxic respiratory failure 04/16/2019, patient seen and evaluated examined during the rounds shortness of breath is slightly more congested coughing dark hemorrhagic phlegm this is accompanied by blood-tinged urine also at the same time temporal relationship with recent resumption and restart of Xeralto, is on 15 L high flow oxygen saturation is about 84-86% intermittently he is going back and forth between BiPAP and flow oxygen, patient continued to be on antibiotics and steroids and breathing treatments send a sputum as well chest x-ray done today shows extensive bilateral pleural parenchymal changes more so on the left side saida red to right side some apical thickening critical care time spent 35 minutes 04/15/2019, patient seen eval reexamined during the rounds denies any chest pain, ongoing shortness of breath patient has been started on blood thinners, remains on broad-spectrum antibiotics and IV steroids, breathing has improved but is still visibly short of breath and on 15 L oxygen saturations about 90% I have reviewed medications reviewed 04/14/2019, patient seen eval examined during the rounds breathing relatively better but is still on 6 L oxygen high flow patient couldn't tolerate the CPAP machine last night due to high demand of oxygen able to get up and move around chest up down into mid 80s with oxygen patient is not ready for discharge at this time, the chest x-ray from today reviewed left-sided remains unchanged but right-sided partial clearing has been noted a small residual right-sided effusio n is present 04/13/2019, Patient seen and examined care plan discussed with the family present at bedside patient is doing slightly better he remains on 15 L high flow oxygen 50% he is saturation is 92% he is a had difficult time with the BiPAP he does have a CPAP which I have asked the family members to bring him a he is complaining of less congestion and shortness of breath, his chest x-ray revealed similar appearing trace pleural effusion with interstitial edema bilateral patchy infiltrate and pulmonary edema is seen, he remains on breathing treatments with IV steroids and diuretics with broad-spectrum antibiotics, his culture showed no growth 04/12/2019, patient seen eval reexamined during the rounds he is the gradually more short of breath mild cough is present no hemoptysis present chest x-ray performed today showed worsening of bilateral pulmonary edema versus a ARDS-like pattern, x-ray compared to the admit x-ray initially there were infiltrates more present on the left side but in last 24-48 hours thereafter appearing on the right side as well patient requiring BiPAP for desaturation on 13 L her sats are only 80% with BiPAP /6 and 50% oxygen improved to 95%, no hemoptysis present care plan discussed with daughter and other family members present at bedside at length patient is not a candidate for bronchoscopy will hold anticoagulation for now continue BiPAP patient will be started on IV steroids breathing treatments and IV antibiotics as well with the sputum culture studies are sent, critical care time spent 35 minutes 04/11/2019, patient seen and evaluated examined during the rounds his cuff congestion shortness breath is significantly improved he has some streaks of blood on coughing he is on anticoagulants as well likely related to inflammation in the lung, computed tomography scan of the chest has been reviewed right lower lobe base rounded atelectasis have been noted, interstitial prominence is noted on the left upper lobe predominantly very atypical for IPF may be related to infiltrative process due to hemoptysis and pulmonary hemorrhage will discuss with cardiology if anticoagulation can be stopped for a short while with further recommendations pending, may need to do a bronchoscopy 73-year-old male with history of previous quadruple bypass, multiple stent placement, atrial fibrillation, congestive heart failure, COPD presenting today for chief complaint of shortness of breath. Patient states since his discharge on 04/01/2019 he has had shortness of breath. He states at that time he had surgery to replace a pacemaker/defibrillator. Patient states also since that time he has had a headache in the posterior aspect of his head. He states he has no vomiting nausea dizziness he is not sure if this headache he is unable to describe well the characteristic nor type of pain that is. Patient denies any weakness of the upper or lower extremities. Denies any speech changes. Family states patient is at baseline, noting no neurological symptoms. Patient denies any fevers patient has a chest pain. Patient denies any thoracic back pain. Patient denies any abdominal pain other extremity pain jaw pain or paresthesias. Patient has a cough. Patient states he has chronic hemoptysis. Patient denies any lower extremity swelling. Remaining ROS (-). Upon arrival pt hypoxic at 83% on RA, pt normally on 2L of home oxygen for chronic hypoxia. Patient has been started on IV furosemide with that shortness breath is better but stable and improved patient is for CAT scan later on today by cardiology to assess pulmonary fibrosis Objective - Vital Signs Vital signs: Vital Signs Temp 96.4 F L 04/16/19 08:00 Pulse 71 04/16/19 12:21 Resp 26 H 04/16/19 04:00 BP 103/68 04/16/19 08:00 Pulse Ox 90 L 04/16/19 09:37 Intake & Output 04/15/19 04/16/19 04/16/19 18:59 06:59 18:59 Intake Total 840 100 Output Total 1100 2100 Balance -260 -2000 Weight 110.2 kg Intake: Intake, IV Titration 100 Amount Piperacillin-Tazobactam 3 100 .375 gm In Sodium Chloride 0.9% 100 ml @ 25 mls/hr IVPB Q8HR [facility] Rx# :[id number] Oral 840 Output: Urine 1100 2100 Other: Voiding Method Indwelling Catheter Indwelling Catheter Indwelling Catheter # Voids 0 # Bowel Movements 0 - Exam Constitutional General appearance: disheveled, mild distress, morbidly obese - EENT Eyes: PERRLA ENT: hearing grossly normal, normal oropharynx Ears: bilateral: normal - Neck Carotids: bilateral: upstroke normal Thyroid: bilateral: normal size - Respiratory Respiratory: bilateral: diminished, rales, fine bilateral expiratory rhonchi negative: CTA, dullness, rhonchi, wheezing - Cardiovascular Rhythm: regular Heart sounds: normal: S1, S2 - Gastrointestinal General gastrointestinal: normal bowel sounds, soft - Integumentary Integumentary: normal - Neurologic Neurologic: CNII-XII intact - Musculoskeletal Musculoskeletal: gait normal, generalized weakness, strength equal bilaterally - Psychiatric Psychiatric: A&O x's 3, appropriate affect, intact judgment & insight - Labs CBC & Chem 7: 04/15/19 12:07 04/15/19 12:07 Labs: Abnormal Lab Results - Last 24 Hours (Table) 04/15/19 04/15/19 04/16/19 Range/Units 16:38 20:56 06:02 POC Glucose (mg/dL) 278 H 276 H 280 H (75-99) mg/dL 04/16/19 Range/Units 12:16 POC Glucose (mg/dL) 239 H (75-99) mg/dL Microbiology - Last 24 Hours (Table) 04/09/19 19:48 Blood Culture - Final Blood No Growth after 144 hours Assessment and Plan Assessment: Hemoptysis combination of airway inflammation and blood thinners Acute hypoxic respiratory failure ARDS versus CHF and/pulmonary edema Possible pneumonia Congestive heart failure acute on chronic systolic heart failure Pulmonary fibrosis less likely to be IPF appears to be more due to pulmonary bobo ma Chronic atrial fibrillation Obstructive sleep apnea Morbid obesity Coronary artery disease Diabetes mellitus Dyslipidemia Peripheral arterial disease Plan: IV steroids Broad-spectrum antibiotics Sputum studies BiPAP support, can use CPAP machine from home to maintain only Gentle diuresis Bronchodilator Hold anticoagulation, Deep breathing sense incentive spirometry Continue BiPAP alternating with high flow oxygen Reviewed computed tomography scan Time with Patient: Greater than 30
[2019-04-16 17:13] LABS: Glucose,Whole Blood 276 mg/dL (75-99)
[2019-04-16] MEDS: FUROSEMIDE 10 MG/ML 4 ML VIAL IV SCH (17:45)
[2019-04-16] MEDS: RIVAROXABAN 20 MG TAB PO SCH (17:46)
--- NOTE | 2019-04-16 19:37 | PN ---
PROGRESS NOTE DATE OF SERVICE: 04/16/2019. This 73-year-old gentleman admitted with CHF and pulmonary fibrosis acute exacerbation severely significant hypoxic. Even on 14 L continuous oxygen the patient was desatting. Patient is currently on BiPAP. No chest pain. No palpitations. No fever. EXAM: Alert and oriented x3. The pulse is 72, blood pressure 97/50, respiration normal, temperature normal, pulse ox 90% on 15 L. HEENT: Conjunctivae normal. NECK: No jugular venous distention. CARDIOVASCULAR: S1, S2 muffled. RESPIRATORY: Breath sounds diminished in the bases. Bilateral scattered rhonchi and crackles. Expiratory wheezing. ABDOMEN: Soft, nontender. LEGS: No edema. NERVOUS SYSTEM: No focal deficits. LAB STUDIES: WBC 26.2. Glucose noted. Most recent chest x-ray done today showed evidence of CHF and pulmonary fibrosis also. ASSESSMENT: 1. Congestive heart failure acute exacerbation with acute on chronic systolic dysfunction, ejection fraction 30 to 35%. 2. Acute hypoxic respiratory failure secondary to congestive heart failure acute exacerbation as well as pulmonary infiltrates requiring BiPAP, was on low-flow oxygen. 3. Persistent atrial fibrillation, status post recent AICD upgrade. 4. Anticoagulation Xarelto. 5. Chronic hypoxic respiratory on home oxygen on 3 L nasal cannula. 6. History of coronary artery disease, CABG. 7. History of diabetes type 2. 8. Hypertension. 9. Hyperlipidemia. 10.Hypothyroidism. 11.Obstructive sleep apnea. 12.History of bilateral peripheral neuropathy. 13.Peripheral vascular disease with left leg iliac stent in 2018. 14.History of posttraumatic stress disorder. 15.Gait dysfunction. 16.FULL CODE. RECOMMENDATIONS AND DISCUSSION: I recommend to continue current management and symptomatic treatment. Otherwise at this time I recommend intravenous diuretics and monitor closely. Otherwise we will monitor creatinine closely and currently creatinine 0.629, BUN is 37. Prognosis is guarded. Further recommendations to follow. Avoid nephrotoxic medications. MMODL / IJN: [id number] /
[2019-04-16 21:02] LABS: Glucose,Whole Blood 212 mg/dL (75-99)
[2019-04-16] MEDS: ATORVASTATIN 80 MG TAB PO SCH (21:40)
[2019-04-16] MEDS: VENLAFAXINE HCL 75 MG TAB PO SCH (21:40)
[2019-04-16] MEDS: MONTELUKAST 10 MG TAB PO SCH (21:40)
[2019-04-17] MEDS: FUROSEMIDE 10 MG/ML 4 ML VIAL IV SCH ×3 (00:11→16:59)
[2019-04-17] MEDS: methylPREDNISolone SOD SUCCI 125 MG/2 ML VIAL IV SCH ×3 (00:11→16:59)
[2019-04-17] MEDS: PIPERACILLIN-TAZOBACTAM 3.375 GM in SODIUM CHLORIDE 0.9% 100 ML IVPB SCH ×2 (00:12→09:33)
[2019-04-17 06:05] LABS: Glucose,Whole Blood 168 mg/dL (75-99)
[2019-04-17] MEDS: INSULIN ASPART (NovoLOG) 100 UNIT/ML VIAL SQ SCH ×3 (06:11→16:59)
[2019-04-17 08:26] LABS: Anisocytosis Slight; Basophils % (A) 0 %; Eosinophils # (A) 0.2 k/uL (0-0.7); Eosinophils % (A) 1 %; HCT 47.2 % (39.0-53.0); HGB 14.1 gm/dL (13.0-17.5); Hypochromasia Marked; Lymphocytes # (A) 0.2 k/uL (1.0-4.8); Lymphocytes % (A) 1 %; MCH 26.5 pg (25.0-35.0); MCHC 29.8 g/dL (31.0-37.0); MCV 89.1 fL (80.0-100.0); Mean Platelet Volume 7.5; Monocytes # (A) 0.8 k/uL (0-1.0); Monocytes % (A) 4 %; Neutrophils # (A) 19.8 k/uL (1.3-7.7); Neutrophils % (A) 94 %; Platelet Count 358 k/uL (150-450); RDW 16.1 % (11.5-15.5); WBC 21.1 k/uL (3.8-10.6)
[2019-04-17] MEDS: IPRATROPIUM-ALBUTEROL 3 ML NEB INHALATION SCH ×3 (08:26→16:37)
[2019-04-17] MEDS: BUDESONIDE 0.5 MG/2 ML NEBU INHALATION PRN (08:26)
[2019-04-17 08:37] LABS: African American GFR (CKD) >90 (>60 ml/min/1.73 sqM); Anion Gap 6 mmol/L; Blood Urea Nitrogen 38 mg/dL (9-20); Calcium 8.6 mg/dL (8.4-10.2); Carbon Dioxide 33 mmol/L (22-30); Chloride 105 mmol/L (98-107); Glucose 231 mg/dL (74-99); Sodium 144 mmol/L (137-145)
[2019-04-17] MEDS: ISOSORBIDE MONONITRATE ER 60 MG TAB.ER.24H PO SCH (09:34)
[2019-04-17] MEDS: SPIRONOLACTONE 25 MG TAB PO SCH (09:34)
[2019-04-17] MEDS: ASPIRIN 81 MG PO SCH (09:34)
[2019-04-17] MEDS: PREGABALIN 75 MG CAP PO SCH (09:34)
[2019-04-17] MEDS: SACUBITRIL/VALSARTAN 24 MG-26 MG TABLET PO SCH (09:34)
[2019-04-17] MEDS: METOPROLOL SUCCINATE (ER) 100 MG TAB.ER.24H PO SCH (09:34)
[2019-04-17 10:59] VITALS: TEMP 96.2
--- NOTE | 2019-04-17 11:39 | P.PN ---
Subjective Progress Note Date: 04/17/19 Physical pleasant 73-year-old gentleman who follows with Dr. Shi in the office. He has a known history of CAD, prior CABG, atrial fibrillation and biventricular ICD. He presented with significant shortness of breath as well as cough with some mild sputum production. Resting saturation obtained was 83% on 2 L home oxygen. NT proBNP was only mildly elevated and no significant change was noted on chest x-ray compared to before. There was a question of pneumonia at some point and Dr. Serrano was initially considering bronchoscopy however the patient improved and this is no longer planned. He is back on his oral anticoagulant. He is now on Lasix 40mg IV Q8H. He remains on IV antibiotics and IV solu-medrol. He continues to be complaining of significant dyspnea. He remains on BiPap. He has only mild hemoptysis and his urine has started to clear. His Xarelto is on hold. Objective - Vital Signs Vital signs: Vital Signs Temp 96.7 F L 04/17/19 04:00 Pulse 89 04/17/19 08:45 Resp 26 H 04/17/19 03:51 BP 104/71 04/17/19 04:00 Pulse Ox 93 L 04/17/19 04:00 Intake & Output 04/16/19 04/17/19 04/17/19 18:59 06:59 18:59 Output Total 1950 Balance -1950 Weight 110 kg Output: Urine 1950 Other: Voiding Method Indwelling Catheter Indwelling Catheter # Voids 0 # Bowel Movements 0 1 - Exam PHYSICAL EXAMINATION: HEENT: Head is atraumatic, normocephalic. Pupils equal, round. Neck is supple. There is no elevated jugular venous pressure. HEART EXAMINATION: Heart sounds regular, S1 and S2 normal. No murmur or gallop heard. CHEST EXAMINATION: Lungs reveal diminished air entry bilaterally with crackles noted to bilateral lower lobes. No chest wall tenderness is noted on palpation or with deep breathing. ABDOMEN: Soft, nontender. Bowel sounds are heard. No organomegaly noted. EXTREMITIES: 2+ peripheral pulses with no evidence of peripheral edema and no calf tenderness noted. NEUROLOGIC patient is awake, alert and oriented x3. . - Labs CBC & Chem 7: 04/17/19 08:07 04/17/19 08:07 Labs: Abnormal Lab Results - Last 24 Hours (Table) 04/16/19 04/16/19 04/16/19 Range/Units 12:16 17:09 21:01 WBC (3.8-10.6) k/uL MCHC (31.0-37.0) g/dL RDW (11.5-15.5) % Neutrophils # (1.3-7.7) k/uL Lymphocytes # (1.0-4.8) k/uL Carbon Dioxide (22-30) mmol/L BUN (9-20) mg/dL Creatinine (0.66-1.25) mg/dL Glucose (74-99) mg/dL POC Glucose (mg/dL) 239 H 276 H 212 H (75-99) mg/dL 04/17/19 04/17/19 04/17/19 Range/Units 06:03 08:07 08:07 WBC 21.1 H (3.8-10.6) k/uL MCHC 29.8 L (31.0-37.0) g/dL RDW 16.1 H (11.5-15.5) % Neutrophils # 19.8 H (1.3-7.7) k/uL Lymphocytes # 0.2 L (1.0-4.8) k/uL Carbon Dioxide 33 H (22-30) mmol/L BUN 38 H (9-20) mg/dL Creatinine 0.62 L (0.66-1.25) mg/dL Glucose 231 H (74-99) mg/dL POC Glucose (mg/dL) 168 H (75-99) mg/dL Assessment and Plan Assessment: 1 acute hypoxic respiratory failure #2 ARDS versus CHF or pulmonary fibrosis #3 possible pneumonia #4 acute on chronic systolic heart failure, improving #5 history of CAD with prior CABG and stenting #6 obstructive sleep apnea #7 diabetes mellitus Plan: From cardiology's perspective, medications were reviewed and we will continue the same. We will order a portable chest Xray. Will await evaluation by pulmonary. Discussed with nursing staff need to notify Dr. Serrano. We will continue to follow the patient closely and provide further recommendations accordingly. ACTUARIAL TRAINEE note has been reviewed, I agree with a documented findings and plan of care. Patient was seen and examined.
[2019-04-17 12:02] LABS: Glucose,Whole Blood 313 mg/dL (75-99)
[2019-04-17] MEDS ORDERED: HYDROcodone/APAP 7.5-325MG 1 EACH TAB PO PRN (12:17)
[2019-04-17] MEDS ORDERED: INSULIN ASPART (NovoLOG) 100 UNIT/ML VIAL SQ ONE (12:21)
[2019-04-17] MEDS: LORazepam 2 MG/ML INJ IV PRN ×2 (12:31→16:30)
--- NOTE | 2019-04-17 12:32 | XR ---
EXAMINATION TYPE: XR chest 1V portable DATE OF EXAM: 04/17/2019 Comparison: 04/16/2019 Clinical History: 73-year-old male worsening shortness of breath Findings: Left anterior chest wall AICD generator with right atrial and right ventricular leads. Median sternot eleonora wires are present with annuloplasty ring. Heart is enlarged. Diffuse interstitial and vascular pr ominence and patchy opacities in lower lobes. Small effusions persist. Some stable rightward tracheal deviation noted. Impression: 1. Overall similar CHF with patchy pulmonary edema. Small effusions with adjacent atelectasis and/or consolidation. 2. Stable rightward tracheal deviation suggesting underlying asymmetric goiter/thyroid nodule causing extrinsic mass effect.
[2019-04-17 15:21] VITALS: BP 101/69
--- NOTE | 2019-04-17 16:49 | PN ---
PROGRESS NOTE DATE OF SERVICE: 04/17/2019 This 73-year-old gentleman, admitted with CHF, acute exacerbation, has pulmonary fibrosis, acute exacerbation, and acute hypoxic respiratory failure. He needed 14 L of nasal cannula high-flow oxygen. The patient was transitioned to BiPAP, also. The patient is extremely short of breath. The patient is on IV diuretics, also. The patient is diuresing well at this time. Multiple consultants, including Cardiology and Pulmonary, are following the patient closely. The most recent chest x-ray, which was personally reviewed by me, showed some CHF and some tracheal deviation also. Past medical history reviewed. Review of systems could not be taken; the patient is on BiPAP at this time. CURRENT MEDICATIONS: Reviewed. They include: 1. Tylenol 650 q.4 p.r.n. 2. [place] 7.5 q.6 p.r.n. 3. Ventolin inhalers. 4. DuoNeb q.i.d. and p.r.n. 5. Aspirin 81 mg p.o. daily. 6. Lipitor 80 mg at bedtime. 7. Pulmicort 0.5 mg b.i.d. p.r.n. 8. Lasix 40 mg IV q.8. 9. NovoLog scale. 10.Imdur 60 mg p.o. daily. 11.Ativan 1 mg q.4 p.r.n. 12.Solu-Medrol 60 IV q.8. 13.Toprol-XL 100 mg p.o. daily. 14.Singulair 10 mg at bedtime. 15.Narcan 0.2 q.2 p.r.n. 16.Nitrostat 0.4 sublingually p.r.n. 17.Zosyn 3.375 IV q.8. 18.Lyrica 75 mg p.o. b.i.d. 19.[place] 24/26 mg 1 p.o. b.i.d. 20.Aldactone 25 mg p.o. daily. 21.Effexor XR 75 mg p.o. at bedtime. PHYSICAL EXAMINATION: Patient is alert, oriented x3. Pulse 89, blood pressure 101/69, respiration 20, temperature normal, pulse ox 89% on BiPAP. BiPAP settings are noted. HEENT: Conjunctivae normal. Accessory muscles of respiration are acting. Breathing efforts are markedly increased. CARDIOVASCULAR SYSTEM: S1, S2 muffled. No S3. No S4. RESPIRATORY SYSTEM: Breath sounds diminished at the bases. Bilateral scattered rhonchi and crackles. Expiratory wheezing also present. ABDOMEN: Soft, obese, non-tender. No mass palpable. LEGS: No edema. No swelling. NERVOUS SYSTEM: Higher functions as mentioned earlier. Moves all 4 limbs. No focal motor or sensory deficit. LYMPHATICS: No lymph node palpable in neck, axillae or groin. SKIN: No ulcer, rash, bleeding. JOINTS: No active deforming arthropathy. LABS: WBC 21.1, hemoglobin 14.1, sodium 144, potassium 4, creatinine 0.62. Accu-Cheks are 231 and 313. ASSESSMENT: 1. Congestive heart failure, acute exacerbation, with acute on chronic systolic dysfunction, ejection fraction 30% to 35%. 2. Acute hypoxic respiratory failure secondary to congestive heart failure, acute exacerbation, as well as pulmonary fibrosis exacerbation requiring BiPAP; was on high-flow oxygen. 3. Persistent atrial fibrillation, status post recent AICD upgrade. 4. Anticoagulation with Xarelto. 5. Chronic hypoxic respiratory failure, on home oxygen at 3 L nasal cannula. 6. History of coronary artery disease, coronary artery bypass grafting. 7. History of diabetes mellitus, type 2. 8. Hypertension. 9. Hyperlipidemia. 10.Hypothyroidism. 11.Obstructive sleep apnea. 12.History of bilateral peripheral neuropathy. 13.Peripheral vascular disease with left leg iliac stent in 2018. 14.History of post-traumatic stress disorder. 15.Gait dysfunction. 16.FULL CODE. RECOMMENDATIONS AND DISCUSSION: I recommend to continue current medications, continue with the monitoring, symptomatic treatment. At this time I would recommend continuing with current medications. I will add a small dose of long-acting insulin to the current regimen. The patient is on high- dose IV steroids. Otherwise, continue the IV antibiotics. I also had a detailed discussion with the family at the bedside and the possibility of palliative care versus hospice was suggested. We will obtain an informational meeting and will go from there. Otherwise, as mentioned earlier, prognosis is extremely guarded because of multiple complex medical issues. Further recommendations to follow. MMODL / IJN: [id number] /
[2019-04-17] MEDS ORDERED: MORPHINE SULFATE 2 MG/ML SYRINGE IVP STA (16:58)
[2019-04-17 17:59] VITALS: PULSE 93; RESP 36
[2019-04-17] MEDS ORDERED: INSULIN DETEMIR (LEVEMIR) 100 UNIT/ML SYR SQ SCH (21:00)
== END 2019-04-17 19:17 | disposition hospice, inpatient (51) | DRG 291 ==
LOC: EC 16:49 → 4SSUR 19:44 → 3SCARD 04-12 11:11
PROVIDERS: ADMIT Internal Medicine; ATTEND Internal Medicine
PROC: 5A09357 Assistance with Respiratory Ventilation, Less than 24 Consecutive Hours, Continuous Positive Airway Pressure (ICD-10-PCS; principal; 2019-04-12)
DX: I11.0 Hypertensive heart disease with heart failure (principal); J18.9 Pneumonia, unspecified organism; J96.21 Acute and chronic respiratory failure with hypoxia; I48.1 Persistent atrial fibrillation; J44.0 Chronic obstructive pulmonary disease with (acute) lower respiratory infection; J44.1 Chronic obstructive pulmonary disease with (acute) exacerbation; J98.11 Atelectasis; R04.2 Hemoptysis; E03.9 Hypothyroidism, unspecified; E11.42 Type 2 diabetes mellitus with diabetic polyneuropathy; E11.51 Type 2 diabetes mellitus with diabetic peripheral angiopathy without gangrene; E66.01 Morbid (severe) obesity due to excess calories; Z68.30 Body mass index [BMI] 30.0-30.9, adult; E78.5 Hyperlipidemia, unspecified; F32.9 Major depressive disorder, single episode, unspecified; F43.10 Post-traumatic stress disorder, unspecified; G47.33 Obstructive sleep apnea (adult) (pediatric); I25.10 Atherosclerotic heart disease of native coronary artery without angina pectoris; I49.3 Ventricular premature depolarization; I50.23 Acute on chronic systolic (congestive) heart failure; J84.10 Pulmonary fibrosis, unspecified; R31.0 Gross hematuria; Z66 Do not resuscitate; Z51.5 Encounter for palliative care; Z79.01 Long term (current) use of anticoagulants; Z79.82 Long term (current) use of aspirin; Z79.84 Long term (current) use of oral hypoglycemic drugs; Z79.899 Other long term (current) drug therapy; Z82.49 Family history of ischemic heart disease and other diseases of the circulatory system; Z83.3 Family history of diabetes mellitus; Z95.810 Presence of automatic (implantable) cardiac defibrillator; Z95.1 Presence of aortocoronary bypass graft; Z95.5 Presence of coronary angioplasty implant and graft; Z99.81 Dependence on supplemental oxygen; L40.9 Psoriasis, unspecified; M19.90 Unspecified osteoarthritis, unspecified site; E04.1 Nontoxic single thyroid nodule; M10.9 Gout, unspecified; R26.9 Unspecified abnormalities of gait and mobility; Z87.01 Personal history of pneumonia (recurrent)
CPT/HCPCS: 36415; 70450; 71045; 71046; 71250; 80048; 80053; 80202; 83880; 84145; 84484; 85025; 85610; 85730; 87040; 93005; 94640; 94660; 94760; 96361; 96365; 96366; 96368; 96375; 99285

== ENCOUNTER 2019-04-17 18:09 | Inpatient (IN) | payer MEDICAID ==
[2019-04-17] MEDS ORDERED: ONDANSETRON 4 MG/2 ML VIAL IVP PRN (18:51)
[2019-04-17] MEDS ORDERED: ACETAMINOPHEN SUPPOSITORY 650 MG SUPP RECTAL PRN (18:51)
[2019-04-17] MEDS ORDERED: ATROPINE OPHTH SOLN 1% 5ML BTL SUBLINGUAL PRN (18:51)
[2019-04-17] MEDS ORDERED: LORazepam 2 MG/ML INJ IV PRN (18:51)
[2019-04-17] MEDS ORDERED: MORPHINE SULFATE 2 MG/ML SYRINGE IVP ONE (18:51)
[2019-04-17] MEDS ORDERED: BISACODYL 10 MG SUPP RECTAL PRN (18:58)
[2019-04-17] MEDS ORDERED: SCOPOLAMINE 1.5MG/72HR PATCH TRANSDERM SCH (19:00)
[2019-04-17] MEDS: MORPHINE SULFATE (100 MG/2 ML) 100 MG in SODIUM CHLORIDE 0.9% 100 ML IV SCH (19:32)
[2019-04-17] MEDS: MORPHINE SULFATE 2 MG/ML SYRINGE IV PRN ×4 (21:37→22:48)
[2019-04-17 22:42] VITALS: BMI 30.3
[2019-04-18] MEDS ORDERED: LORazepam 2 MG/ML INJ IV PRN (00:24)
[2019-04-18] MEDS: MORPHINE SULFATE (100 MG/2 ML) 100 MG in SODIUM CHLORIDE 0.9% 100 ML IV SCH ×2 (03:15→11:45)
[2019-04-18 10:03] VITALS: TEMP 98.4
[2019-04-18 11:11] VITALS: PULSE 82; RESP 14
--- NOTE | 2019-04-18 15:05 | PN ---
PROGRESS NOTE DATE OF SERVICE: 04/18/2019 This 73-year-old gentleman, admitted with shortness of breath, multifactorial, was found to have CHF, acute exacerbation, as well as pulmonary fibrosis, acute exacerbation. He is not improving. The patient is currently on hospice care. The patient is on morphine 14 mg/hour. Patient is being closely monitored. The patient is sedated. On exam, pulse 82, respiration 14. The patient is still on 6 L high-flow nasal cannula. HEENT: Conjunctivae normal. Oral mucosa moist. CARDIOVASCULAR SYSTEM: S1, S2 muffled. RESPIRATORY SYSTEM: Breath sounds diminished at the bases. A few scattered rhonchi. Expiratory wheezing. ABDOMEN: Soft. The patient is sedated. Labs are not available. ASSESSMENT: 1. Congestive heart failure, acute exacerbation, with acute on chronic systolic dysfunction, ejection fraction 30% to 35%. 2. Acute hypoxic respiratory failure secondary to congestive heart failure, acute exacerbation, as well as pulmonary fibrosis exacerbation requiring BiPAP. Also on high-flow oxygen. 3. Persistent atrial fibrillation, status post recent AICD upgrade. 4. Anticoagulation with Xarelto. 5. Chronic hypoxic respiratory failure, on home oxygen 3 L nasal cannula. 6. History of coronary artery disease, coronary artery bypass grafting. 7. History of diabetes mellitus, type 2. 8. History of hypertension. 9. History of hyperlipidemia. 10.History of hypothyroidism. 11.History of obstructive sleep apnea. 12.History of bilateral peripheral neuropathy. 13.Peripheral vascular disease with left leg iliac stent in 2018. 14.History of post-traumatic stress disorder. 15.Gait dysfunction. 16.FULL CODE. RECOMMENDATIONS AND DISCUSSION: I recommend to continue current medications, continue with the monitoring, symptomatic treatment, morphine drip. Continue the p.r.n. Ativan. Continue with comfort measures. Prognosis guarded. Further recommendations to follow. Discussed with the family. MMODL / IJN: [id number] /
--- NOTE | 2019-04-19 23:38 | DS ---
DISCHARGE SUMMARY PRIMARY CAUSE OF : Congestive heart failure acute exacerbation with acute on chronic systolic dysfunction ejection fraction 30 to 35% secondary to atherosclerotic coronary artery disease. OTHER DIAGNOSES: 1. Acute hypoxic respiratory failure secondary to congestive heart failure acute exacerbation as well as pulmonary fibrosis exacerbation requiring BiPAP. 2. Persistent atrial fibrillation status post recent AICD upgrade. 3. Anticoagulation with Xarelto. 4. Chronic hypoxic respiratory failure on home O2 3 L nasal cannula. 5. History of coronary artery disease, coronary artery bypass grafting. 6. History of diabetes type 2. 7. Hypertension. 8. Hyperlipidemia. 9. Hypothyroidism. 10.History of obstructive sleep apnea. 11.History of bilateral peripheral neuropathy. 12.Peripheral vascular disease with left leg iliac stent in 2018. 13.History of posttraumatic stress disorder. 14.Gait dysfunction. 15.NO CODE, NO CPR, NO VENT. 16.Hospice care. HISTORY OF PRESENT ILLNESS: This 73-year-old gentleman with a past medical history of multiple medical problems was admitted with shortness of breath and CHF acute exacerbation, multiple other medical problems. The patient treated with diuretics. Patient also had severe pulmonary fibrosis acute exacerbation. Despite intensive treatment, the patient's condition did not improve. Patient seen by multiple consultants including cardiology and pulmonology. Care was coordinated and the patient is also on high-dose IV Lasix. The chest x-ray continues to show significant changes so possibly combination of CHF and as well as pulmonary fibrosis. Patient was also on high-flow oxygen up to 14 L and otherwise the patient is on BiPAP also. Case discussed at length with the patient's family and the patient and family expressed wishes to proceed with comfort measures and hospice, which was continued and the patient succumbed to his above-mentioned medical illnesses. Prognosis remained extremely guarded throughout the hospital stay. MMODL / IJN: [id number] /
== END 2019-04-18 17:42 | disposition expired | DRG 951 ==
LOC: 3SCARD 19:21
PROVIDERS: ADMIT Internal Medicine; ATTEND Internal Medicine
DX: Z51.5 Encounter for palliative care (principal); I50.23 Acute on chronic systolic (congestive) heart failure; J96.21 Acute and chronic respiratory failure with hypoxia; I48.1 Persistent atrial fibrillation; I11.0 Hypertensive heart disease with heart failure; E03.9 Hypothyroidism, unspecified; E11.51 Type 2 diabetes mellitus with diabetic peripheral angiopathy without gangrene; E78.5 Hyperlipidemia, unspecified; F43.10 Post-traumatic stress disorder, unspecified; G47.33 Obstructive sleep apnea (adult) (pediatric); I25.10 Atherosclerotic heart disease of native coronary artery without angina pectoris; J84.10 Pulmonary fibrosis, unspecified; Z95.1 Presence of aortocoronary bypass graft; Z95.810 Presence of automatic (implantable) cardiac defibrillator; Z99.81 Dependence on supplemental oxygen; Z66 Do not resuscitate; Z95.828 Presence of other vascular implants and grafts; R26.9 Unspecified abnormalities of gait and mobility